=== PATIENT | female | born 1965 | race Caucasian/White ===

== ENCOUNTER 2022-08-26 22:18 | Inpatient (IN) ==
[2022-08-26] MEDS ORDERED: ALBUTEROL 0.083% NEBU SOLN 3 ML VIAL ONE (22:29)
[2022-08-26] MEDS ORDERED: ALBUT/IPRATROP 3MG/0.5MG NEB 3 ML VIAL NEB STA ×2 (22:30→23:26)
[2022-08-26] MEDS ORDERED: dexAMETHasone**PF** 10 MG/ML VIAL IV ONE (22:30)
[2022-08-26] MEDS ORDERED: ALBUT/IPRATROP 3MG/0.5MG NEB 3 ML VIAL ONE (22:31)
[2022-08-26] MEDS ORDERED: DEXAMETHASONE SOD INJ 4 MG/ML VIAL ONE (22:32)
[2022-08-26] MEDS ORDERED: NICOTINE 14 MG/24 HR PATCH TD STA (22:33)
[2022-08-26 23:12] LABS: Basophils # (auto) 0.08 K/uL (0-0.2); Basophils % (auto) 0.8 %; Eosinophils # (auto) 0.22 K/uL (0-0.50); Eosinophils % (auto) 2.2 %; Hemoglobin 14.9 g/dl (12.0-16.0); Immature Granulocytes # (auto) 0.04 K/uL (0.00-0.02); Immature Granulocytes % (auto) 0.4 %; Lymphocytes # (auto) 1.27 K/uL (1.2-3.4); Lymphocytes % (auto) 12.7 %; Mean Corpuscular Hgb Conc 33.9 g/dL (32.0-36.0); Mean Corpuscular Volume 88.5 fL (80.0-100.0); Monocytes # (auto) 0.96 K/uL (0.24-0.82); Monocytes % (auto) 9.6 %; Neutrophils # (auto) 7.46 K/uL (1.4-6.5); Neutrophils % (auto) 74.3 %; Platelet Count 330 K/uL (130-400); RDW Coefficient of Variation 13.2 % (11.5-14.5); RDW Standard Deviation 42.6 fL (36.4-46.3); Red Blood Count 4.97 M/uL (3.93-5.22); White Blood Count 10.03 K/ul (4.8-10.8)
[2022-08-26 23:18] LABS: Albumin Globulin Ratio 1.9 (0.9-2); BUN Creatinine Ratio 8.9 (10-20); Bilirubin,Total 1.2 mg/dl (0.2-1.0); Calcium 10.2 mg/dl (8.5-10.1); Creatinine Clr Calc Pharmacy 101.3 ml/min; Est GFR (African American) 118.3 ml/min; Est GFR (Non-African American) 102.1 ml/min; Globulin 2.6 gm/dl (2.5-4.0); Potassium 3.8 mmol/L (3.5-5.1); Total Protein 7.6 gm/dl (6.0-8.3)
[2022-08-26 23:21] LABS: Troponin I High Sensitivity 4.7 pg/ml (0-14)
[2022-08-26] MEDS ORDERED: SODIUM CHLORIDE 0.9% 1000ML 1,000 ML IV ONE (23:26)
[2022-08-26 23:52] LABS: Influenza A virus by PCR Negative (Neg); Influenza B virus by PCR Negative (Neg); RSV by PCR Negative (Neg); SARS CoV2 RNA(COVID-19) InHosp NEGATIVE (Negative)
[2022-08-27] MEDS ORDERED: OPTIRAY 320 500ml IV ONE (00:52)
[2022-08-27] MEDS ORDERED: ALBUT/IPRATROP 3MG/0.5MG NEB 3 ML VIAL NEB STA (01:03)
[2022-08-27] MEDS ORDERED: DOXYCYCLINE HYCLATE 100 MG in DEXTROSE 5% 100 ML IV STA (01:03)
--- NOTE | 2022-08-27 01:39 | History & Physical Report ---
Date of Service August 27, 2022 Assessment & Plan (1) Dyspnea: Plan: 57 y/o female w/ asthma, allergic rhinitis, atopic dermatitis, and tobacco use disorder who presents w/ dyspnea. - most likely asthma exacerbation vs copd exacerbation (w/o copd diagnosis); has elements of both. - CTA chest w/ peribronchial cuffing. not suggestive of PE. not suggestive of pneumonia - check procal - s/p 10mg IV Decadron. 40mg IV methylpred q8h - Xopenex/Atrovent nebs TID in setting of mild sinus tach - IV doxycycline BID, also would provide atypical coverage - continuous pulse ox. goal O2 90% or above - Mucinex - incentive spirom and flutter valve (2) Asthma with exacerbation: Plan: - hold home regimen; inpatient regimen as per above - outpatient PFTs, to also evaluate for copd (3) Hyponatremia: Plan: - check uosm - presumed hypotonic. euvolemic on exam. primary polydipsia and siadh would be most likely differentials - also considered Legionella infection (4) Tobacco use disorder: Plan: - nicotine patch - will need to diet counselor on tobacco cessation (5) Elevated blood pressure reading: Plan: - asymptomatic and w/o dx of htn. follow Plan FEN/GI: regular diet ppx: Lovenox code: full dispo: med/surg History of Present Illness Chief Complaint: shortness of breath Primary Care Provider: NO PCP 57 y/o female w/ asthma, allergic rhinitis, atopic dermatitis, and tobacco use disorder who presents w/ dyspnea. She follows [facility] allergy clinic w/ Dr. Moser. URI symptoms for a week w/ chest congestion, rhinorrhea nagging nonproductive cough. No fevers. States asthma is generally well controlled. Has had increased use of albuterol in past week. Smokes 1/4 to 1 ppd. Had pfts a few years ago. Denies dx of copd. She states she drinks a decent amount of water, but < 8 glasses per day. PCP was Dr. Brasher who has recently retired. Has had covid vaccines, but not booster. Mild headache. No chest pain or diarrhea. ED course: Duoneb. IV dexamethasone 10mg. NSS 1L. BP max 201/96. 87% on room air. ecg sinus tach 104 w/o ischemic changes. covid/flu/rsv neg. hypona 130. wbc 10.03. Allergies Allergy/AdvReac Type Severity Reaction Status Date / Time animal dander Allergy Unknown asthma Verified 08/27/22 01:24 related symptoms grass pollen-perennial rye, Allergy Unknown asthma Verified 08/27/22 01:24 standar related sx mold Allergy Unknown asthma Verified 08/27/22 01:24 related sx No Known Drug Allergies Allergy Unknown . Verified 08/27/22 03:33 Home Medications Medication Instructions Recorded Confirmed Type albuterol sulfate 90 mcg/actuation 1 inh inhalation QID PRN shortness 07/25/22 08/27/22 Rx aerosol inhaler (ProAir HFA) of breath or wheezing #18 grams fluticasone 100 mcg-salmeterol 50 1 inh inhalation BID 08/27/22 08/27/22 History mcg/dose blistr powdr for inhalation (Advair Diskus) Past Med/Surg History Medical History Asthma PNA (pneumonia) Surgical History History of surgical removal of ganglion cyst Family History Sister Asthma Allergic rhinitis Social History Smoking Status: Current every day smoker Tobacco Type: Cigarettes Hx Alcohol Use: Yes (occasional use) Hx Substance Use: No Preferred Language: Azeri marital status: current occupational status: employed Feels Safe at Home: Yes Review of Systems Review of Systems: All systems reviewed & are unremarkable except as noted in HPI & below Physical Exam Physical Exam: General: Grossly A&O. NAD. Cooperative. Receiving Duoneb breathing treatment at time of exam. HEENT: Atraumatic, normocephalic. EOMI Pulm: Slightly decreased air movement. Bases w/ mild expiratory mid-pitched wheezes vs transmitted upper airway sounds. No accessory muscle use. Cardiac: RRR, -mrg. No LE edema. Abdominal: Nontender, nondistended, soft. Integ: Warm, dry, intact. Msk: Moving all extrem. Results & Data Results & Data ([facility]) Vital Signs (Past 12 Hours) Vital Signs Temp Pulse Pulse Resp BP BP Pulse Ox 08/26/22 23:46 98 H 24 181/101 H 98 08/26/22 23:23 88 L 08/26/22 22:43 97 08/26/22 22:22 36.5 C 112 H 18 201/96 H 87 L O2 Del Method O2 Flow Rate 08/26/22 23:46 Nasal Cannula 3 08/26/22 23:23 Room Air 0 08/26/22 22:43 Nebulizer 08/26/22 22:22 Room Air Diagnostic Findings cxr w/o acute findings per my interpretation statrad. Preliminary Findings Only - See Final Report For Complete Findings CTA chest: Negative for PE. Peribronchial cuffing compatible with nonspecific bronchial inflammation/reactive airways disease. Subtle opacities at the lung bases likely reflect nonspecific atelectasis. No acute airspace disease or effusions noted. Radiologist: Arpit Bolton MD. Phone: [phone] Study ready at 00:50 and initial results transmitted at 00:59. Code Status & VTE Plan Code Status full VTE Prophylaxis Plan VTE Prophylaxis will be ordered: Yes Supervising Physician Co-Signing Physician Notes Attending addendum: I have physically seen this patient, have supervised the medical residents activities, and agree with the H&P unless as otherwise noted. Assessment and Plan: Asthma/COPD with exacerbation- Symptoms are significantly improved after ED treatment Received Decadron 10 mg IV from the ED. Placed on inpatient methylprednisolone 40 mg IV every 8 hours Nebulizers as noted Doxycycline 100 mg IV twice daily Guaifenesin extended release 12 mg p.o. twice daily Nasal cannula oxygen, titrate to keep pulse ox around 92%. Was initially 87% on room air Tobacco use disorder- Continue NicoDerm patch Cessation counseling Remaining orders and notations as noted Resident Activity Tracking Resident Involvement: Resident Care Provided Care Provided: Adult Hospital Medicine (1) Asthma with exacerbation Asthma persistence: persistent Asthma severity: severe Qualified Code(s): J45.51 - Severe persistent asthma with (acute) exacerbation
--- NOTE | 2022-08-27 02:54 | Emergency Department Note ---
History of Present Illness General Chief complaint: Respiratory Problems Stated complaint: TROUBLE BREATHING Time Seen by Provider: 08/26/22 22:26 History of Present Illness This 57-year-old who smokes with asthma presents to the ER complaining of shortness of breath Location: Chest Quality: Hard to breathe Severity: Moderate Duration: Past few days Timing: Started few days ago Context: Patient was concerned and came in Modifying factors: better with rest; worse with activity Patient states last time she felt like this she had double pneumonia. Patient denies chest pain, high fevers, vomiting, diarrhea, leg pain or swelling. She continues to smoke. No known history of COPD. She currently does not have a PCP. Home Medications Medication Instructions Recorded Confirmed Type albuterol sulfate 90 mcg/actuation 1 inh inhalation QID PRN shortness 07/25/22 08/27/22 Rx aerosol inhaler (ProAir HFA) of breath or wheezing #18 grams fluticasone 100 mcg-salmeterol 50 1 inh inhalation BID 08/27/22 08/27/22 History mcg/dose blistr powdr for inhalation (Advair Diskus) Allergies Allergy/AdvReac Type Severity Reaction Status Date / Time animal dander Allergy Unknown asthma Verified 08/27/22 01:24 related symptoms grass pollen-perennial rye, Allergy Unknown asthma Verified 08/27/22 01:24 standar related sx mold Allergy Unknown asthma Verified 08/27/22 01:24 related sx No Known Drug Allergies Allergy Unknown . Verified 08/27/22 03:33 Past Med/Surg History Medical History Asthma PNA (pneumonia) Surgical History History of surgical removal of ganglion cyst Family History Sister Asthma Allergic rhinitis Social History Smoking Status: Current every day smoker Tobacco Type: Cigarettes Cigarettes Per Day: 5-20 per day; Second Hand Exposure: No; Hx Alcohol Use: Yes Alcohol type: beer, wine and hard liquor Hx Substance Use: No Preferred Language: Qatari Communication Ability: Effective Corrections Caseworker Required: No Beliefs That Will Affect Care: None marital status: Single Current Living Situation: Alone current occupational status: employed Feels Safe at Home: Yes Assistive Devices: None Review of Systems A total of 10 systems reviewed and were otherwise negative Physical Exam Vital Signs Vital Signs - 24 hr 08/26/22 22:22 08/26/22 22:43 08/26/22 23:23 Temperature 36.5 C Temperature Source Temporal Artery Scan Pulse Rate 112 H Pulse Rate [Finger] Pulse Rhythm [Finger] Pulse Strength [Finger] Respiratory Rate 18 Respiratory Effort / Characteristics Non-Labored Spontaneous Respiratory Depth Normal Blood Pressure 201/96 H Blood Pressure [Right Arm] Blood Pressure Mean 131 Blood Pressure Mean [Right Arm] Blood Pressure Position Sitting Blood Pressure Position [Right Arm] Pulse Oximetry 87 L 97 88 L Oxygen Delivery Method Room Air Nebulizer Room Air Oxygen Flow Rate 0 Sepsis Recent Fever Within 48 Hours No Sepsis New/Unexplained Change in Mental Status No Sepsis Action Taken by Nursing No Action Required Oxygen Flow Rate - Titration 3 Pulse Oximetry Post Tiitration 93 08/26/22 23:46 08/27/22 02:03 Temperature Temperature Source Pulse Rate Pulse Rate [Finger] 98 H 100 H Pulse Rhythm [Finger] Regular Regular Pulse Strength [Finger] Normal Normal Respiratory Rate 24 22 Respiratory Effort / Characteristics Non-Labored Spontaneous Non-Labored Spontaneous Respiratory Depth Normal Normal Blood Pressure Blood Pressure [Right Arm] 181/101 H 155/113 H Blood Pressure Mean Blood Pressure Mean [Right Arm] 127 127 Blood Pressure Position Blood Pressure Position [Right Arm] Sitting Pulse Oximetry 98 93 Oxygen Delivery Method Nasal Cannula Nasal Cannula Oxygen Flow Rate 3 2 Sepsis Recent Fever Within 48 Hours Sepsis New/Unexplained Change in Mental Status Sepsis Action Taken by Nursing Oxygen Flow Rate - Titration Pulse Oximetry Post Tiitration PHYSICAL EXAM: Vital Signs: Reviewed Nurse's notes. Oxygen saturation was 88% on room air. GENERAL: Pleasant patient with audible wheeze, Alert, oriented and coherent. The patient barely able to speak in complete sentences. NECK: Supple, non-tender. CHEST: Symmetrical expansion. + retractions + accessory muscle use. HEART: Regular rate and normal heart sounds, LUNGS: Breath sounds equal but significantly diminished in intensity on both sides. Bilateral wheezes heard but no rales or pleuritic rub. SKIN: The skin was without rashes, erythema, edema, or bruising. There is no tenting of the skin. Capillary reflex less than 2 seconds. HEAD: Normocephalic atraumatic. EARS: External auditory canals clear, tympanic membranes pearly barrientos without erythema or effusion bilaterally. EYES: Pupils equal round and reactive to light and accommodation. Conjunctivae without injection, sclerae without icterus. Extraocular movements intact. NOSE: Patent, turbinates without inflammation or discharge. No sinus tenderness. MOUTH: Mucous membranes moist. Pharynx without erythema or exudate. Uvula midline. Airway patent. Tongue does not deviate. ABDOMEN: Positive bowel sounds x 4. Normal tympanic percussion. Soft, nontender, without masses or organomegaly. Bains sign negative. No guarding or rebound tenderness. MUSCULOSKELETAL: No muscle atrophy, erythema, or edema noted. NEURO: Patient was alert and oriented to person place and time. Normal sensation to light and sharp touch. No focal neurological deficits. Course Administered Medications Budesonide (Budesonide 0.5 Mg/2 Ml Vial (Pulmicort)) 0.5 mg NEB BIDR RJ Stop: 09/26/22 11:59 Last Admin: 08/27/22 19:21 Dose: 0.5 mg Documented By: Admin: 08/27/22 12:30 Dose: Not Given Documented By: [facility] Enoxaparin Sodium (Enoxaparin Inj 40 Mg/0.4 Ml Syr) 40 mg SQ QAM RJ Stop: 09/26/22 08:59 Last Admin: 08/27/22 09:03 Dose: Not Given Documented By: MINH Formoterol Fumarate (Formoterol 20 Mcg/2 Ml Vial) 20 mcg NEB BIDR RJ Stop: 09/26/22 11:59 Last Admin: 08/27/22 19:21 Dose: 20 mcg Documented By: Admin: 08/27/22 12:37 Dose: 20 mcg Documented By: [facility] Guaifenesin (Guaifenesin 600 Mg Tabcr) 600 mg PO Q12 RJ Stop: 09/26/22 08:59 Last Admin: 08/27/22 22:09 Dose: 600 mg Documented By: Admin: 08/27/22 05:59 Dose: 600 mg Documented By: MIGUEL Doxycycline Hyclate 100 mg/ (Dextrose) 110 mls @ 50 mls/hr IV Q12H RJ Stop: 09/03/22 13:59 Last Infusion: 08/28/22 04:12 Dose: 0 mls/hr Documented By: Admin: 08/28/22 02:00 Dose: 50 mls/hr Documented By: Infusion: 08/27/22 16:00 Dose: 0 mls/hr Documented By: Admin: 08/27/22 13:41 Dose: 50 mls/hr Documented By: MINH Ipratropium [place] (Ipratropium [place] Neb Soln 0.02% 2.5 Ml Vial) 0.5 mg INH TIDR RJ Stop: 09/26/22 06:59 Last Admin: 08/27/22 20:10 Dose: Not Given Documented By: Admin: 08/27/22 12:28 Dose: 0.5 mg Documented By: Admin: 08/27/22 07:00 Dose: 0.5 mg Documented By: ELIZ Levalbuterol HCl (Levalbuterol Hcl 0.63 Mg/3 Ml Neb) 0.63 mg NEB TIDR RJ Stop: 09/26/22 06:59 Last Admin: 08/27/22 20:09 Dose: Not Given Documented By: Admin: 08/27/22 12:28 Dose: 0.63 mg Documented By: Admin: 08/27/22 07:00 Dose: 0.63 mg Documented By: Sherwin Nicotine (Nicotine 14 Mg/24 Hr Patch) 14 mg TD QAM RJ Stop: 09/26/22 08:59 Last Admin: 08/27/22 09:03 Dose: 14 mg Documented By: MINH Discontinued Medications Albuterol (Albuterol 0.083% Nebu Soln 3 Ml Vial) Confirm Administered Dose 2.5 mg .ROUTE .STK-MED ONE Stop: 08/26/22 22:30 Last Admin: 08/26/22 22:44 Dose: 2.5 mg Documented By: JUAN A Albuterol (Albut/Ipratrop 3mg/0.5mg Neb 3 Ml Vial) 3 ml NEB NOW STA; Protocol Stop: 08/26/22 22:31 Last Admin: 08/26/22 22:44 Dose: Not Given Documented By: MES Albuterol (Albut/Ipratrop 3mg/0.5mg Neb 3 Ml Vial) Confirm Administered Dose 3 ml .ROUTE .STK-MED ONE Stop: 08/26/22 22:32 Last Admin: 08/26/22 22:44 Dose: 3 ml Documented By: JUAN A Albuterol (Albut/Ipratrop 3mg/0.5mg Neb 3 Ml Vial) 3 ml NEB NOW STA; Protocol Stop: 08/26/22 23:27 Last Admin: 08/26/22 23:34 Dose: 3 ml Documented By: SOCORRO Albuterol (Albut/Ipratrop 3mg/0.5mg Neb 3 Ml Vial) 3 ml NEB NOW STA; Protocol Stop: 08/27/22 01:04 Last Admin: 08/27/22 01:30 Dose: 3 ml Documented By: SOCORRO Dexamethasone (Dexamethasone Sod Inj 4 Mg/Ml Vial) Confirm Administered Dose 4 mg .ROUTE .STK-MED ONE Stop: 08/26/22 22:33 Last Admin: 08/26/22 22:44 Dose: Not Given Documented By: JUAN A Dexamethasone Sodium Phosphate (DexamethasonePf 10 Mg/Ml Vial) 10 mg IV NOW ONE Stop: 08/26/22 22:31 Last Admin: 08/26/22 22:44 Dose: 10 mg Documented By: JUAN A Sodium Chloride (Nss 1000ml) 1,000 mls @ 999 mls/hr IV .Q1H1M ONE Stop: 08/27/22 00:26 Last Infusion: 08/27/22 00:30 Dose: 0 mls/hr Documented By: Admin: 08/26/22 23:34 Dose: 999 mls/hr Documented By: SOCORRO Doxycycline Hyclate 100 mg/ (Dextrose) 110 mls @ 50 mls/hr IV NOW STA Stop: 08/27/22 03:14 Last Infusion: 08/27/22 03:58 Dose: 0 mls/hr Documented By: Admin: 08/27/22 01:58 Dose: 50 mls/hr Documented By: SOCORRO Ioversol (Optiray 320 500ml) 107 ml IV ONCE ONE Stop: 08/27/22 00:53 Last Admin: 08/27/22 00:52 Dose: 107 ml Documented By: DEMETRICE Miscellaneous (Remove Nicoderm Patch) 1 each N/A DAILY@0859 RJ Stop: 08/27/22 09:00 Last Admin: 08/27/22 09:03 Dose: 1 each Documented By: MINH Nicotine (Nicotine 14 Mg/24 Hr Patch) 14 mg TD NOW STA Stop: 08/26/22 22:34 Last Admin: 08/26/22 22:46 Dose: 14 mg Documented By: JUAN A Medical Decision Making Medical Records Attestation: I reviewed the patient's medical records. Home Medications Current Medication List: was personally reviewed by me Laboratory Data Attestation: I reviewed the patient's lab results. Result diagrams: 08/27/22 06:11 08/27/22 06:11 Lab Results 08/26/22 08/26/22 08/26/22 Range/Units 22:40 22:40 22:40 WBC 10.03 (4.8-10.8) K/ul RBC 4.97 (3.93-5.22) M/uL Hgb 14.9 (12.0-16.0) g/dl Hct 44.0 (34.1-44.9) % MCV 88.5 (80.0-100.0) fL MCH 30.0 (25.0-34.0) pg MCHC 33.9 (32.0-36.0) g/dL RDW Std Deviation 42.6 (36.4-46.3) fL RDW Coeff of Tea 13.2 (11.5-14.5) % Plt Count 330 (130-400) K/uL MPV 10.0 (9.4-12.3) fL Immature Gran % (Auto) 0.4 % Neut % (Auto) 74.3 % Lymph % (Auto) 12.7 % [place] % (Auto) 9.6 % Eos % (Auto) 2.2 % Baso % (Auto) 0.8 % Neut # (Auto) 7.46 H (1.4-6.5) K/uL Lymph # (Auto) 1.27 (1.2-3.4) K/uL [place] # (Auto) 0.96 H (0.24-0.82) K/uL Eos # (Auto) 0.22 (0-0.50) K/uL Baso # (Auto) 0.08 (0-0.2) K/uL Immature Gran # (Auto) 0.04 H (0.00-0.02) K/uL Sodium 130 L (136-145) mmol/L Potassium 3.8 (3.5-5.1) mmol/L Chloride 97 L (98-107) mmol/L Carbon Dioxide 25 (21-32) mmol/L Anion Gap 8 (3-11) BUN 5 L (6-23) mg/dl Creatinine 0.56 L (0.6-1.2) mg/dl Est Cr Clr Drug Dosing 101.3 ml/min Est GFR ( Amer) 118.3 ml/min Est GFR (Non-Af Amer) 102.1 ml/min BUN/Creatinine Ratio 8.9 L (10-20) Glucose 108 H (70-99(Fasting)) mg/dl Calcium 10.2 H (8.5-10.1) mg/dl Total Bilirubin 1.2 H (0.2-1.0) mg/dl AST 22 (13-39) U/L ALT 19 (7-52) U/L Alkaline Phosphatase 61 (34-104) U/L Troponin I High Sens 4.7 (0-14) pg/ml Total Protein 7.6 (6.0-8.3) gm/dl Albumin 5.0 (3.4-5.0) gm/dl Globulin 2.6 (2.5-4.0) gm/dl Albumin/Globulin Ratio 1.9 (0.9-2) SARS-CoV-2 (PCR) NEGATIVE (Negative) Influenza Type A (PCR) Negative (Neg) Influenza Type B (PCR) Negative (Neg) RSV (RT-PCR) Negative (Neg) Imaging Data Attestation: I personally reviewed and interpreted this imaging study as follows: MDM Narrative Prior records/ancillary studies reviewed. Triage Nursing notes reviewed. Additional history obtained from nursing The patient's history was concerning for respiratory difficulties. Differential diagnosis: Etiologies such as infections, reactive airway disease, pneumonia, pneumothorax, COPD, CHF, cardiac ischemia, pulmonary embolism, musculoskeletal, gastrointestinal, as well as others were entertained. Physical examination: As above. ER treatment provided: An order was placed for continuous cardiac monitoring. The monitor shows a rate of 60-1 50 with a sinus rhythm. Nebulizers, steroids, nicotine patch, doxycycline On reassessment the patient felt better. Diagnostic interpretation by me: The electrocardiogram was negative for acute ischemic or pathologic change. Ordered for dyspnea EKG: Normal sinus, normal intervals, no acute ST-T wave changes. Impression sinus tachycardia of 104 interpreted by myself I think arrhythmia is unlikely. EKG shows normal sinus rhythm with no interval abnormalities such as QT prolongation or WPW. There are no findings to suggest Brugada syndrome. Cardiac monitoring in the emergency department reveals no tachycardic or bradycardic dysrhythmia. Hypertrophic cardiomyopathy was considered but there are no clear historical elements pointing toward this. EKG is not suggestive. The QRS voltage is not extremely large and there are no suggestive Q waves. The labs revealed negative troponin, negative COVID Imaging studies: Chest x-ray with no acute consolidation, pneumothorax or free air per my interpretation CTA CHEST: Negative for PE Peribronchial cuffing compatible with nonspecific bronchial inflammation/reactive airways disease Subtle opacities at the lung bases likely reflect nonspecific atelectasis. No acute airspace disease or effusions noted Radiologist: Arpit Bolton MD Consultation: A consultation was placed with the hospitalist. The case was discussed and diagnostics were reviewed. The patient was evaluated in the ER for further treatment. This appears to be consistent with asthma exacerbation who is hypoxic. There probably is a COPD component in this. Patient was hypoxic on room air. She improved with nasal cannula. Medicine was consulted. She will be evaluated for admission. Patient started on doxycycline for possible secondary infection. No PE on imaging. By the evaluation outlined above emergent etiologies such as CHF, cardiac ischemia, pulmonary embolism, pneumothorax, musculoskeletal, serious bacterial infections, as well as others were deemed relatively unlikely. The pt informed about the findings as listed above. All questions were answered and pleased with the treatment. The chart was completed utilizing [employer] Speech voice recognition software. Grammatical errors, random word insertions, pronoun errors, and incomplete sentences are an occassional consequence of this system due to software limitations, ambient noise, and hardware issues. Any formal questions or concerns about the content, text, or information contained within the body of this dictation should be directly addressed to the physician surgical assistant certified for clarification. Impression & Plan Asthma with exacerbation, Hypoxemia Discharge Plan Visit Data Chief Complaint: Respiratory Problems Stated Complaint: TROUBLE BREATHING ED Provider: Aaron Hardin ED Midlevel Provider: Caryl Martinez Discharge Problem: Asthma with exacerbation, Hypoxemia Patient Disposition: Admitted As Inpatient Condition: Fair Discharge Instructions Interventions: ED Discharge Assessment Last Done: 08/27/22 04:27 : Asthma with exacerbation Qualifiers: Asthma severity: severe Asthma persistence: persistent Qualified Code(s): J45.51 - Severe persistent asthma with (acute) exacerbation
--- NOTE | 2022-08-27 04:27 | Billing Data ---
Date of Service August 27, 2022 Coding Level of Care Code 31374 Initial Inpt Care Lvl 2
[2022-08-27] MEDS ORDERED: ONDANSETRON INJ 2 MG/ML 2 ML VIAL IV PRN (04:53)
[2022-08-27] MEDS ORDERED: ACETAMINOPHEN 325 MG TAB PO PRN (04:53)
[2022-08-27] MEDS: guaiFENesin 600 MG TABCR PO SCH ×2 (05:59→22:09)
[2022-08-27] MEDS ORDERED: Flu Vaccine (Fluarix) 0.5mL SYR (Standard Dose) IM ONE (06:15)
[2022-08-27] MEDS ORDERED: Nursing to Pharmacy Communication SCH (06:30)
[2022-08-27 06:32] LABS: Base Excess VBG 0.3 mEq/L; HCO3 VBG 27 mmol/L; Oxygen Saturation VBG < 60.0 %; PCO2 VBG 48 mmHg (38-50); PO2 VBG 28 mmHg; pH VBG 7.35 (7.36-7.41)
[2022-08-27 06:36] LABS: Hematocrit (blood only) 43.6 % (34.1-44.9); Hemoglobin 15.1 g/dl (12.0-16.0); Mean Corpuscular Hemoglobin 30.3 pg (25.0-34.0); Mean Corpuscular Hgb Conc 34.6 g/dL (32.0-36.0); Mean Corpuscular Volume 87.4 fL (80.0-100.0); Mean Platelet Volume 9.5 fL (9.4-12.3); Platelet Count 333 K/uL (130-400); RDW Coefficient of Variation 13.2 % (11.5-14.5); RDW Standard Deviation 42.2 fL (36.4-46.3); Red Blood Count 4.99 M/uL (3.93-5.22); White Blood Count 4.68 K/ul (4.8-10.8)
[2022-08-27] MEDS: LEVALBUTEROL HCL 0.63 MG/3 ML NEB NEB SCH ×3 (07:00→20:09)
[2022-08-27] MEDS ORDERED: XOPENEX/ATROVENT 0.63mg/0.5MG NEB COMBO NEB SCH ×2 (07:00)
[2022-08-27] MEDS: IPRATROPIUM BROMIDE NEB SOLN 0.02% 2.5 ML VIAL INH SCH ×3 (07:00→20:10)
[2022-08-27 07:01] LABS: Albumin Globulin Ratio 1.7 (0.9-2); Albumin Level 4.7 gm/dl (3.4-5.0); BUN Creatinine Ratio 9.6 (10-20); Bilirubin,Total 0.9 mg/dl (0.2-1.0); Est GFR (African American) 121.2 ml/min; Est GFR (Non-African American) 104.6 ml/min; Globulin 2.8 gm/dl (2.5-4.0); Magnesium 2.2 mg/dl (1.7-2.4); Potassium 4.2 mmol/L (3.5-5.1); Total Protein 7.5 gm/dl (6.0-8.3)
[2022-08-27 07:13] LABS: Basophils # (auto) 0.01 K/uL (0-0.2); Basophils % (auto) 0.2 %; Immature Granulocytes # (auto) 0.01 K/uL (0.00-0.02); Immature Granulocytes % (auto) 0.2 %; Lymphocytes # (auto) 0.32 K/uL (1.2-3.4); Lymphocytes % (auto) 6.8 %; Monocytes # (auto) 0.06 K/uL (0.24-0.82); Monocytes % (auto) 1.3 %; Neutrophils # (auto) 4.28 K/uL (1.4-6.5); Neutrophils % (auto) 91.5 %
--- NOTE | 2022-08-27 07:23 | Communication Note ---
Date of Service: August 27, 2022 patient requested flu vaccine. will defer for now in setting of URI vs copd/asthma exac. please administer flu vaccine prior to discharge
--- NOTE | 2022-08-27 08:24 | Electrocardiogram Report ---
Test Reason : Blood Pressure : / mmHG Vent. Rate : 104 BPM Atrial Rate : 104 BPM P-R Int : 158 ms QRS Dur : 080 ms QT Int : 362 ms P-R-T Axes : 078 -14 076 degrees QTc Int : 476 ms Poor data quality, interpretation may be adversely affected Sinus tachycardia Right atrial enlargement Borderline ECG No previous ECGs available Confirmed by Froilan Mendoza ([id number]) on 08/27/2022 8:23:58 AM Referred By: REFERRED SELF Confirmed By:Froilan Mendoza
--- NOTE | 2022-08-27 08:30 | CT Scan Report ---
CHEST CTA for PULMONARY ARTERIES CT DOSE: 271.26 mGy.cm HISTORY: Sutures of breath. Hypoxia. TECHNIQUE: Multiaxial CT images of the chest were performed following the intravenous administration of contrast to evaluate the pulmonary arteries. Maximal intensity projection images were also obtaine d. A dose lowering technique was utilized adhering to the principles of ALARA. COMPARISON STUDY: None. FINDINGS: The visualized liver, spleen, and adrenal glands unremarkable. There is trace perisplenic f luid. There is a small hiatus hernia. Normal esophagus. The thyroid gland enhances normally. No media stinal or hilar lymphadenopathy. No pleural or pericardial effusions. Normal caliber thoracic aorta w ith no evidence for dissection. No filling defects within the pulmonary arteries to suggest a pulmona ry embolus. No acute fractures identified. The central airways are patent. There are few scattered sm all patchy groundglass densities seen within the lungs. There is mild bronchial wall thickening. IMPRESSION: 1. No evidence for pulmonary embolus. 2. Mild bronchial wall thickening with a few scattered patchy groundglass densities seen throughout t he lungs. This favors a mild infectious pneumonitis. 3. Small hiatus hernia. ACT 112: Negative or not required by law. Electronically signed by: Chaim Veronica M.D. 08/27/2022 8:29 AM
[2022-08-27] MEDS: NICOTINE 14 MG/24 HR PATCH TD SCH (09:03)
[2022-08-27] MEDS: ENOXAPARIN INJ 40 MG/0.4 ML SYR SQ SCH (09:03)
--- NOTE | 2022-08-27 09:08 | XRay Report ---
XR chest 1V portable HISTORY: cough COMPARISON: Chest 12/16/2014. FINDINGS: The lungs are clear. Cardiac silhouette is normal in size. No pleural effusions. No pneumot horax. IMPRESSION: No acute process. ACT 112: Negative or not required by law. Electronically signed by: Chaim Veronica M.D. 08/27/2022 9:07 AM
--- NOTE | 2022-08-27 11:59 | History & Physical Bridge Note ---
Date of Service August 27, 2022 History & Physical Bridge Note I have examined the patient, reviewed the History & Physical and in the interval since the performance of the History & Physical I have noted the following changes of clinical significance: Patient seen on daily rounds this morning. Pt hospitalized with dyspnea which is felt to be related to aecopd/asthma. She reports last PFTs done in 2019, does not have an appt with Dr. Moser until Jul 2023. She currently takes Advair and prn Albuterol HFA. 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 Does not normally wear home O2, currently on 2L with a pulse ox of 94%. Does have a dry cough. VSS, afebrile. Examination reveals fair air exchange, no conversational dyspnea, and end expiratory wheezes throughout, no rhonchi or rales. Heart is regular. Legs w/o edema. Belly soft NT ND with normoactive BS. Will add nebulized Budesonide and Formoterol BID. Continue IV solumedrol, mucinex, and scheduled Xopenex/Atrovent. Keep pulse ox 89-92% - can wean O2 with this goal in mind. Pt will need PFTs in about 4-6 weeks. Plan d/w Dr. Arizmendi.
[2022-08-27] MEDS: BUDESONIDE 0.5 MG/2 ML VIAL (PULMICORT) NEB SCH ×2 (12:30→19:21)
[2022-08-27] MEDS: FORMOTEROL 20 MCG/2 ML VIAL NEB SCH ×2 (12:37→19:21)
[2022-08-27] MEDS: DOXYCYCLINE HYCLATE 100 MG in DEXTROSE 5% 100 ML IV SCH (13:41)
[2022-08-28] MEDS: DOXYCYCLINE HYCLATE 100 MG in DEXTROSE 5% 100 ML IV SCH (02:00)
[2022-08-28] MEDS: BUDESONIDE 0.5 MG/2 ML VIAL (PULMICORT) NEB SCH ×2 (07:18→19:10)
[2022-08-28] MEDS: FORMOTEROL 20 MCG/2 ML VIAL NEB SCH ×2 (07:19→19:10)
[2022-08-28] MEDS: IPRATROPIUM BROMIDE NEB SOLN 0.02% 2.5 ML VIAL INH SCH ×3 (07:19→19:12)
[2022-08-28] MEDS: LEVALBUTEROL HCL 0.63 MG/3 ML NEB NEB SCH ×3 (07:19→19:12)
[2022-08-28] MEDS: guaiFENesin 600 MG TABCR PO SCH ×2 (08:39→21:16)
[2022-08-28] MEDS: ENOXAPARIN INJ 40 MG/0.4 ML SYR SQ SCH (08:40)
[2022-08-28] MEDS: NICOTINE 14 MG/24 HR PATCH TD SCH (08:40)
[2022-08-28] MEDS ORDERED: levoFLOXacin 500 MG TAB PO STA (12:01)
--- NOTE | 2022-08-28 12:04 | Discharge Summary ---
Date of Service August 28, 2022 Admission HPI Per Admitting Provider 57 y/o female w/ asthma, allergic rhinitis, atopic dermatitis, and tobacco use disorder who presents w/ dyspnea. She follows [facility] allergy clinic w/ Dr. Moser. URI symptoms for a week w/ chest congestion, rhinorrhea nagging nonproductive cough. No fevers. States asthma is generally well controlled. Has had increased use of albuterol in past week. Smokes 1/4 to 1 ppd. Had pfts a few years ago. Denies dx of copd. She states she drinks a decent amount of water, but < 8 glasses per day. PCP was Dr. Brasher who has recently retired. Has had covid vaccines, but not booster. Mild headache. No chest pain or diarrhea. ED course: Duoneb. IV dexamethasone 10mg. NSS 1L. BP max 201/96. 87% on room air. ecg sinus tach 104 w/o ischemic changes. covid/flu/rsv neg. hypona 130. wbc 10.03. Discharge Data Allergies Allergy/AdvReac Type Severity Reaction Status Date / Time animal dander Allergy Unknown asthma Verified 08/27/22 01:24 related symptoms grass pollen-perennial rye, Allergy Unknown asthma Verified 08/27/22 01:24 standar related sx mold Allergy Unknown asthma Verified 08/27/22 01:24 related sx No Known Drug Allergies Allergy Unknown . Verified 08/27/22 03:33 Consultations 08/27/22 01:03 ED Decision to Admit Stat Ordered Studies 08/26/22 23:28 CT angio chest PE protocol Stat Hospital Course (1) Dyspnea: 57 y/o female w/ asthma, allergic rhinitis, atopic dermatitis, and tobacco use disorder who presents w/ dyspnea. - most likely asthma exacerbation vs copd exacerbation (w/o copd diagnosis); has elements of both. - CTA chest w/ peribronchial cuffing. not suggestive of PE. not suggestive of pneumonia - check procal - s/p 10mg IV Decadron. 40mg IV methylpred q8h - Xopenex/Atrovent nebs TID in setting of mild sinus tach - IV doxycycline BID, also would provide atypical coverage - continuous pulse ox. goal O2 90% or above - Mucinex - incentive spirom and flutter valve (2) Asthma with exacerbation: - hold home regimen; inpatient regimen as per above - outpatient PFTs, to also evaluate for copd (3) Hyponatremia: - check uosm - presumed hypotonic. euvolemic on exam. primary polydipsia and siadh would be most likely differentials - also considered Legionella infection (4) Tobacco use disorder: - nicotine patch - will need to classification counselor on tobacco cessation (5) Elevated blood pressure reading: - asymptomatic and w/o dx of htn. follow Plan FEN/GI: regular diet ppx: Lovenox code: full dispo: med/surg Discharge Plan Discharge Items Patient Disposition: Home - Self-Care Reason For Visit: DYSPNEA Discharge Diagnosis: asthma exacerbation questionable chronic obstructive lung disease Condition on Discharge: Fair Activity: Resume your previous activity Non-emergency contact: Primary Care Provider Call non-emergency contact if: you have any medication questions Follow-up/Referrals: PCPNANCY [Primary Care Provider] - Diet: Regular Addtl Attending Provider Instructions: You were hospitalized due to shortness of breath. Your work up demonstrated some evidence of infection in your lungs and subsequently you were started on antibiotics, breathing treatments, and steroids, as well as oxygen. You have responded well to treatment and have been able to be weaned off of oxygen. Given your tobacco use, I suspect that you may have some underlying chronic obstructive lung disease in addition to your asthma. This cannot be confirmed based on suspicion alone, therefore you will need to have formal pulmonary function testing done to confirm or exclude this diagnosis. In the meantime, I am arranging for you to get a nebulizer to use consistently four times a day over the next 48-72 hours. After that, you can use the treatments every 4 hours as needed for shortness of breath or wheezing. Duoneb treatments have been sent to your pharmacy. You will need to continue the steroid taper as directed. Take with food first thing in the morning. Please also complete the course of antibiotics prescribed. You are being sent home on Levaquin 500mg daily for 7 days total. Your next dose will be due on 08/29/22 in the morning. I would also encourage you to continue taking Mucinex for the next 5-7 days. I would encourage you to remain off work for the rest of this week just to ensure that you are well rested prior to returning. Please follow up with your established family physician within 1 week of discharge from the hospital. If you have any questions/concerns following your discharge, feel free to contact the nonemergen contact number listed on your discharge paperwork. In the event of a medical emergency, call 911. Pending Studies at Discharge: No Stand-Alone Forms: My [facility], Smoking Cessation Medications and DC Order Prescriptions: New ipratropium-albuterol 0.5 mg-3 mg(2.5 mg base)/3 mL solution for nebulization 3 ml inhalation Q4H PRN (Reason: shortness of breath) Qty: 180 0RF Rx Instructions: until breathing returns to target peak flow/parameters prednisone 10 mg tablet 10 mg PO DAILY Qty: 30 0RF Rx Instructions: 4 tabs daily x 3 days, 3 tabs daily x 3 days, 2 tabs daily x 3 days, 1 tab daily x 3 days then stop levofloxacin 500 mg tablet 500 mg PO DAILY Qty: 6 0RF Continued albuterol sulfate [ProAir HFA] 90 mcg/actuation HFA aerosol inhaler 1 inh inhalation QID PRN (Reason: shortness of breath or wheezing) Qty: 18 11RF fluticasone propion-salmeterol [Advair Diskus] 100-50 mcg/dose blister with device 1 inh INHALATION BID Admission Data Admit Date/Time: 08/27/22 02:56 Attending Provider: Rashawn Craft Admit Provider: Jose Rivera Primary Care Provider: PCP,NO Other Providers: Alec Moser ; Cruz Florez Coding Diagnoses Dyspnea R06.00 Asthma with exacerbation J45.51 Asthma persistence: persistent Asthma severity: severe Hyponatremia E87.1 Tobacco use disorder F17.200 Elevated blood pressure reading R03.0
--- NOTE | 2022-08-28 13:47 | Hospitalist Progress Note ---
Date of Service August 28, 2022 Assessment & Plan (1) Pneumonitis: Plan: With associated dyspnea and hypoxia - Likely due to infectious source - Aggressive pulmonary toilette including pulmicort, formoterol, mucolytics, and steroids - Initially ordered Doxycycline, given evidence of infection with underlying tobacco use/asthma and ? copd, change to Levaquin - Does not have a prolonged QTc on EKG - Levaquin 500mg daily x total of 7 days - Supplemental O2 with goal sat 88-92% - Two-step in AM - Will need updated PFTs in 4-6 weeks to exclude or confirm obstructive lung disease pattern (2) Hyponatremia: Plan: - Mild, 133 on 08/27, stable (3) Tobacco use disorder: Plan: - Cessation counseling provided - Nicotine patch ordered (4) Asthma: Plan: - Long standing h/o asthma and allergic rhinitis - Follow up with Dr. Moser as scheduled Plan Plan to maintain hospitalization for another 24 hours as she is still borderline hypoxic with ambulation. Pt would prefer not to have to return home on supplemental O2. Two step in AM. Plan d/w Dr. Craft. Admission and Anticipated Discharge Date Admission Date: August 27, 2022 Subjective Patient seen on daily rounds this morning. She is resting comfortably in bed and offers no new complaints or concerns. Reports breathing is improved. Only gets mildly short of breath with walking distances. RN performed ambulatory pulse ox and she dipped to 87%. She did recover with rest. Review of Systems Review of Systems: All systems reviewed and are unremarkable except as noted in HPI and below. Denies fever, chills, fatigue, headache, nasal congestion, sore throat, chest pain, palpitations, orthopnea, PND, abdominal pain, n/v/d, constipation, dysuria, hematuria, frequency, back pain, joint pain or swelling, easy bruising or bleeding, skin lesions or rashes. Physical Exam Physical Exam: GENERAL: 57 yo Well-developed, well-nourished WF. NAD. LUNGS: No conversational dyspnea. Good air exchange. Late end expiratory wheezes appreciated in all lung brandon. CARDIOVASCULAR: Regular rate and rhythm. ABDOMEN: Soft, non-tender and non-distended. BS normoactive x 4 quad. EXTREMITIES: No edema. Non-tender. Peripheral pulses +2/4. NEUROLOGIC: A&O x3. PSYCHIATRIC: Cooperative. Appropriate mood and affect. SKIN: Warm, dry, intact. Results & Data Results & Data ([facility]) Vital Signs (Past 12 Hours) Vital Signs Temp Pulse Resp Resp Resp Resp BP 08/28/22 13:16 80 16 08/28/22 11:10 22 20 16 08/28/22 09:00 08/28/22 08:27 36.8 C 67 16 138/80 08/28/22 07:21 76 18 08/28/22 04:05 Pulse Ox Pulse Ox Pulse Ox Pulse Ox O2 Del Method 08/28/22 13:16 92 Room Air 08/28/22 11:10 87 L 91 94 Room Air 08/28/22 09:00 Room Air 08/28/22 08:27 94 Room Air 08/28/22 07:21 92 Room Air 08/28/22 04:05 Room Air PG Care Time/CCT Total # of Minutes Spent Total Time Spent with Patient: Total time spent is greater than 50% in coordination of care (as documented) at patient's floor/unit and/or counseling patient: Coding Level of Care Code 65137 Subseq Hosp Care Lvl 2 Diagnoses Pneumonitis J18.9 Hyponatremia E87.1 Tobacco use disorder F17.200 Asthma J45.909
[2022-08-29] MEDS: IPRATROPIUM BROMIDE NEB SOLN 0.02% 2.5 ML VIAL INH SCH ×2 (07:25→12:23)
[2022-08-29] MEDS: BUDESONIDE 0.5 MG/2 ML VIAL (PULMICORT) NEB SCH (07:25)
[2022-08-29] MEDS: LEVALBUTEROL HCL 0.63 MG/3 ML NEB NEB SCH ×2 (07:25→12:23)
[2022-08-29] MEDS: FORMOTEROL 20 MCG/2 ML VIAL NEB SCH (07:25)
[2022-08-29] MEDS: NICOTINE 14 MG/24 HR PATCH TD SCH (08:11)
[2022-08-29] MEDS: ENOXAPARIN INJ 40 MG/0.4 ML SYR SQ SCH (08:13)
[2022-08-29] MEDS: guaiFENesin 600 MG TABCR PO SCH (09:00)
[2022-08-29] MEDS ORDERED: levoFLOXacin 500 MG TAB PO SCH (11:00)
--- NOTE | 2022-08-29 14:52 | Discharge Summary ---
Date of Service August 29, 2022 Admission HPI Per Admitting Provider Chief Complaint: shortness of breath Primary Care Provider: NO PCP 57 y/o female w/ asthma, allergic rhinitis, atopic dermatitis, and tobacco use disorder who presents w/ dyspnea. She follows [facility] allergy clinic w/ Dr. Moser. URI symptoms for a week w/ chest congestion, rhinorrhea nagging nonproductive cough. No fevers. States asthma is generally well controlled. Has had increased use of albuterol in past week. Smokes 1/4 to 1 ppd. Had pfts a few years ago. Denies dx of copd. She states she drinks a decent amount of water, but < 8 glasses per day. PCP was Dr. Brasher who has recently retired. Has had covid va ccines, but not booster. Mild headache. No chest pain or diarrhea. ED course: Duoneb. IV dexamethasone 10mg. NSS 1L. BP max 201/96. 87% on room air. ecg sinus tach 104 w/o ischemic changes. covid/flu/rsv neg. hypona 130. wbc 10.03.Allergies Admission Exam Per Admitting Provider Physical Exam: General: Grossly A&O. NAD. Cooperative. Receiving Duoneb breathing treatment at time of exam. HEENT: Atraumatic, normocephalic. EOMI Pulm: Slightly decreased air movement. Bases w/ mild expiratory mid-pitched wheezes vs transmitted upper airway sounds. No accessory muscle use. Cardiac: RRR, -mrg. No LE edema. Abdominal: Nontender, nondistended, soft. Integ: Warm, dry, intact. Msk: Moving all extrem. Principal Diagnosis Shortness of breath Discharge Exam GENERAL : No acute distress EYES: No icterus, gaze conjugate NOSE: No evidence of epistaxis MOUTH: No lesions or candidiasis NECK: Supple LUNGS: CTA B/L, no wheezes, rales or rhonchi. Good inspirational effort. Breath sounds equal to the bases. HEART: Regular, rate controlled ABDOMEN: Soft, NT, ND, BS Present EXTREMITIES: No LE edema, pedal pulses intact NEURO: A&OX3 Discharge Data Allergies Allergy/AdvReac Type Severity Reaction Status Date / Time animal dander Allergy Unknown asthma Verified 08/27/22 01:24 related symptoms grass pollen-perennial rye, Allergy Unknown asthma Verified 08/27/22 01:24 standar related sx mold Allergy Unknown asthma Verified 08/27/22 01:24 related sx No Known Drug Allergies Allergy Unknown . Verified 08/27/22 03:33 Consultations 08/27/22 01:03 ED Decision to Admit Stat Ordered Studies 08/26/22 23:28 CT angio chest PE protocol Stat CHEST CTA for PULMONARY ARTERIES CT DOSE: 271.26 mGy.cm HISTORY: Sutures of breath. Hypoxia. TECHNIQUE: Multiaxial CT images of the chest were performed following the intravenous administration of contrast to evaluate the pulmonary arteries. Maximal intensity projection images were also obtained. A dose lowering technique was utilized adhering to the principles of ALARA. COMPARISON STUDY: None. FINDINGS: The visualized liver, spleen, and adrenal glands unremarkable. There is trace perisplenic fluid. There is a small hiatus hernia. Normal esophagus. The thyroid gland enhances normally. No mediastinal or hilar lymphadenopathy. No pleural or pericardial effusions. Normal caliber thoracic aorta with no evidence for dissection. No filling defects within the pulmonary arteries to suggest a pulmonary embolus. No acute fractures identified. The central airways are paten t. There are few scattered small patchy groundglass densities seen within the lungs. There is mild bronchial wall thickening. IMPRESSION: 1. No evidence for pulmonary embolus. 2. Mild bronchial wall thickening with a few scattered patchy groundglass densities seen throughout the lungs. This favors a mild infectious pneumonitis. 3. Small hiatus hernia. ACT 112: Negative or not required by law. Electronically signed by: Chaim Veronica M.D. 08/27/2022 8:29 AM Hospital Course (1) Pneumonitis: Patient presented with dyspnea and was found to have pneumonitis on imaging. CT scan was completed and showed no evidence of pulmonary emboli. Patient was given IV antibiotics for total of 7 days and improved significantly. Patient is followed with Dr. Moon and with Dr. Moser for allergy in the past. Most recent pulmonary function testing was performed 03/25/2017 and showed mild obstructive small airway disease with an FEV1 of 87%. FEF 25-75% was 1.97 L which was 70% of predicted. Patient's last visit for allergy was with Dr. Moser 07/25/2022. With associated dyspnea and hypoxia - Likely due to infectious source - Aggressive pulmonary toilette including pulmicort, formoterol, mucolytics, and steroids was effective in improving patient's symptoms. - Initially ordered Doxycycline, given evidence of infection with underlying tobacco use/asthma and ? copd, change to Levaquin - Does not have a prolonged QTc on EKG - Levaquin 500mg daily x total of 7 days - Supplemental O2 with goal sat 88-92% -Patient was personally walked by me for more than 400 feet with no hypoxia on room air. -Suggested the patient discuss obtaing updated PFTs. Patient was advised to follow-up with Dr. Moser as she just saw him last month for his advice. * Most recent pulmonary function tests from 03/25/2017 are are at the end of this note. (2) Hyponatremia: - Mild, 133 on 08/27, stable (3) Tobacco use disorder: - Cessation counseling provided -Prescription for nicotine patch sent to the patient's pharmacy. She states that she is motivated to stop smoking secondary to this event. (4) Asthma: - Long standing h/o asthma and allergic rhinitis - Follow up with Dr. Moser as scheduled Plan Patient discharged without need for supplemental oxygen. She is advised to follow-up with Dr. Moser regarding further pulmonary work-up versus asthmatic work-up and discuss benefit of updated pulmonary function testing. Total Time Total Time Spent Total Time Spent (In Minutes): 45 Discharge Plan Discharge Items Patient Disposition: Home - Self-Care Reason For Visit: DYSPNEA Discharge Diagnosis: asthma exacerbation Mild COPD Condition on Discharge: Fair Activity: Resume your previous activity Lifting: Gradually increase as tolerated Bathing: No limitations Exercise/Sports: Gradually increase as tolerated Driving/Machine Use: No limitations Weightbearing: Full weightbearing Non-emergency contact: Primary Care Provider Call non-emergency contact if: you have any medication questions Follow-up/Referrals: Everette Leija DO [Physician] - 09/14/22 9:45 am PCP,NO [Primary Care Provider] - Diet: Regular Addtl Attending Provider Instructions: You were hospitalized due to shortness of breath. Your work up demonstrated some evidence of inflammation in your lungs and subsequently you were started on antibiotics, breathing treatments, and steroids, as well as oxygen. You have responded well to treatment and have been able to be weaned off of oxy gen. You maintained oxygen saturations greater than 92% with walking. Pulmonary function testing done in the past revealed very mild obstruction. This was done several years ago and you may want to discuss repeating this study with Dr. Moser. A nebulizer was ordered be used when you have wheezes. You may use it up to 4 times a day as needed for shortness of breath or wheezing. Duoneb treatments have been sent to your pharmacy. You have no wheezes so you will not need to continue with steroids on discharge. Please also complete the course of antibiotics prescribed. You are being sent home on Levaquin 500mg daily for 7 days total. Your next dose will be due on 08/30/22 in the morning. I would also encourage you to continue taking Mucinex for the next 5-7 days. I would encourage you to remain off work for the rest of this week just to ensure that you are well rested prior to returning. We would continue to encourage you to stop smoking. A prescription will be sent to your pharmacy for nicotine patches. These should be placed first thing n the morning and removed each evening. On youe examination, it was noticed that you may be developing some oral thrush. This is common with the use of antibiotcs. A prescription will be sent to your pharmacy for Nystatin. You should swish this in your mouth and then swallow it three times daily Please follow through with any appointments with your family physician within 1 week of discharge from the hospital. We are working to help you establish a new primary care provider. If you have any questions/concerns following your discharge, feel free to contact the nonemergency contact number listed on your discharge paperwork. As discussed, you should contact Dr. Moser's office and update them on your hospital admission. In the event of a medical emergency, call 911. Pending Studies at Discharge: No Stand-Alone Forms: My [facility], Smoking Cessation Medications and DC Order Prescriptions: New ipratropium-albuterol 0.5 mg-3 mg(2.5 mg base)/3 mL solution for nebulization 3 ml inhalation Q4H PRN (Reason: shortness of breath) Qty: 180 0RF Rx Instructions: until breathing returns to target peak flow/parameters levofloxacin 500 mg Tablet 500 mg PO DAILY@1100 Qty: 4 0RF nicotine 21-14-7 mg/24 hr patch, TD daily, sequential See Rx Instructions transdermal .COMPLEX Qty: 56 0RF Rx Instructions: apply 1-21 mg NICOTINE PATCH daily for 28 days; follow with 1-14 mg PATCH daily for 14 days, then 1-7mg PATCH daily for 14 days Remove the patch each evening Continued albuterol sulfate [ProAir HFA] 90 mcg/actuation HFA aerosol inhaler 1 inh inhalation QID PRN (Reason: shortness of breath or wheezing) Qty: 18 11RF fluticasone propion-salmeterol [Advair Diskus] 100-50 mcg/dose blister with device 1 inh INHALATION BID Discharge Orders: Discharge Order (Routine); Ordered 08/29/22 Ordered By: Reji Hodge/Other Patient Handouts: Chest and Lung Problems, When You Have Pneumonia, Infec Common Resp Prevention Admission Data Admit Date/Time: 08/27/22 02:56 Attending Provider: Rashawn Craft Admit Provider: Jose Rivera Primary Care Provider: PCP,NO Other Providers: Alec Moser ; Cruz Florez Other Interventions: Discharge Summary Assessment (RN) Last Done: 08/29/22 16:24 Supervising Physician Co-Signing Physician Notes d/w Oumar Sainz PAC. did not see patient on this day, but in d/w Oumar Sainz PAC - signed note so as to allow chart to be appropriately completed for this hospitalization. Coding Level of Care Code D/C DAY MANAGEMENT >30 MINS Diagnoses Pneumonitis J18.9 Hyponatremia E87.1 Tobacco use disorder F17.200 Asthma J45.909 Time Spent (min) 45 Addendum Pulmonary function testing 03/25/2017:
== END 2022-08-29 18:13 | disposition home or self-care (01) | DRG 194 ==
LOC: ED 22:18 → 3N 08-27 02:56 → SUATTDRO 08-27 02:56 → 3N 08-27 04:27

== ENCOUNTER 2023-03-05 18:58 | Inpatient (IN) ==
[2023-03-05] MEDS ORDERED: methylPREDNISolone 125 MG/2 ML VIAL IV STA (19:19)
[2023-03-05] MEDS ORDERED: ALBUT/IPRATROP 3MG/0.5MG NEB 3 ML VIAL NEB ONE (19:19)
--- NOTE | 2023-03-05 20:16 | XRay Report ---
XR chest 1V not portable HISTORY: Chest pain, nonspecific COMPARISON: Chest 08/26/2022. FINDINGS: The lungs are clear. Cardiac silhouette is normal in size. No pleural effusions. No pneumot horax. IMPRESSION: No acute process. ACT 112: Negative or not required by law. Electronically signed by: Chaim Veronica M.D. 03/05/2023 8:14 PM
[2023-03-05 20:40] LABS: Alanine Aminotransferase 18 U/L (7-52); Albumin Globulin Ratio 1.6 (0.9-2); Albumin Level 4.6 gm/dl (3.4-5.0); Alkaline Phosphatase 50 U/L (34-104); Anion Gap 5 (3-11); Bilirubin,Total 1.7 mg/dl (0.2-1.0); Blood Urea Nitrogen 7 mg/dl (6-23); Calcium 9.6 mg/dl (8.6-10.3); Carbon Dioxide 26 mmol/L (21-32); Chloride 104 mmol/L (98-107); Est GFR (African American) 122.8 ml/min; Est GFR (Non-African American) 105.9 ml/min; Globulin 2.8 gm/dl (2.5-4.0); Glucose 125 mg/dl (70-99(Fasting)); Sodium 135 mmol/L (136-145); Total Protein 7.4 gm/dl (6.0-8.3)
[2023-03-05 20:50] LABS: Troponin I High Sensitivity 37.6 pg/ml (0-14)
[2023-03-05 20:54] LABS: Partial Thromboplastin Time 27.3 Seconds (21.0-31.0); Prothrombin Time 10.7 Seconds (9.0-12.0)
[2023-03-05 21:00] LABS: Base Excess VBG 0.8 mEq/L; HCO3 VBG 27 mmol/L; Oxygen Saturation VBG 65.5 %; PCO2 VBG 46 mmHg (38-50); PO2 VBG 37 mmHg; pH VBG 7.37 (7.36-7.41)
[2023-03-05 21:03] LABS: Influenza A virus by PCR Negative (Neg); Influenza B virus by PCR Negative (Neg); RSV by PCR Negative (Neg); SARS CoV2 RNA(COVID-19) Ceph NEGATIVE (Negative)
[2023-03-05 21:20] LABS: Potassium 4.4 mmol/L (3.5-5.1)
[2023-03-05 21:59] LABS: Basophils % (auto) 0.9 %; Eosinophils % (auto) 5.2 %; Hematocrit (blood only) 43.1 % (37.0-47.0); Hemoglobin 14.5 g/dl (12.0-16.0); Immature Granulocytes # (auto) 0.05 K/uL (0.01-0.20); Immature Granulocytes % (auto) 0.4 %; Lymphocytes # (auto) 1.54 K/uL (1.2-3.4); Lymphocytes % (auto) 13.3 %; Mean Corpuscular Hemoglobin 30.5 pg (25.0-34.0); Mean Corpuscular Hgb Conc 33.6 g/dL (32.0-36.0); Mean Corpuscular Volume 90.7 fL (80.0-100.0); Mean Platelet Volume 9.9 fL (9.4-12.4); Monocytes # (auto) 0.79 K/uL (0.11-0.59); Monocytes % (auto) 6.8 %; Neutrophils # (auto) 8.54 K/uL (1.40-6.50); Neutrophils % (auto) 73.4 %; Platelet Count 322 K/uL (130-400); RDW Coefficient of Variation 13.5 % (11.5-14.5); Red Blood Count 4.75 M/uL (4.20-5.40); White Blood Count 11.62 K/ul (4.8-10.8)
--- NOTE | 2023-03-05 22:07 | History & Physical Report ---
Date of Service March 05, 2023 Assessment & Plan (1) COPD with exacerbation: (2) Hypoxia: (3) Allergic rhinitis: (4) Elevated troponin: (5) Hypomagnesemia: Plan COPD exacerbation with hypoxia- Admit to monitored bed From the ED received the following: Methylprednisolone 125 mg IV, 1 hour-long DuoNeb. Continue Breo Ellipta 1 inhalation daily Methylprednisolone 40 mg IV every 8 hours Guaifenesin extended release 12 mg p.o. twice daily Azithromycin 500 mg IV daily Duonebs every 4 hours while awake and every 2 hours when necessary. Nasal cannula oxygen, titrate to keep pulse ox 92-94% Elevated troponin- The patient will be admitted to telemetry for serial cardiac enzymes, serial EKG's, cardiac rhythm monitoring and a 2-D echocardiogram with Dopplers. Troponin 37.6 on admission Likely type II NV/supply demand mismatch History of Present Illness Chief Complaint: The patient reports that she has had some shortness of breath above her baseline over the past 2 weeks, that worsened significantly over the past 24 hours Primary Care Provider: Everette Leija DO The patient is a 57-year-old female with a past medical history including COPD/asthma with exacerbations, pneumonitis, tobacco use disorder, and allergic rhinitis. She presents to the emergency department with symptoms initially began about 2 weeks ago, but worsened significantly over the past 24 hours of shortness of breath, dyspnea on exertion and cough. Allergies Allergy/AdvReac Type Severity Reaction Status Date / Time animal dander Allergy Intermediate asthma Verified 03/05/23 19:39 related symptoms grass pollen-perennial rye, Allergy Intermediate asthma Verified 03/05/23 19:39 standar related sx mold Allergy Intermediate asthma Verified 03/05/23 19:39 related sx Home Medications Medication Instructions Recorded Confirmed Type fluticasone 100 mcg-salmeterol 50 1 inh inhalation BID 08/27/22 03/05/23 History mcg/dose blistr powdr for inhalation (Advair Diskus) acetaminophen 500 mg tablet 1,000 mg PO DIRECTED PRN 03/05/23 03/05/23 History (Tylenol Extra Strength) PAIN/FEVER albuterol sulfate 2.5 mg/3 mL 2.5 mg inhalation .Q4-6H PRN 03/05/23 03/05/23 History (0.083 %) solution for nebulization Shortness Of Breath Or Wheezing albuterol sulfate 90 mcg/actuation 2 inh inhalation Q4H PRN shortness 03/05/23 03/05/23 History aerosol inhaler (ProAir HFA) of breath or wheezing ipratropium 0.5 mg-albuterol 3 mg 3 ml inhalation QID PRN shortness 03/05/23 03/05/23 History (2.5 mg base)/3 mL nebulization of breath soln Past Med/Surg History Medical History (Updated 03/06/23 @ 03:47 by Cruz Florez MD) Asthma Colon cancer screening COPD (chronic obstructive pulmonary disease) Hypoxemia PNA (pneumonia) Surgical History History of surgical removal of ganglion cyst Family History Sister Asthma Allergic rhinitis Social History Smoking Status: Former smoker Tobacco Type: Cigarettes Cigarettes Per Day: 5-20 per day; Second Hand Exposure: No; Do You Dip or Chew Tobacco: No; Hx Alcohol Use: Yes Alcohol type: beer, wine and hard liquor Hx Substance Use: No Preferred Language: Maori Communication Ability: Effective Scale Manager Required: No Beliefs That Will Affect Care: None marital status: / Current Living Situation: Alone current occupational status: employed How many Children do You have: 0 Other Information That Helps Us Care for You: No Feels Safe at Home: Yes Safety Concerns: Feels Safe At This Time Childhood Exposure to Second-Hand Smoke: Yes caffeine: Yes Dental Care, Regularly: Yes Physical Activity Frequency: Daily Seatbelt Use: always Sunscreen Use: Yes Assistive Devices: Glasses Review of Systems Review of Systems: The patient denies chest pain, palpitations, lower extremity swelling, sore throat, fevers, chills, sweats, nausea, vomiting, diarrhea , constipation, abdominal pain, pelvic pain, blood in urine or stool, dysuria, urinary frequency or urgency, lightheadedness, dizziness, headache, memory loss, loss of consciousness, rash, abnormal bruising or bleeding, imbalance, focal or generalized weakness, numbness or tingling in arms or legs, generalized arthralgias or myalgias, back or neck pain, or night sweats. The review of systems is otherwise negative other than for that already noted above, and at least 10 systems have been reviewed. Physical Exam Physical Exam: The patient is awake, alert and oriented 3, well developed and well nourished, normocephalic and atraumatic, lying in bed and in no acute distress. HEENT--PERRL, EOMI, mucous membranes and oropharynx dry. Neck--supple. No JVD. No bruits. Thyroid normal, trachea midline, no adenopathy. Heart--normal S1 and S2. No murmurs, rubs or gallops. Lungs--few coarse breath sounds with wheezes bilaterally, no respiratory distress, no accessory muscle use. Abdomen--normal bowel sounds and soft. Nontender. Nondistended, no hernias or masses, no organomegaly. Extremities--no cyanosis or clubbing. No edema. There are good distal pulses b/l. Dermatologic--normal skin turgor, normal color, no abnormal lymph nodes, no rash. Neurologic--cranial nerves II through XII grossly intact. Rheumatologic--normal range of motion. Psychiatric--normal affect. Results & Data Results & Data Vital Signs (Past 12 Hours) Vital Signs Temp Pulse Resp BP Pulse Ox O2 Del Method O2 Flow Rate 03/05/23 20:05 94 Nasal Cannula 4 03/05/23 20:04 76 94 Nasal Cannula 4 03/05/23 20:00 24 96 Nasal Cannula 3 03/05/23 18:59 36.7 C 110 H 18 204/107 H 87 L Room Air Laboratory Results Laboratory Results WBC 11.62 K/ul (4.8-10.8) H 03/05/23 19:30 RBC 4.75 M/uL (4.20-5.40) 03/05/23 19:30 Hgb 14.5 g/dl (12.0-16.0) 03/05/23 19:30 Hct 43.1 % (37.0-47.0) 03/05/23 19:30 MCV 90.7 fL (80.0-100.0) 03/05/23 19:30 MCH 30.5 pg (25.0-34.0) 03/05/23 19:30 MCHC 33.6 g/dL (32.0-36.0) 03/05/23 19:30 RDW Std Deviation 45.0 fL (36.4-46.3) 03/05/23 19: RDW Coeff of Tea 13.5 % (11.5-14.5) 03/05/23: Plt Count 322 K/uL (130-400) 03/05/23 19: MPV 9.9 fL (9.4-12.4) 03/05/23 19: Immature Gran % (Auto) 0.4 % 03/05/23 19: Neut % (Auto) 73.4 % 03/05/23 19: Lymph % (Auto) 13.3 % 03/05/23 19: [place] % (Auto) 6.8 % 03/05/23: Eos % (Auto) 5.2 % 03/05/23: Baso % (Auto) 0.9 % 03/05/23: Neut # (Auto) 8.54 K/uL (1.40-6.50) H 03/05/23 19: Lymph # (Auto) 1.54 K/uL (1.2-3.4) 03/05/23 19:30 [place] # (Auto) 0.79 K/uL (0.11-0.59) H 03/05/23 19: Eos # (Auto) 0.60 K/uL (0-0.50) H 03/05/23 19:30 Baso # (Auto) 0.10 K/uL (0-0.2) 03/05/23: Immature Gran # (Auto) 0.05 K/uL (0.01-0.20) 03/05/23 19: PT 10.7 Seconds (9.0-12.0) 03/05/23 19: INR 1.0 (0.9-1.1) 03/05/23: APTT 27.3 Seconds (21.0-31.0) 03/05/23: PTT Ratio 1.0 03/05/23 19:30 VBG pH 7.37 (7.36-7.41) 03/05/23 19: VBG pCO2 46 mmHg (38-50) 03/05/23: VBG pO2 37 mmHg 03/05/23 19:30 VBG HCO3 27 mmol/L 03/05/23 19:30 VBG O2 Saturation 65.5 % 03/05/23 19:30 VBG Base Excess 0.8 mEq/L 03/05/23 19:30 Sodium 135 mmol/L (136-145) L 03/05/23 19:30 Potassium 4.4 mmol/L (3.5-5.1) 03/05/23 20:51 Chloride 104 mmol/L (98-107) 03/05/23 19:30 Carbon Dioxide 26 mmol/L (21-32) 03/05/23 19:30 Anion Gap 5 (3-11) 03/05/23 19:30 BUN 7 mg/dl (6-23) 03/05/23 19:30 Creatinine 0.50 mg/dl (0.6-1.2) L 03/05/23 19:30 Est Cr Clr Drug Dosing 109.0 ml/min 03/05/23 19:30 Est GFR ( Amer) 122.8 ml/min 03/05/23 19:30 Est GFR (Non-Af Amer) 105.9 ml/min 03/05/23 19:30 BUN/Creatinine Ratio 14.0 (10-20) 03/05/23 19:30 Glucose 125 mg/dl (70-99(Fasting)) H 03/05/23 19:30 Calcium 9.6 mg/dl (8.6-10.3) 03/05/23 19:30 Total Bilirubin 1.7 mg/dl (0.2-1.0) H 03/05/23 19:30 AST 20 U/L (13-39) 03/05/23 20:51 ALT 18 U/L (7-52) 03/05/23 19:30 Alkaline Phosphatase 50 U/L (34-104) 03/05/23 19:30 Troponin I High Sens 37.6 pg/ml (0-14) H 03/05/23 19:30 Total Protein 7.4 gm/dl (6.0-8.3) 03/05/23 19:30 Albumin 4.6 gm/dl (3.4-5.0) 03/05/23 19:30 Globulin 2.8 gm/dl (2.5-4.0) 03/05/23 19:30 Albumin/Globulin Ratio 1.6 (0.9-2) 03/05/23 19:30 SARS-CoV-2 (PCR) NEGATIVE (Negative) 03/05/23 Unknown Influenza Type A (PCR) Negative (Neg) 03/05/23 Unknown Influenza Type B (PCR) Negative (Neg) 03/05/23 Unknown RSV (RT-PCR) Negative (Neg) 03/05/23 Unknown Impressions Chest X-Ray 03/05/23 19:03 XR chest 1V not portable HISTORY: Chest pain, nonspecific COMPARISON: Chest 08/26/2022. FINDINGS: The lungs are clear. Cardiac silhouette is normal in size. No pleural effusions. No pneumothorax. IMPRESSION: No acute process. ACT 112: Negative or not required by law. Electronically signed by: Chaim Veronica M.D. 03/05/2023 8:14 PM Code Status & VTE Plan Code Status Full code VTE Prophylaxis Plan VTE Prophylaxis will be ordered: Yes PG Care Time/CCT Total # of Minutes Spent Total Time Spent with Patient: Total time spent is greater than 50% in coordination of care (as documented) at patient's floor/unit and/or counseling patient: Coding Level of Care Code 47901 INT INP/OBS CARE 3/75MIN Diagnoses COPD with exacerbation J44.1 Hypoxia R09.02 Allergic rhinitis J30.9 Elevated troponin R77.8 Hypomagnesemia E83.42
[2023-03-05] MEDS ORDERED: NITROGLYCERIN SL 0.4 MG/TAB TAB SL PRN (23:08)
[2023-03-05] MEDS ORDERED: ONDANSETRON INJ 2 MG/ML 2 ML VIAL IV PRN (23:08)
[2023-03-05] MEDS ORDERED: ACETAMINOPHEN 500 MG TAB PO PRN (23:08)
[2023-03-05] MEDS ORDERED: PNEUMOCOCCAL POLYSACCHARIDES 25 MCG/0.5 ML VIAL/SYR IM ONE (23:48)
[2023-03-06] MEDS ORDERED: AZITHROMYCIN 500 MG in DEXTROSE 5% 250 ML IV SCH
--- NOTE | 2023-03-06 00:14 | Emergency Department Note ---
History of Present Illness General Chief Complaint: Shortness of Breath/Dyspnea Stated Complaint: TROUBLE BREATHING,CONGESTION,PNEUMONIA Time Seen by Provider: 03/05/23 19:10 History of Present Illness Provider Complaint: shortness of breath and cough Onset (ago): week(s) (2) Severity: similar to previous episodes Consistency/Duration: + progressively worsening Relieved By: + nothing Exacerbated By: + coughing Known history of: asthma Associated symptoms: + cough, + wheezing, + sputum production and + chest congestion; no chest pain, no orthopnea, no hemoptysis or no syncope Treatment prior to arrival: bronchodilator HPI Narrative: Patient states she recently finished a course of Levaquin and prednisone for pneumonia Related Data Home oxygen amount: none Home Medications Medication Instructions Recorded Confirmed Type fluticasone 100 mcg-salmeterol 50 1 inh inhalation BID 08/27/22 03/05/23 History mcg/dose blistr powdr for inhalation (Advair Diskus) acetaminophen 500 mg tablet 1,000 mg PO DIRECTED PRN 03/05/23 03/05/23 History (Tylenol Extra Strength) PAIN/FEVER albuterol sulfate 2.5 mg/3 mL 2.5 mg inhalation .Q4-6H PRN 03/05/23 03/05/23 History (0.083 %) solution for nebulization Shortness Of Breath Or Wheezing albuterol sulfate 90 mcg/actuation 2 inh inhalation Q4H PRN shortness 03/05/23 03/05/23 History aerosol inhaler (ProAir HFA) of breath or wheezing ipratropium 0.5 mg-albuterol 3 mg 3 ml inhalation QID PRN shortness 03/05/23 03/05/23 History (2.5 mg base)/3 mL nebulization of breath soln Allergies Allergy/AdvReac Type Severity Reaction Status Date / Time animal dander Allergy Intermediate asthma Verified 03/05/23 19:39 related symptoms grass pollen-perennial rye, Allergy Intermediate asthma Verified 03/05/23 19:39 standar related sx mold Allergy Intermediate asthma Verified 03/05/23 19:39 related sx Past Med/Surg History Medical History Asthma Colon cancer screening Hypoxemia PNA (pneumonia) Surgical History History of surgical removal of ganglion cyst Family History Sister Asthma Allergic rhinitis Social History Smoking Status: Former smoker Tobacco Type: Cigarettes Cigarettes Per Day: 5-20 per day; Second Hand Exposure: No; Do You Dip or Chew Tobacco: No; Hx Alcohol Use: Yes Alcohol type: beer, wine and hard liquor Hx Substance Use: No Preferred Language: Kyrgyz Communication Ability: Effective Gasket Notcher Required: No Beliefs That Will Affect Care: None marital status: / Current Living Situation: Alone current occupational status: employed How many Children do You have: 0 Other Information That Helps Us Care for You: No Feels Safe at Home: Yes Safety Concerns: Feels Safe At This Time Childhood Exposure to Second-Hand Smoke: Yes caffeine: Yes Dental Care, Regularly: Yes Physical Activity Frequency: Daily Seatbelt Use: always Sunscreen Use: Yes Assistive Devices: Glasses Physical Exam Vital Signs: Vital Signs - 24 hr 03/05/23 18:59 03/05/23 20:00 03/05/23 20:04 Temperature 36.7 C Temperature Source Temporal Artery Sc an Pulse Rate 110 H 76 Pulse Rhythm Regular Respiratory Rate 18 24 Respiratory Effort / Characteristics Non-Labored Sponta neous Spontaneous Short of Breath Respiratory Depth Normal Blood Pressure 204/107 H Blood Pressure Melony n 139 Blood Pressure Pos ition Sitting Pulse Oximetry 87 L 96 94 Oxygen Delivery Me thod Room Air Nasal Cannula Nasal Cannula Oxygen Flow Rate 3 4 Sepsis Recent Feve r Within 48 Hours No Sepsis New/Unexpla ined Change in Men danielle Status No Sepsis Action Take n by Nursing No Action Required 03/05/23 20:05 Temperature Temperature Source Pulse Rate Pulse Rhythm Respiratory Rate Respiratory Effort / Characteristics Respiratory Depth Blood Pressure Blood Pressure Melony n Blood Pressure Pos ition Pulse Oximetry 94 Oxygen Delivery Me thod Nasal Cannula Oxygen Flow Rate 4 Sepsis Recent Feve r Within 48 Hours Sepsis New/Unexpla ined Change in Men danielle Status Sepsis Action Take n by Nursing Physical Exam: Physical Exam HENT: Exam performed. - Head: Normocephalic and atraumatic. EYES: Conjunctivae and EOM are normal. Right eye exhibits no discharge. Left eye exhibits no discharge. No scleral icterus. NECK: Normal range of motion. Neck supple. No JVD present. CV: Tachycardic rate, regular rhythm, normal heart sounds and intact distal pulses. There is no peripheral edema. Palpable radial pulses bue. PULM/CHEST: Diffuse expiratory wheezes. ABD: The abdomen is soft. There is no tenderness. NEURO: Motor and sensation grossly intact. SKIN: Skin is warm and dry. He is not diaphoretic. PSYCH: normal mood and affect. Behavior is normal. Judgment and thought content normal. Course Course 1909: The patient was evaluated in room C7. A complete history and physical exam was performed Cardiac monitoring: An order was placed for continuous cardiac monitoring. The monitor shows a rate of 100 with sinus rhythm interpreted by me Patient found to be hypoxic on room air supplemental oxygen was applied which improved the patient's oxygen saturation. 2124: Vital signs stable on supplemental oxygen via nasal cannula.Labs are within normal limits with exception of a high-sensitivity troponin of 37.6. Chest x-ray negative. Status post hour-long DuoNeb and Solu-Medrol the patient's wheezing has improved but is still present. [facility]. Balbuena has been notified. Administered Medications Discontinued Medications Albuterol (Albut/Ipratrop 3mg/0.5mg Neb 3 Ml Vial) 12 ml NEB ONE ONE; Protocol Stop: 03/05/23 19:20 Last Admin: 03/05/23 19:59 Dose: 12 ml Documented By: CELIO Methylprednisolone (Methylprednisolone 125 Mg/2 Ml Vial) 125 mg IV NOW STA Stop: 03/05/23 19:20 Last Admin: 03/05/23 19:33 Dose: 125 mg Documented By: ELIEL Medical Decision Making Laboratory Data Attestation: I reviewed the patient's lab results. 03/05/23 19:30 03/05/23 20:51 Lab Results 03/05/23 03/05/23 03/05/23 Range/Units 19:30 19:30 19:30 WBC 11.62 H (4.8-10.8) K/ul RBC 4.75 (4.20-5.40) M/uL Hgb 14.5 (12.0-16.0) g/dl Hct 43.1 (37.0-47.0) % MCV 90.7 (80.0-100.0) fL MCH 30.5 (25.0-34.0) pg MCHC 33.6 (32.0-36.0) g/dL RDW Std Deviation 45.0 (36.4-46.3) fL RDW Coeff of Tea 13.5 (11.5-14.5) % Plt Count 322 (130-400) K/uL MPV 9.9 (9.4-12.4) fL Immature Gran % (Auto) 0.4 % Neut % (Auto) 73.4 % Lymph % (Auto) 13.3 % [place] % (Auto) 6.8 % Eos % (Auto) 5.2 % Baso % (Auto) 0.9 % Neut # (Auto) 8.54 H (1.40-6.50) K/uL Lymph # (Auto) 1.54 (1.2-3.4) K/uL [place] # (Auto) 0.79 H (0.11-0.59) K/uL Eos # (Auto) 0.60 H (0-0.50) K/uL Baso # (Auto) 0.10 (0-0.2) K/uL Immature Gran # (Auto) 0.05 (0.01-0.20) K/uL PT 10.7 (9.0-12.0) Seconds INR 1.0 (0.9-1.1) APTT 27.3 (21.0-31.0) Seconds PTT Ratio 1.0 VBG pH (7.36-7.41) VBG pCO2 (38-50) mmHg VBG pO2 mmHg VBG HCO3 mmol/L VBG O2 Saturation % VBG Base Excess mEq/L Sodium 135 L (136-145) mmol/L Potassium TNP Chloride 104 (98-107) mmol/L Carbon Dioxide 26 (21-32) mmol/L Anion Gap 5 (3-11) BUN 7 (6-23) mg/dl Creatinine 0.50 L (0.6-1.2) mg/dl Est Cr Clr Drug Dosing 109.0 ml/min Est GFR ( Amer) 122.8 ml/min Est GFR (Non-Af Amer) 105.9 ml/min BUN/Creatinine Ratio 14.0 (10-20) Glucose 125 H (70-99(Fasting)) mg/dl Calcium 9.6 (8.6-10.3) mg/dl Total Bilirubin 1.7 H (0.2-1.0) mg/dl AST TNP ALT 18 (7-52) U/L Alkaline Phosphatase 50 (34-104) U/L Troponin I High Sens 37.6 H (0-14) pg/ml Total Protein 7.4 (6.0-8.3) gm/dl Albumin 4.6 (3.4-5.0) gm/dl Globulin 2.8 (2.5-4.0) gm/dl Albumin/Globulin Ratio 1.6 (0.9-2) 03/05/23 03/05/23 Range/Units 19:30 20:51 WBC (4.8-10.8) K/ul RBC (4.20-5.40) M/uL Hgb (12.0-16.0) g/dl Hct (37.0-47.0) % MCV (80.0-100.0) fL MCH (25.0-34.0) pg MCHC (32.0-36.0) g/dL RDW Std Deviation (36.4-46.3) fL RDW Coeff of Tea (11.5-14.5) % Plt Count (130-400) K/uL MPV (9.4-12.4) fL Immature Gran % (Auto) % Neut % (Auto) % Lymph % (Auto) % [place] % (Auto) % Eos % (Auto) % Baso % (Auto) % Neut # (Auto) (1.40-6.50) K/uL Lymph # (Auto) (1.2-3.4) K/uL [place] # (Auto) (0.11-0.59) K/uL Eos # (Auto) (0-0.50) K/uL Baso # (Auto) (0-0.2) K/uL Immature Gran # (Auto) (0.01-0.20) K/uL PT (9.0-12.0) Seconds INR (0.9-1.1) APTT (21.0-31.0) Seconds PTT Ratio VBG pH 7.37 (7.36-7.41) VBG pCO2 46 (38-50) mmHg VBG pO2 37 mmHg VBG HCO3 27 mmol/L VBG O2 Saturation 65.5 % VBG Base Excess 0.8 mEq/L Sodium (136-145) mmol/L Potassium 4.4 Chloride (98-107) mmol/L Carbon Dioxide (21-32) mmol/L Anion Gap (3-11) BUN (6-23) mg/dl Creatinine (0.6-1.2) mg/dl Est Cr Clr Drug Dosing ml/min Est GFR ( Amer) ml/min Est GFR (Non-Af Amer) ml/min BUN/Creatinine Ratio (10-20) Glucose (70-99(Fasting)) mg/dl Calcium (8.6-10.3) mg/dl Total Bilirubin (0.2-1.0) mg/dl AST 20 ALT (7-52) U/L Alkaline Phosphatase (34-104) U/L Troponin I High Sens (0-14) pg/ml Total Protein (6.0-8.3) gm/dl Albumin (3.4-5.0) gm/dl Globulin (2.5-4.0) gm/dl Albumin/Globulin Ratio (0.9-2) Imaging Data Attestation: I personally reviewed and interpreted this imaging study as follows: My Impression: Chest x-ray negative. Airway clear. No pneumothorax. No consolidation. No cardiomegaly or cephalization.. No free air under the diaphragm. No fractures of the skeletal structures. Radiologist's Impression: Chest X-Ray 03/05/23 19:03 XR chest 1V not portable HISTORY: Chest pain, nonspecific COMPARISON: Chest 08/26/2022. FINDINGS: The lungs are clear. Cardiac silhouette is normal in size. No pleural effusions. No pneumothorax. IMPRESSION: No acute process. ACT 112: Negative or not required by law. Electronically signed by: Chaim Veronica M.D. 03/05/2023 8:14 PM ECG Data Attestation: I personally reviewed and interpreted this ECG as follows: Interpretation: Sinus rhythm with a rate of 101. OH 150 QRS [address] elevation or ST depression. MDM Narrative 1910: The patient was evaluated in room C7. A complete history and physical exam was performed Cardiac monitoring: An order was placed for continuous cardiac monitoring. The monitor shows a rate of 100 with sinus rhythm interpreted by me Patient found to be hypoxic on room air supplemental oxygen was applied which improved the patient's oxygen saturation. 2124: Vital signs stable on supplemental oxygen via nasal cannula.Labs are within normal limits with exception of a high-sensitivity troponin of 37.6. Chest x-ray negative. Status post hour-long DuoNeb and Solu-Medrol the patient's wheezing has improved but is still present. [facility] be [facility] Dr. Balbuena has been notified. Impression & Plan Hypoxia, Asthma with status asthmaticus Critical Care Time Critical Care Time: Yes Total Critical Care Time: 59 I have personally spent greater than 59 minutes of critical care time in the direct management of this patient. This includes bedside care, interpretation of diagnostic studies, and testing, discussion with consultants, patient, and family members, and other required patient management activities. This 59 minutes is in excess of all separately billable procedures. Discharge Plan Visit Data Chief Complaint: Shortness of Breath/Dyspnea Stated Complaint: TROUBLE BREATHING,CONGESTION,PNEUMONIA ED Provider: Kumar Heard Discharge Problem: Hypoxia, Asthma with status asthmaticus Patient Disposition: Admitted As Inpatient Discharge Instructions Interventions: ED Discharge Assessment Last Done: 03/05/23 22:46
[2023-03-06 06:39] LABS: Hematocrit (blood only) 40.1 % (37.0-47.0); Hemoglobin 13.7 g/dl (12.0-16.0); Mean Corpuscular Hemoglobin 30.1 pg (25.0-34.0); Mean Corpuscular Hgb Conc 34.2 g/dL (32.0-36.0); Mean Corpuscular Volume 88.1 fL (80.0-100.0); Mean Platelet Volume 9.6 fL (9.4-12.4); Platelet Count 277 K/uL (130-400); RDW Coefficient of Variation 13.2 % (11.5-14.5); RDW Standard Deviation 42.9 fL (36.4-46.3); Red Blood Count 4.55 M/uL (4.20-5.40); White Blood Count 5.13 K/ul (4.8-10.8)
[2023-03-06] MEDS: ALBUT/IPRATROP 3MG/0.5MG NEB 3 ML VIAL NEB SCH ×3 (07:07→15:23)
[2023-03-06 07:13] LABS: Immature Granulocytes # (auto) 0.04 K/uL (0.01-0.20); Immature Granulocytes % (auto) 0.8 %; Lymphocytes # (auto) 0.53 K/uL (1.2-3.4); Lymphocytes % (auto) 10.3 %; Monocytes # (auto) 0.05 K/uL (0.11-0.59); Neutrophils # (auto) 4.51 K/uL (1.40-6.50); Neutrophils % (auto) 87.9 %
--- NOTE | 2023-03-06 08:59 | Discharge Summary ---
Date of Service March 06, 2023 Admission HPI Per Admitting Provider The patient is a 57-year-old female with a past medical history including COPD/asthma with exacerbations, pneumonitis, tobacco use disorder, and allergic rhinitis. She presents to the emergency department with symptoms initially began about 2 weeks ago, but worsened significantly over the past 24 hours of shortness of breath, dyspnea on exertion and cough. Admission Exam Per Admitting Provider The patient is awake, alert and oriented 3, well developed and well nourished, normocephalic and atraumatic, lying in bed and in no acute distress. HEENT--PERRL, EOMI, mucous membranes and oropharynx dry. Neck--supple. No JVD. No bruits. Thyroid normal, trachea midline, no adenopathy. Heart--normal S1 and S2. No murmurs, rubs or gallops. Lungs--few coarse breath sounds with wheezes bilaterally, no respiratory distress, no accessory muscle use. Abdomen--normal bowel sounds and soft. Nontender. Nondistended, no hernias or masses, no organomegaly. Extremities--no cyanosis or clubbing. No edema. There are good distal pulses b/l. Dermatologic--normal skin turgor, normal color, no abnormal lymph nodes, no rash. Neurologic--cranial nerves II through XII grossly intact. Rheumatologic--normal range of motion. Psychiatric--normal affect. Principal Diagnosis Acute respiratory failure Discharge Exam General: well-appearing, no acute distress HEENT: conjunctivae clear without injection, anicteric sclerae, moist mucous membranes, clear oropharynx without exudate or erythema Neck: supple, trachea midline, no thyromegaly, no JVD, no cervical lymphadenopathy CV: RRR, normal S1 and S2, no murmurs Resp: CTAB, no increased work of breathing, no crackles or wheezes Skin: no rashes or lesions, warm and dry Ext: no LE peripheral edema or erythema, capillary refill <2s in all four extremities, 2+ LE peripheral pulses b/l Discharge Data Allergies Allergy/AdvReac Type Severity Reaction Status Date / Time animal dander Allergy Intermediate asthma Verified 03/05/23 19:39 related symptoms grass pollen-perennial rye, Allergy Intermediate asthma Verified 03/05/23 19:39 standar related sx mold Allergy Intermediate asthma Verified 03/05/23 19:39 related sx Consultations 04/25/23 21:21 ED Decision to Admit Stat Hospital Course (1) COPD with exacerbation: Pt admitted with acute hypoxic respiratory failure -CBC, BMP unremarkable. CXR without acute process -Treated with Solumedrol, azithromycin, duonebs, Breo Ellipta, -Was weaned to RA during stay -Discharged with short prednisone taper, azithromycin and instructed to continue duonebs/daily inhalers -Of note, pt states she did have pulmonary function testing done often in the past but could not be located in chart. She also denies ever being formally diagnosed with COPD. Pt did have elevated troponin 39 -> 230 -> 220 -> 120. EKG wnl. Elevated troponin attributed to demand ischemia. TTE result is still pending at time of discharge. (2) Hypoxia: (3) Allergic rhinitis: (4) Elevated troponin: (5) Hypomagnesemia: Total Time Total Time Spent Total Time Spent (In Minutes): <30 Discharge Plan Discharge Items Patient Disposition: Home - Self-Care Reason For Visit: COPD EXACERBATION Discharge Diagnosis: COPD exacerbation Activity: Resume your previous activity Non-emergency contact: Primary Care Provider Call non-emergency contact if: your symptoms worsen Follow-up/Referrals: Everette Leija, [Primary Care Provider] - Diet: Regular Addtl Attending Provider Instructions: You were admitted to the hospital for respiratory failure. You were treated with steroids, nebulizers, oxygen and antibiotics. This may be due to underlying COPD which Dr. Leija will check as outpatient. A discharge summary will be sent to your primary care physician to ensure continuity of care. Please bring this discharge summary with you to your next office appointment so that your provider can review it at that time. Follow-up appointments: - Make a follow-up appointment with your PCP soon. It is very important that you follow up with them shortly after discharge from the hospital - Keep all your follow-up appointments as already scheduled. If you cannot make an appointment, notify your provider. Medications: Your medication list has been reviewed and reconciled upon discharge to ensure accuracy and continuity of care. An updated list of all your medications is included with your hospital discharge paperwork. Please review this list closely, and make note of any changes. -We sent prednisone to the pharmacy. Please take 1.5 tabs today and tomorrow, 1 tab Saturday and Saturday and then 0.5 tab Saturday and Saturday. -We sent azithromycin to the pharmacy. Please take azithromycin 500 mg daily for the next 4 days -Please continue to take your usual daily inhaler -Please continue to take nebulizer treatments every 4 hours and eventually space to every 6 hours as you feel better. Take your medications as instructed; do not skip a dose of your medicines. Make sure all of your doctors know every medicine you are taking (including kipj-oah-ynmezei medicines, vitamins, and supplements). Call your primary care provider before taking any new medicines (including jhyy-bgw-ycxonee medicines, vitamins, and supplements), because some of these may interact with your current medications, or may make your symptoms worse. Tell your primary care provider if you cannot afford your medications. CONTACT YOUR PRIMARY CARE PROVIDER if you experience any of the following: -Difficulty breathing -Wheezing -Coughing -Fatigue - Difficulty following your treatment plan, or difficulty taking medications CALL 911 OR GO TO THE EMERGENCY DEPARTMENT if you experience any of the following: - Sudden, severe abdominal pain or nausea/vomiting - Severe chest pain, or chest pain that radiates (moves) to your jaw or arm - Sudden, severe shortness of breath or difficulty breathing Thank you for allowing us to participate in your care Pending Studies at Discharge: No Stand-Alone Forms: My [facility] Medications and DC Order Prescriptions: New prednisone 20 mg tablet 20 mg PO DAILY Qty: 6 0RF Rx Instructions: Take 1.5 tabs x2 days, 1 tab x2 days, 0.5 tab x2 days azithromycin 500 mg tablet 500 mg PO DAILY Qty: 4 0RF Continued albuterol sulfate 2.5 mg /3 mL (0.083 %) solution for nebulization 2.5 mg inhalation .Q4-6H PRN (Reason: Shortness Of Breath Or Wheezing) albuterol sulfate [ProAir HFA] 90 mcg/actuation HFA aerosol inhaler 2 inh inhalation Q4H PRN (Reason: shortness of breath or wheezing) acetaminophen [Tylenol Extra Strength] 500 mg Tablet 1,000 mg PO DIRECTED PRN (Reason: PAIN/FEVER) fluticasone propion-salmeterol [Advair Diskus] 100-50 mcg/dose blister with device 1 inh INHALATION BID Changed ipratropium-albuterol 0.5 mg-3 mg(2.5 mg base)/3 mL solution for nebulization 3 ml inhalation QID PRN (Reason: shortness of breath) Qty: 90 0RF Rx Instructions: until breathing returns to target peak flow/parameters Discharge Orders: Discharge Order (Routine); Ordered 03/06/23 Ordered By: Sara Grace Admission Data Admit Date/Time: 03/05/23 22:07 Attending Provider: Neftali Peña Admit Provider: Cruz Florez Primary Care Provider: Everette Leija Other Providers: Cruz Florez Other Interventions: Discharge Summary Assessment (RN) Last Done: 03/06/23 16:43 Supervising Physician Co-Signing Physician Notes I personally examined the patient and verified all jimenez points of history and exam, discussed case, and agree with decision making with Dr Grace. Feeling better and would like to go home. Breathing unlabored no accessory muscle use. Notes that she has had PFTs in the pastit sounds like several years ago. Takes inhalers chronically. Echocardiogram reassuring troponins noted CBC BMP noted COPD exacerbationfortunately improved quite quicklysafe/stable for home. Outpatient PCP and pulmonary follow-up Demand ischemiano wall motion abnormalities, really no symptoms other than that could be attributed to the COPD exacerbation. That said, given risks and no prior known history of coronary disease,2 would be reasonable to consider stress testing as an outpatient depending on her clinical progress. Resident Activity Tracking Resident Involvement: Resident Care Provided Care Provided: Adult Hospital Medicine
[2023-03-06] MEDS ORDERED: FLUTICASONE/VILANTEROL 100/25MCG 14 PUFFS/INHALER INH SCH (09:00)
[2023-03-06 09:43] LABS: Albumin Level 4.3 gm/dl (3.4-5.0); Calcium 9.7 mg/dl (8.6-10.3); Creatinine Clr Calc Pharmacy 118.1 ml/min; Est GFR (African American) 124.4 ml/min; Est GFR (Non-African American) 107.4 ml/min; Magnesium 2.3 mg/dl (1.7-2.4); Phosphorus 2.9 mg/dl (2.5-4.9); Potassium 4.3 mmol/L (3.5-5.1)
[2023-03-06] MEDS ORDERED: methylPREDNISolone 40 MG in SYRINGE 0 ML IV SCH (12:00)
--- NOTE | 2023-03-06 16:05 | XCELERA ---
[id number] \\[id number]
--- NOTE | 2023-03-06 16:44 | Electrocardiogram Report ---
Test Reason : Blood Pressure : / mmHG Vent. Rate : 101 BPM Atrial Rate : 101 BPM P-R Int : 150 ms QRS Dur : 074 ms QT Int : 354 ms P-R-T Axes : 076 -17 073 degrees QTc Int : 459 ms Poor data quality, interpretation may be adversely affected Sinus tachycardia Right atrial enlargement Anteroseptal infarct , age undetermined Abnormal ECG When compared with ECG of 26-AUG-2022 22:45, Anteroseptal infarct is now Present Confirmed by Nitish Garza ([id number]) on 03/06/2023 4:44:36 PM Referred By: REFERRED SELF Confirmed By:Nitish Garza
--- NOTE | 2023-03-06 18:43 | Billing Data ---
Date of Service March 06, 2023 Coding Level of Care Code 05916 IN/OBS DISCH 30 MIN/LESS
== END 2023-03-06 17:55 | disposition home or self-care (01) | DRG 190 ==
LOC: ED 18:58 → SUATTDRO 22:07 → 2N 22:07

== ENCOUNTER 2023-08-10 22:34 | Inpatient (IN) ==
[2023-08-10] MEDS ORDERED: ALBUT/IPRATROP 3MG/0.5MG NEB 3 ML VIAL NEB ONE (22:41)
[2023-08-10] MEDS ORDERED: dexAMETHasone**PF** 10 MG/ML VIAL IV ONE (22:41)
[2023-08-10] MEDS ORDERED: SODIUM CHLORIDE 0.9% 1,000 ML IV ONE (22:41)
[2023-08-10] MEDS ORDERED: cefTRIAXone SODIUM 2,000 MG/70 ML BAG IV STA (22:43)
--- NOTE | 2023-08-10 22:57 | Emergency Department Note ---
Impression & Plan Asthma with exacerbation, Respiratory failure, Hypoxia ED Provider Note NAME: CHAYITO HUERTA AGE: 58 SEX: F : 1965 ARRIVES VIA: Walk-In INFORMANT: Patient, ED PROVIDER(S): Nitish Waterman DO CHIEF COMPLAINT: Shortness of breath HPI: The patient is a 58-year-old female who presented to the emergency department for an evaluation of shortness of breath. The patient has a history of asthma. She states that she has been having trouble breathing over the course the last few days. History was very limited secondary to the patient's extremis and severe shortness of breath. She was having significant difficulty breathing. She was having difficulty talking as well. The patient has a history of asthma and COPD. She quit smoking approximately 1 year ago. She states she has no hemoptysis or chest pain. She denies having any fever. She denies having any leg swelling. The patient states her symptoms slowly have been worsening throughout the day. She has been using her outpatient medications with only minimal relief. ROS: See above HPI for pertinent positives & negatives. A total of 10 systems reviewed and were otherwise negative. PAST MEDICAL HISTORY: See Below PAST SURGICAL HISTORY: See Below FAMILY HISTORY: See Below SOCIAL HISTORY: See Below HOME MEDICATIONS: See Below ALLERGIES: See Below VITALS: See Below PHYSICAL EXAMINATION: GENERAL: The patient is awake and alert. The patient appears to be in significant distress. EYES: The conjunctivae are clear. The pupils are round and reactive. EARS, NOSE, MOUTH AND THROAT: The nose is without any evidence of any deformity. NECK: The neck is nontender and supple. RESPIRATORY: Diminished breath sounds are noted throughout. There was expiratory wheezing with pursed lip breathing noted. CARDIOVASCULAR: Tachycardic rate was noted with regular rhythm. There is no definite murmur to my auscultation but heart sounds were distant. GASTROINTESTINAL: The abdomen is soft. Abdomen is nontender. MUSCULOSKELETAL/EXTREMITIES: There is no evidence of gross deformity full range of motion is noted in the hips and shoulders. SKIN: Skin was cool and dry. There is no significant pedal edema. Clubbing was noted. NEUROLOGIC: Patient is awake alert and oriented x3 MEDICAL DECISION MAKING: The patient is a 58-year-old female who presented to the emergency department for an evaluation of difficulty breathing. The patient was found to be an extremis and was taken directly to room B1. At that time she was evaluated initially by myself. She was treated with an hour-long DuoNeb IV steroids IV fluids IV antibiotics and she was placed on BiPAP. She was reevaluated multiple times. On reevaluation her condition was significantly improved. She had repeat blood gases drawn. She was not retaining as much CO2 and her pH was significantly improved. I discussed the patient's condition with the ICU. I also discussed the patient's condition with the on-call [facility] hospitalist. They were agreeable to evaluating the patient in the emergency department for further management and disposition. At the request of the admitting team the patient had a CT angiography ordered to rule out pulmonary embolism. The patient was also treated with Ativan as well as a small dose of morphine to help her tolerate the BiPAP. I did review the patient's previous records including her pulmonary consults. Triage Nursing notes reviewed. Prior medical records reviewed Vital Signs: reviewed and remarkable for tachycardia and hypoxia. Differential diagnosis: Reactive airway disease, pneumonia, pneumothorax, COPD, CHF, infections, cardiac ischemia, pulmonary embolism, musculoskeletal, gastrointestinal, as well as other pathologies. ER treatment provided: See below Diagnostics interpreted by me: ECG: EKG was obtained in the emergency department. My interpretation is sinus tachycardia 115 bpm. There is no ectopy. There is no acute ST segment abnormalities noted. This was compared to a tracing from March 31, 2023. No significant changes were noted. Cardiac Monitoring: An order was placed for continuous cardiac monitoring. The monitor shows a rate of 111 bpm with sinus tachycardia. Laboratory studies: As stated above and show below. Imaging studies: See below. Radiographic imaging was reviewed by myself Consultation(s): I discussed this case with Robert who is covering for the ICU this evening I discussed this case with Dr. Florez ED COURSE: Procedures: none Critical Care: I have personally spent greater than 55 minutes of critical care time in the direct management of this patient. This includes bedside care, interpretation of diagnostic studies, and testing, discussion with consultants, patient, and family members, and other required patient management activities. This 55 minutes is in excess of all separately billable procedures. Past Med/Surg History Medical History Allergic rhinitis due to animal dander Allergic rhinitis due to dust Allergic rhinitis due to other allergen Allergic rhinitis due to pollen Asthma Asthma with status asthmaticus Atopic dermatitis Colon cancer screening COPD (chronic obstructive pulmonary disease) Extrinsic asthma Hypoxemia Murmur PNA (pneumonia) Surgical History History of surgical removal of ganglion cyst Family History Sister Asthma Allergic rhinitis Social History Smoking Status: Unknown if ever smoked Tobacco Type: Cigarettes Cigarettes Per Day: 5-20 per day; Second Hand Exposure: No; Do You Dip or Chew Tobacco: No; Hx Alcohol Use: Yes Alcohol type: beer, wine and hard liquor Hx Substance Use: No Preferred Language: Nicaraguan Communication Ability: Effective Experience Design Director Required: No Beliefs That Will Affect Care: None marital status: / Current Living Situation: Alone current occupational status: employed How many Children do You have: 0 Feels Safe at Home: Yes Childhood Exposure to Second-Hand Smoke: Yes Diet: regular caffeine: Yes Dental Care, Regularly: Yes Physical Activity Frequency: Daily Seatbelt Use: always Sunscreen Use: Yes Assistive Devices: Glasses Allergies Allergies Allergy/AdvReac Type Severity Reaction Status Date / Time animal dander Allergy Intermediate asthma Verified 03/05/23 19:39 related symptoms grass pollen-perennial rye, Allergy Intermediate asthma Verified 03/05/23 19:39 standar related sx mold Allergy Intermediate asthma Verified 03/05/23 19:39 related sx Home Meds Home Medications Medication Instructions Recorded Confirmed acetaminophen 500 mg tablet 1,000 mg PO DIRECTED PRN 03/05/23 03/15/23 (Tylenol Extra Strength) PAIN/FEVER Previous Rx's Medication Instructions Recorded albuterol sulfate 90 mcg/actuation See Rx Instructions .Route 05/20/23 aerosol inhaler .COMPLEX #8.5 ea fluticasone 250 mcg-salmeterol 50 1 inh inhalation BID #1 inhaler 07/17/23 mcg/dose blistr powdr for inhalation (Advair Diskus) ipratropium 0.5 mg-albuterol 3 mg 3 ml inhalation QID PRN shortness 07/17/23 (2.5 mg base)/3 mL nebulization of breath #180 mL soln Results & Data (ED) Vital Signs Vital Signs - 24 hr 08/10/23 22:35 08/10/23 22:43 08/10/23 22:44 Pulse Rate 126 H Pulse Rate [Apical] Respiratory Rate 36 H Respiratory Effort / Characteristics Non-Labored Spontaneous Short of Breath Tripoding Respiratory Depth Normal Respiratory Pattern Regular Blood Pressure [Left Arm] Blood Pressure Mean [Left Arm] Pulse Oximetry 68 L 68 L Oxygen Delivery Method Room Air Room Air Non-rebreather Oxygen Flow Rate Fraction of Inspired Oxygen SaO2/FiO2 Ratio Sepsis Recent Fever Within 48 Hours No Sepsis New/Unexplained Change in Mental Status No Sepsis Action Taken by Nursing Physician Notified Oxygen Flow Rate - Titration 15 Pulse Oximetry Post Tiitration 94 08/10/23 22:45 08/10/23 22:43 08/10/23 22:51 Pulse Rate 116 H Pulse Rate [Apical] 114 H Respiratory Rate 30 H Respiratory Effort / Characteristics Short of Breath Respiratory Depth Respiratory Pattern Blood Pressure [Left Arm] 182/122 H Blood Pressure Mean [Left Arm] 142 Pulse Oximetry 100 100 Oxygen Delivery Method Non-rebreather BiPAP Oxygen Flow Rate 15 Fraction of Inspired Oxygen 40 SaO2/FiO2 Ratio 250 Sepsis Recent Fever Within 48 Hours Sepsis New/Unexplained Change in Mental Status Sepsis Action Taken by Nursing Oxygen Flow Rate - Titration Pulse Oximetry Post Tiitration 08/10/23 23:00 08/10/23 22:58 08/10/23 22:58 Pulse Rate 116 H Pulse Rate [Apical] 118 H 115 H Respiratory Rate 26 H 17 27 H Respiratory Effort / Characteristics Spontaneous Labored Short of Breath Tripoding Spontaneous Labored Short of Breath Tripoding Respiratory Depth Respiratory Pattern Tachypnea Blood Pressure [Left Arm] 173/122 H Blood Pressure Mean [Left Arm] 139 Pulse Oximetry 100 96 96 Oxygen Delivery Method BiPAP BiPAP Oxygen Flow Rate Fraction of Inspired Oxygen 40 40 40 SaO2/FiO2 Ratio 250 Sepsis Recent Fever Within 48 Hours Sepsis New/Unexplained Change in Mental Status Sepsis Action Taken by Nursing Oxygen Flow Rate - Titration Pulse Oximetry Post Tiitration 08/10/23 23:15 08/10/23 23:30 08/10/23 23:45 Pulse Rate Pulse Rate [Apical] 120 H 123 H 117 H Respiratory Rate 26 H 20 22 Respiratory Effort / Characteristics Respiratory Depth Respiratory Pattern Blood Pressure [Left Arm] 189/129 H 154/104 H 101/75 Blood Pressure Mean [Left Arm] 149 120 83 Pulse Oximetry 100 100 100 Oxygen Delivery Method BiPAP BiPAP BiPAP Oxygen Flow Rate Fraction of Inspired Oxygen 40 40 40 SaO2/FiO2 Ratio 250 250 250 Sepsis Recent Fever Within 48 Hours Sepsis New/Unexplained Change in Mental Status Sepsis Action Taken by Nursing Oxygen Flow Rate - Titration Pulse Oximetry Post Tiitration 08/10/23 23:51 08/11/23 00:00 08/11/23 00:15 Pulse Rate Pulse Rate [Apical] 116 H 115 H 111 H Respiratory Rate 18 20 20 Respiratory Effort / Characteristics Respiratory Depth Respiratory Pattern Blood Pressure [Left Arm] 115/74 145/86 H 120/79 Blood Pressure Mean [Left Arm] 87 105 92 Pulse Oximetry 100 100 100 Oxygen Delivery Method BiPAP BiPAP BiPAP Oxygen Flow Rate Fraction of Inspired Oxygen 40 40 40 SaO2/FiO2 Ratio 250 250 250 Sepsis Recent Fever Within 48 Hours Sepsis New/Unexplained Change in Mental Status Sepsis Action Taken by Nursing Oxygen Flow Rate - Titration Pulse Oximetry Post Tiitration Home Medications Current Medication List: was personally reviewed by me Laboratory Data Attestation: I reviewed the patient's lab results. 08/10/23 22:44 08/10/23 22:44 Lab Results 08/10/23 08/10/23 08/10/23 Range/Units 22:44 22:44 22:44 WBC 10.42 (4.8-10.8) K/ul RBC 4.85 (4.20-5.40) M/uL Hgb 14.4 (12.0-16.0) g/dl POC Hgb (12.0-16.0) g/dl Hct 42.0 (37.0-47.0) % POC Hct (37-47) % MCV 86.6 (80.0-100.0) fL MCH 29.7 (25.0-34.0) pg MCHC 34.3 (32.0-36.0) g/dL RDW Std Deviation 39.3 (36.4-46.3) fL RDW Coeff of Tea 12.5 (11.5-14.5) % Plt Count 487 H (130-400) K/uL MPV 9.6 (9.4-12.4) fL Immature Gran % (Auto) 0.5 % Neut % (Auto) 70.5 % Lymph % (Auto) 18.5 % Hernando % (Auto) 7.0 % Eos % (Auto) 2.3 % Baso % (Auto) 1.2 % Neut # (Auto) 7.35 H (1.40-6.50) K/uL Lymph # (Auto) 1.93 (1.20-3.40) K/uL Hernando # (Auto) 0.73 H (0.11-0.59) K/uL Eos # (Auto) 0.24 (0.00-0.50) K/uL Baso # (Auto) 0.12 (0.00-0.20) K/uL Immature Gran # (Auto) 0.05 (0.01-0.20) K/uL PT 11.2 (9.0-12.0) Seconds INR 1.0 (0.9-1.1) APTT 26.2 (21.0-31.0) Seconds PTT Ratio 0.9 POC pH (7.35-7.45) POC pCO2 (35-46) mmHg POC pO2 (80-95) mmHg POC HCO3 (19-24) erma/L POC Base Excess (-9-1.8) erma/L POC ABG O2 Sat (90-95) % VBG pH (7.36-7.41) VBG pCO2 (38-50) mmHg VBG pO2 mmHg VBG HCO3 mmol/L VBG O2 Saturation % VBG Base Excess mEq/L POC Sodium (135-144) mmol/L Sodium 130 L (136-145) mmol/L POC Potassium (3.3-5.0) mmol/L Potassium 3.9 (3.5-5.1) mmol/L POC Chloride (101-112) mmol/L Chloride 96 L (98-107) mmol/L Carbon Dioxide 26 (21-32) mmol/L POC Total CO2 (24-31) mmol/L Anion Gap 8 (3-11) POC Anion Gap (16-25) mmol/L POC BUN (7-18) mg/dl BUN 6 (6-23) mg/dl Creatinine 0.49 L (0.6-1.2) mg/dl POC Creatinine (0.6-1.3) mg/dl Est Cr Clr Drug Dosing 109.9 ml/min Est GFR ( Amer) 122.7 ml/min Est GFR (Non-Af Amer) 105.9 ml/min BUN/Creatinine Ratio 12.2 (10-20) Glucose 207 H (70-99(Fasting)) mg/dl POC Glucose (other) (70-99) mg/dl Lactate (0.4-2.0) mmol/L Calcium 9.6 (8.6-10.3) mg/dl POC Ioniz Calcium Brad (1.12-1.32) mmol/l Magnesium 2.0 (1.7-2.4) mg/dl Total Bilirubin 0.8 (0.2-1.0) mg/dl Direct Bilirubin 0.2 (0-0.2) mg/dl AST 22 (13-39) U/L ALT 19 (7-52) U/L Alkaline Phosphatase 68 (34-104) U/L Troponin I High Sens 5.7 (0-14) pg/ml Total Protein 7.5 (6.0-8.3) gm/dl Albumin 4.8 (3.4-5.0) gm/dl Procalcitonin (0-0.5) ng/ml Adenovirus (PCR) (NotDetected) B. pertussis DNA (PCR) (NotDetected) B.parapertussis DNA PCR (NotDetected) C. pneumoniae DNA (PCR) (NotDetected) Coronavirus OC43 (PCR) (NotDetected) Coronavirus HKU1 (PCR) (NotDetected) Coronavirus 229E (PCR) (NotDetected) SARS-CoV-2 (PCR) (NotDetected) Coronavirus NL63 (PCR) (NotDetected) Human Metapneumovir PCR (NotDetected) Influenza Type A (PCR) (NotDetected) Influenza Type B (PCR) (NotDetected) M. pneumoniae (PCR) (NotDetected) Parainfluenza 1 (PCR) (NotDetected) Parainfluenza 2 (PCR) (NotDetected) Parainfluenza 3 (PCR) (NotDetected) Parainfluenza 4 (PCR) (NotDetected) RSV (PCR) (NotDetected) Entero/Rhino (PCR) (NotDetected) 08/10/23 08/10/23 08/10/23 Range/Units 22:44 22:44 22:44 WBC (4.8-10.8) K/ul RBC (4.20-5.40) M/uL Hgb (12.0-16.0) g/dl POC Hgb (12.0-16.0) g/dl Hct (37.0-47.0) % POC Hct (37-47) % MCV (80.0-100.0) fL MCH (25.0-34.0) pg MCHC (32.0-36.0) g/dL RDW Std Deviation (36.4-46.3) fL RDW Coeff of Tea (11.5-14.5) % Plt Count (130-400) K/uL MPV (9.4-12.4) fL Immature Gran % (Auto) % Neut % (Auto) % Lymph % (Auto) % Hernando % (Auto) % Eos % (Auto) % Baso % (Auto) % Neut # (Auto) (1.40-6.50) K/uL Lymph # (Auto) (1.20-3.40) K/uL Hernando # (Auto) (0.11-0.59) K/uL Eos # (Auto) (0.00-0.50) K/uL Baso # (Auto) (0.00-0.20) K/uL Immature Gran # (Auto) (0.01-0.20) K/uL PT (9.0-12.0) Seconds INR (0.9-1.1) APTT (21.0-31.0) Seconds PTT Ratio POC pH (7.35-7.45) POC pCO2 (35-46) mmHg POC pO2 (80-95) mmHg POC HCO3 (19-24) erma/L POC Base Excess (-9-1.8) erma/L POC ABG O2 Sat (90-95) % VBG pH 7.22 L (7.36-7.41) VBG pCO2 68 H (38-50) mmHg VBG pO2 33 mmHg VBG HCO3 28 mmol/L VBG O2 Saturation < 60.0 % VBG Base Excess -1.5 mEq/L POC Sodium (135-144) mmol/L Sodium (136-145) mmol/L POC Potassium (3.3-5.0) mmol/L Potassium (3.5-5.1) mmol/L POC Chloride (101-112) mmol/L Chloride (98-107) mmol/L Carbon Dioxide (21-32) mmol/L POC Total CO2 (24-31) mmol/L Anion Gap (3-11) POC Anion Gap (16-25) mmol/L POC BUN (7-18) mg/dl BUN (6-23) mg/dl Creatinine (0.6-1.2) mg/dl POC Creatinine (0.6-1.3) mg/dl Est Cr Clr Drug Dosing ml/min Est GFR ( Amer) ml/min Est GFR (Non-Af Amer) ml/min BUN/Creatinine Ratio (10-20) Glucose (70-99(Fasting)) mg/dl POC Glucose (other) (70-99) mg/dl Lactate 1.6 (0.4-2.0) mmol/L Calcium (8.6-10.3) mg/dl POC Ioniz Calcium Brad (1.12-1.32) mmol/l Magnesium (1.7-2.4) mg/dl Total Bilirubin (0.2-1.0) mg/dl Direct Bilirubin (0-0.2) mg/dl AST (13-39) U/L ALT (7-52) U/L Alkaline Phosphatase (34-104) U/L Troponin I High Sens (0-14) pg/ml Total Protein (6.0-8.3) gm/dl Albumin (3.4-5.0) gm/dl Procalcitonin < 0.05 (0-0.5) ng/ml Adenovirus (PCR) (NotDetected) B. pertussis DNA (PCR) (NotDetected) B.parapertussis DNA PCR (NotDetected) C. pneumoniae DNA (PCR) (NotDetected) Coronavirus OC43 (PCR) (NotDetected) Coronavirus HKU1 (PCR) (NotDetected) Coronavirus 229E (PCR) (NotDetected) SARS-CoV-2 (PCR) (NotDetected) Coronavirus NL63 (PCR) (NotDetected) Human Metapneumovir PCR (NotDetected) Influenza Type A (PCR) (NotDetected) Influenza Type B (PCR) (NotDetected) M. pneumoniae (PCR) (NotDetected) Parainfluenza 1 (PCR) (NotDetected) Parainfluenza 2 (PCR) (NotDetected) Parainfluenza 3 (PCR) (NotDetected) Parainfluenza 4 (PCR) (NotDetected) RSV (PCR) (NotDetected) Entero/Rhino (PCR) (NotDetected) 08/10/23 08/10/23 08/10/23 Range/Units 22:52 22:55 23:50 WBC (4.8-10.8) K/ul RBC (4.20-5.40) M/uL Hgb (12.0-16.0) g/dl POC Hgb 15.6 11.2 L (12.0-16.0) g/dl Hct (37.0-47.0) % POC Hct 46 33 L (37-47) % MCV (80.0-100.0) fL MCH (25.0-34.0) pg MCHC (32.0-36.0) g/dL RDW Std Deviation (36.4-46.3) fL RDW Coeff of Tea (11.5-14.5) % Plt Count (130-400) K/uL MPV (9.4-12.4) fL Immature Gran % (Auto) % Neut % (Auto) % Lymph % (Auto) % Hernando % (Auto) % Eos % (Auto) % Baso % (Auto) % Neut # (Auto) (1.40-6.50) K/uL Lymph # (Auto) (1.20-3.40) K/uL Hernando # (Auto) (0.11-0.59) K/uL Eos # (Auto) (0.00-0.50) K/uL Baso # (Auto) (0.00-0.20) K/uL Immature Gran # (Auto) (0.01-0.20) K/uL PT (9.0-12.0) Seconds INR (0.9-1.1) APTT (21.0-31.0) Seconds PTT Ratio POC pH 7.32 L (7.35-7.45) POC pCO2 45 (35-46) mmHg POC pO2 187 H (80-95) mmHg POC HCO3 23 (19-24) erma/L POC Base Excess -3.0 (-9-1.8) erma/L POC ABG O2 Sat 100.0 H (90-95) % VBG pH (7.36-7.41) VBG pCO2 (38-50) mmHg VBG pO2 mmHg VBG HCO3 mmol/L VBG O2 Saturation % VBG Base Excess mEq/L POC Sodium 130 L 130 L (135-144) mmol/L Sodium (136-145) mmol/L POC Potassium 4.0 3.7 (3.3-5.0) mmol/L Potassium (3.5-5.1) mmol/L POC Chloride 95 L (101-112) mmol/L Chloride (98-107) mmol/L Carbon Dioxide (21-32) mmol/L POC Total CO2 27 25 (24-31) mmol/L Anion Gap (3-11) POC Anion Gap 13.0 L (16-25) mmol/L POC BUN 4 L (7-18) mg/dl BUN (6-23) mg/dl Creatinine (0.6-1.2) mg/dl POC Creatinine 0.4 L (0.6-1.3) mg/dl Est Cr Clr Drug Dosing ml/min Est GFR ( Amer) ml/min Est GFR (Non-Af Amer) ml/min BUN/Creatinine Ratio (10-20) Glucose (70-99(Fasting)) mg/dl POC Glucose (other) 196 H (70-99) mg/dl Lactate (0.4-2.0) mmol/L Calcium (8.6-10.3) mg/dl POC Ioniz Calcium Brad 1.24 (1.12-1.32) mmol/l Magnesium (1.7-2.4) mg/dl Total Bilirubin (0.2-1.0) mg/dl Direct Bilirubin (0-0.2) mg/dl AST (13-39) U/L ALT (7-52) U/L Alkaline Phosphatase (34-104) U/L Troponin I High Sens (0-14) pg/ml Total Protein (6.0-8.3) gm/dl Albumin (3.4-5.0) gm/dl Procalcitonin (0-0.5) ng/ml Adenovirus (PCR) Not Detected (NotDetected) B. pertussis DNA (PCR) Not Detected (NotDetected) B.parapertussis DNA PCR Not Detected (NotDetected) C. pneumoniae DNA (PCR) Not Detected (NotDetected) Coronavirus OC43 (PCR) Not Detected (NotDetected) Coronavirus HKU1 (PCR) Not Detected (NotDetected) Coronavirus 229E (PCR) Not Detected (NotDetected) SARS-CoV-2 (PCR) Not Detected (NotDetected) Coronavirus NL63 (PCR) Not Detected (NotDetected) Human Metapneumovir PCR Not Detected (NotDetected) Influenza Type A (PCR) Not Detected (NotDetected) Influenza Type B (PCR) Not Detected (NotDetected) M. pneumoniae (PCR) Not Detected (NotDetected) Parainfluenza 1 (PCR) Not Detected (NotDetected) Parainfluenza 2 (PCR) Not Detected (NotDetected) Parainfluenza 3 (PCR) Not Detected (NotDetected) Parainfluenza 4 (PCR) Not Detected (NotDetected) RSV (PCR) Not Detected (NotDetected) Entero/Rhino (PCR) Not Detected (NotDetected) Administered Medications Magnesium Sulfate/Dextrose (Magnesium Sulfate / D5w) 1 gm in 100 mls @ 100 mls/hr IV Q1H RJ Stop: 08/11/23 02:09 Last Admin: 08/11/23 00:12 Dose: 100 mls/hr Documented By: AN Discontinued Medications Albuterol (Albut/Ipratrop 3mg/0.5mg Neb 3 Ml Vial) 12 ml NEB ONE ONE; Protocol Stop: 08/10/23 22:42 Last Admin: 08/10/23 22:55 Dose: 12 ml Documented By: BWT Dexamethasone Sodium Phosphate (DexamethasonePf 10 Mg/Ml Vial) 10 mg IV NOW ONE Stop: 08/10/23 22:42 Last Admin: 08/10/23 22:46 Dose: 10 mg Documented By: AN Sodium Chloride (Nss) 1,000 mls @ 999 mls/hr IV .Q1H1M ONE Stop: 08/10/23 23:41 Last Infusion: 08/10/23 23:49 Dose: 0 mls/hr Documented By: Admin: 08/10/23 22:47 Dose: 999 mls/hr Documented By: AN Ceftriaxone Sodium (Rocephin) 2,000 mg in 70 mls @ 140 mls/hr IV NOW STA Stop: 08/10/23 23:12 Last Infusion: 08/10/23 23:25 Dose: 0 mls/hr Documented By: Admin: 08/10/23 22:55 Dose: 140 mls/hr Documented By: AN Lorazepam (Lorazepam 2 Mg/1 Ml Vial) 0.5 mg IV NOW STA Stop: 08/10/23 23:15 Last Admin: 08/10/23 23:17 Dose: 0.5 mg Documented By: AN Morphine Sulfate (Morphine Sulfate 4 Mg/Ml 1 Ml Carp\Vial) 4 mg IV NOW STA Stop: 08/10/23 23:30 Last Admin: 08/10/23 23:36 Dose: 4 mg Documented By: AN Ondansetron HCl (Ondansetron Inj 2 Mg/Ml 2 Ml Vial) 4 mg IV NOW STA Stop: 08/10/23 23:30 Last Admin: 08/10/23 23:36 Dose: 4 mg Documented By: AN Imaging Data Attestation: I personally reviewed and interpreted this imaging study as follows: My Impression: 1 view chest x-ray was obtained in the emergency department. My interpretation is hyperinflation, chronic elevation of the left hemidiaphragm, there is no free air or definite infiltrate, loops of bowel are noted over the liver, this was compared to a chest x-ray from March 31, 2023. No definite changes were noted, final report pending. Discharge Plan Visit Data Chief Complaint: Shortness of Breath/Dyspnea Stated Complaint: SOB ED Provider: Nitish Waterman Discharge Problem: Asthma with exacerbation, Respiratory failure, Hypoxia Patient Disposition: Being Evaluated by Hospitalist Forms Stand Alone Forms: My [facility] Prescriptions Prescriptions: No Action albuterol sulfate 90 mcg/actuation HFA aerosol inhaler See Rx Instructions .ROUTE .COMPLEX Qty: 8.5 11RF Dose Instruction: INHALE 1 PUFF BY MOUTH FOUR TIMES DAILY NEEDED FOR SHORTNESS OF BREATH OR WHEEZING Rx Instructions: INHALE 1 PUFF BY MOUTH FOUR TIMES DAILY NEEDED FOR SHORTNESS OF BREATH OR WHEEZING fluticasone propion-salmeterol [Advair Diskus] 250-50 mcg/dose blister with device 1 inh inhalation BID Qty: 1 11RF ipratropium-albuterol 0.5 mg-3 mg(2.5 mg base)/3 mL solution for nebulization 3 ml inhalation QID PRN (Reason: shortness of breath) Qty: 180 11RF Rx Instructions: until breathing returns to target peak flow/parameters acetaminophen [Tylenol Extra Strength] 500 mg Tablet 1,000 mg PO DIRECTED PRN (Reason: PAIN/FEVER) Referrals Referrals: Everette Leija, [Primary Care Provider] -
[2023-08-10 23:01] LABS: Base Excess VBG -1.5 mEq/L; HCO3 VBG 28 mmol/L; Oxygen Saturation VBG < 60.0 %; PCO2 VBG 68 mmHg (38-50); PO2 VBG 33 mmHg; pH VBG 7.22 (7.36-7.41)
[2023-08-10 23:07] LABS: iSTAT Creatinine 0.4 mg/dl (0.6-1.3); iSTAT Hemoglobin 15.6 g/dl (12.0-16.0); iSTAT Ionized Calcium 1.24 mmol/l (1.12-1.32)
[2023-08-10 23:09] LABS: Basophils # (auto) 0.12 K/uL (0.00-0.20); Basophils % (auto) 1.2 %; Eosinophils # (auto) 0.24 K/uL (0.00-0.50); Eosinophils % (auto) 2.3 %; Hemoglobin 14.4 g/dl (12.0-16.0); Immature Granulocytes # (auto) 0.05 K/uL (0.01-0.20); Immature Granulocytes % (auto) 0.5 %; Lymphocytes # (auto) 1.93 K/uL (1.20-3.40); Lymphocytes % (auto) 18.5 %; Mean Corpuscular Hemoglobin 29.7 pg (25.0-34.0); Mean Corpuscular Hgb Conc 34.3 g/dL (32.0-36.0); Mean Corpuscular Volume 86.6 fL (80.0-100.0); Mean Platelet Volume 9.6 fL (9.4-12.4); Monocytes # (auto) 0.73 K/uL (0.11-0.59); Neutrophils # (auto) 7.35 K/uL (1.40-6.50); Neutrophils % (auto) 70.5 %; Platelet Count 487 K/uL (130-400); RDW Coefficient of Variation 12.5 % (11.5-14.5); RDW Standard Deviation 39.3 fL (36.4-46.3); Red Blood Count 4.85 M/uL (4.20-5.40); White Blood Count 10.42 K/ul (4.8-10.8)
[2023-08-10] MEDS ORDERED: LORazepam 2 MG/1 ML VIAL IV STA (23:14)
[2023-08-10 23:26] LABS: Albumin Level 4.8 gm/dl (3.4-5.0); BUN Creatinine Ratio 12.2 (10-20); Bilirubin Direct 0.2 mg/dl (0-0.2); Bilirubin,Total 0.8 mg/dl (0.2-1.0); Calcium 9.6 mg/dl (8.6-10.3); Creatinine Clr Calc Pharmacy 109.9 ml/min; Est GFR (African American) 122.7 ml/min; Est GFR (Non-African American) 105.9 ml/min; Potassium 3.9 mmol/L (3.5-5.1); Total Protein 7.5 gm/dl (6.0-8.3)
[2023-08-10] MEDS ORDERED: ONDANSETRON INJ 2 MG/ML 2 ML VIAL IV STA (23:29)
[2023-08-10] MEDS ORDERED: MoRPHine SULFATE 4 MG/ML 1 ML CARP\\VIAL IV STA (23:29)
[2023-08-10 23:41] LABS: Partial Thromboplastin Ratio 0.9; Partial Thromboplastin Time 26.2 Seconds (21.0-31.0); Prothrombin Time 11.2 Seconds (9.0-12.0)
[2023-08-10 23:42] LABS: Troponin I High Sensitivity 5.7 pg/ml (0-14)
[2023-08-11] LABS: Adenovirus PCR Not Detected (NotDetected); Bordetella parapertussis PCR Not Detected (NotDetected); Bordetella pertussis PCR Not Detected (NotDetected); Chlamydia pneumoniae PCR Not Detected (NotDetected); Coronavirus 229E PCR Not Detected (NotDetected); Coronavirus CoV-2 (COVID19)PCR Not Detected (NotDetected); Coronavirus HKU1 PCR Not Detected (NotDetected); Coronavirus NL63 PCR Not Detected (NotDetected); Coronavirus OC43PCR Not Detected (NotDetected); Human Metapneumovirus PCR Not Detected (NotDetected); Influenza A PCR Not Detected (NotDetected); Influenza B PCR Not Detected (NotDetected); Mycoplasma pneumoniae PCR Not Detected (NotDetected); Parainfluenza Virus 1 PCR Not Detected (NotDetected); Parainfluenza Virus 2 PCR Not Detected (NotDetected); Parainfluenza Virus 3 PCR Not Detected (NotDetected); Parainfluenza Virus 4 PCR Not Detected (NotDetected); Respiratory Syncytial VirusPCR Not Detected (NotDetected); Rhinovirus/Enterovirus PCR Not Detected (NotDetected)
[2023-08-11 00:03] LABS: iSTAT Arterial Blood Gas HCO3 23 meg/L (19-24); iSTAT Arterial Blood Gas pCO2 45 mmHg (35-46); iSTAT Arterial Blood Gas pH 7.32 (7.35-7.45); iSTAT Arterial Blood Gas pO2 187 mmHg (80-95); iSTAT Carbon Dioxide 25 mmol/L (24-31); iSTAT Hematocrit 33 % (37-47); iSTAT Hemoglobin 11.2 g/dl (12.0-16.0); iSTAT Potassium 3.7 mmol/L (3.3-5.0); iSTAT Sodium 130 mmol/L (135-144)
[2023-08-11] MEDS: MAGNESIUM SULFATE / D5W 1 GM/100 ML BAG IV SCH ×2 (00:12→01:07)
[2023-08-11] MEDS ORDERED: OPTIRAY 320 125ml IV ONE (00:40)
--- NOTE | 2023-08-11 01:14 | History & Physical Report ---
Date of Service August 11, 2023 Assessment & Plan (1) Acute respiratory failure with hypoxia and hypercapnia: (2) Asthma with exacerbation: (3) COPD with exacerbation: (4) Lab test negative for COVID-19 virus: (5) Former smoker: (6) Allergic rhinitis: Plan Acute respiratory failure with hypoxia and hypercapnia/COPD and asthma exacerbation- The patient will be admitted to telemetry cardiac rhythm monitoring and close monitoring of respiratory status and oxygenation Continue BiPAP with serial ABGs Received dexamethasone 10 mg IV, DuoNeb, ceftriaxone 2 g IV, morphine sulfate 4 mg IV and lorazepam 0.5 mg IV from the ED Methylprednisolone 40 mg IV every 8 hours Azithromycin 500 mg IV daily Ceftriaxone 1 g IV daily Duonebs every 4 hours while awake and every 2 hours when necessary. Taper BiPAP to nasal cannula oxygen/mask as symptoms improve BioFire test negative Chest x-ray with no acute findings CTA chest negative History of Present Illness Chief Complaint: The patient presents to the emergency department with complaint of a few days of persistent and worsening shortness of breath despite use of her usual treatment regimen Primary Care Provider: Everette Leija DO The patient is a 58-year-old female with a past medical history including COPD, moderate persistent asthma, former smoker, history of COPD exacerbation and allergic rhinitis. She presents to the emergency department with a few days of worsening shortness of breath. She denies any recent travels or sick exposures. In the emergency department she was placed on BiPAP due to acute respiratory failure with acidotic pH, increased CO2 retention, and decreased oxygenation. Allergies Allergy/AdvReac Type Severity Reaction Status Date / Time animal dander Allergy Intermediate asthma Verified 03/05/23 19:39 related symptoms grass pollen-perennial rye, Allergy Intermediate asthma Verified 03/05/23 19:39 standar related sx mold Allergy Intermediate asthma Verified 03/05/23 19:39 related sx Home Medications Medication Instructions Recorded Confirmed Type acetaminophen 500 mg tablet 1,000 mg PO DIRECTED PRN 03/05/23 03/15/23 History (Tylenol Extra Strength) PAIN/FEVER albuterol sulfate 90 mcg/actuation See Rx Instructions .Route 05/20/23 Rx aerosol inhaler .COMPLEX #8.5 ea fluticasone 250 mcg-salmeterol 50 1 inh inhalation BID #1 inhaler 07/17/23 07/17/23 Rx mcg/dose blistr powdr for inhalation (Advair Diskus) ipratropium 0.5 mg-albuterol 3 mg 3 ml inhalation QID PRN shortness 07/17/23 07/17/23 Rx (2.5 mg base)/3 mL nebulization of breath #180 mL soln Past Med/Surg History Medical History Allergic rhinitis due to animal dander Allergic rhinitis due to dust Allergic rhinitis due to other allergen Allergic rhinitis due to pollen Asthma Asthma with status asthmaticus Atopic dermatitis Colon cancer screening COPD (chronic obstructive pulmonary disease) Extrinsic asthma Hypoxemia Murmur PNA (pneumonia) Surgical History History of surgical removal of ganglion cyst Family History Sister Asthma Allergic rhinitis Social History Smoking Status: Unknown if ever smoked Tobacco Type: Cigarettes Cigarettes Per Day: 5-20 per day; Second Hand Exposure: No; Do You Dip or Chew Tobacco: No; Hx Alcohol Use: Yes Alcohol type: beer, wine and hard liquor Hx Substance Use: No Preferred Language: Croatian Communication Ability: Effective 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 Beliefs That Will Affect Care: None marital status: / Current Living Situation: Alone current occupational status: employed How many Children do You have: 0 Feels Safe at Home: Yes Childhood Exposure to Second-Hand Smoke: Yes Diet: regular caffeine: Yes Dental Care, Regularly: Yes Physical Activity Frequency: Daily Seatbelt Use: always Sunscreen Use: Yes Assistive Devices: Glasses Review of Systems Review of Systems: The patient denies chest pain, palpitations, lower extremity swelling, sore throat, fevers, chills, sweats, nausea, vomiting, diarrhea , constipation, abdominal pain, pelvic pain, blood in urine or stool, dysuria, urinary frequency or urgency, lightheadedness, dizziness, headache, memory loss, loss of consciousness, rash, abnormal bruising or bleeding, imbalance, focal or generalized weakness, numbness or tingling in arms or legs, generalized arthralgias or myalgias, back or neck pain, or night sweats. The review of systems is otherwise negative other than for that already noted above, and at least 10 systems have been reviewed. Physical Exam Physical Exam: The patient is awake, alert and oriented 3, well developed and well nourished, normocephalic and atraumatic, improved respiratory distress on BiPAP HEENT--PERRL, EOMI, mucous membranes and oropharynx dry. Neck--supple. No JVD. No bruits. Thyroid normal, trachea midline, no adenopathy. Heart--normal S1 and S2. No murmurs, rubs or gallops. Lungs--diffuse inspiratory and expiratory wheezing bilaterally Abdomen--normal bowel sounds and soft. Nontender. Nondistended, no hernias or masses, no organomegaly. Extremities--no cyanosis or clubbing. No edema. Dermatologic--normal skin turgor, normal color, no abnormal lymph nodes, no rash. Neurologic--cranial nerves II through XII grossly intact. Rheumatologic--normal range of motion. Psychiatric--normal affect. Results & Data Results & Data Vital Signs (Past 12 Hours) Vital Signs Pulse Pulse Resp BP Pulse Ox O2 Del Method O2 Flow Rate 08/11/23 01:00 107 H 20 137/92 98 BiPAP 08/11/23 00:45 115 H 20 154/89 H 100 BiPAP 08/11/23 00:15 111 H 20 120/79 100 BiPAP 08/11/23 00:00 115 H 20 145/86 H 100 BiPAP 08/10/23 23:51 116 H 18 115/74 100 BiPAP 08/10/23 23:45 117 H 22 101/75 100 BiPAP 08/10/23 23:30 123 H 20 154/104 H 100 BiPAP 08/10/23 23:15 120 H 26 H 189/129 H 100 BiPAP 08/10/23 22:58 116 H 27 H 96 08/10/23 22:58 115 H 17 96 BiPAP 08/10/23 23:00 118 H 26 H 173/122 H 100 BiPAP 08/10/23 22:51 100 BiPAP 08/10/23 22:43 116 H 08/10/23 22:45 114 H 30 H 182/122 H 100 Non-rebreather 15 08/10/23 22:44 68 L Room Air, Non-rebreather 08/10/23 22:35 126 H 36 H 68 L Room Air FiO2 08/11/23 01:00 40 08/11/23 00:45 40 08/11/23 00:15 40 08/11/23 00:00 40 08/10/23 23:51 40 08/10/23 23:45 40 08/10/23 23:30 40 08/10/23 23:15 40 08/10/23 22:58 40 08/10/23 22:58 40 08/10/23 23:00 40 08/10/23 22:51 40 08/10/23 22:43 08/10/23 22:45 08/10/23 22:44 08/10/23 22:35 Laboratory Results Laboratory Results WBC 10.42 K/ul (4.8-10.8) 08/10/23 22:44 RBC 4.85 M/uL (4.20-5.40) 08/10/23 22:44 Hgb 14.4 g/dl (12.0-16.0) 08/10/23 22:44 POC Hgb 11.2 g/dl (12.0-16.0) L 08/10/23 23:50 Hct 42.0 % (37.0-47.0) 08/10/23 22:44 POC Hct 33 % (37-47) L 08/10/23 23:50 MCV 86.6 fL (80.0-100.0) 08/10/23 22:44 MCH 29.7 pg (25.0-34.0) 08/10/23 22:44 MCHC 34.3 g/dL (32.0-36.0) 08/10/23 22:44 RDW Std Deviation 39.3 fL (36.4-46.3) 08/10/23 22:44 RDW Coeff of Tea 12.5 % (11.5-14.5) 08/10/23 22:44 Plt Count 487 K/uL (130-400) H 08/10/23 22:44 MPV 9.6 fL (9.4-12.4) 08/10/23 22:44 Immature Gran % (Auto) 0.5 % 08/10/23 22:44 Neut % (Auto) 70.5 % 08/10/23 22:44 Lymph % (Auto) 18.5 % 08/10/23 22:44 Emanuel % (Auto) 7.0 % 08/10/23 22:44 Eos % (Auto) 2.3 % 08/10/23 22:44 Baso % (Auto) 1.2 % 08/10/23 22:44 Neut # (Auto) 7.35 K/uL (1.40-6.50) H 08/10/23 22:44 Lymph # (Auto) 1.93 K/uL (1.20-3.40) 08/10/23 22:44 Emanuel # (Auto) 0.73 K/uL (0.11-0.59) H 08/10/23 22:44 Eos # (Auto) 0.24 K/uL (0.00-0.50) 08/10/23 22:44 Baso # (Auto) 0.12 K/uL (0.00-0.20) 08/10/23 22:44 Immature Gran # (Auto) 0.05 K/uL (0.01-0.20) 08/10/23 22:44 PT 11.2 Seconds (9.0-12.0) 08/10/23 22:44 INR 1.0 (0.9-1.1) 08/10/23 22:44 APTT 26.2 Seconds (21.0-31.0) 08/10/23 22:44 PTT Ratio 0.9 08/10/23 22:44 POC pH 7.32 (7.35-7.45) L 08/10/23 23:50 POC pCO2 45 mmHg (35-46) 08/10/23 23:50 POC pO2 187 mmHg (80-95) H 08/10/23 23:50 POC HCO3 23 erma/L (19-24) 08/10/23 23:50 POC Total CO2 25 mmol/L (24-31) 08/10/23 23:50 POC Base Excess -3.0 erma/L (-9-1.8) 08/10/23 23:50 POC ABG O2 Sat 100.0 % (90-95) H 08/10/23 23:50 VBG pH 7.22 (7.36-7.41) L 08/10/23 22:44 VBG pCO2 68 mmHg (38-50) H 08/10/23 22:44 VBG pO2 33 mmHg 08/10/23 22:44 VBG HCO3 28 mmol/L 08/10/23 22:44 VBG O2 Saturation < 60.0 % 08/10/23 22:44 VBG Base Excess -1.5 mEq/L 08/10/23 22:44 POC Sodium 130 mmol/L (135-144) L 08/10/23 23:50 Sodium 130 mmol/L (136-145) L 08/10/23 22:44 POC Potassium 3.7 mmol/L (3.3-5.0) 08/10/23 23:50 Potassium 3.9 mmol/L (3.5-5.1) 08/10/23 22:44 POC Chloride 95 mmol/L (101-112) L 08/10/23 22:52 Chloride 96 mmol/L (98-107) L 08/10/23 22:44 Carbon Dioxide 26 mmol/L (21-32) 08/10/23 22:44 POC Total CO2 27 mmol/L (24-31) 08/10/23 22:52 Anion Gap 8 (3-11) 08/10/23 22:44 POC Anion Gap 13.0 mmol/L (16-25) L 08/10/23 22:52 POC BUN 4 mg/dl (7-18) L 08/10/23 22:52 BUN 6 mg/dl (6-23) 08/10/23 22:44 Creatinine 0.49 mg/dl (0.6-1.2) L 08/10/23 22:44 POC Creatinine 0.4 mg/dl (0.6-1.3) L 08/10/23 22:52 Est Cr Clr Drug Dosing 109.9 ml/min 08/10/23 22:44 Est GFR ( Amer) 122.7 ml/min 08/10/23 22:44 Est GFR (Non-Af Amer) 105.9 ml/min 08/10/23 22:44 BUN/Creatinine Ratio 12.2 (10-20) 08/10/23 22:44 Glucose 207 mg/dl (70-99(Fasting)) H 08/10/23 22:44 POC Glucose (other) 196 mg/dl (70-99) H 08/10/23 22:52 Lactate 1.6 mmol/L (0.4-2.0) 08/10/23 22:44 Calcium 9.6 mg/dl (8.6-10.3) 08/10/23 22:44 POC Ioniz Calcium Brad 1.24 mmol/l (1.12-1.32) 08/10/23 22:52 Magnesium 2.0 mg/dl (1.7-2.4) 08/10/23 22:44 Total Bilirubin 0.8 mg/dl (0.2-1.0) 08/10/23 22:44 Direct Bilirubin 0.2 mg/dl (0-0.2) 08/10/23 22:44 AST 22 U/L (13-39) 08/10/23 22:44 ALT 19 U/L (7-52) 08/10/23 22:44 Alkaline Phosphatase 68 U/L (34-104) 08/10/23 22:44 Troponin I High Sens 5.7 pg/ml (0-14) 08/10/23 22:44 Total Protein 7.5 gm/dl (6.0-8.3) 08/10/23 22:44 Albumin 4.8 gm/dl (3.4-5.0) 08/10/23 22:44 Procalcitonin < 0.05 ng/ml (0-0.5) 08/10/23 22:44 Adenovirus (PCR) Not Detected (NotDetected) 08/10/23 22:55 B. pertussis DNA (PCR) Not Detected (NotDetected) 08/10/23 22:55 B.parapertussis DNA PCR Not Detected (NotDetected) 08/10/23 22:55 C. pneumoniae DNA (PCR) Not Detected (NotDetected) 08/10/23 22:55 Coronavirus OC43 (PCR) Not Detected (NotDetected) 08/10/23 22:55 Coronavirus HKU1 (PCR) Not Detected (NotDetected) 08/10/23 22:55 Coronavirus 229E (PCR) Not Detected (NotDetected) 08/10/23 22:55 SARS-CoV-2 (PCR) Not Detected (NotDetected) 08/10/23 22:55 Coronavirus NL63 (PCR) Not Detected (NotDetected) 08/10/23 22:55 Human Metapneumovir PCR Not Detected (NotDetected) 08/10/23 22:55 Influenza Type A (PCR) Not Detected (NotDetected) 08/10/23 22:55 Influenza Type B (PCR) Not Detected (NotDetected) 08/10/23 22:55 M. pneumoniae (PCR) Not Detected (NotDetected) 08/10/23 22:55 Parainfluenza 1 (PCR) Not Detected (NotDetected) 08/10/23 22:55 Parainfluenza 2 (PCR) Not Detected (NotDetected) 08/10/23 22:55 Parainfluenza 3 (PCR) Not Detected (NotDetected) 08/10/23 22:55 Parainfluenza 4 (PCR) Not Detected (NotDetected) 08/10/23 22:55 RSV (PCR) Not Detected (NotDetected) 08/10/23 22:55 Entero/Rhino (PCR) Not Detected (NotDetected) 08/10/23 22:55 Code Status & VTE Plan Code Status Full code VTE Prophylaxis Plan VTE Prophylaxis will be ordered: Yes PG Care Time/CCT Total # of Minutes Spent Total Time Spent with Patient: Total time spent is greater than 50% in coordination of care (as documented) at patient's floor/unit and/or counseling patient: Coding Level of Care Code 40577 INT INP/OBS CARE 3/75MIN Diagnoses Acute respiratory failure with hypoxia and hypercapnia J96.01; J96.02 Asthma with exacerbation J45.901 Asthma persistence: unspecified Asthma severity: unspecified severity COPD with exacerbation J44.1 Lab test negative for COVID-19 virus Z20.822 Former smoker Z87.891 Allergic rhinitis J30.9 (2) Asthma with exacerbation Asthma persistence: unspecified Asthma severity: unspecified severity Qualified Code(s): J45.901 - Unspecified asthma with (acute) exacerbation
[2023-08-11 03:19] LABS: Appearance Urine Clear (Clear); Bacteria Urine Automated 1+ (Negative); Bilirubin Urine Negative (Negative); Blood Urine Negative (Negative); Cast Urine Automated 0 /lpf (0-5); Color Urine Yellow; Glucose Urine UA 1+ (Negative); Ketones Urine Negative (Negative); Leukocyte Esterase Urine Negative (Negative); Nitrite Urine Positive (Negative); Protein Urine Negative (Negative); RBC Urine Automated 0-4 /hpf (0-4); Specific Gravity Urine 1.027 (1.000-1.030); Urobilinogen Urine Negative (Negative)
--- NOTE | 2023-08-11 03:20 | CT Scan Report ---
Exam(s): CTA CHEST IV Amt: 118 cc's optiray 320 EXAM: CT Angiography Chest With Intravenous Contrast CLINICAL HISTORY: Reason for exam: PE. TECHNIQUE: Axial computed tomographic angiography images of the chest with intravenous contrast. CTDI is 26.07 mGy and DLP is 809.37 mGy-cm. Automated exposure control was utilized for the study. A dose lowering technique was utilized adhering to the principles of ALARA. MIP reconstructed images were created and reviewed. COMPARISON: 08/27/2022. FINDINGS: Pulmonary arteries: Unremarkable. No pulmonary embolism. Aorta: Mild atherosclerotic disease of aorta with no aneurysm. Lungs: Small groundglass opacities within the bilateral upper lobe suggestive of mild pneumonitis. Remainder of the lung parenchyma is normal. Pleural space: Unremarkable. No significant effusion. No pneumothorax. Heart: Unremarkable. No significant pericardial effusion. No evidence of RV dysfunction. Normal cardiac size with mild coronary artery calcifications. Bones/joints: Multilevel spondylosis of the thoracic spine with no acute fracture or subluxation. Soft tissues: Unremarkable. Lymph nodes: Unremarkable. No enlarged lymph nodes. IMPRESSION: 1. No pulmonary embolus or aortic dissection. 2. Mild upper lobe bilateral pneumonitis. 3. No pleural effusion or pneumothorax. Electronically signed by: Lis Shukla MD 08/11/23 03:19 AM
[2023-08-11] MEDS ORDERED: GLUCOSE 10 TAB/TUBE PO PRN (03:53)
[2023-08-11] MEDS ORDERED: GLUCAGON FOR INJ 1 MG VIAL SQ PRN (03:53)
[2023-08-11] MEDS ORDERED: DEXTROSE 50% 50 ML SYRINGE IV PRN (03:53)
[2023-08-11] MEDS ORDERED: ONDANSETRON INJ 2 MG/ML 2 ML VIAL IV PRN (03:53)
[2023-08-11] MEDS ORDERED: ACETAMINOPHEN 325 MG TAB PO PRN (03:53)
[2023-08-11] MEDS ORDERED: GLUCOSE 40% GEL 15 GM TUBE PO PRN (03:53)
[2023-08-11] MEDS ORDERED: CARBOHYDRATES FOR HYPOGLYCEMIA PO PRN (03:53)
[2023-08-11] MEDS: methylPREDNISolone 40 MG in SYRINGE 0 ML IV SCH ×2 (05:40→13:34)
[2023-08-11] MEDS: NSS + 20MEQ KCL 20 MEQ/1,000 ML BAG IV SCH ×2 (05:41→17:11)
--- NOTE | 2023-08-11 05:55 | Critical Care Consultation ---
Date of Consultation August 11, 2023 Assessment & Plan (1) Acute respiratory failure with hypoxia and hypercapnia: (2) Asthma with exacerbation: (3) COPD (chronic obstructive pulmonary disease): Plan Recommendations as above- Likely asthma exacerbation causing hypercarbic hypoxic respiratory failure from likely previous viral URI. Wean BiPAP as able as she has responded well to current therapy. Continue with nebulizers if going to remain on BiPAP and dyspneic add Pulmicort nebs BID. Continue with IV steroids. Would not add abx therapy at this time as no opacification on imaging as well as she is without leukocytosis, sputum production, and PCT is also negative. Avoid further sedating medications. COVID is negative as well as for viruses that are tested for in respiratory [facility] to include influenza. Critical Care will sign off at this time, if patient status changes or acutely worsens, please let us know and will re-evaluate. CC time 30 minutes Supervising Physician Co-Signing Physician Notes Patient seen and examined. EMR reviewed. Discussed with critical care LUZ. The patient is now off of noninvasive positive pressure ventilation. She feels she is improving significantly. She continues to wheeze. She is not really coughing or bringing up phlegm. Would manage for COPD exacerbation. Continue Solu-Medrol. Will place on Anoro scheduled. Continue DuoNebs as needed. Transition azithromycin to oral. Can discontinue Rocephin. Increase activity as tolerated. Out of bed to chair and ambulatory. Wean oxygen to maintain oxygen saturations at or above 89%. Anticipate the patient should be able to transition to oral medications and potentially discharge within the next 24 to 48 hours. Discussed with patient at bedside. We will continue to follow for pulmonary issues. No critical care issues History of Present Illness Reason for Consultation: hypercarbic respiratory failure Requesting Physician: Tima Waterman MD Attending Physician: Cruz Florez MD History of Present Illness 58 YOF with medical history of: Asthma/COPD overlap, Allergic Rhinitis, previous smoker. Patient arrived to [facility] via personal vehicle with complaint of dyspnea and inability to breath or catch her breath. She reports that felt ill earlier in the week ~ Saturday through Saturday with cough, nasal congestion. She states that her nasal congestion improved with no therapy however she remained with cough. Her cough got worse on Saturday evening and continued to worsen despite her using home IRLANDA and nebulizer. She arrived to the EMD reportedly with significant dyspnea, pale in color and diaphoretic. She had routine labs performed and was placed on BiPAP / at 40% FIo2, received continuous nebulizer as well as had VBG performed, she was also given ativan and morphine for anxiety/dyspnea and tolerance of BiPAP by report. Patient also had a respiratory biofire performed that was negative. Her Labs were without leukocytosis, organ dysfunction, and PCT was negative at <0.05. Her initial spo2 was recorded and reported as 68, which chong to 98-100% following application of BiPAP. I was notified by Dr. Waterman following her nebulizers, steroids, noting improvement in symptoms but remaining with wheezing and dyspnea. ABG was requested as well as magnesium administration. Patient was evaluated in the EMD shortly after receiving call. At that time she was tolerating her BiPAP with adequate VTs and ABG was with excellent response to above therapies with PH increased to 7.32, CO2 decreased from 68 to 42, and Pao2 was 187 on 40%. RR was 18-20. She remained with expiratory wheeze throughout and is talking in full sentences. Case was also discussed with the Admitting Hospitalist Service. CTA of the chest was obtained with no pulmonary embolism, bilateral upper lobe inflammation, no overt opacifications or effusions. Recommendations following evaluation- she is responding appropriately to BiPAP with no current indication for urgent intubation. Continue with IV steroids, continue with nebulizers with IRLANDA and ICS neb with Budesonide. Admitting service felt she could also be managed on PCU and no current need for closer observation or need for airway control. Patient was admitted to PCU. CODE: FULL Allergies Allergy/AdvReac Type Severity Reaction Status Date / Time animal dander Allergy Intermediate asthma Verified 03/05/23 19:39 related symptoms grass pollen-perennial rye, Allergy Intermediate asthma Verified 03/05/23 19:39 standar related sx mold Allergy Intermediate asthma Verified 03/05/23 19:39 related sx Home Medications Medication Instructions Recorded Confirmed Type acetaminophen 500 mg tablet 1,000 mg PO DIRECTED PRN 03/05/23 03/15/23 History (Tylenol Extra Strength) PAIN/FEVER albuterol sulfate 90 mcg/actuation See Rx Instructions .Route 05/20/23 Rx aerosol inhaler .COMPLEX #8.5 ea fluticasone 250 mcg-salmeterol 50 1 inh inhalation BID #1 inhaler 07/17/23 07/17/23 Rx mcg/dose blistr powdr for inhalation (Advair Diskus) ipratropium 0.5 mg-albuterol 3 mg 3 ml inhalation QID PRN shortness 07/17/23 07/17/23 Rx (2.5 mg base)/3 mL nebulization of breath #180 mL soln Patient History Medical History Allergic rhinitis due to animal dander Allergic rhinitis due to dust Allergic rhinitis due to other allergen Allergic rhinitis due to pollen Asthma Asthma with status asthmaticus Atopic dermatitis Colon cancer screening COPD (chronic obstructive pulmonary disease) Extrinsic asthma Hypoxemia Murmur PNA (pneumonia) Surgical History History of surgical removal of ganglion cyst Family History Sister Asthma Allergic rhinitis Social History Smoking Status: Former smoker Tobacco Type: Cigarettes Cigarettes Per Day: 5-20 per day; Second Hand Exposure: No; Do You Dip or Chew Tobacco: No; Hx Alcohol Use: Yes Alcohol type: wine Hx Substance Use: No Preferred Language: Hebrew Communication Ability: Effective Stove Polisher Required: No Beliefs That Will Affect Care: None marital status: / Current Living Situation: Alone current occupational status: employed How many Children do You have: 0 Feels Safe at Home: Yes Childhood Exposure to Second-Hand Smoke: Yes Diet: regular caffeine: Yes Dental Care, Regularly: Yes Physical Activity Frequency: Daily Seatbelt Use: always Sunscreen Use: Yes Assistive Devices: BiPap Review of Systems Review of Systems: REVIEW OF SYSTEMS: Constitutional: No fever, sweats or chills Eyes: No diplopia, no worsening or blurred vision ENT: normal hearing, no trouble swallowing Respiratory: (+) cough, wheezing, sputum, dyspnea at rest or on exertion Cardiovascular: No chest pain, tightness or palpitations Abdomen: No pain, nausea, vomiting, diarrhea or constipation Musculoskeletal: (+) upper back discomfort from coughing, No joint pain, calf pain, swelling Neurologic: No weakness, numbness/tingling, or balance problems Psychiatric: No anxiety or depression Skin: No rash or itch Physical Exam Physical Exam: PHYSICAL EXAM: General: awake, alert, no apparent distress Head: Normocephalic, atraumatic ENT: PERRLA, EOMI, Neuro: AAO x 3, speech clear and appropriate, strength intact bilaterally 5/5, sensation intact and equal all extremities and dermatomes, no pronator drift Chest: equal rise and fall of the chest, no accessory muscle use, expiratory wheeze bilaterally, moving good air throughout, no stridor Cardiac: Regular rate and rhythm, telemetry reviewed- NSR, skin warm dry, cap refill <3 seconds, peripheral pulses +2 no JVD, no murmur, no edema GI: NABS x 4 quadrants, soft, nontender to palpation, no rebound, guarding or tenderness : Spontaneously voiding, no pain, no CVA tenderness, Extremities: Normal inspection, no peripheral edema or erythema, calfs nontender to palpation Psych: Normal mood and affect Skin: no rash or erythema Results & Data Results & Data Vital Signs (Past 12 Hours) Vital Signs Pulse Pulse Resp BP Pulse Ox O2 Del Method O2 Flow Rate 08/11/23 03:55 BiPAP 08/11/23 03:55 116 H 08/11/23 03:53 110 H 20 145/96 H 98 BiPAP 08/11/23 03:35 22 96 08/11/23 03:15 110 H 18 152/102 H 97 BiPAP 08/11/23 02:45 105 H 18 145/88 H 97 BiPAP 08/11/23 02:42 94 H 08/11/23 02:30 92 H 19 102/84 98 BiPAP 08/11/23 02:15 94 H 17 142/93 H 97 BiPAP 08/11/23 02:00 96 H 19 114/77 97 BiPAP 08/11/23 01:45 96 H 19 109/79 97 BiPAP 08/11/23 01:30 98 H 19 108/78 97 BiPAP 08/11/23 01:15 102 H 20 117/84 97 BiPAP 08/11/23 01:00 107 H 20 137/92 98 BiPAP 08/11/23 00:45 115 H 20 154/89 H 100 BiPAP 08/11/23 00:15 111 H 20 120/79 100 BiPAP 08/11/23 00:00 115 H 20 145/86 H 100 BiPAP 08/10/23 23:51 116 H 18 115/74 100 BiPAP 08/10/23 23:45 117 H 22 101/75 100 BiPAP 08/10/23 23:30 123 H 20 154/104 H 100 BiPAP 08/10/23 23:15 120 H 26 H 189/129 H 100 BiPAP 08/10/23 22:58 116 H 27 H 96 08/10/23 22:58 115 H 17 96 BiPAP 08/10/23 23:00 118 H 26 H 173/122 H 100 BiPAP 08/10/23 22:51 100 BiPAP 08/10/23 22:43 116 H 08/10/23 22:45 114 H 30 H 182/122 H 100 Non-rebreather 15 08/10/23 22:44 68 L Room Air, Non-rebreather 08/10/23 22:35 126 H 36 H 68 L Room Air FiO2 08/11/23 03:55 08/11/23 03:55 08/11/23 03:53 40 08/11/23 03:35 40 08/11/23 03:15 40 08/11/23 02:45 40 08/11/23 02:42 08/11/23 02:30 40 08/11/23 02:15 40 08/11/23 02:00 40 08/11/23 01:45 40 08/11/23 01:30 40 08/11/23 01:15 40 08/11/23 01:00 40 08/11/23 00:45 40 08/11/23 00:15 40 08/11/23 00:00 40 08/10/23 23:51 40 08/10/23 23:45 40 08/10/23 23:30 40 08/10/23 23:15 40 08/10/23 22:58 40 08/10/23 22:58 40 08/10/23 23:00 40 08/10/23 22:51 40 08/10/23 22:43 08/10/23 22:45 08/10/23 22:44 08/10/23 22:35 Laboratory Results Abnormal lab results 08/10/23 08/10/23 08/10/23 Range/Units 22:44 22:44 22:44 POC Hgb (12.0-16.0) g/dl POC Hct (37-47) % Plt Count 487 H (130-400) K/uL Neut # (Auto) 7.35 H (1.40-6.50) K/uL Andrew # (Auto) 0.73 H (0.11-0.59) K/uL POC pH (7.35-7.45) POC pO2 (80-95) mmHg POC ABG O2 Sat (90-95) % VBG pH 7.22 L (7.36-7.41) VBG pCO2 68 H (38-50) mmHg POC Sodium (135-144) mmol/L Sodium 130 L (136-145) mmol/L POC Chloride (101-112) mmol/L Chloride 96 L (98-107) mmol/L POC Anion Gap (16-25) mmol/L POC BUN (7-18) mg/dl Creatinine 0.49 L (0.6-1.2) mg/dl POC Creatinine (0.6-1.3) mg/dl Glucose 207 H (70-99(Fasting)) mg/dl POC Glucose (other) (70-99) mg/dl Urine Glucose (UA) (Negative) Urine Nitrite (Negative) U Epithel Cells (Auto) (0-5) /lpf Urine Bacteria (Auto) (Negative) 08/10/23 08/10/23 08/11/23 Range/Units 22:52 23:50 03:05 POC Hgb 11.2 L (12.0-16.0) g/dl POC Hct 33 L (37-47) % Plt Count (130-400) K/uL Neut # (Auto) (1.40-6.50) K/uL Andrew # (Auto) (0.11-0.59) K/uL POC pH 7.32 L (7.35-7.45) POC pO2 187 H (80-95) mmHg POC ABG O2 Sat 100.0 H (90-95) % VBG pH (7.36-7.41) VBG pCO2 (38-50) mmHg POC Sodium 130 L 130 L (135-144) mmol/L Sodium (136-145) mmol/L POC Chloride 95 L (101-112) mmol/L Chloride (98-107) mmol/L POC Anion Gap 13.0 L (16-25) mmol/L POC BUN 4 L (7-18) mg/dl Creatinine (0.6-1.2) mg/dl POC Creatinine 0.4 L (0.6-1.3) mg/dl Glucose (70-99(Fasting)) mg/dl POC Glucose (other) 196 H (70-99) mg/dl Urine Glucose (UA) 1+ H (Negative) Urine Nitrite Positive A (Negative) U Epithel Cells (Auto) 10-20 H (0-5) /lpf Urine Bacteria (Auto) 1+ H (Negative) Diagnostic Findings Chest CTA 08/11/23 00:02 Exam(s): CTA CHEST IV Amt: 118 cc's optiray 320 EXAM: CT Angiography Chest With Intravenous Contrast CLINICAL HISTORY: Reason for exam: PE. TECHNIQUE: Axial computed tomographic angiography images of the chest with intravenous contrast. CTDI is 26.07 mGy and DLP is 809.37 mGy-cm. Automated exposure control was utilized for the study. A dose lowering technique was utilized adhering to the principles of ALARA. MIP reconstructed images were created and reviewed. COMPARISON: 08/27/2022. FINDINGS: Pulmonary arteries: Unremarkable. No pulmonary embolism. Aorta: Mild atherosclerotic disease of aorta with no aneurysm. Lungs: Small groundglass opacities within the bilateral upper lobe suggestive of mild pneumonitis. Remainder of the lung parenchyma is normal. Pleural space: Unremarkable. No significant effusion. No pneumothorax. Heart: Unremarkable. No significant pericardial effusion. No evidence of RV dysfunction. Normal cardiac size with mild coronary artery calcifications. Bones/joints: Multilevel spondylosis of the thoracic spine with no acute fracture or subluxation. Soft tissues: Unremarkable. Lymph nodes: Unremarkable. No enlarged lymph nodes. IMPRESSION: 1. No pulmonary embolus or aortic dissection. 2. Mild upper lobe bilateral pneumonitis. 3. No pleural effusion or pneumothorax. Electronically signed by: Lis Shukla MD 08/11/23 03:19 AM Medications Administered Potassium Chloride/Sodium Chloride (Normal Saline W/20 Meq Kcl) 20 meq in 1,000 mls @ 80 mls/hr IV .[id number] RJ Stop: 09/10/23 03:59 Last Admin: 08/11/23 05:41 Dose: 80 mls/hr Documented By: CLR Methylprednisolone 40 mg/ (Syringe) 0.64 mls @ 1.5 mls/min IV Q8H RJ Stop: 09/10/23 05:59 Last Admin: 08/11/23 05:40 Dose: 1.5 mls/min Documented By: CLR Discontinued Medications Albuterol (Albut/Ipratrop 3mg/0.5mg Neb 3 Ml Vial) 12 ml NEB ONE ONE; Protocol Stop: 08/10/23 22:42 Last Admin: 08/10/23 22:55 Dose: 12 ml Documented By: SHARMILA Dexamethasone Sodium Phosphate (DexamethasonePf 10 Mg/Ml Vial) 10 mg IV NOW ONE Stop: 08/10/23 22:42 Last Admin: 08/10/23 22:46 Dose: 10 mg Documented By: AN Sodium Chloride (Nss) 1,000 mls @ 999 mls/hr IV .Q1H1M ONE Stop: 08/10/23 23:41 Last Infusion: 08/10/23 23:49 Dose: 0 mls/hr Documented By: Admin: 08/10/23 22:47 Dose: 999 mls/hr Documented By: AN Ceftriaxone Sodium (Rocephin) 2,000 mg in 70 mls @ 140 mls/hr IV NOW STA Stop: 08/10/23 23:12 Last Infusion: 08/10/23 23:25 Dose: 0 mls/hr Documented By: Admin: 08/10/23 22:55 Dose: 140 mls/hr Documented By: AN Magnesium Sulfate/Dextrose (Magnesium Sulfate / D5w) 1 gm in 100 mls @ 100 mls/hr IV Q1H RJ Stop: 08/11/23 02:09 Last Infusion: 08/11/23 02:12 Dose: 0 mls/hr Documented By: Admin: 08/11/23 01:07 Dose: 100 mls/hr Documented By: Infusion: 08/11/23 01:07 Dose: 100 mls/hr Documented By: Admin: 08/11/23 00:12 Dose: 100 mls/hr Documented By: AN Ioversol (Optiray 320 125ml) 118 ml IV ONCE ONE Stop: 08/11/23 00:41 Last Admin: 08/11/23 00:40 Dose: 118 ml Documented By: RIO Lorazepam (Lorazepam 2 Mg/1 Ml Vial) 0.5 mg IV NOW STA Stop: 08/10/23 23:15 Last Admin: 08/10/23 23:17 Dose: 0.5 mg Documented By: AN Morphine Sulfate (Morphine Sulfate 4 Mg/Ml 1 Ml Carp\Vial) 4 mg IV NOW STA Stop: 08/10/23 23:30 Last Admin: 08/10/23 23:36 Dose: 4 mg Documented By: AN Ondansetron HCl (Ondansetron Inj 2 Mg/Ml 2 Ml Vial) 4 mg IV NOW STA Stop: 08/10/23 23:30 Last Admin: 08/10/23 23:36 Dose: 4 mg Documented By: AN Coding Level of Care Code 33421 CRITICAL CARE 1ST 30-74M Diagnoses Acute respiratory failure with hypoxia and hypercapnia J96.01; J96.02 Asthma with exacerbation J45.901 Asthma persistence: unspecified Asthma severity: unspecified severity COPD (chronic obstructive pulmonary disease) J44.9 (2) Asthma with exacerbation Asthma persistence: unspecified Asthma severity: unspecified severity Qualified Code(s): J45.901 - Unspecified asthma with (acute) exacerbation
[2023-08-11] MEDS ORDERED: ALBUT/IPRATROP 3MG/0.5MG NEB 3 ML VIAL NEB SCH (07:00)
[2023-08-11 07:39] LABS: Hematocrit (blood only) 37.4 % (37.0-47.0); Mean Corpuscular Hemoglobin 29.7 pg (25.0-34.0); Mean Corpuscular Hgb Conc 34.8 g/dL (32.0-36.0); Mean Corpuscular Volume 85.4 fL (80.0-100.0); Mean Platelet Volume 9.9 fL (9.4-12.4); Platelet Count 375 K/uL (130-400); RDW Coefficient of Variation 12.4 % (11.5-14.5); RDW Standard Deviation 38.6 fL (36.4-46.3); Red Blood Count 4.38 M/uL (4.20-5.40); White Blood Count 6.24 K/ul (4.8-10.8)
--- NOTE | 2023-08-11 07:46 | XRay Report ---
XR chest 1V portable CLINICAL HISTORY: Sepsis. COMPARISON STUDY: Chest CT August 27, 2022. Chest radiograph March 31, 2023. FINDINGS: Lung volumes are normal. Lungs are clear. There is no pneumothorax or pleural effusion. Car diac size is normal. Mediastinal contours are normal. There is no evidence for pulmonary edema. IMPRESSION: No acute cardiopulmonary findings. ACT 112: Negative or not required by law. Electronically signed by: Kapil Coburn M.D. 08/11/2023 7:44 AM
[2023-08-11 07:53] LABS: Albumin Globulin Ratio 1.7 (0.9-2); BUN Creatinine Ratio 13.9 (10-20); Bilirubin,Total 0.4 mg/dl (0.2-1.0); Calcium 8.9 mg/dl (8.6-10.3); Creatinine Clr Calc Pharmacy 149.5 ml/min; Est GFR (African American) 135.8 ml/min; Est GFR (Non-African American) 117.2 ml/min; Globulin 2.4 gm/dl (2.5-4.0); Potassium 4.2 mmol/L (3.5-5.1); Total Protein 6.4 gm/dl (6.0-8.3)
[2023-08-11] MEDS ORDERED: cefTRIAXone SODIUM 1,000 MG in DEXTROSE 5% 50 ML IV SCH (08:00)
[2023-08-11 08:09] LABS: Basophils # (auto) 0.01 K/uL (0.00-0.20); Basophils % (auto) 0.2 %; Immature Granulocytes # (auto) 0.03 K/uL (0.01-0.20); Immature Granulocytes % (auto) 0.5 %; Lymphocytes # (auto) 0.42 K/uL (1.20-3.40); Lymphocytes % (auto) 6.7 %; Monocytes # (auto) 0.08 K/uL (0.11-0.59); Monocytes % (auto) 1.3 %; Neutrophils % (auto) 91.3 %
[2023-08-11] MEDS: INSULIN ASPART PER UNIT CHARGE SC SCH ×4 (08:13→21:21)
[2023-08-11] MEDS ORDERED: ALBUT/IPRATROP 3MG/0.5MG NEB 3 ML VIAL NEB PRN (08:40)
[2023-08-11] MEDS ORDERED: ENOXAPARIN INJ 40 MG/0.4 ML SYR SQ SCH (09:00)
[2023-08-11] MEDS ORDERED: AZITHROMYCIN 500 MG in DEXTROSE 5% 250 ML IV SCH (09:00)
--- NOTE | 2023-08-11 09:41 | Electrocardiogram Report ---
Test Reason : Blood Pressure : / mmHG Vent. Rate : 115 BPM Atrial Rate : 115 BPM P-R Int : 164 ms QRS Dur : 080 ms QT Int : 332 ms P-R-T Axes : 083 -05 074 degrees QTc Int : 459 ms Sinus tachycardia Otherwise normal ECG When compared with ECG of 31-MAR-2023 15:22, No significant change was found Confirmed by Froilan Mendoza ([id number]) on 08/11/2023 9:41:23 AM Referred By: REFERRED SELF Confirmed By:Froilan Mendoza
[2023-08-11] MEDS: UMECLIDINIUM/VILANTEROL 62.5/25MCG 7 PUFFS/INHALER INH SCH (09:46)
[2023-08-11] MEDS: AZITHROMYCIN 250 MG TAB PO SCH (09:46)
[2023-08-11] MEDS ORDERED: POLYETHYLENE (MIRALAX) 17 GM PACK PO PRN (10:40)
[2023-08-11] MEDS ORDERED: LACTATED RINGER'S 1,000 ML IV ONE (19:46)
--- NOTE | 2023-08-11 20:11 | Communication Note ---
Date of Service: August 11, 2023 I was contacted regarding the patient's breathing as she was having increased respiratory distress. This was at approximately 1930 on 08/11. When her re spiratory distress started, she was given a breathing treatment. It seems that they were unable to get BiPAP on her as she was starting to become nauseous and vomiting. She had vomited approximately 100 cc of maroon-colored blood that was clotting in the basin. After she vomited, her breathing improved and she was able to get good oxygen saturation with only 4 LNC. Upon my arrival, patient appears comfortable and is not having shortness of breath. Her blood pressure is being taken and appears to be low in the 70s over 50s which was confirmed with recheck. She is asymptomatic in regards to her blood pressure. She states that she does not feel short of breath currently and she is feeling better. Somewhat nauseous. Denies any chest pain currently. Exam: General: Pleasant female that appears stated age in no current distress. Cardiac: Regular rate and rhythm, no murmurs. Lungs: Diffuse wheezing auscultated bilaterally HEENT: Dry mucous membranes noted A/P: Hematemesis -First episode of vomiting blood, may be due to being on Lovenox for DVT prophylaxis. -Hold morning Lovenox dose, continue SCDs -Started Protonix 40 mg IV twice daily for acid suppression -Hold steroids, NSAIDs -Consult GI, appreciate recommendations -Add H&H and coags now, repeat H&H at midnight -Continue antiemetics as needed -N.p.o. at midnight, continue maintenance IV fluid Hypotension -Blood pressure dropped down into the 70s over 50s, likely a vagal response to vomiting -No history of CHF and appears dry, bolus 1 L of lactated Ringer's -Recheck BP in 30 minutes after bolus completion If patient were to go into respiratory distress again due to vomiting, convert BiPAP or nasal cannula to high flow nasal cannula.
[2023-08-11] MEDS ORDERED: PROCHLORPERAZINE 10 MG in SYRINGE 8 ML IV ONE (21:00)
[2023-08-11] MEDS ORDERED: predniSONE 20 MG TAB PO SCH (21:00)
[2023-08-11] MEDS: PANTOprazole 40 MG in SYRINGE 0 ML IV SCH (21:23)
[2023-08-11 21:51] LABS: Hematocrit (blood only) 27.2 % (37.0-47.0); Hemoglobin 9.1 g/dl (12.0-16.0)
[2023-08-11 22:17] LABS: INR 1.1 (0.9-1.1); Partial Thromboplastin Ratio 0.8; Partial Thromboplastin Time 23.9 Seconds (21.0-31.0); Prothrombin Time 11.8 Seconds (9.0-12.0)
[2023-08-11] MEDS ORDERED: PANTOprazole 40 MG in SYRINGE 0 ML IV ONE (23:00)
[2023-08-11] MEDS ORDERED: SODIUM CHLORIDE 0.9% 250 ML IV PRN (23:14)
[2023-08-12 01:04] LABS: Hemoglobin 7.9 g/dl (12.0-16.0)
[2023-08-12] MEDS ORDERED: SODIUM CHLORIDE 0.9% 250 ML IV PRN (01:11)
[2023-08-12] MEDS ORDERED: STAT IV STA (01:17)
[2023-08-12] MEDS: OCTREOTIDE ACETATE 500 MCG in 0.9 % SODIUM CHLORIDE 100 ML IV SCH ×2 (01:50→11:24)
[2023-08-12] MEDS: INSULIN ASPART PER UNIT CHARGE SC SCH ×3 (07:48→16:51)
[2023-08-12] MEDS: PANTOprazole 40 MG in SYRINGE 0 ML IV SCH ×2 (08:01→20:41)
[2023-08-12] MEDS: UMECLIDINIUM/VILANTEROL 62.5/25MCG 7 PUFFS/INHALER INH SCH (08:01)
[2023-08-12] MEDS ORDERED: LIDOCAINE 2% 2 ML VIAL/AMP(20MG/ML) INFIL ONE (09:02)
[2023-08-12] MEDS ORDERED: PROPOFOL IV EMULSION 10 MG/ML 20 ML VIAL IV ONE (09:02)
[2023-08-12] MEDS ORDERED: ATROPINE SULFATE 0.1 MG/ML 10ML SYR IV PRN (09:24)
[2023-08-12] MEDS ORDERED: ePHEDrine sulfate 50 MG/ML AMP IV PRN (09:24)
--- NOTE | 2023-08-12 09:26 | Anesthesiology Consultation ---
Date of Service August 12, 2023 Assessment & Plan Chart Review Chart Review: Acceptable Risk for Surgery and Patient NOT seen in Pre Admission Testing Consults Requested none ASA ASA4 Proposed Anesthesia Anesthesia Type: MAC Risk / Benefits Reviewed With: PT / POA / Parent / Guardian, Accepts Plan and Informed Consent Obtained History Surgery Operation Date: 08/12/23 16:55 Proposed Procedures p Esophagogastroduodenoscopy Dr. Max - Kyle Max MD Height/Weight Height: 5 ft 5 in Weight: 70.8 kg Allergies Allergy/AdvReac Type Severity Reaction Status Date / Time animal dander Allergy Intermediate asthma Verified 03/05/23 19:39 related symptoms grass pollen-perennial rye, Allergy Intermediate asthma Verified 03/05/23 19:39 standar related sx mold Allergy Intermediate asthma Verified 03/05/23 19:39 related sx Medications Home Medications Medication Instructions Recorded Confirmed Last Taken acetaminophen 500 mg tablet 1,000 mg PO DIRECTED PRN 03/05/23 03/15/23 03/14/23 (Tylenol Extra Strength) PAIN/FEVER albuterol sulfate 90 mcg/actuation See Rx Instructions .Route 05/20/23 Unknown aerosol inhaler .COMPLEX #8.5 ea fluticasone 250 mcg-salmeterol 50 1 inh inhalation BID #1 inhaler 07/17/23 07/17/23 Unknown mcg/dose blistr powdr for inhalation (Advair Diskus) ipratropium 0.5 mg-albuterol 3 mg 3 ml inhalation QID PRN shortness 07/17/23 07/17/23 Unknown (2.5 mg base)/3 mL nebulization of breath #180 mL soln Active Medications Generic Name Dose Route Start Last Admin Trade Name Freq PRN Reason Stop Dose Admin Albuterol 3 ml 08/11/23 08:40 08/11/23 19:25 Albut/Ipratrop 3mg/0.5mg Neb 3 Ml Vial NEB 09/10/23 06:59 3 ml QIDR PRN Administration Wheezing Protocol Azithromycin 250 mg 08/11/23 09:00 08/11/23 09:46 Azithromycin 250 Mg Tab PO 08/18/23 08:59 250 mg QAM RJ Administration Enoxaparin Sodium 40 mg 08/11/23 09:00 08/11/23 09:46 Enoxaparin Inj 40 Mg/0.4 Ml Syr SQ 09/10/23 08:59 Not Given Q24H RJ Potassium Chloride/Sodium Chloride 20 meq in 1,000 mls @ 80 mls/hr 08/11/23 04:00 08/11/23 17:11 Normal Saline W/20 Meq Kcl IV 09/10/23 03:59 80 mls/hr .[id number] RJ Administration Pantoprazole Sodium 40 mg/ 10 mls @ 5 mls/min 08/11/23 21:00 08/12/23 08:01 Syringe IV 09/10/23 20:59 5 mls/min BID RJ Administration Octreotide Acetate 500 mcg/ 100.5 mls @ 10.05 mls/hr 08/12/23 01:30 08/12/23 01:50 Sodium Chloride IV 09/11/23 01:29 50 mcg/hr .Q10H RJ 10.1 mls/hr Administration 50 MCG/HR Insulin Aspart 0 units 08/11/23 07:30 08/12/23 07:48 Insulin Aspart Per Unit Charge SC 09/10/23 07:29 Not Given ACHS RJ Ondansetron HCl 4 mg 08/11/23 03:53 08/11/23 20:14 Ondansetron Inj 2 Mg/Ml 2 Ml Vial IV 09/10/23 03:52 4 mg Q6H PRN Administration Nausea Umeclidinium/Vilanterol 1 puffs 08/11/23 09:00 08/12/23 08:01 Umeclidinium/Vilanterol 62.5/25mcg 7 Puffs/Inhaler INH 09/10/23 08:59 1 puffs DAILY RJ Administration NPO Date Last Intake of Fluids: 08/12/23 Time Last Intake of Fluids: 02:30 Date Last Intake of Solids: 08/11/23 Time Last Intake of Solids: 18:00 Past Medical History Medical History Allergic rhinitis due to animal dander Allergic rhinitis due to dust Allergic rhinitis due to other allergen Allergic rhinitis due to pollen Asthma Asthma with status asthmaticus Atopic dermatitis Colon cancer screening COPD (chronic obstructive pulmonary disease) Extrinsic asthma Hypoxemia Murmur PNA (pneumonia) Exercise / Class Metabolic Activity III < 4 Walking/Shop/Light housework Past Family History Family History Sister Asthma Allergic rhinitis Past Surgical History Surgical History History of surgical removal of ganglion cyst Past Anesthesia History No Hx of Anesthesia Complications and No Family Hx of Anesthesia Complications History of PONV No Hx of PONV and No Hx of Motion Sickness Social History Smoking Status: Former smoker tobacco type: cigarettes Smoking cigarettes per day: 5-20 per day Do You Dip or Chew Tobacco: No Hx Alcohol Use: Yes Alcohol type: wine alcohol intake frequency: a few times a month Hx Substance Use: No substance use type: does not use Physical Exam Vital Signs Last Vital Signs Temp 36.4 C L 08/12/23 07:26 Pulse 83 08/12/23 07:26 Resp 16 08/12/23 09:16 BP 124/78 08/12/23 07:26 Pulse Ox 92 08/12/23 07:26 O2 Del Method Room Air 08/12/23 09:16 O2 Flow Rate 2 08/12/23 07:26 FiO2 40 08/11/23 06:59 Constitutional no acute distress and not obese ENMT Mouth: + dentition abnormality and + poor dentition Thyromental Distance: < 3.5 Finger Breadths Mallampati Class: III Neck normal visual inspection and trachea midline; neck extension not limited Respiratory normal respiratory effort Auscultation: + diminished lung sounds Cardiovascular Rate/Rhythm: regular rate and regular rhythm Heart Sounds: no murmur Vessels: no carotid bruit Musculoskeletal Spine: normal cervical ROM and no pain with cervical ROM Extremities: extremities normal to inspection; full ROM of extremities Neurologic moves all extremities Motor/Sensory: no sensory deficit Psychiatric Orientation: alert and oriented x 3 Testing Laboratory Results PT 11.8 Seconds (9.0-12.0) 08/11/23 21: INR 1.1 (0.9-1.1) 08/11/23 21: APTT 23.9 Seconds (21.0-31.0) 08/11/23 21:22 Urine Color Yellow 08/11/23 03:05 Urine Appearance Clear (Clear) 08/11/23 03:05 Urine pH 6.0 (4.5-7.5) 08/11/23 03:05 Ur Specific [place] 1.027 (1.000-1.030) 08/11/23 03:05 Urine Protein Negative (Negative) 08/11/23 03:05 Urine Glucose (UA) 1+ (Negative) H 08/11/23 03:05 Urine Ketones Negative (Negative) 08/11/23 03:05 Urine Nitrite Positive (Negative) A 08/11/23 03:05 Ur Leukocyte Esterase Negative (Negative) 08/11/23 03:05 Urine WBC (Auto) 1-5 /hpf (0-5) 08/11/23 03:05 Urine RBC (Auto) 0-4 /hpf (0-4) 08/11/23 03:05 U Hyaline Cast (Auto) 0 /lpf (0-5) 08/11/23 03:05 U Epithel Cells (Auto) 10-20 /lpf (0-5) H 08/11/23 03:05 Urine Bacteria (Auto) 1+ (Negative) H 08/11/23 03:05 Blood Type A Positive 08/11/23 21:22 Antibody Screen NEGATIVE 08/11/23 21:22 08/10/23 22:44 Aerobic Blood Culture - Preliminary Blood No growth in Aerobic bottle after 24 hours. Anaerobic Blood Culture - Preliminary No growth in Anaerobic bottle after 24 hours. 08/10/23 22:55 Aerobic Blood Culture - Preliminary Blood No growth in Aerobic bottle after 24 hours. Anaerobic Blood Culture - Preliminary No growth in Anaerobic bottle after 24 hours. 08/12/23 07:14 POC Glucose 131 H Electrocardiogram Date: 08/10/23 Findings: + ST @ (@ 115) Chest X-Ray Date: 08/10/23 Findings: + NAD Echocardiogram Date: 03/06/23 EF: 60% LV Function: normal RWMA: + none Other Findings: + LVH (mild) Valvular Disease: + no significant valvular disease
[2023-08-12 09:28] LABS: Basophils # (auto) 0.01 K/uL (0.00-0.20); Basophils % (auto) 0.1 %; Hematocrit (blood only) 32.8 % (37.0-47.0); Hemoglobin 11.3 g/dl (12.0-16.0); Immature Granulocytes # (auto) 0.05 K/uL (0.01-0.20); Immature Granulocytes % (auto) 0.5 %; Lymphocytes # (auto) 2.44 K/uL (1.20-3.40); Lymphocytes % (auto) 22.4 %; Mean Corpuscular Hemoglobin 29.8 pg (25.0-34.0); Mean Corpuscular Hgb Conc 34.5 g/dL (32.0-36.0); Mean Corpuscular Volume 86.5 fL (80.0-100.0); Mean Platelet Volume 9.9 fL (9.4-12.4); Monocytes # (auto) 0.69 K/uL (0.11-0.59); Monocytes % (auto) 6.3 %; Neutrophils # (auto) 7.68 K/uL (1.40-6.50); Neutrophils % (auto) 70.7 %; Platelet Count 312 K/uL (130-400); RDW Coefficient of Variation 13.4 % (11.5-14.5); RDW Standard Deviation 42.3 fL (36.4-46.3); Red Blood Count 3.79 M/uL (4.20-5.40); White Blood Count 10.87 K/ul (4.8-10.8)
--- NOTE | 2023-08-12 09:37 | Gastrointestinal Consultation ---
Date of Consultation August 12, 2023 Assessment & Plan (1) Hematemesis: Discussed case with Dr. Max who advised on plan. Will plan on EGD to further evaluate episode of hematemesis. discussed this with the patient and she was agreeable. She will be added on for EGD this morning as she has been NPO. - continue protonix 40mg IV bid. - continue to monitor hgb/hct. - will await EGD results. Supervising Physician Co-Signing Physician Notes I saw the patient and agree with the findings as documented by ARCHANA Gordillo History of Present Illness Reason for Consultation: hematemesis Requesting Physician: Martinez Barr DO Attending Physician: Craig Looney MD History of Present Illness Patient is a 58 year old female with a past medical history including COPD, moderate persistent asthma, former smoker, history of COPD exacerbation and allergic rhinitis. She presented to the emergency department on 08/10/23 with a few days of worsening shortness of breath. She is admitted with acute respirat ory failujre and hypoxia/hypercapnia and asthma exacerbation. Last evening she had an episode of vomiting bright red blood. reportedly this was about 100cc. Her Hgb did drop from 13 to 9.1. She had no further emesis per patient, but her hgb today was 7.9. She was ordered two units of blood. she has been on protonix 40mg bid. She does admit to daily regular strength aspirin use. she denies abdominal pain, heartburn. Allergies Allergy/AdvReac Type Severity Reaction Status Date / Time animal dander Allergy Intermediate asthma Verified 03/05/23 19:39 related symptoms grass pollen-perennial rye, Allergy Intermediate asthma Verified 03/05/23 19:39 standar related sx mold Allergy Intermediate asthma Verified 03/05/23 19:39 related sx Home Medications Medication Instructions Recorded Confirmed Type acetaminophen 500 mg tablet 1,000 mg PO DIRECTED PRN 03/05/23 03/15/23 History (Tylenol Extra Strength) PAIN/FEVER albuterol sulfate 90 mcg/actuation See Rx Instructions .Route 05/20/23 Rx aerosol inhaler .COMPLEX #8.5 ea fluticasone 250 mcg-salmeterol 50 1 inh inhalation BID #1 inhaler 07/17/23 07/17/23 Rx mcg/dose blistr powdr for inhalation (Advair Diskus) ipratropium 0.5 mg-albuterol 3 mg 3 ml inhalation QID PRN shortness 07/17/23 07/17/23 Rx (2.5 mg base)/3 mL nebulization of breath #180 mL soln Patient History Medical History Allergic rhinitis due to animal dander Allergic rhinitis due to dust Allergic rhinitis due to other allergen Allergic rhinitis due to pollen Asthma Asthma with status asthmaticus Atopic dermatitis Colon cancer screening COPD (chronic obstructive pulmonary disease) Extrinsic asthma Hypoxemia Murmur PNA (pneumonia) Surgical History History of surgical removal of ganglion cyst Family History Sister Asthma Allergic rhinitis Social History Smoking Status: Former smoker Tobacco Type: Cigarettes Cigarettes Per Day: 5-20 per day; Second Hand Exposure: No; Do You Dip or Chew Tobacco: No; Hx Alcohol Use: Yes Alcohol type: wine Hx Substance Use: No Preferred Language: Mongolian Communication Ability: Effective 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 Beliefs That Will Affect Care: None marital status: / Current Living Situation: Alone current occupational status: employed How many Children do You have: 0 Feels Safe at Home: Yes Childhood Exposure to Second-Hand Smoke: Yes Diet: regular caffeine: Yes Dental Care, Regularly: Yes Physical Activity Frequency: Daily Seatbelt Use: always Sunscreen Use: Yes Assistive Devices: BiPap Review of Systems Review of Systems: All systems reviewed & are unremarkable except as noted in HPI & below Physical Exam Constitutional: WD/WN, vitals as above Respiratory: normal respiratory effort, lungs clear to auscultation Cardiovascular: RRR, no murmur, no edema Gastrointestinal (Abdomen): normal bowel sounds, soft, nontender, no hepatosplenomegaly Skin: no rashes, warm and dry Psychiatric: Orientation: alert and oriented x 3 Affect: euthymic affect Results & Data Vital Signs (Past 12 Hours) Vital Signs Temp Pulse Pulse Resp BP BP Pulse Ox 08/12/23 09:16 16 08/12/23 07:06 08/12/23 07:26 97.5 F L 83 18 124/78 92 08/12/23 07:10 98.2 F 91 H 18 113/65 96 08/12/23 06:10 58 L 19 118/71 95 08/12/23 05:40 98.2 F 92 H 18 126/78 93 08/12/23 05:25 98.1 F 67 17 111/72 95 08/12/23 05:17 95 08/12/23 05:07 98.1 F 91 H 16 113/66 96 08/12/23 05:02 98.1 F 71 18 92 08/12/23 04:45 98.1 F 71 18 108/74 92 08/12/23 04:30 71 19 115/73 95 08/12/23 03:30 98.1 F 82 19 132/77 96 08/12/23 03:00 90 18 112/68 96 08/12/23 02:45 98.2 F 79 18 120/67 97 08/12/23 02:43 97.5 F L 87 18 111/70 94 08/12/23 01:38 80 87/53 L 96 08/12/23 02:27 97.9 F 72 20 90/53 L 98 08/11/23 23:40 98.8 F 77 20 91/57 L 98 08/11/23 23:10 08/11/23 22:41 93/53 L O2 Del Method O2 Flow Rate 08/12/23 09:16 Room Air 08/12/23 07:06 Nasal Cannula 2 08/12/23 07:26 Nasal Cannula 2 08/12/23 07:10 2 08/12/23 06:10 2 08/12/23 05:40 2 08/12/23 05:25 2 08/12/23 05:17 Nasal Cannula 2 08/12/23 05:07 4 08/12/23 05:02 4 08/12/23 04:45 4 08/12/23 04:30 4 08/12/23 03:30 08/12/23 03:00 4 08/12/23 02:45 4 08/12/23 02:43 08/12/23 01:38 Nasal Cannula 4 08/12/23 02:27 08/11/23 23:40 Nasal Cannula 4 08/11/23 23:10 Nasal Cannula 5 08/11/23 22:41 PG Care Time/CCT Total # of Minutes Spent Total Time Spent with Patient: Total time spent is greater than 50% in coordination of care (as documented) at patient's floor/unit and/or counseling patient: Coding Level of Care Code 04273 IN/OBS CONSULT LVL 4,60M Diagnoses Hematemesis K92.0
[2023-08-12 09:38] LABS: Albumin Globulin Ratio 2.1 (0.9-2); Albumin Level 3.3 gm/dl (3.4-5.0); BUN Creatinine Ratio 55.6 (10-20); Bilirubin,Total 0.8 mg/dl (0.2-1.0); Calcium 8.5 mg/dl (8.6-10.3); Creatinine Clr Calc Pharmacy 131.2 ml/min; Est GFR (African American) 126.2 ml/min; Est GFR (Non-African American) 108.9 ml/min; Globulin 1.6 gm/dl (2.5-4.0); Magnesium 2.1 mg/dl (1.7-2.4); Potassium 5.1 mmol/L (3.5-5.1); Total Protein 4.9 gm/dl (6.0-8.3)
[2023-08-12 10:17] LABS: Estimated Average Glucose 126 mg/dl
--- NOTE | 2023-08-12 10:28 | Anesthesiology Progress Note ---
Date of Service August 12, 2023 Anesthesia Post Procedure Vital Signs Vital Signs: Temp Pulse Pulse Pulse Pulse Resp BP 08/12/23 10:25 79 16 08/12/23 10:10 69 16 08/12/23 09:16 16 08/12/23 07:06 08/12/23 07:26 36.4 C L 83 18 08/12/23 07:10 36.8 C 91 H 18 113/65 08/12/23 06:10 58 L 19 118/71 08/12/23 05:40 36.8 C 92 H 18 126/78 08/12/23 05:25 36.7 C 67 17 111/72 08/12/23 05:17 08/12/23 05:07 36.7 C 91 H 16 113/66 08/12/23 05:02 36.7 C 71 18 08/12/23 04:45 36.7 C 71 18 108/74 08/12/23 04:30 71 19 115/73 08/12/23 03:30 36.7 C 82 19 132/77 08/12/23 03:00 90 18 112/68 08/12/23 02:45 36.8 C 79 18 120/67 08/12/23 02:43 36.4 C L 87 18 111/70 08/12/23 01:38 80 08/12/23 02:27 36.6 C 72 20 90/53 L 08/11/23 23:40 37.1 C 77 20 08/11/23 23:10 08/11/23 22:41 08/11/23 21:18 08/11/23 20:00 08/11/23 19:30 132 H 34 H 08/11/23 19:25 107 H 24 08/11/23 16:46 08/11/23 16:36 36.7 C 90 18 08/11/23 15:21 86 08/11/23 11:36 36.7 C 99 H 18 BP Pulse Ox O2 Del Method O2 Flow Rate 08/12/23 10:25 129/75 97 Room Air 08/12/23 10:10 105/71 95 Oxymask 8 08/12/23 09:16 Room Air 08/12/23 07:06 Nasal Cannula 2 08/12/23 07:26 124/78 92 Nasal Cannula 2 08/12/23 07:10 96 2 08/12/23 06:10 95 2 08/12/23 05:40 93 2 08/12/23 05:25 95 2 08/12/23 05:17 95 Nasal Cannula 2 08/12/23 05:07 96 4 08/12/23 05:02 92 4 08/12/23 04:45 92 4 08/12/23 04:30 95 4 08/12/23 03:30 96 08/12/23 03:00 96 4 08/12/23 02:45 97 4 08/12/23 02:43 94 08/12/23 01:38 87/53 L 96 Nasal Cannula 4 08/12/23 02:27 98 08/11/23 23:40 91/57 L 98 Nasal Cannula 4 08/11/23 23:10 Nasal Cannula 5 08/11/23 22:41 93/53 L 08/11/23 21:18 93/57 L 08/11/23 20:00 89/60 L 08/11/23 19:30 72/43 L 92 Nasal Cannula 6 08/11/23 19:25 94 Nasal Cannula 4 08/11/23 16:46 163/91 H 08/11/23 16:36 169/104 H 95 Nasal Cannula 6 08/11/23 15:21 08/11/23 11:36 165/98 H 94 Nasal Cannula 6 Transfer of Care Handoff Completed per policy Notes Mental Status: alert / awake / arousable Patient Amnestic to Procedure: Yes Nausea / Vomiting: adequately controlled Pain: adequately controlled Airway Patency, RR, SpO2: stable & adequate BP & HR: stable & adequate Hydration State: stable & adequate Anesthetic Complications: no major complications apparent
--- NOTE | 2023-08-12 10:41 | GI REPORT ---
Patient Name: Chantell aGrcia Procedure Date: 08/12/2023 9:33 AM Date of : 1965 Admit Type: Inpatient Age: 58 Gender: Female Attending MD: Kyle Max MD, Procedure: Upper GI endoscopy Providers: Kyle Max MD Referring MD: Referred Self Indications: Hematemesis Medicines: Monitored Anesthesia Care Complications: No immediate complications. Estimated blood loss: None. Estimated Blood Loss: Estimated blood loss: none. Procedure: Pre-Anesthesia Assessment: - Prior Anticoagulants: The patient has taken no anticoagulant or antiplatelet agents. - ASA Grade Assessment: IV - A patient with severe systemic disease that is a constant threat to life. After obtaining informed consent, the endoscope was passed under direct vision. Throughout the procedure, the patient's blood pressure, pulse, and oxygen saturations were monitored continuously. The Endoscope was introduced through the mouth, and advanced to the second part of duodenum. The upper GI endoscopy was accomplished without difficulty. The patient tolerated the procedure well. Findings: The examined esophagus was normal. Hematin (altered blood/kjpitf-gummoq-txot material) was found in the stomach along with clots.no definitive ulcer nor acive bleeding noted. Biopsies were taken with a cold forceps for Helicobacter pylori testing. Estimated blood loss: none. The duodenal bulb and second portion of the duodenum were normal other than blood present there.. Impression: - Normal esophagus. - Hematin (altered blood/puoqnw-khfyio-gomy material) in the stomach. Biopsied. - Normal duodenal bulb and second portion of the duodenum. Recommendation: - [facility]. - Advance diet as tolerated today. - Await pathology results. -continue protonix 40 mg BID -d/c octreotide - Repeat upper endoscopy in 2 weeks to reassess. Kyle Max MD 08/12/2023 10:40:49 AM This report has been signed electronically. Note Initiated On: 08/12/2023 9:33 AM Number of Addenda: 0 I attest to the content of the Intraoperative Record and orders documented therein, exceptions below {[id number]}
[2023-08-12] MEDS: AZITHROMYCIN 250 MG TAB PO SCH (11:23)
[2023-08-12] MEDS: NSS + 20MEQ KCL 20 MEQ/1,000 ML BAG IV SCH ×2 (11:23→23:12)
--- NOTE | 2023-08-12 12:05 | Pulmonology Progress Note ---
Date of Service August 12, 2023 Assessment & Plan (1) Acute respiratory failure with hypoxia and hypercapnia: (2) Asthma with exacerbation: Asthma persistence: unspecified Asthma severity: unspecified severity Qualified Code(s): J45.901 - Unspecified asthma with (acute) exacerbation (3) COPD (chronic obstructive pulmonary disease): Plan CTA chest 08/11/2023 personally reviewed: Patchy opacity in bilateral upper lobes as well as right middle lobe No mediastinal lymphadenopathy -- COPD On Advair at home along with ProAir Continue with montelukast on discharge Absolute eosinophil count 270 on 03/31/2023 Respiratory bio fire negative for everything on 08/10/2023 --Acute hypoxic respiratory failure Multifactorial Atypical infection with patchy opacities Back on room air --Ex-smoker Greater than 25-[id number] smoking history Quit September 2022 Encouraged to continue abstinence from smoking Plan: Recommend changing patient's inhaler from Advair to Trelegy or BrezTri on discharge. Complete the course of azithromycin for total of 5 days Avoid prednisone/steroids given the hematemesis. Would recommend to step to check for oxygen prior to discharge PFT as an outpatient Patient follows up with Dr. Moser No further recommendation from pulmonary perspective, will sign off Please call directly with any questions Please note the above document was generated using voice recognition software. It may contain grammatical, syntax or spelling errors.Any formal questions or concerns about the content, text or information contained within the body of this dictation should be directly addressed to the provider for clarification. Admission and Anticipated Discharge Date Admission Date: August 11, 2023 Subjective Patient seen and examined at bedside. No acute distress, no adverse events overnight. Case was discussed with outgoing clarifier operator Patient had EGD done today. She feels much better Denied any headache, no nausea, no vomiting No shortness of breath, no chest pain Was saturating 93% on room air. Review of Systems Review of Systems: All systems reviewed & are unremarkable except as noted in HPI & below Physical Exam Physical Exam: Constitutional: No acute distress HEENT: EOMI, PERRLA Respiratory system: Good air entry bilaterally, no wheeze, no rhonchi, no crackles CVS: S1-S2 positive, no murmurs or gallops Abdomen: Soft, nontender, nondistended, positive bowel sounds x4 Extremities: +2 pulses bilaterally radialis/ dorsalis pedis, no cyanosis, no edema Neuro: Awake alert oriented x3 Psych: Normal mood and affect G/U: No Garcia Skin: no rashes, warm and dry Lymphatic: no cervical or axillary lymphadenopathy Results & Data Results & Data Vital Signs (Past 12 Hours) Vital Signs Temp Pulse Pulse Pulse Resp BP BP 08/12/23 11:01 84 18 149/87 H 08/12/23 10:40 76 16 142/96 H 08/12/23 10:25 79 16 129/75 08/12/23 10:10 69 16 105/71 08/12/23 09:16 16 08/12/23 07:06 08/12/23 07:26 36.4 C L 83 18 124/78 08/12/23 07:10 36.8 C 91 H 18 113/65 08/12/23 06:10 58 L 19 118/71 08/12/23 05:40 36.8 C 92 H 18 126/78 08/12/23 05:25 36.7 C 67 17 111/72 08/12/23 05:17 08/12/23 05:07 36.7 C 91 H 16 113/66 08/12/23 05:02 36.7 C 71 18 08/12/23 04:45 36.7 C 71 18 108/74 08/12/23 04:30 71 19 115/73 08/12/23 03:30 36.7 C 82 19 132/77 08/12/23 03:00 90 18 112/68 08/12/23 02:45 36.8 C 79 18 120/67 08/12/23 02:43 36.4 C L 87 18 111/70 08/12/23 01:38 80 87/53 L 08/12/23 02:27 36.6 C 72 20 90/53 L Pulse Ox O2 Del Method O2 Flow Rate 08/12/23 11:01 89 L Room Air 08/12/23 10:40 95 Room Air 08/12/23 10:25 97 Room Air 08/12/23 10:10 95 Oxymask 8 08/12/23 09:16 Room Air 08/12/23 07:06 Nasal Cannula 2 08/12/23 07:26 92 Nasal Cannula 2 08/12/23 07:10 96 2 08/12/23 06:10 95 2 08/12/23 05:40 93 2 08/12/23 05:25 95 2 08/12/23 05:17 95 Nasal Cannula 2 08/12/23 05:07 96 4 08/12/23 05:02 92 4 08/12/23 04:45 92 4 08/12/23 04:30 95 4 08/12/23 03:30 96 08/12/23 03:00 96 4 08/12/23 02:45 97 4 08/12/23 02:43 94 08/12/23 01:38 96 Nasal Cannula 4 08/12/23 02:27 98 Laboratory Results 08/12/23 09:04 08/12/23 09:04 Diagnostic Findings 08/12/23 09:04 08/12/23 09:04 PG Care Time/CCT Total # of Minutes Spent Total Time Spent with Patient: Total time spent is greater than 50% in coordination of care (as documented) at patient's floor/unit and/or counseling patient: Coding Level of Care Code 15195 SUB INP/OBS CARE 3/50MIN Diagnoses Acute respiratory failure with hypoxia and hypercapnia J96.01; J96.02 Asthma with exacerbation J45.901 Asthma persistence: unspecified Asthma severity: unspecified severity COPD (chronic obstructive pulmonary disease) J44.9
--- NOTE | 2023-08-12 14:04 | Hospitalist Progress Note ---
Date of Service August 12, 2023 Assessment & Plan (1) Acute respiratory failure with hypoxia and hypercapnia: Plan: Secondary to acute asthma exacerbation On Oxygen through nasal canula Wean as tolerated (2) Asthma with exacerbation: Plan: Moderate persistent asthma with acute exacerbation Likely due to a virus Continue albuterol and trelegy Minimal wheeze on exam today Appreciate Pulmonology (3) Acute blood loss anemia: Plan: Likely from GI bleed EGD showed stigmata of bleed (hematin) in the oesophagus Appreciate GI recs Continue Protonix Monitor Hemoglobin (4) COPD (chronic obstructive pulmonary disease): Plan wean as tolerated Hopefully d/c in the next 24-48 hrs Full code DVT scd Admission and Anticipated Discharge Date Admission Date: August 11, 2023 Subjective patient seen and examined, SOB is much improved, just back from EGD Review of Systems Review of Systems: All systems reviewed are negative, apart from the ones contained in the history. Physical Exam Physical Exam: The patient is awake, alert and oriented 3, well developed and well nourished, normocephalic and atraumatic, lying in bed and in no acute distress. HEENT--PERRL, EOMI, mucous membranes and oropharynx mildly dry Neck--supple. No JVD. No bruits. Thyroid normal, trachea midline, no adenopathy. Heart--normal S1 and S2. No murmurs, rubs or gallops. Lungs--minimal wheeze Abdomen--normal bowel sounds and soft. Extremities--no cyanosis or clubbing. No edema. Dermatologic--normal skin turgor, normal color, no abnormal lymph nodes, no rash. Neurologic--cranial nerves II through XII grossly intact. Rheumatologic--normal range of motion. Psychiatric--normal affect. Results & Data Results & Data Vital Signs (Past 12 Hours) Vital Signs Temp Pulse Pulse Pulse Resp BP BP 08/12/23 09:24 66 08/12/23 11:01 84 18 149/87 H 08/12/23 10:40 76 16 142/96 H 08/12/23 10:25 79 16 129/75 08/12/23 10:10 69 16 105/71 08/12/23 09:16 16 08/12/23 07:06 08/12/23 07:26 97.5 F L 83 18 124/78 08/12/23 07:10 98.2 F 91 H 18 113/65 08/12/23 06:10 58 L 19 118/71 08/12/23 05:40 98.2 F 92 H 18 126/78 08/12/23 05:25 98.1 F 67 17 111/72 08/12/23 05:17 08/12/23 05:07 98.1 F 91 H 16 113/66 08/12/23 05:02 98.1 F 71 18 08/12/23 04:45 98.1 F 71 18 108/74 08/12/23 04:30 71 19 115/73 08/12/23 03:30 98.1 F 82 19 132/77 08/12/23 03:00 90 18 112/68 08/12/23 02:45 98.2 F 79 18 120/67 08/12/23 02:43 97.5 F L 87 18 111/70 08/12/23 02:27 97.9 F 72 20 90/53 L Pulse Ox O2 Del Method O2 Flow Rate 08/12/23 09:24 08/12/23 11:01 89 L Room Air 08/12/23 10:40 95 Room Air 08/12/23 10:25 97 Room Air 08/12/23 10:10 95 Oxymask 8 08/12/23 09:16 Room Air 08/12/23 07:06 Nasal Cannula 2 08/12/23 07:26 92 Nasal Cannula 2 08/12/23 07:10 96 2 08/12/23 06:10 95 2 08/12/23 05:40 93 2 08/12/23 05:25 95 2 08/12/23 05:17 95 Nasal Cannula 2 08/12/23 05:07 96 4 08/12/23 05:02 92 4 08/12/23 04:45 92 4 08/12/23 04:30 95 4 08/12/23 03:30 96 08/12/23 03:00 96 4 08/12/23 02:45 97 4 08/12/23 02:43 94 08/12/23 02:27 98 PG Care Time/CCT Total # of Minutes Spent Total Time Spent with Patient: Total time spent is greater than 50% in coordination of care (as documented) at patient's floor/unit and/or counseling patient: Coding Level of Care Code 96777 SUB INP/OBS CARE MIN Diagnoses Acute respiratory failure with hypoxia and hypercapnia J96.01; J96.02 Asthma with exacerbation J45.901 Asthma persistence: unspecified Asthma severity: unspecified severity Acute blood loss anemia D62 COPD (chronic obstructive pulmonary disease) J44.9 Time Spent (min) 35 (2) Asthma with exacerbation Asthma persistence: unspecified Asthma severity: unspecified severity Qualified Code(s): J45.901 - Unspecified asthma with (acute) exacerbation
[2023-08-12] MEDS ORDERED: Nursing to Pharmacy Communication SCH (17:00)
[2023-08-13 06:05] LABS: Basophils # (auto) 0.09 K/uL (0.00-0.20); Basophils % (auto) 1.1 %; Eosinophils # (auto) 0.16 K/uL (0.00-0.50); Eosinophils % (auto) 1.9 %; Hematocrit (blood only) 30.7 % (37.0-47.0); Hemoglobin 10.6 g/dl (12.0-16.0); Immature Granulocytes # (auto) 0.03 K/uL (0.01-0.20); Immature Granulocytes % (auto) 0.4 %; Lymphocytes # (auto) 3.29 K/uL (1.20-3.40); Lymphocytes % (auto) 38.5 %; Mean Corpuscular Hemoglobin 29.9 pg (25.0-34.0); Mean Corpuscular Hgb Conc 34.5 g/dL (32.0-36.0); Mean Corpuscular Volume 86.5 fL (80.0-100.0); Mean Platelet Volume 9.8 fL (9.4-12.4); Monocytes % (auto) 8.2 %; Neutrophils # (auto) 4.27 K/uL (1.40-6.50); Neutrophils % (auto) 49.9 %; Platelet Count 310 K/uL (130-400); RDW Coefficient of Variation 13.2 % (11.5-14.5); RDW Standard Deviation 42.1 fL (36.4-46.3); Red Blood Count 3.55 M/uL (4.20-5.40); White Blood Count 8.54 K/ul (4.8-10.8)
[2023-08-13 06:08] LABS: Albumin Globulin Ratio 1.9 (0.9-2); Albumin Level 3.1 gm/dl (3.4-5.0); BUN Creatinine Ratio 38.8 (10-20); Bilirubin,Total 0.6 mg/dl (0.2-1.0); Calcium 8.2 mg/dl (8.6-10.3); Creatinine Clr Calc Pharmacy 109.9 ml/min; Est GFR (African American) 122.7 ml/min; Est GFR (Non-African American) 105.9 ml/min; Globulin 1.6 gm/dl (2.5-4.0); Potassium 4.5 mmol/L (3.5-5.1); Total Protein 4.7 gm/dl (6.0-8.3)
--- NOTE | 2023-08-13 07:29 | Pulmonology Progress Note ---
Date of Service August 13, 2023 Assessment & Plan (1) Acute respiratory failure with hypoxia and hypercapnia: (2) Asthma with exacerbation: Asthma persistence: unspecified Asthma severity: unspecified severity Qualified Code(s): J45.901 - Unspecified asthma with (acute) exacerbation (3) COPD (chronic obstructive pulmonary disease): Plan CTA chest 08/11/2023 personally reviewed: Patchy opacity in bilateral upper lobes as well as right middle lobe No mediastinal lymphadenopathy -- COPD On Advair at home along with ProAir Continue with montelukast on discharge Absolute eosinophil count 270 on 03/31/2023 Respiratory bio fire negative for everything on 08/10/2023 --Acute hypoxic respiratory failure Multifactorial Atypical infection with patchy opacities Back on room air --Ex-smoker Greater than [id number] smoking history Quit September 2022 Encouraged to continue abstinence from smoking Plan: Recommend changing patient's inhaler from Advair to Trelegy or BrezTri on discharge. Complete the course of azithromycin for total of 5 days Avoid prednisone/steroids given the hematemesis. Add Arnuity to patient's Anoro while in the hospital. Mucinex for chest congestion PFT as an outpatient Patient follows up with Dr. Moser No further recommendation from pulmonary perspective, will sign off Please call directly with any questions Please note the above document was generated using voice recognition software. It may contain grammatical, syntax or spelling errors.Any formal questions or concerns about the content, text or information contained within the body of this dictation should be directly addressed to the provider for clarification. Admission and Anticipated Discharge Date Admission Date: August 11, 2023 Subjective Patient seen and examined at bedside. No acute distress, no adverse events overnight Denies any headache Did not use her CPAP overnight Breathing has improved. Occasional cough with clear phlegm Denied any nausea or vomiting No headache, no blurry vision No hematemesis Does complain of chest congestion and difficulty bringing up the phlegm Review of Systems Review of Systems: All systems reviewed & are unremarkable except as noted in Subjective Physical Exam Physical Exam: Constitutional: No acute distress HEENT: EOMI, PERRLA Respiratory system: Good air entry bilaterally, no rhonchi, no crackles, minimal expiratory wheeze bilaterally CVS: S1-S2 positive, no murmurs or gallops Abdomen: Soft, nontender, nondistended, positive bowel sounds x4 Extremities: +2 pulses bilaterally radialis/ dorsalis pedis, no cyanosis, no edema Neuro: Awake alert oriented x3 Psych: Normal mood and affect G/U: No Garcia Skin: no rashes, warm and dry Lymphatic: no cervical or axillary lymphadenopathy Results & Data Results & Data Vital Signs (Past 12 Hours) Vital Signs Temp Pulse Pulse Resp BP Pulse Ox O2 Del Method 08/13/23 04:05 36.6 C 79 18 147/84 H 92 Room Air 08/12/23 23:37 78 08/12/23 23:13 36.5 C 78 18 157/93 H 94 Room Air Laboratory Results 08/13/23 05:27 08/13/23 05:27 PG Care Time/CCT Total # of Minutes Spent Total Time Spent with Patient: Total time spent is greater than 50% in coordination of care (as documented) at patient's floor/unit and/or counseling patient: Coding Level of Care Code 94156 SUB INP/OBS CARE 2/35MIN Diagnoses Acute respiratory failure with hypoxia and hypercapnia J96.01; J96.02 Asthma with exacerbation J45.901 Asthma persistence: unspecified Asthma severity: unspecified severity COPD (chronic obstructive pulmonary disease) J44.9
[2023-08-13] MEDS: UMECLIDINIUM/VILANTEROL 62.5/25MCG 7 PUFFS/INHALER INH SCH (08:20)
[2023-08-13] MEDS: PANTOprazole 40 MG in SYRINGE 0 ML IV SCH (08:20)
[2023-08-13] MEDS: AZITHROMYCIN 250 MG TAB PO SCH (08:21)
[2023-08-13] MEDS ORDERED: FLUTICASONE FUROATE 200MCG 14 PUFFS/INHALER INH SCH (11:00)
--- NOTE | 2023-08-13 11:16 | Discharge Summary ---
Date of Service August 13, 2023 Admission HPI Per Admitting Provider The patient is a 58-year-old female with a past medical history including COPD, moderate persistent asthma, former smoker, history of COPD exacerbation and allergic rhinitis. She presents to the emergency department with a few days of worsening shortness of breath. She denies any recent travels or sick exposures. In the emergency department she was placed on BiPAP due to acute respiratory failure with acidotic pH, increased CO2 retention, and decreased oxygenation. Principal Diagnosis acute asthma exacerbation, blood loss anemia Discharge Exam The patient is awake, alert and oriented 3, well developed and well nourished, normocephalic and atraumatic, lying in bed and in no acute distress. HEENT--PERRL, EOMI, mucous membranes and oropharynx mildly dry Neck--supple. No JVD. No bruits. Thyroid normal, trachea midline, no adenopathy. Heart--normal S1 and S2. No murmurs, rubs or gallops. Lungs--minimal wheeze Abdomen--normal bowel sounds and soft. Extremities--no cyanosis or clubbing. No edema. Dermatologic--normal skin turgor, normal color, no abnormal lymph nodes, no rash. Neurologic--cranial nerves II through XII grossly intact. Rheumatologic--normal range of motion. Psychiatric--normal affect. Discharge Data Allergies Allergy/AdvReac Type Severity Reaction Status Date / Time animal dander Allergy Intermediate asthma Verified 03/05/23 19:39 related symptoms grass pollen-perennial rye, Allergy Intermediate asthma Verified 03/05/23 19:39 standar related sx mold Allergy Intermediate asthma Verified 03/05/23 19:39 related sx Consultations 08/10/23 23:31 Consult Quantity Surveyor Stat 08/11/23 00:03 ED Decision to Admit Stat 08/11/23 19:55 Consult Gastroenterology Routine Procedures Performed Operation Date: 08/12/23 16:55 Actual Procedures p EGD Biopsy Cytology - Kyle Max MD Ordered Studies 08/11/23 00:02 CT angio chest PE protocol Stat Hospital Course (1) Acute respiratory failure with hypoxia and hypercapnia: Secondary to acute asthma exacerbation On Oxygen through nasal canula Wean as tolerated (2) Asthma with exacerbation: Moderate persistent asthma with acute exacerbation Likely due to a virus Continue albuterol and trelegy Minimal wheeze on exam today Per Pulmonolgy, "Recommend changing patient's inhaler from Advair to Trelegy or BrezTri on discharge. Complete the course of azithromycin for total of 5 days Avoid prednisone/steroids given the hematemesis." Appreciate Pulmonology (3) Acute blood loss anemia: Likely from GI bleed EGD showed stigmata of bleed (hematin) in the oesophagus Appreciate GI recs Continue Protonix Monitor Hemoglobin (4) COPD (chronic obstructive pulmonary disease): Plan wean as tolerated Hopefully d/c in the next 24-48 hrs Full code DVT scd Total Time Total Time Spent Total Time Spent (In Minutes): 35 Discharge Plan Discharge Items Patient Disposition: Home - Self-Care Reason For Visit: ACUTE RESPIRATORY FAILURE WITH HYPOXIA/HYPERCAPNEA Discharge Diagnosis: acute asthma exacerbation Activity: Resume your previous activity Non-emergency contact: Primary Care Provider and Animal Cop Call non-emergency contact if: you have any medication questions and your symptoms worsen Follow-up/Referrals: Everette Leija, [Primary Care Provider] - 08/15/23 2:00 pm (Follow up scheduled on 08/15/23 @ 2pm with Bobbi Patrick) Diet: Regular Addtl Attending Provider Instructions: Please make appointment to follow up with your Animal Cop for lung function test Pending Studies at Discharge: No Stand-Alone Forms: My [facility] [employer], Smoking Cessation Medications and DC Order Prescriptions: New azithromycin 250 mg Tablet 250 mg PO QAM 4 Days Qty: 4 0RF Trelegy Ellipta 200-62.5-25 mcg blister with device 1 inh inhalation DAILY Qty: 28 0RF pantoprazole [Protonix] 40 mg tablet,delayed release (DR/EC) 40 mg PO DAILY Qty: 30 0RF Continued albuterol sulfate 90 mcg/actuation HFA aerosol inhaler See Rx Instructions .ROUTE .COMPLEX Qty: 8.5 11RF Dose Instruction: INHALE 1 PUFF BY MOUTH FOUR TIMES DAILY NEEDED FOR SHORTNESS OF BREATH OR WHEEZING Rx Instructions: INHALE 1 PUFF BY MOUTH FOUR TIMES DAILY NEEDED FOR SHORTNESS OF BREATH OR WHEEZING ipratropium-albuterol 0.5 mg-3 mg(2.5 mg base)/3 mL solution for nebulization 3 ml inhalation QID PRN (Reason: shortness of breath) Qty: 180 11RF Rx Instructions: until breathing returns to target peak flow/parameters acetaminophen [Tylenol Extra Strength] 500 mg Tablet 1,000 mg PO DIRECTED PRN (Reason: PAIN/FEVER) Discontinued fluticasone propion-salmeterol [Advair Diskus] 250-50 mcg/dose blister with device 1 inh inhalation BID Qty: 1 11RF Discharge Orders: Discharge Order (Routine); Ordered 08/13/23 Ordered By: Craig Hodge/Other Patient Handouts: A1C, 5 Steps for Eating Healthier Admission Data Admit Date/Time: 08/11/23 01:13 Attending Provider: Craig Looney Admit Provider: Cruz Florez Primary Care Provider: Everette Leija Other Providers: Sina Smiley ; Cruz Florez ; Carolyn Morocho ; Cristi Palomares ; Kristen Grady ; Kandace Underwood ; Diamond Zhou ; Dionna Kapoor ; Kyle Max ; Benton Psoey ; Yoko Hendrickson ; Emmy Yan ; Etienne Kumar ; Brooke Moreno ; Viky Arceo ; America Ferguson ; Gaby Pearce ; Taylor Ferreira ; Raghav Huang ; Eddie Romo ; Kyleigh Bran ; Torres Sung Jr Other Interventions: Discharge Summary Assessment (RN) Last Done: 08/13/23 10:55 Coding Level of Care Code 24365 INP/OBS DISCH >30 MIN Diagnoses Acute respiratory failure with hypoxia and hypercapnia J96.01; J96.02 Asthma with exacerbation J45.901 Asthma persistence: unspecified Asthma severity: unspecified severity Acute blood loss anemia D62 COPD (chronic obstructive pulmonary disease) J44.9 Time Spent (min) 35
[2023-08-13] MEDS ORDERED: guaiFENesin 600 MG TABCR PO SCH (21:00)
== END 2023-08-13 11:49 | disposition home or self-care (01) | DRG 202 ==
LOC: ED 22:34 → SUATTDRO 08-11 01:13 → 2E 08-11 01:13

== ENCOUNTER 2023-08-18 22:42 | Inpatient (IN) ==
[2023-08-18] MEDS ORDERED: LORazepam 2 MG/1 ML VIAL ONE (23:32)
[2023-08-18] MEDS ORDERED: ONDANSETRON INJ 2 MG/ML 2 ML VIAL ONE (23:35)
[2023-08-18] MEDS ORDERED: SODIUM CHLORIDE 0.9% 2,000 ML IV ONE (23:46)
[2023-08-18] MEDS ORDERED: RAPID SEQUENCE INDUCTION BAG ONE (23:50)
[2023-08-18] MEDS ORDERED: levETIRAcetam 1,000 MG in 0.9 % SODIUM CHLORIDE 100 ML IV STA (23:54)
[2023-08-19 00:11] LABS: Albumin Level 4.3 gm/dl (3.4-5.0); BUN Creatinine Ratio 54.5 (10-20); Bilirubin,Total 0.5 mg/dl (0.2-1.0); Calcium 9.4 mg/dl (8.6-10.3); Creatinine Clr Calc Pharmacy 97.9 ml/min; Est GFR (African American) 118.2 ml/min; Est GFR (Non-African American) 101.9 ml/min; Globulin 2.2 gm/dl (2.5-4.0); Potassium 4.4 mmol/L (3.5-5.1); Total Protein 6.5 gm/dl (6.0-8.3)
[2023-08-19 00:14] LABS: Basophils # (auto) 0.13 K/uL (0.00-0.20); Basophils % (auto) 1.3 %; Eosinophils # (auto) 0.52 K/uL (0.00-0.50); Eosinophils % (auto) 5.1 %; Hematocrit (blood only) 28.1 % (37.0-47.0); Hemoglobin 9.3 g/dl (12.0-16.0); Immature Granulocytes # (auto) 0.16 K/uL (0.01-0.20); Immature Granulocytes % (auto) 1.6 %; Lymphocytes # (auto) 3.17 K/uL (1.20-3.40); Lymphocytes % (auto) 31.1 %; Mean Corpuscular Hemoglobin 29.7 pg (25.0-34.0); Mean Corpuscular Hgb Conc 33.1 g/dL (32.0-36.0); Mean Corpuscular Volume 89.8 fL (80.0-100.0); Mean Platelet Volume 10.3 fL (9.4-12.4); Monocytes # (auto) 0.87 K/uL (0.11-0.59); Monocytes % (auto) 8.5 %; Neutrophils # (auto) 5.34 K/uL (1.40-6.50); Neutrophils % (auto) 52.4 %; Platelet Count 556 K/uL (130-400); RDW Coefficient of Variation 13.8 % (11.5-14.5); RDW Standard Deviation 44.6 fL (36.4-46.3); Red Blood Count 3.13 M/uL (4.20-5.40); White Blood Count 10.19 K/ul (4.8-10.8)
[2023-08-19] MEDS ORDERED: VECURONIUM BROMIDE 10 MG VIAL IV ONE ×3 (00:24→11:23)
[2023-08-19] MEDS ORDERED: ALBUTEROL 0.083% NEBU SOLN 3 ML VIAL ONE (00:26)
[2023-08-19] MEDS ORDERED: PANTOprazole 80 MG in DEXTROSE 5% 100 ML IV ONE ×2 (00:27→03:20)
[2023-08-19] MEDS ORDERED: PANTOPRAZOLE BOLUS/DRIP IV STA ×2 (00:27→03:20)
[2023-08-19] MEDS ORDERED: cefTRIAXone SODIUM 2,000 MG/70 ML BAG IV STA (00:31)
[2023-08-19] MEDS ORDERED: TRANEXAMIC ACID / 0.7% NACL 1,000 MG/100 ML BAG IV STA (00:32)
[2023-08-19] MEDS ORDERED: DEXAMETHASONE SOD INJ 4 MG/ML VIAL IV STA (00:39)
--- NOTE | 2023-08-19 00:39 | Emergency Department Note ---
ED Visit Note Assisted Dr. Pierce with his complex critically ill patient here in the emergency department this evening. Difficult airway with upper GI bleed. Attempted intubation and completed as below eventually utilizing bougie. Reviewed chart and postintubation x-rays ordered as well as orders for initial GI bleed medications including Protonix bolus and drip, TXA ordred given the significant bleeding, and ceftriaxone given the upper GI bleed findings. Discussed with blood bank and 2 additional uncrossed units will be sent. Type and screen pending completion for type-specific. Repeat H/H lactat ordered. ICU team at bedside and rapid infuser being setup. O2 slowly increasing after intubation to low 90's. ED Intubation Indication GI bleed, seizure The patient was on 100% oxygen via BVM prior to the procedure Difficulty with planning good pulse ox waveform. Intubation attempted by Dr. Pierce attempted unsuccessful. Suctioning blood out of the airway. BVM as able. 7 no tube initially attempted with glide scope with difficult visualization of the airway due to blood in the pharynx. Attempt to advance the ET tube via stylette through the vocal cords but meeting resistance and quickly to flex in the esophagus. Given this and prior fails, proceeded with using bougie introducer to advanced through the vocal cords into the trachea. After this a 7 oh tube was advanced over the bougie into the airway and secured. Airway sounds present and adjusted for bilateral airway sounds and no gastric sounds at 25 cm at the lip. Was a faint end-tidal change. Capnography initiated. Difficulty with oxygenation post attempts with flow increase initially into the 50s and 70s. Patient did not arrest during the attempt but was bradycardic into the 40s for period. Received 5 mg of IV Versed for sedation. Postintubation x-ray reviewed without pneumothorax or significant pulmonary parenchymal consolidation .
[2023-08-19] MEDS ORDERED: SODIUM CHLORIDE 0.9% 250 ML IV PRN ×4 (00:47→02:03)
[2023-08-19] MEDS ORDERED: METOCLOPRAMIDE HCL INJ 5 MG/ML 2 ML VIAL IV STA ×2 (01:01→04:34)
--- NOTE | 2023-08-19 01:06 | Emergency Department Note ---
ED Visit Note Femoral Central Venous Catheter Indication: Hypotension, GI bleed, blood transfusion Catheter Type: 7 Slovenian triple-lumen Location: Right femoral vein Consent was emergent as patient was critical, intubated and unresponsive. A time out was taken and the correct patient and site identified. The patient was placed in the supine position and the skin was prepped in the standard fashion with chlorhexidine and full sterile drapes applied. The proper landmarks were identified with ultrasound, anesthetized with 1% lidocaine without epinephrine, and the needle was inserted through the skin in the standard fashion. The needle was carefully advanced into blood vessel lumen with ultrasound guidance. The guidewire was placed uneventfully. The vessel is dilated and the catheter was placed. It was sutured into position. There was good blood return from all ports. The patient tolerated the procedure well and there were no complications.
[2023-08-19 01:15] LABS: Hematocrit (blood only) 18.1 % (37.0-47.0); Hemoglobin 5.6 g/dl (12.0-16.0)
[2023-08-19] MEDS: PANTOprazole 40 MG in DEXTROSE 5% MINI-B 100 ML IV SCH ×6 (01:20→22:51)
[2023-08-19] MEDS ORDERED: MULTI-VITAMIN INFUSION 10 ML, THIAMINE HCL 100 MG, FOLIC ACID 1 MG in SODIUM CHLORIDE 0... IV ONE (01:21)
[2023-08-19] MEDS ORDERED: STAT IV/IM STA ×2 (01:21→04:16)
[2023-08-19] MEDS ORDERED: OCTREOTIDE BOLUS FROM BAG IV ONE (01:21)
[2023-08-19 01:31] LABS: Prothrombin Time 11.2 Seconds (9.0-12.0)
--- NOTE | 2023-08-19 01:50 | History & Physical Report ---
Date of Service August 19, 2023 Assessment & Plan (1) Hematemesis: Plan: Patient with massive hematemesis, hemorrhagic shock with hypotension requiring transfusion of PRBCs x 6 units thus far, FFP, Platelets. Briefly on Levophed - now off with MAPs maintained >65 CT of the chest comments on hyperdense material in the stomach which favors large amount of clot as well as distal gastric wall thickening. Patient with right femoral TLC and two large bore PIVs in place She had an episode of hematemesis during her last hospital admission. She had an EGD performed on 08/12/23 which revealed blood in the stomach, no obvious source of bleeding. Biopsy performed which was found to be normal. GI performed a bedside EGD which revealed a large amount of clot in the stomach. No active bleeding identified. Large amount of adherent clot appreciated. Clip x 3 placed with hemostatic spray. Please see Dr. Pearce's note for further detail. -Admit to MICU -Continue Protonix gtt -Continue Octreotide -Hgb now stable - 9.3 --> 5.6 --> 9.8 following transfusion of 6u PRBCs. Continue to trend CBC q 4 hours. Transfuse for active bleeding, symptomatic anemia or Hgb <7 -Patient may need additional FFP and platelets as well as cryoprecipitate to balance clotting factors if more PRBCs required. May need additional calcium as well. -Reglan 10mg IV ordered -Consider repeat EGD after patient has been on Octreotide and Protonix to further evaluate for source of bleeding. -Sedation with Versed and Fentanyl - goal RAAS 0 - -1 (2) Acute blood loss anemia: Plan: As above, with rapid transfusion 4u PRBCs, Platelets and FFP x 2. -Monitor CBC q 4 hours -Transfusion as needed for ongoing bleed, symptomatic anemia or Hgb < 7 -Monitor for circulatory overload, coagulopathy and electrolyte derangements given aggressive resuscitation (3) COPD (chronic obstructive pulmonary disease): Plan: Patient with diffuse wheezing. Was recently admitted with exacerbation of asthma from 08/11/23 - 08/13/23 -Trelegy or formulary equivalent -DuoNeb q4 hours -Albuterol q 2 hours PRN (4) Daily consumption of alcohol: Plan: Family reports that patient consumes EtOH daily - at least 6 beers per day. No reported history of withdrawal symptoms or seizure. Patient with witnessed seizure this evening - ?due to EtoH withdrawal. She was given 1gm of Keppra as well as a banana bag in the ER -Versed gtt during intubation -Thiamine and Folic Acid daily (5) Seizure: Plan: No history of prior. Possibly secondary to EtOH withdrawal. Patient has been given Keppra 1gm IV -Continue seizure precautions History of Present Illness Chief Complaint: hematemesis Primary Care Provider: Everette Leija, DO Patient intubated and sedated at the time of my encounter. Pre-hospital history obtained through chart review, discussion with ER staff and discussion with family. Patient is a 58yo female presenting from home after a syncopal event. She woke up on the floor, does not recall events. She had some dizziness in the ER and felt generally unwell. Patient was recently admitted to [facility] with acute hypoxic/hypercarbic respiratory failure. She was treated for an asthma exacerbation. She developed an episode of hematemesis during that hospital stay. She had an EGD with biopsy performed on 08/12/23 which revealed blood in the stomach but no clear source. She was ultimately discharged home on Protonix 40mg po daily. Upon arrival to the ER today patient afebrile, tachycardic at 105 bpm, blood pressure stable. She had a witnessed seizure then developed massive hematemesis. She became hypoxic requiring bag/mask ventilation. ABG obtained at that time 6.938/82/64. She was intubated for airway protection and acute hypoxic respiratory failure. NGT was placed to suction with brisk return of bright red blood. Patient quickly filled a canister full of bright red blood through the NGT. Patient was transfused given 4u PRBCs, 1u FFP through the Bradford infuser, and given 1gm of TXA. Protonix bolus and drip initiated. GI was contacted by the ER attending - recommended to check INR and administer Reglan to assist with gastric motility. Patient continued to bleed. Additional PRBCs administered. Patient admitted to MICU. GI contacted and is to perform EGD in the MICU Medications/transfusions thus far: Keppra 1000mg NSS x 2L Protonix bolus and drip TXA x 1gm Dexamethasone 10mg IV Ceftriaxone 2gm Reglan 10mg IV ALbuterol neb Octreotide bolus and gtt Banana bag Levophed drip Transfusion 6u PRBCs, FFP x 2, Platelets x 1, Calcium gluconate x 1gm Allergies Allergy/AdvReac Type Severity Reaction Status Date / Time animal dander Allergy Intermediate asthma Verified 08/18/23 23:59 related symptoms grass pollen-perennial rye, Allergy Intermediate asthma Verified 08/18/23 23:59 standar related sx mold Allergy Intermediate asthma Verified 08/18/23 23:59 related sx Home Medications Medication Instructions Recorded Confirmed Type acetaminophen 500 mg tablet 1,000 mg PO DIRECTED PRN 03/05/23 08/18/23 History (Tylenol Extra Strength) PAIN/FEVER ipratropium 0.5 mg-albuterol 3 mg 3 ml inhalation QID PRN shortness 07/17/23 08/19/23 Rx (2.5 mg base)/3 mL nebulization of breath #180 mL soln fluticasone fur. 200 mcg-umeclid 1 inh inhalation DAILY #28 ea 08/13/23 08/19/23 Rx 62.5 mcg-vilant 25 mcg inhalat.powder (Trelegy Ellipta) pantoprazole 40 mg tablet,delayed 40 mg PO DAILY #30 tabs 08/13/23 08/19/23 Rx release (Protonix) albuterol sulfate 90 mcg/actuation 1 puff inhalation QID PRN 08/19/23 08/19/23 History aerosol inhaler Shortness Of Breath Or Wheezing Past Med/Surg History Medical History Acute respiratory failure with hypoxia and hypercapnia Allergic rhinitis due to animal dander Allergic rhinitis due to dust Allergic rhinitis due to other allergen Allergic rhinitis due to pollen Asthma Asthma with status asthmaticus Atopic dermatitis Colon cancer screening COPD (chronic obstructive pulmonary disease) COPD with exacerbation Extrinsic asthma Hypoxemia Murmur PNA (pneumonia) Respiratory failure Surgical History History of surgical removal of ganglion cyst Family History Sister Asthma Allergic rhinitis Social History Smoking Status: Former smoker Tobacco Type: Cigarettes Cigarettes Per Day: 5-20 per day; Second Hand Exposure: No; Do You Dip or Chew Tobacco: No; Hx Alcohol Use: Yes Alcohol type: wine Hx Substance Use: No Preferred Language: [place] Leonean Communication Ability: Effective Credit Balance Specialist Required: No Beliefs That Will Affect Care: None marital status: / Current Living Situation: Alone current occupational status: employed How many Children do You have: 0 Feels Safe at Home: Yes Childhood Exposure to Second-Hand Smoke: Yes Diet: regular caffeine: Yes Dental Care, Regularly: Yes Physical Activity Frequency: Daily Seatbelt Use: always Sunscreen Use: Yes Assistive Devices: None Review of Systems Review of Systems: Unobtainable due to endotracheal tube Physical Exam Physical Exam: General: patient intubated and sedated Skin: warm, dry, some mottling noted on bilateral feet HEENT: Pupils small, equal, round and reactive, anicteric sclera, conjunctiva without injection, external ear normal to inspection and nontender, nares patent, moist mucus membranes, dentition intact, ETT in place, neck supple, trachea midline, no LAD, no thyromegaly, no JVD Heart: +S1/S2, regular, tachycardic, no m/r/g Lungs: equal air entry bilaterally, diffuse end-expiratory wheezing Abd: +BS, non-distended, no bruising, Garcia catheter in place Ext: cool, 2+ pulses Neuro: intubated, sedated Results & Data Results & Data Vital Signs (Past 12 Hours) Vital Signs Temp Pulse Pulse Resp BP BP Pulse Ox 08/19/23 01:30 108 H 24 148/89 H 95 08/19/23 01:15 107 H 24 154/92 H 99 08/19/23 01:00 106 H 18 161/87 H 90 08/19/23 00:59 108 H 13 151/86 H 90 08/19/23 00:45 112 H 24 122/74 80 L 08/19/23 00:31 119 H 25 H 85/56 L 69 L 08/19/23 00:15 102 H 0 L 172/99 H 58 L 08/19/23 00:09 108 H 34 H 104/70 99 08/19/23 00:00 103 H 34 H 103/68 08/18/23 23:58 105 H 38 H 95/61 L 100 08/18/23 23:57 106 H 21 91/62 L 92 08/18/23 23:55 110 H 34 H 94/61 L 93 08/18/23 23:54 111 H 43 H 82/59 L 92 08/18/23 23:45 126 H 33 H 100 08/18/23 23:30 156 H 22 100 08/18/23 23:15 93 H 21 71 L 08/19/23 00:07 24 08/18/23 23:11 96 H 08/18/23 23:05 92 H 20 136/76 95 08/18/23 22:46 36.7 C 105 H 18 113/72 95 O2 Del Method O2 Flow Rate FiO2 08/19/23 01:30 Mechanical Vent 08/19/23 01:15 Mechanical Vent 08/19/23 01:00 Mechanical Vent 08/19/23 00:59 Mechanical Vent 08/19/23 00:45 Mechanical Vent 08/19/23 00:31 Mechanical Vent 08/19/23 00:15 08/19/23 00:09 08/19/23 00:00 08/18/23 23:58 08/18/23 23:57 08/18/23 23:55 Non-rebreather 08/18/23 23:54 Non-rebreather 15 08/18/23 23:45 08/18/23 23:30 08/18/23 23:15 08/19/23 00:07 100 08/18/23 23:11 08/18/23 23:05 Room Air 08/18/23 22:46 Room Air Laboratory Results Laboratory Results WBC 10.19 K/ul (4.8-10.8) 08/18/23 23:10 RBC 3.13 M/uL (4.20-5.40) L 08/18/23 23:10 Hgb 5.6 g/dl (12.0-16.0) L* D 08/19/23 00:53 Hct 18.1 % (37.0-47.0) L* 08/19/23 00:53 MCV 89.8 fL (80.0-100.0) 08/18/23 23:10 MCH 29.7 pg (25.0-34.0) 08/18/23 23:10 MCHC 33.1 g/dL (32.0-36.0) 08/18/23 23:10 RDW Std Deviation 44.6 fL (36.4-46.3) 08/18/23 23:10 RDW Coeff of Tea 13.8 % (11.5-14.5) 08/18/23 23:10 Plt Count 556 K/uL (130-400) H 08/18/23 23:10 MPV 10.3 fL (9.4-12.4) 08/18/23 23:10 Immature Gran % (Auto) 1.6 % 08/18/23 23:10 Neut % (Auto) 52.4 % 08/18/23 23:10 Lymph % (Auto) 31.1 % 08/18/23 23:10 [place] % (Auto) 8.5 % 08/18/23 23:10 Eos % (Auto) 5.1 % 08/18/23 23:10 Baso % (Auto) 1.3 % 08/18/23 23:10 Neut # (Auto) 5.34 K/uL (1.40-6.50) 08/18/23 23:10 Lymph # (Auto) 3.17 K/uL (1.20-3.40) 08/18/23 23:10 [place] # (Auto) 0.87 K/uL (0.11-0.59) H 08/18/23 23:10 Eos # (Auto) 0.52 K/uL (0.00-0.50) H 08/18/23 23:10 Baso # (Auto) 0.13 K/uL (0.00-0.20) 08/18/23 23:10 Immature Gran # (Auto) 0.16 K/uL (0.01-0.20) 08/18/23 23:10 PT 11.2 Seconds (9.0-12.0) 08/18/23 23:10 INR 1.0 (0.9-1.1) 08/18/23 23:10 ABG pH Cancelled 08/19/23 02:05 ABG pCO2 Cancelled 08/19/23 02:05 ABG pO2 Cancelled 08/19/23 02:05 ABG HCO3 Cancelled 08/19/23 02:05 ABG O2 Saturation Cancelled 08/19/23 02:05 ABG Base Excess Cancelled 08/19/23 02:05 Moshe Test Cancelled 08/19/23 02:05 Barometric Pressure Cancelled 08/19/23 02:05 Oxygen Given Cancelled 08/19/23 02:05 Sodium 133 mmol/L (136-145) L 08/18/23 23:10 Potassium 4.4 mmol/L (3.5-5.1) 08/18/23 23:10 Chloride 103 mmol/L (98-107) 08/18/23 23:10 Carbon Dioxide 23 mmol/L (21-32) 08/18/23 23:10 Anion Gap 7 (3-11) 08/18/23 23:10 BUN 30 mg/dl (6-23) H 08/18/23 23:10 Creatinine 0.55 mg/dl (0.6-1.2) L 08/18/23 23:10 Est Cr Clr Drug Dosing 97.9 ml/min 08/18/23 23:10 Est GFR ( Amer) 118.2 ml/min 08/18/23 23:10 Est GFR (Non-Af Amer) 101.9 ml/min 08/18/23 23:10 BUN/Creatinine Ratio 54.5 (10-20) H 08/18/23 23:10 Glucose 107 mg/dl (70-99(Fasting)) H 08/18/23 23:10 Lactate 4.4 mmol/L (0.4-2.0) H* 08/19/23 00:53 Calcium 9.4 mg/dl (8.6-10.3) 08/18/23 23:10 Total Bilirubin 0.5 mg/dl (0.2-1.0) 08/18/23 23:10 AST 15 U/L (13-39) 08/18/23 23:10 ALT 14 U/L (7-52) 08/18/23 23:10 Alkaline Phosphatase 50 U/L (34-104) 08/18/23 23:10 Total Protein 6.5 gm/dl (6.0-8.3) 08/18/23 23:10 Albumin 4.3 gm/dl (3.4-5.0) 08/18/23 23:10 Globulin 2.2 gm/dl (2.5-4.0) L 08/18/23 23:10 Albumin/Globulin Ratio 2.0 (0.9-2) 08/18/23 23:10 Blood Type A Positive 08/19/23 00:57 Antibody Screen NEGATIVE 08/19/23 00:57 Crossmatch See Detail 08/19/23 00:[address] 08/19/23 02:10 CT OF THE HEAD WITHOUT CONTRAST CLINICAL HISTORY: new onset seizure COMPARISON STUDY: No previous studies for comparison. CT DOSE: 3029.04 mGy.cm TECHNIQUE: Helical axial images of the head were obtained without IV contrast. Automated exposure control was utilized for the study. A dose lowering technique was utilized adhering to the principles of ALARA. FINDINGS: No acute intracranial hemorrhage, midline shift or mass effect is present. The ventricular system is unremarkable. The basal cisterns are patent. No extra-axial collections are present. There are no findings to suggest acute dural sinus thrombosis or acute territorial infarct. Subtle white matter hypodensities favor small vessel disease. There are no calvarial fractures. Secretions within the nasopharynx and nasal cavity are likely related to intubation. Air-fluid levels within the maxillary sinuses and ethmoid sinus mucosal thickening is also likely related to intubation. Mastoid air cells are clear. IMPRESSION: 1. No acute intracranial findings. 2. Secretions within the sinuses and nasopharynx, likely related to intubation. ACT 112: Negative or not required by law. Electronically signed by: Kapil Coburn M.D. 08/19/2023 3:[address] OF THE CHEST WITH IV CONTRAST CLINICAL HISTORY: GI bleed COMPARISON STUDY: Chest CT August 11, 2023. Chest radiograph August 19, 2023. TECHNIQUE: Following IV administration of 91 mL of Optiray, helical axial images of the chest were obtained. Sagittal and coronal reconstructions were viewed as well as maximal intensity projections on an independent 3-D workstation. Automated exposure control was utilized for the study. A dose lowering technique was utilized adhering to the principles of ALARA. FINDINGS: The endotracheal tube is well-positioned. There is no thoracic aortic dissection. Central pulmonary arteries are mildly dilated. Size of the heart is normal. There is no pericardial effusion. There is no pneumothorax or pleural effusion. Extensive bilateral lower lobe airspace opacities have developed since prior CT August 11, 2023 with volume loss. There are additional scattered airspace opacities within the lungs. No central obstructing mass is noted. The abdomen and pelvis CT will be reported separately. There is hyperdense material within the stomach. Tip of nasogastric tube is within the body of the stomach. Wall thickening the distal stomach is noted there is a 1.8 cm well demarcated hypoenhancing focus within the upper aspect of the spleen. There is also a small hypoenhancing focus within the upper pole of the right kidney. There is periportal edema. Gallbladder wall thickening is noted. There is moderate peripancreatic fluid. The adrenal glands are hyperenhancing. IMPRESSION: 1. Appropriately positioned endotracheal tube. 2. Extensive bilateral lower lobe airspace opacities with volume loss, new since CT August 11, 2023. The findings may reflect aspiration pneumonitis or atelectasis. Additional scattered airspace opacities within the lungs are likely infectious or related to aspiration. No central obstructing mass. 3. 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 4. Hyperdense material within the stomach which favors a large amount of clot. Distal gastric wall thickening which may reflect gastritis. 5. Moderate peripancreatic fluid. This favors acute pancreatitis. However, given multiple additional findings, including hyperenhancement of the adrenal glands and small bowel wall thickening, better depicted on the CT of the abdomen and pelvis, the findings raise the possibility of hypoperfusion complex in the setting of hypotension/shock and could reflect shock pancreas. Findings discussed with Dr. Pearce at time of dictation. ACT 112: Negative or not required by law. Electronically signed by: Kapil Coburn M.D. 08/19/2023 3:39 AM Dictated:08/19/23315 Transcribed: 08/19/23315 ===== CT OF THE ABDOMEN AND PELVIS WITH CONTRAST CLINICAL HISTORY: GI bleed COMPARISON STUDY: Abdominal series December 16, 2014. TECHNIQUE: Following IV administration of 91 mL of Optiray, axial images of the abdomen and pelvis were obtained from the lung bases to the proximal femurs. Images were reviewed in the axial, sagittal, and coronal planes. IV contrast was administered without complication. Automated exposure control was utilized for the study. A dose lowering technique was utilized adhering to the principles of ALARA. FINDINGS: Extensive bilateral lower lobe airspace opacity with volume loss are present. Tip of nasogastric tube is within the distal body of the stomach. There is no pneumatosis, free air or portal venous gas. There is periportal edema. Gallbladder wall thickening is noted. Hyperdense material within the stomach is noted. Cortical thickening distal stomach and proximal duodenum is noted. In addition, there is wall thickening with prominent mucosal enhancement throughout the jejunum. There is no evidence for a bowel obstruction. Moderate peripancreatic fluid extending into the mesentery is present. No peripancreatic fluid collection is present. There is no evidence for pancreatic necrosis. There is a small hypodense focus consistent with infarct within the upper portion of the spleen. A subtle small infarct within the upper pole of the right kidney is present. Hypoenhancement the adrenal glands is better depicted on chest CT given phase of enhancement. There is sigmoid diverticulosis without evidence for acute diverticulitis. A Garcia balloon within the bladder is noted. A right femoral central venous catheter is in place. IMPRESSION: 1. Hyperdense material within the stomach suggestive of a large amount of clot. Tip of nasogastric tube within the body of the stomach. Distal stomach and proximal duodenal wall thickening with mucosal hyperenhancement which may reflect gastritis/duodenitis. 2. Moderate peripancreatic fluid extending into the pancreas. This suggests acute pancreatitis. However, given numerous additional findings, including jejunal wall thickening/mucosal hyperenhancement, prominent bilateral adrenal gland enhancement shown on the chest CT and small splenic and right renal infarcts, the findings raise the possibility of hypoperfusion complex in the setting of hypotension with shock pancreas. Findings discussed with Dr. Pearce at time of dictation. 3. Jejunal wall thickening and mucosal hyperenhancement, as described above. Small amount of associated ascites. No pneumatosis, free air or portal venous gas. This may be related to hypoperfusion, as described above. However, this f inding is nonspecific and additional differential considerations including ischemia are within the differential. 4. Nonspecific gallbladder wall thickening. 5. No bowel obstruction. Sigmoid diverticulosis. No evidence for acute diverticulitis. 6. Extensive bilateral lower lobe airspace opacities with volume loss within the lower lobes. This could reflect aspiration pneumonitis, atelectasis or p neumonia. ACT 112: Negative or not required by law. Electronically signed by: Kapil Coburn M.D. 08/19/2023 3:53 AM Dictated:08/19/23338 Transcribed: 08/19/23338 PG Care Time/CCT Total # of Minutes Spent Total Time Spent with Patient: Total time spent is greater than 50% in coordination of care (as documented) at patient's floor/unit and/or counseling patient: Coding Level of Care Code 28892 INT INP/OBS CARE 3/75MIN Diagnoses Hematemesis K92.0 Acute blood loss anemia D62 COPD (chronic obstructive pulmonary disease) J44.9 Daily consumption of alcohol Z78.9 Seizure R56.9
[2023-08-19] MEDS: OCTREOTIDE ACETATE 500 MCG in 0.9 % SODIUM CHLORIDE 100 ML IV SCH ×3 (02:00→21:06)
[2023-08-19] MEDS ORDERED: STAT IV Infusion **Titration per Protocol STA ×3 (02:04→03:35)
[2023-08-19] MEDS ORDERED: SODIUM CHLORIDE 0.9% 1,000 ML IV ONE (02:05)
[2023-08-19] MEDS: NOREPINEPHRINE/D5W 4 MG/250 ML PLCT IV SCH ×4 (02:13→15:12)
[2023-08-19] MEDS ORDERED: CALCIUM CHLORIDE 10% 1,000 MG in DEXTROSE 5% 50 ML IV ONE (02:15)
[2023-08-19] MEDS ORDERED: OPTIRAY 320 100ml IV ONE (02:43)
--- NOTE | 2023-08-19 02:57 | Gastrointestinal Consultation ---
Date of Consultation August 19, 2023 Supervising Physician Co-Signing Physician Notes EGD for evaluation of hematemesis in the icu. History of Present Illness Reason for Consultation: Hematemesis Requesting Physician: Dr. Pierce Attending Physician: Chantell Payton DO History of Present Illness 58 yo fm with copd, reported ethanol use, being admitted for hematemesis. The ed contacted me early this morning stating the patient had arrived as a loc, then had a seizure, then vomited up blood, 3 gram drop in hgb, minimal bun rise. Started on protonix drip, given reglan. Then contacted by the icu stating the patient blood around the og tube. On review of the chart, she was admitted a week ago for sob. An EGD was done for hematemesis - findings of blood in the stomach, no varices noted, no active gi bleeding source found. She is currently intubated. Her sister Marina is in the waiting room - further history was obtained from her. Her sister states she works at [employer]. She is a drinker- a year ago. No recent sick contacts. Does not know after disharge a week ago if she was drinking. No other history really that she though was relevant. Allergies Allergy/AdvReac Type Severity Reaction Status Date / Time animal dander Allergy Intermediate asthma Verified 08/18/23 23:59 related symptoms grass pollen-perennial rye, Allergy Intermediate asthma Verified 08/18/23 23:59 standar related sx mold Allergy Intermediate asthma Verified 08/18/23 23:59 related sx Home Medications Medication Instructions Recorded Confirmed Type acetaminophen 500 mg tablet 1,000 mg PO DIRECTED PRN 03/05/23 08/18/23 History (Tylenol Extra Strength) PAIN/FEVER ipratropium 0.5 mg-albuterol 3 mg 3 ml inhalation QID PRN shortness 07/17/23 08/19/23 Rx (2.5 mg base)/3 mL nebulization of breath #180 mL soln fluticasone fur. 200 mcg-umeclid 1 inh inhalation DAILY #28 ea 08/13/23 08/19/23 Rx 62.5 mcg-vilant 25 mcg inhalat.powder (Trelegy Ellipta) pantoprazole 40 mg tablet,delayed 40 mg PO DAILY #30 tabs 08/13/23 08/19/23 Rx release (Protonix) albuterol sulfate 90 mcg/actuation 1 puff inhalation QID PRN 08/19/23 08/19/23 History aerosol inhaler Shortness Of Breath Or Wheezing Patient History Medical History Allergic rhinitis due to animal dander Allergic rhinitis due to dust Allergic rhinitis due to other allergen Allergic rhinitis due to pollen Asthma Asthma with status asthmaticus Atopic dermatitis Colon cancer screening COPD (chronic obstructive pulmonary disease) Extrinsic asthma Hypoxemia Murmur PNA (pneumonia) Surgical History History of surgical removal of ganglion cyst Family History Sister Asthma Allergic rhinitis Social History Smoking Status: Former smoker Tobacco Type: Cigarettes Cigarettes Per Day: 5-20 per day; Second Hand Exposure: No; Do You Dip or Chew Tobacco: No; Hx Alcohol Use: Yes Alcohol type: wine Hx Substance Use: No Preferred Language: Khmer Communication Ability: Effective Telecom Network Manager Required: No Beliefs That Will Affect Care: None marital status: / Current Living Situation: Alone current occupational status: employed How many Children do You have: 0 Feels Safe at Home: Yes Childhood Exposure to Second-Hand Smoke: Yes Diet: regular caffeine: Yes Dental Care, Regularly: Yes Physical Activity Frequency: Daily Seatbelt Use: always Sunscreen Use: Yes Assistive Devices: None Review of Systems Review of Systems: Unobtainable due to endotracheal tube Physical Exam Physical Exam: Intubated Respiratory: Intubated Cardiovascular: Slightly tachycardic Gastrointestinal (Abdomen): Obese Results & Data Vital Signs (Past 12 Hours) Vital Signs Temp Pulse Pulse Resp BP BP Pulse Ox 08/19/23 01:30 108 H 24 148/89 H 95 08/19/23 01:15 107 H 24 154/92 H 99 08/19/23 01:00 106 H 18 161/87 H 90 08/19/23 00:59 108 H 13 151/86 H 90 08/19/23 00:45 112 H 24 122/74 80 L 08/19/23 00:31 119 H 25 H 85/56 L 69 L 08/19/23 00:15 102 H 0 L 172/99 H 58 L 08/19/23 00:09 108 H 34 H 104/70 99 08/19/23 00:00 103 H 34 H 103/68 08/18/23 23:58 105 H 38 H 95/61 L 100 08/18/23 23:57 106 H 21 91/62 L 92 08/18/23 23:55 110 H 34 H 94/61 L 93 08/18/23 23:54 111 H 43 H 82/59 L 92 08/18/23 23:45 126 H 33 H 100 08/18/23 23:30 156 H 22 100 08/18/23 23:15 93 H 21 71 L 08/19/23 00:07 24 08/18/23 23:11 96 H 08/18/23 23:05 92 H 20 136/76 95 08/18/23 22:46 36.7 C 105 H 18 113/72 95 O2 Del Method O2 Flow Rate FiO2 08/19/23 01:30 Mechanical Vent 08/19/23 01:15 Mechanical Vent 08/19/23 01:00 Mechanical Vent 08/19/23 00:59 Mechanical Vent 08/19/23 00:45 Mechanical Vent 08/19/23 00:31 Mechanical Vent 08/19/23 00:15 08/19/23 00:09 08/19/23 00:00 08/18/23 23:58 08/18/23 23:57 08/18/23 23:55 Non-rebreather 08/18/23 23:54 Non-rebreather 15 08/18/23 23:45 08/18/23 23:30 08/18/23 23:15 08/19/23 00:07 100 08/18/23 23:11 08/18/23 23:05 Room Air 08/18/23 22:46 Room Air Laboratory Results Hgb 9 to 6 Bun 30 Lactate 4.4 prior to scope Diagnostic Findings Last egd reviewed CT ap pending Medications Administered Octreotide Lizix Jhonatan
--- NOTE | 2023-08-19 03:08 | Emergency Department Note ---
Impression & Plan Acute upper gastrointestinal bleeding, Seizure Admit to critical care medicine for emergent endoscopy to localize source of bleeding ED Provider Note NAME: CHANTELL HUERTA AGE: 58 SEX: F ARRIVES VIA: Walk-In INFORMANT: Patient and her sister ED PROVIDER(S): Radha Pierce DO CHIEF COMPLAINT: Syncope PLAN: Disposition: Admit to the ICU Condition: Critical MEDICAL DECISION MAKING: This is a 58-year-old female patient who initially presented to the emergency department after having a syncopal episode around noon today but believes she laid unresponsive in her kitchen for unknown period of time to, she then went to her bed and slept for the majority of the day until around 9 PM this evening when she alerted her family who recommended she come to the emergency department. Upon my initial evaluation of the patient, during my history taking, the patient had a tonic-clonic seizure. We had administered IV Ativan and the seizure had stopped. The patient appeared to become more responsive and then had a significant episode of hematemesis. There was a large quantity of coffee-ground emesis. At that point, became pale, diaphoretic, hypotensive and tachycardic. The hematemesis persisted. Triage Nursing notes reviewed and agree with them. Additional history obtained from the patient's sister and her who are at the bedside external medical records were reviewed including her most recent admission to the hospital for severe exacerbation of asthma Vital Signs: reviewed and remarkable for hypotension and tachycardia Differential diagnosis: Syncope, seizure disorder, alcohol withdrawal seizure upper GI bleeding, gastric ulcer, duodenal ulcer, esophageal varices, ER treatment provided: Cardiac monitoring Twelve-lead EKG IV normal saline bolus-2 L Packed red blood cells-4 units Loading dose of IV Keppra-1 g RSI-IV succinylcholine and IV etomidate IV Decadron IV TXA IV Rocephin IV Versed x2 IV vecuronium x2 IV octreotide bolus IV octreotide drip IV Pepcid IV Reglan IV banana bag IV Rocephin Central line placement-see Dr. Chirinos's procedure note OG tube Garcia catheter Diagnostics interpreted by me: ECG: Normal sinus rhythm at a rate of [address] segment elevation or signs of ischemia. There is no ectopy. Cardiac Monitoring: Normal sinus rhythm at 84 Laboratory studies: See below Imaging studies: As per my independent interpretation Portable chest x-ray: Endotracheal tube initially was noted to be 4 cm above the ashley and was advanced 2 cm. OG tube was noted to be in the stomach. Consultation(s): Dr. Hardin -assistance with airway management Dr. Chirinos-assistance with line placement there is Dr. Pearce -gastroenterology Critical care medicine [facility] Hospitalist HPI: 58/F arrives for evaluation of syncope. Patient states that she has been feeling okay since discharge from the hospital. Breathing has been normal. She woke up this morning feeling just fine and had her morning coffee. She was trying to decide what to have for breakfast when she had a syncopal event around 11 AM in her kitchen. She woke up on the kitchen floor sometime later. She has no history of syncope. She felt very fatigued and tired and went to bed. She states that she slept there all day until 9 PM this evening. Upon awakening, altagracia jethro contacted her sister telling her of what happened throughout the day and they brought her to the emergency department for evaluation. PAST MEDICAL HISTORY:See Below PAST SURGICAL HISTORY:See Below FAMILY HISTORY:See Below SOCIAL HISTORY: Patient lives alone. Her sister does state that she drinks beer daily. HOME MEDICATIONS:See list ALLERGIES:See list VITALS:See Below PHYSICAL EXAMINATION: HEENT: Head - normocephalic and atraumatic. Pupils are equal, round, and reactive to light. Extraocular eye muscles are intact, and sclera are anicteric. Nose - moist nasal mucosa without discharge. Mouth - moist buccal mucosa. Oropharynx is nonerythematous and there is no tonsillar exudate or edema noted. Neck: Supple; no JVD or cervical lymphadenopathy Heart: Tachycardic rate and rhythm. There is a normal S1 and S2 with no murmurs, clicks, or gallops appreciated. Lungs: Diffuse wheezes with occasional rhonchi both bases Abdomen: Soft, nondistended, with good bowel sounds. There are no palpable pulsatile masses or hepatosplenomegaly. There is no guarding, rigidity, or rebound noted. Extremities: No evidence of cyanosis, clubbing, or edema. There are easily palp able peripheral pulses. Skin: Pale, warm and diaphoretic with good turgor and no rashes. ED COURSE: Times/Reassessments: 2325: Nursing staff placed an IV lock and obtain laboratory studies. Patient was originally evaluated in room C6. A complete history was being obtained when the patient suffered a seizure. She was tachycardic at the time. She was given 1 mg of IV Ativan. The seizure did stop. On physical exam she became very pale and significantly diaphoretic. Patient seemed to become somewhat more alert and set up and had a significant episode of hematemesis. This was mostly coffee-ground emesis. Nursing staff established a second large-bore IV. The patient continued to have episodes of hematemesis and was noted to be profoundly hypotensive now and tachycardic. She was bolused with 2 L of normal saline solution. Blood bank was called for 2 units of uncrossed matched blood. I discussed the case with the patient's family and the patient with regards to her wishes for resuscitation. She wanted everything to be done. She was moved to room A 1 for resuscitation. Keppra loading dose was ordered. Endotracheal Intubation Indication: Airway protection given she was having such profound hematemesis.. The patient was on 100% oxygen via NRB prior to the procedure. Suction, airway equipment, RSI drugs, respiratory equipment, and appropriate personnel were prepared prior to the initiation of the procedure. We were having difficulty obtaining a pulse ox on the patient, initially because of equipment failure but then we had operational equipment but had difficulty obtaining a pulse ox because of the patient's decreased circulatory status. Finally, we had a good waveform with an O2 saturation of 100%. End-tidal CO2 was 20. A time out was taken. Induction was performed with etomidate and succinylcholine. After observing the clinical benefit of the medications, the airway was easily visualized utilizing a glide scope. A 7.5 size ETT tube could not be placed successfully as the airway continued to be obscured by blood coming from the esophagus. Despite repeated episodes of suctioning, I could not easily v isualize the cords. O2 saturation had dropped to 87%. Worthington scope was removed and the patient was ventilated with a bag valve mask again. O2 saturations elevated again to 89%. I attempted again to pass the 7.5 tube. I could visualize the cords but again there was such significant blood accumulation in the airway, I was unsuccessful. Patient's O2 saturation had dropped even lower into the 70s. Worthington scope was removed again and [id number] ventilations were performed. I requested Dr. Hardin to assist me with the patient's airway. Please see his dictation for additional details. The airway was secured with a 7.0 endotracheal tube. Patient was given 5 mg of IV Versed and 5 mg of IV vecuronium for postintubation sedation and paralysis. Breath sounds were equal bilaterally. However, the patient had significant inspiratory and expiratory wheezing. She was given for albuterol nebulizer treatments through the circulatory system of the vent. She was given 10 mg of IV Decadron. The patient remained hypoxic with O2 saturations in the mid 60s. Postintubation chest x-ray showed the tube required some advancement. This was corrected and the O2 saturations slowly elevated th rough the 70s and 80s. An ABG was obtained and revealed a pH of 6.9. An OG tube was quickly placed and began to produce significant amounts of blood. The packed red blood cells that the patient was receiving was placed on the rapid infuser and she was ordered to have 2 additional units of uncrossed matched blood and typed and crossed for additional blood. Patient was given a dose of IV TXA, IV Rocephin, and IV Pepcid. I had a discussion with the patient's sister to bring her up-to-date card. I also questioned whether or not the patient drinks alcohol and she informed me that the patient does drink beer daily but may not have been drinking as much beer as of lately because she did not feel well. I considered that this could be an alcohol withdrawal seizure. For that reason the patient was ordered to have an IV banana bag. I emergently reached out to Dr. Pearce from gastroenterology requesting that she evaluate the patient for massive hematemesis. She recommended the patient go to the ICU and she would consider evaluating the patient there. She suggested the patient received IV Reglan in addition to the treatments we had already been giving. This was ordered. I discussed the case with the nurse practitioner from the ICU along with Dr. Payton from the [facility] team. Patient's blood pressure had normalized somewhat. Heart rate had come down. She was becoming more responsive and fighting against the tube. The patient was given an additional dose of IV Versed and IV vecuronium. Critical care medicine requested the patient receive IV octreotide bolus and drip. This was ordered. Patient became hypotensive again with blood pressure of 76/30. I recontacted Dr. Pearce from gastroenterology making her aware of the patient's continued decline. I have personally spent greater than 125minutes of critical care time in the direct management of this patient. This includes bedside care, interpretation of diagnostic studies, and testing, discussion with consultants, patient, and family members, and other required patient management activities. This 125 minutes is in excess of all separately billable procedures. Radha Pierce DO Past Med/Surg History Medical History (Updated 08/19/23 @ 18:01 by Radha Pierce DO) Acute respiratory failure with hypoxia and hypercapnia Allergic rhinitis due to animal dander Allergic rhinitis due to dust Allergic rhinitis due to other allergen Allergic rhinitis due to pollen Asthma Asthma with status asthmaticus Atopic dermatitis Colon cancer screening COPD (chronic obstructive pulmonary disease) COPD with exacerbation Extrinsic asthma Hypoxemia Murmur PNA (pneumonia) Respiratory failure Surgical History History of surgical removal of ganglion cyst Family History Sister Asthma Allergic rhinitis Social History Smoking Status: Former smoker Tobacco Type: Cigarettes Cigarettes Per Day: 5-20 per day; Second Hand Exposure: No; Do You Dip or Chew Tobacco: No; Hx Alcohol Use: Yes Alcohol type: wine Hx Substance Use: No Preferred Language: Nepali Communication Ability: Effective Double Needle Stitcher Required: No Beliefs That Will Affect Care: None marital status: / Current Living Situation: Alone current occupational status: employed How many Children do You have: 0 Feels Safe at Home: Yes Childhood Exposure to Second-Hand Smoke: Yes Diet: regular caffeine: Yes Dental Care, Regularly: Yes Physical Activity Frequency: Daily Seatbelt Use: always Sunscreen Use: Yes Assistive Devices: None Allergies Allergies Allergy/AdvReac Type Severity Reaction Status Date / Time animal dander Allergy Intermediate asthma Verified 08/18/23 23:59 related symptoms grass pollen-perennial rye, Allergy Intermediate asthma Verified 08/18/23 23:59 standar related sx mold Allergy Intermediate asthma Verified 08/18/23 23:59 related sx Home Meds Home Medications Medication Instructions Recorded Confirmed acetaminophen 500 mg tablet 1,000 mg PO DIRECTED PRN 03/05/23 08/18/23 (Tylenol Extra Strength) PAIN/FEVER albuterol sulfate 90 mcg/actuation 1 puff inhalation QID PRN 08/19/23 08/19/23 aerosol inhaler Shortness Of Breath Or Wheezing Previous Rx's Medication Instructions Recorded ipratropium 0.5 mg-albuterol 3 mg 3 ml inhalation QID PRN shortness 07/17/23 (2.5 mg base)/3 mL nebulization of breath #180 mL soln fluticasone fur. 200 mcg-umeclid 1 inh inhalation DAILY #28 ea 08/13/23 62.5 mcg-vilant 25 mcg inhalat.powder (Trelegy Ellipta) pantoprazole 40 mg tablet,delayed 40 mg PO DAILY #30 tabs 08/13/23 release (Protonix) Results & Data (ED) Vital Signs Vital Signs - 24 hr 08/18/23 22:46 08/18/23 23:05 08/18/23 23:11 Temperature 36.7 C Temperature Source Temporal Artery Scan Pulse Rate 105 H 96 H Pulse Rate [Apical] 92 H Pulse Rate from SpO2 Sensor Pulse Rhythm [Apical] Regular Respiratory Rate 18 20 Respiratory Effort / Characteristics Non-Labored Respiratory Depth Normal Normal Blood Pressure 113/72 Blood Pressure [Left Arm] 136/76 Blood Pressure Mean 85 Blood Pressure Mean [Left Arm] 96 Pulse Oximetry 95 95 Oxygen Delivery Method Room Air Room Air Oxygen Flow Rate Fraction of Inspired Oxygen Sepsis Recent Fever Within 48 Hours No Sepsis New/Unexplained Change in Mental Status N/A Sepsis Action Taken by Nursing No Action Required End-Tidal CO2 08/19/23 00:07 08/18/23 23:15 08/18/23 23:30 Temperature Temperature Source Pulse Rate 93 H 156 H Pulse Rate [Apical] Pulse Rate from SpO2 Sensor 103 H 126 H Pulse Rhythm [Apical] Respiratory Rate 24 21 22 Respiratory Effort / Characteristics Respiratory Depth Blood Pressure Blood Pressure [Left Arm] Blood Pressure Mean Blood Pressure Mean [Left Arm] Pulse Oximetry 71 L 100 Oxygen Delivery Method Oxygen Flow Rate Fraction of Inspired Oxygen 100 Sepsis Recent Fever Within 48 Hours Sepsis New/Unexplained Change in Mental Status Sepsis Action Taken by Nursing End-Tidal CO2 36 08/18/23 23:45 08/18/23 23:54 10/08/23 23:55 Temperature Temperature Source Pulse Rate 126 H 111 H 110 H Pulse Rate [Apical] Pulse Rate from SpO2 Sensor 128 H 112 H 112 H Pulse Rhythm [Apical] Respiratory Rate 33 H 43 H 34 H Respiratory Effort / Characteristics Respiratory Depth Blood Pressure 82/59 L 94/61 L Blood Pressure [Left Arm] Blood Pressure Mean 66 72 Blood Pressure Mean [Left Arm] Pulse Oximetry 100 92 93 Oxygen Delivery Method Non-rebreather Non-rebreather Oxygen Flow Rate 15 Fraction of Inspired Oxygen Sepsis Recent Fever Within 48 Hours Sepsis New/Unexplained Change in Mental Status Sepsis Action Taken by Nursing End-Tidal CO2 13 17 08/18/23 23:57 08/18/23 23:58 08/19/23 00:00 Temperature Temperature Source Pulse Rate 106 H 105 H 103 H Pulse Rate [Apical] Pulse Rate from SpO2 Sensor 105 H 106 H Pulse Rhythm [Apical] Respiratory Rate 21 38 H 34 H Respiratory Effort / Characteristics Respiratory Depth Blood Pressure 91/62 L 95/61 L 103/68 Blood Pressure [Left Arm] Blood Pressure Mean 71 72 79 Blood Pressure Mean [Left Arm] Pulse Oximetry 92 100 Oxygen Delivery Method Oxygen Flow Rate Fraction of Inspired Oxygen Sepsis Recent Fever Within 48 Hours Sepsis New/Unexplained Change in Mental Status Sepsis Action Taken by Nursing End-Tidal CO2 22 19 18 08/19/23 00:09 08/19/23 00:15 08/19/23 00:31 Temperature Temperature Source Pulse Rate 108 H 102 H 119 H Pulse Rate [Apical] Pulse Rate from SpO2 Sensor 108 H 108 H 119 H Pulse Rhythm [Apical] Respiratory Rate 34 H 0 L 25 H Respiratory Effort / Characteristics Respiratory Depth Blood Pressure 104/70 172/99 H 85/56 L Blood Pressure [Left Arm] Blood Pressure Mean 81 123 65 Blood Pressure Mean [Left Arm] Pulse Oximetry 99 58 L 69 L Oxygen Delivery Method Mechanical Vent Oxygen Flow Rate Fraction of Inspired Oxygen Sepsis Recent Fever Within 48 Hours Sepsis New/Unexplained Change in Mental Status Sepsis Action Taken by Nursing End-Tidal CO2 18 25 08/19/23 00:45 08/19/23 00:59 08/19/23 01:00 Temperature Temperature Source Pulse Rate 112 H 108 H 106 H Pulse Rate [Apical] Pulse Rate from SpO2 Sensor 112 H 108 H 106 H Pulse Rhythm [Apical] Respiratory Rate 24 13 18 Respiratory Effort / Characteristics Respiratory Depth Blood Pressure 122/74 151/86 H 161/87 H Blood Pressure [Left Arm] Blood Pressure Mean 90 107 111 Blood Pressure Mean [Left Arm] Pulse Oximetry 80 L 90 90 Oxygen Delivery Method Mechanical Vent Mechanical Vent Mechanical Vent Oxygen Flow Rate Fraction of Inspired Oxygen Sepsis Recent Fever Within 48 Hours Sepsis New/Unexplained Change in Mental Status Sepsis Action Taken by Nursing End-Tidal CO2 11 29 46 08/19/23 01:15 08/19/23 01:30 08/19/23 01:45 Temperature Temperature Source Pulse Rate 107 H 108 H 118 H Pulse Rate [Apical] Pulse Rate from SpO2 Sensor 107 H 108 H 118 H Pulse Rhythm [Apical] Respiratory Rate 24 24 24 Respiratory Effort / Characteristics Respiratory Depth Blood Pressure 154/92 H 148/89 H 130/88 Blood Pressure [Left Arm] Blood Pressure Mean 112 108 102 Blood Pressure Mean [Left Arm] Pulse Oximetry 99 95 89 L Oxygen Delivery Method Mechanical Vent Mechanical Vent Mechanical Vent Oxygen Flow Rate Fraction of Inspired Oxygen Sepsis Recent Fever Within 48 Hours Sepsis New/Unexplained Change in Mental Status Sepsis Action Taken by Nursing End-Tidal CO2 36 34 28 08/19/23 01:05 08/19/23 01:11 Temperature 35.3 C L 35.6 C L Temperature Source Garcia Cath ( Temp Sensing) Garcia Cath ( Temp Sensing) Pulse Rate 105 H 115 H Pulse Rate [Apical] Pulse Rate from SpO2 Sensor Pulse Rhythm [Apical] Respiratory Rate 20 30 H Respiratory Effort / Characteristics Respiratory Depth Blood Pressure 94/61 L 113/73 Blood Pressure [Left Arm] Blood Pressure Mean 72 86 Blood Pressure Mean [Left Arm] Pulse Oximetry 98 100 Oxygen Delivery Method Oxygen Flow Rate Fraction of Inspired Oxygen Sepsis Recent Fever Within 48 Hours Sepsis New/Unexplained Change in Mental Status Sepsis Action Taken by Nursing End-Tidal CO2 Laboratory Data 08/19/23 00:53 08/18/23 23:10 Lab Results 08/18/23 08/18/23 08/18/23 Range/Units 23:10 23:10 23:10 WBC 10.19 (4.8-10.8) K/ul RBC 3.13 L (4.20-5.40) M/uL Hgb 9.3 L (12.0-16.0) g/dl POC Hgb (12.0-16.0) g/dl Hct 28.1 L (37.0-47.0) % POC Hct (37-47) % MCV 89.8 (80.0-100.0) fL MCH 29.7 (25.0-34.0) pg MCHC 33.1 (32.0-36.0) g/dL RDW Std Deviation 44.6 (36.4-46.3) fL RDW Coeff of Tea 13.8 (11.5-14.5) % Plt Count 556 H (130-400) K/uL MPV 10.3 (9.4-12.4) fL Immature Gran % (Auto) 1.6 % Neut % (Auto) 52.4 % Lymph % (Auto) 31.1 % Irion % (Auto) 8.5 % Eos % (Auto) 5.1 % Baso % (Auto) 1.3 % Neut # (Auto) 5.34 (1.40-6.50) K/uL Lymph # (Auto) 3.17 (1.20-3.40) K/uL Irion # (Auto) 0.87 H (0.11-0.59) K/uL Eos # (Auto) 0.52 H (0.00-0.50) K/uL Baso # (Auto) 0.13 (0.00-0.20) K/uL Immature Gran # (Auto) 0.16 (0.01-0.20) K/uL PT 11.2 (9.0-12.0) Seconds INR 1.0 (0.9-1.1) POC pH (7.35-7.45) POC pCO2 (35-46) mmHg POC pO2 (80-95) mmHg POC HCO3 (19-24) erma/L POC Total CO2 (24-31) mmol/L POC Base Excess (-9-1.8) erma/L POC ABG O2 Sat (90-95) % POC Sodium (135-144) mmol/L Sodium 133 L (136-145) mmol/L POC Potassium (3.3-5.0) mmol/L Potassium 4.4 (3.5-5.1) mmol/L Chloride 103 (98-107) mmol/L Carbon Dioxide 23 (21-32) mmol/L Anion Gap 7 (3-11) BUN 30 H (6-23) mg/dl Creatinine 0.55 L (0.6-1.2) mg/dl Est Cr Clr Drug Dosing 97.9 ml/min Est GFR ( Amer) 118.2 ml/min Est GFR (Non-Af Amer) 101.9 ml/min BUN/Creatinine Ratio 54.5 H (10-20) Glucose 107 H (70-99(Fasting)) mg/dl Lactate (0.4-2.0) mmol/L Calcium 9.4 (8.6-10.3) mg/dl Total Bilirubin 0.5 (0.2-1.0) mg/dl AST 15 (13-39) U/L ALT 14 (7-52) U/L Alkaline Phosphatase 50 (34-104) U/L Total Protein 6.5 (6.0-8.3) gm/dl Albumin 4.3 (3.4-5.0) gm/dl Globulin 2.2 L (2.5-4.0) gm/dl Albumin/Globulin Ratio 2.0 (0.9-2) Urine Color Urine Appearance (Clear) Urine pH (4.5-7.5) Ur Specific [place] (1.000-1.030) Urine Protein (Negative) Urine Glucose (UA) (Negative) Urine Ketones (Negative) Urine Blood (Negative) Urine Nitrite (Negative) Urine Bilirubin (Negative) Urine Urobilinogen (Negative) Ur Leukocyte Esterase (Negative) Urine WBC (Auto) (0-5) /hpf Urine RBC (Auto) (0-4) /hpf U Hyaline Cast (Auto) (0-5) /lpf U Epithel Cells (Auto) (0-5) /lpf Urine Bacteria (Auto) (Negative) Ur Renal Epithelial Cell Blood Type Antibody Screen Crossmatch 08/19/23 08/19/23 08/19/23 Range/Units 00:37 00:53 00:53 WBC (4.8-10.8) K/ul RBC (4.20-5.40) M/uL Hgb 5.6 L* D (12.0-16.0) g/dl POC Hgb 5.1 L* (12.0-16.0) g/dl Hct 18.1 L* (37.0-47.0) % POC Hct 15 L* (37-47) % MCV (80.0-100.0) fL MCH (25.0-34.0) pg MCHC (32.0-36.0) g/dL RDW Std Deviation (36.4-46.3) fL RDW Coeff of Tea (11.5-14.5) % Plt Count (130-400) K/uL MPV (9.4-12.4) fL Immature Gran % (Auto) % Neut % (Auto) % Lymph % (Auto) % Irion % (Auto) % Eos % (Auto) % Baso % (Auto) % Neut # (Auto) (1.40-6.50) K/uL Lymph # (Auto) (1.20-3.40) K/uL Irion # (Auto) (0.11-0.59) K/uL Eos # (Auto) (0.00-0.50) K/uL Baso # (Auto) (0.00-0.20) K/uL Immature Gran # (Auto) (0.01-0.20) K/uL PT (9.0-12.0) Seconds INR (0.9-1.1) POC pH 6.94 L* (7.35-7.45) POC pCO2 82 H (35-46) mmHg POC pO2 64 L (80-95) mmHg POC HCO3 18 L (19-24) erma/L POC Total CO2 20 L (24-31) mmol/L POC Base Excess -15.0 L (-9-1.8) erma/L POC ABG O2 Sat 74.0 L (90-95) % POC Sodium 133 L (135-144) mmol/L Sodium (136-145) mmol/L POC Potassium 6.0 H (3.3-5.0) mmol/L Potassium (3.5-5.1) mmol/L Chloride (98-107) mmol/L Carbon Dioxide (21-32) mmol/L Anion Gap (3-11) BUN (6-23) mg/dl Creatinine (0.6-1.2) mg/dl Est Cr Clr Drug Dosing ml/min Est GFR ( Amer) ml/min Est GFR (Non-Af Amer) ml/min BUN/Creatinine Ratio (10-20) Glucose (70-99(Fasting)) mg/dl Lactate 4.4 H* (0.4-2.0) mmol/L Calcium (8.6-10.3) mg/dl Total Bilirubin (0.2-1.0) mg/dl AST (13-39) U/L ALT (7-52) U/L Alkaline Phosphatase (34-104) U/L Total Protein (6.0-8.3) gm/dl Albumin (3.4-5.0) gm/dl Globulin (2.5-4.0) gm/dl Albumin/Globulin Ratio (0.9-2) Urine Color Urine Appearance (Clear) Urine pH (4.5-7.5) Ur Specific [place] (1.000-1.030) Urine Protein (Negative) Urine Glucose (UA) (Negative) Urine Ketones (Negative) Urine Blood (Negative) Urine Nitrite (Negative) Urine Bilirubin (Negative) Urine Urobilinogen (Negative) Ur Leukocyte Esterase (Negative) Urine WBC (Auto) (0-5) /hpf Urine RBC (Auto) (0-4) /hpf U Hyaline Cast (Auto) (0-5) /lpf U Epithel Cells (Auto) (0-5) /lpf Urine Bacteria (Auto) (Negative) Ur Renal Epithelial Cell Blood Type Antibody Screen Crossmatch 08/19/23 08/19/23 Range/Units 00:57 01:15 WBC (4.8-10.8) K/ul RBC (4.20-5.40) M/uL Hgb (12.0-16.0) g/dl POC Hgb (12.0-16.0) g/dl Hct (37.0-47.0) % POC Hct (37-47) % MCV (80.0-100.0) fL MCH (25.0-34.0) pg MCHC (32.0-36.0) g/dL RDW Std Deviation (36.4-46.3) fL RDW Coeff of Tea (11.5-14.5) % Plt Count (130-400) K/uL MPV (9.4-12.4) fL Immature Gran % (Auto) % Neut % (Auto) % Lymph % (Auto) % Irion % (Auto) % Eos % (Auto) % Baso % (Auto) % Neut # (Auto) (1.40-6.50) K/uL Lymph # (Auto) (1.20-3.40) K/uL Irion # (Auto) (0.11-0.59) K/uL Eos # (Auto) (0.00-0.50) K/uL Baso # (Auto) (0.00-0.20) K/uL Immature Gran # (Auto) (0.01-0.20) K/uL PT (9.0-12.0) Seconds INR (0.9-1.1) POC pH (7.35-7.45) POC pCO2 (35-46) mmHg POC pO2 (80-95) mmHg POC HCO3 (19-24) erma/L POC Total CO2 (24-31) mmol/L POC Base Excess (-9-1.8) erma/L POC ABG O2 Sat (90-95) % POC Sodium (135-144) mmol/L Sodium (136-145) mmol/L POC Potassium (3.3-5.0) mmol/L Potassium (3.5-5.1) mmol/L Chloride (98-107) mmol/L Carbon Dioxide (21-32) mmol/L Anion Gap (3-11) BUN (6-23) mg/dl Creatinine (0.6-1.2) mg/dl Est Cr Clr Drug Dosing ml/min Est GFR ( Amer) ml/min Est GFR (Non-Af Amer) ml/min BUN/Creatinine Ratio (10-20) Glucose (70-99(Fasting)) mg/dl Lactate (0.4-2.0) mmol/L Calcium (8.6-10.3) mg/dl Total Bilirubin (0.2-1.0) mg/dl AST (13-39) U/L ALT (7-52) U/L Alkaline Phosphatase (34-104) U/L Total Protein (6.0-8.3) gm/dl Albumin (3.4-5.0) gm/dl Globulin (2.5-4.0) gm/dl Albumin/Globulin Ratio (0.9-2) Urine Color Yellow Urine Appearance Cloudy A (Clear) Urine pH 5.5 (4.5-7.5) Ur Specific [place] 1.017 (1.000-1.030) Urine Protein 2+ H (Negative) Urine Glucose (UA) 3+ H (Negative) Urine Ketones Negative (Negative) Urine Blood 2+ H (Negative) Urine Nitrite Negative (Negative) Urine Bilirubin Negative (Negative) Urine Urobilinogen Negative (Negative) Ur Leukocyte Esterase Negative (Negative) Urine WBC (Auto) 10-30 H (0-5) /hpf Urine RBC (Auto) 0-4 (0-4) /hpf U Hyaline Cast (Auto) 10-30 H (0-5) /lpf U Epithel Cells (Auto) >30 H (0-5) /lpf Urine Bacteria (Auto) 1+ H (Negative) Ur Renal Epithelial Cell Not Reportable Blood Type A Positive Antibody Screen NEGATIVE Crossmatch See Detail Administered Medications Albuterol (Albut/Ipratrop 3mg/0.5mg Neb 3 Ml Vial) 3 ml NEB Q4R RJ; Protocol Stop: 09/18/23 06:59 Last Admin: 08/19/23 15:38 Dose: 3 ml Documented By: Admin: 08/19/23 10:40 Dose: 3 ml Documented By: Admin: 08/19/23 07:51 Dose: 3 ml Documented By: PIERCE Fluticasone Furoate (Fluticasone Furoate 200mcg 14 Puffs/Inhaler) 1 puffs INH DAILY RJ Stop: 09/18/23 08:59 Last Admin: 08/19/23 08:14 Dose: Not Given Documented By: THANG Pantoprazole Sodium 40 mg/ (Dextrose) 100 mls @ 20 mls/hr IV Q5H RJ Stop: 09/18/23 00:44 Last Admin: 08/19/23 17:13 Dose: 8 mg/hr, 20 mls/hr Documented By: Infusion: 08/19/23 16:37 Dose: 8 mg/hr, 20 mls/hr Documented By: Admin: 08/19/23 11:37 Dose: 8 mg/hr, 20 mls/hr Documented By: Infusion: 08/19/23 11:35 Dose: 8 mg/hr, 20 mls/hr Documented By: Admin: 08/19/23 06:35 Dose: 8 mg/hr, 20 mls/hr Documented By: Infusion: 08/19/23 06:35 Dose: 8 mg/hr, 20 mls/hr Documented By: Admin: 08/19/23 05:41 Dose: 8 mg/hr, 20 mls/hr Documented By: Infusion: 08/19/23 05:41 Dose: 8 mg/hr, 20 mls/hr Documented By: Admin: 08/19/23 01:20 Dose: 8 mg/hr, 20 mls/hr Documented By: ANGEL Octreotide Acetate 500 mcg/ (Sodium Chloride) 100.5 mls @ 10.05 mls/hr IV .Q10H COUNTS INCLUDE 234 BEDS AT THE [facility] Stop: 09/18/23 01:29 Last Admin: 08/19/23 10:41 Dose: 50 mcg/hr, 10.1 mls/hr Documented By: Infusion: 08/19/23 10:41 Dose: 50 mcg/hr, 10.1 mls/hr Documented By: Admin: 08/19/23 02:00 Dose: 50 mcg/hr, 10.1 mls/hr Documented By: ANGEL Norepinephrine Bitartrate (Levophed/D5w) 4 mg in 250 mls @ 0 mls/hr IV .Q0M COUNTS INCLUDE 234 BEDS AT THE [facility]; Protocol Stop: 09/18/23 02:14 Last Admin: 08/19/23 15:12 Dose: Not Given Documented By: Admin: 08/19/23 15:12 Dose: Not Given Documented By: Titration: 08/19/23 13:15 Dose: 0 mcg/kg/min, 0 mls/hr Documented By: Titration: 08/19/23 12:49 Dose: 0.03 mcg/kg/min, 7.3 mls/hr Documented By: Titration: 08/19/23 12:30 Dose: 0.07 mcg/kg/min, 17.1 mls/hr Documented By: Admin: 08/19/23 11:16 Dose: 0.15 mcg/kg/min, 36.7 mls/hr Documented By: THANG Co-signed By: LANDY Titration: 08/19/23 11:16 Dose: 0.2 mcg/kg/min, 48.9 mls/hr Documented By: THANG Co-signed By: LANDY Titration: 08/19/23 07:19 Dose: 0.2 mcg/kg/min, 48.9 mls/hr Documented By: THANG Co-signed By: EDDIE Admin: 08/19/23 05:49 Dose: 0.1 mcg/kg/min, 24.5 mls/hr Documented By: EDDIE Co-signed By: AMW Titration: 08/19/23 05:49 Dose: 0.1 mcg/kg/min, 24.5 mls/hr Documented By: EDDIE Co-signed By: AHSAN Admin: 08/19/23 02:13 Dose: 0.1 mcg/kg/min, 24.5 mls/hr Documented By: ANGEL Co-signed By: AYESHA Fentanyl Citrate (Fentanyl Citrate) 2,500 mcg in 250 mls @ 10 mls/hr IV .Q25H COUNTS INCLUDE 234 BEDS AT THE [facility]; Protocol Stop: 09/02/23 03:19 Last Titration: 08/19/23 11:16 Dose: 0 mcg/hr, 0 mls/hr Documented By: THANG Co-signed By: DU Titration: 08/19/23 09:54 Dose: 100 mcg/hr, 10 mls/hr Documented By: THANG Co-signed By: NMS Titration: 08/19/23 08:30 Dose: 75 mcg/hr, 7.5 mls/hr Documented By: THANG Co-signed By: NMS Titration: 08/19/23 07:19 Dose: 50 mcg/hr, 5 mls/hr Documented By: THANG Co-signed By: EDDIE Titration: 08/19/23 05:50 Dose: 50 mcg/hr, 5 mls/hr Documented By: EDDIE Co-signed By: AHSAN Admin: 08/19/23 03:35 Dose: 25 mcg/hr, 2.5 mls/hr Documented By: AHSAN Co-signed By: SARABJIT Midazolam HCl (Versed) 125 mg in 250 mls @ 0 mls/hr IV .Q0M COUNTS INCLUDE 234 BEDS AT THE [facility]; Protocol Stop: 09/18/23 03:44 Last Titration: 08/19/23 11:16 Dose: 0 mg/hr, 0 mls/hr Documented By: THANG Co-signed By: NMS Titration: 08/19/23 07:19 Dose: 0 mg/hr, 0 mls/hr Documented By: THANG Co-signed By: EDDIE Titration: 08/19/23 05:52 Dose: 0 mg/hr, 0 mls/hr Documented By: EDDIE Co-signed By: AHSAN Admin: 08/19/23 05:51 Dose: 1 mg/hr, 2 mls/hr Documented By: EDDIE Co-signed By: AHSAN Thiamine HCl 100 mg/ Syringe 10 mls @ 2 mls/min IV QAM COUNTS INCLUDE 234 BEDS AT THE [facility] Stop: 09/18/23 08:59 Last Admin: 08/19/23 08:52 Dose: 2 mls/min Documented By: THANG Folic Acid 1 mg/ Syringe 10 mls @ 5 mls/min IV QAM COUNTS INCLUDE 234 BEDS AT THE [facility] Stop: 09/18/23 08:59 Last Admin: 08/19/23 08:52 Dose: 5 mls/min Documented By: THANG Insulin Aspart (Insulin Aspart Per Unit Charge) 0 units SC Q6 RJ Stop: 09/18/23 11:59 Last Admin: 08/19/23 17:11 Dose: Not Given Documented By: Admin: 08/19/23 12:29 Dose: 3 units Documented By: THANG Co-signed By: LANDY Umeclidinium/Vilanterol (Umeclidinium/Vilanterol 62.5/25mcg 7 Puffs/Inhaler) 1 puffs INH DAILY COUNTS INCLUDE 234 BEDS AT THE [facility] Stop: 09/18/23 08:59 Last Admin: 08/19/23 08:51 Dose: Not Given Documented By: THANG Discontinued Medications Albuterol (Albuterol 0.083% Nebu Soln 3 Ml Vial) Confirm Administered Dose 10 mg .ROUTE .STK-MED ONE Stop: 08/19/23 00:27 Last Admin: 08/19/23 01:56 Dose: 10 mg Documented By: MICHELLE Dexamethasone (Dexamethasone Sod Inj 4 Mg/Ml Vial) 10 mg IV NOW STA Stop: 08/19/23 00:40 Last Admin: 08/19/23 01:20 Dose: 10 mg Documented By: ANGEL Fentanyl Citrate (Fentanyl Citrate Pf 100 Mcg/2 Ml Vial) 100 mcg IV NOW STA Stop: 08/19/23 03:25 Last Admin: 08/19/23 03:35 Dose: 100 mcg Documented By: AHSAN Fentanyl Citrate (Fentanyl Citrate 2,500 Mcg/250 Ml Bag) Confirm Administered Dose 2,500 mcg IV .STK-MED ONE Stop: 08/19/23 03:25 Last Admin: 08/19/23 05:54 Dose: Not Given Documented By: EDDIE Fentanyl Citrate (Fentanyl Citrate Pf 100 Mcg/2 Ml Vial) Confirm Administered Dose 100 mcg .ROUTE .STK-MED ONE Stop: 08/19/23 03:27 Last Admin: 08/19/23 05:48 Dose: Not Given Documented By: EDDIE Sodium Chloride (Nss) 2,000 mls @ 999 mls/hr IV .Q2H1M ONE Stop: 08/19/23 01:46 Last Infusion: 08/19/23 02:11 Dose: 0 mls/hr Documented By: Admin: 08/19/23 00:10 Dose: 999 mls/hr Documented By: ANGEL Levetiracetam 1,000 mg/ Sodium (Chloride) 110 mls @ 440 mls/hr IV NOW STA Stop: 08/19/23 00:08 Last Infusion: 08/19/23 00:19 Dose: 0 mls/hr Documented By: Admin: 08/19/23 00:04 Dose: 440 mls/hr Documented By: ANGEL Pantoprazole Sodium 80 mg/ (Dextrose) 120 mls @ 400 mls/hr IV NOW ONE Stop: 08/19/23 00:44 Last Infusion: 08/19/23 01:20 Dose: 0 mls/hr Documented By: Admin: 08/19/23 01:02 Dose: 400 mls/hr Documented By: ANGEL Ceftriaxone Sodium (Rocephin) 2,000 mg in 70 mls @ 140 mls/hr IV NOW STA Stop: 08/19/23 01:00 Last Infusion: 08/19/23 01:54 Dose: 0 mls/hr Documented By: Admin: 08/19/23 01:24 Dose: 140 mls/hr Documented By: ANGEL Tranexamic Acid (Tranexamic Acid / 0.7% Nacl) 1,000 mg in 100 mls @ 600 mls/hr IV NOW STA Stop: 08/19/23 00:41 Last Infusion: 08/19/23 01:14 Dose: 0 mls/hr Documented By: Admin: 08/19/23 01:03 Dose: 600 mls/hr Documented By: ANGEL Multivitamins 10 ml/ Thiamine HCl 100 mg/ Folic Acid 1 mg/Sodium Chloride 1,011.2 mls @ 500 mls/hr IV .Q2H2M ONE Stop: 08/19/23 03:22 Last Infusion: 08/19/23 05:38 Dose: 0 mls/hr Documented By: Admin: 08/19/23 02:03 Dose: 500 mls/hr Documented By: ANGEL Calcium Chloride 1,000 mg/ (Dextrose) 60 mls @ 240 mls/hr IV NOW ONE Stop: 08/19/23 02:29 Last Infusion: 08/19/23 05:37 Dose: 0 mls/hr Documented By: Admin: 08/19/23 05:37 Dose: 240 mls/hr Documented By: EDDIE Sodium Chloride (Nss) 1,000 mls @ 999 mls/hr IV .Q1H1M ONE Stop: 08/19/23 03:05 Last Admin: 08/19/23 05:47 Dose: Not Given Documented By: EDDIE Pantoprazole Sodium 40 mg/ (Dextrose) 100 mls @ 20 mls/hr IV Q5H RJ Stop: 09/18/23 03:19 Last Admin: 08/19/23 05:40 Dose: 8 mg/hr, 20 mls/hr Documented By: EDDIE Calcium Gluconate 1,000 mg/ (Sodium Chloride) 60 mls @ 240 mls/hr IV NOW ONE Stop: 08/19/23 04:59 Last Infusion: 08/19/23 11:35 Dose: 0 mls/hr Documented By: Admin: 08/19/23 05:46 Dose: 240 mls/hr Documented By: EDDIE Calcium Gluconate 1,000 mg/ (Sodium Chloride) 60 mls @ 240 mls/hr IV NOW ONE Stop: 08/19/23 10:59 Last Admin: 08/19/23 11:16 Dose: 240 mls/hr Documented By: THANG Ioversol (Optiray 320 100ml) 100 ml IV ONCE ONE Stop: 08/19/23 02:44 Last Admin: 08/19/23 02:43 Dose: 91 ml Documented By: REMY Lorazepam (Lorazepam 2 Mg/1 Ml Vial) Confirm Administered Dose 2 mg .ROUTE .STK- MED ONE Stop: 08/18/23 23:33 Last Admin: 08/19/23 05:46 Dose: Not Given Documented By: EDDIE Metoclopramide HCl (Metoclopramide Hcl Inj 5 Mg/Ml 2 Ml Vial) 10 mg IV NOW STA Stop: 08/19/23 01:02 Last Admin: 08/19/23 01:55 Dose: 10 mg Documented By: ANGEL Metoclopramide HCl (Metoclopramide Hcl Inj 5 Mg/Ml 2 Ml Vial) 10 mg IV NOW STA Stop: 08/19/23 04:35 Last Admin: 08/19/23 05:57 Dose: Not Given Documented By: EDDIE Midazolam HCl (Midazolam Hcl 125mg/250ml D5w) Confirm Administered Dose 125 mg IV .STK-MED ONE Stop: 08/19/23 03:26 Last Admin: 08/19/23 05:55 Dose: Not Given Documented By: EDDIE Miscellaneous (Rapid Sequence Induction Bag) Confirm Administered Dose 1 each N /A .STK-MED ONE Stop: 08/18/23 23:51 Last Admin: 08/19/23 05:47 Dose: Not Given Documented By: EDDIE Coyle (Icu Protocol For Hyperglycemia) 1 each N/A ACHS RJ Stop: 08/21/23 07:29 Last Admin: 08/19/23 15:13 Dose: Not Given Documented By: Admin: 08/19/23 12:24 Dose: 1 each Documented By: Admin: 08/19/23 08:14 Dose: Not Given Documented By: THANG Octreotide Acetate (Octreotide Bolus From Bag) 50 mcg IV ONE ONE Stop: 08/19/23 01:22 Last Admin: 08/19/23 02:02 Dose: 50 mcg Documented By: ANGEL Ondansetron HCl (Ondansetron Inj 2 Mg/Ml 2 Ml Vial) Confirm Administered Dose 4 mg .ROUTE .STK-MED ONE Stop: 08/18/23 23:36 Last Admin: 08/19/23 05:47 Dose: Not Given Documented By: EDDIE Sodium Bicarbonate (Sodium Bicarb 8.4% Inj 50 Meq/50 Ml Syr) 50 meq IV NOW STA Stop: 08/19/23 03:45 Last Admin: 08/19/23 05:40 Dose: 50 meq Documented By: EDDIE Sodium Bicarbonate (Sodium Bicarb 8.4% Inj 50 Meq/50 Ml Syr) 50 meq IV NOW STA Stop: 08/19/23 03:45 Last Admin: 08/19/23 05:44 Dose: 50 meq Documented By: EDDIE Sodium Bicarbonate (Sodium Bicarb 8.4% Inj 50 Meq/50 Ml Syr) 50 meq IV NOW STA Stop: 08/19/23 05:06 Last Admin: 08/19/23 05:42 Dose: 50 meq Documented By: EDDIE Vecuronium Seffner (Vecuronium Seffner 10 Mg Vial) Confirm Administered Dose 10 mg IV .STK-MED ONE Stop: 08/19/23 00:25 Last Admin: 08/19/23 05:47 Dose: Not Given Documented By: EDDIE Vecuronium Seffner (Vecuronium Seffner 10 Mg Vial) 10 mg IV NOW STA Stop: 08/19/23 04:05 Last Admin: 08/19/23 05:44 Dose: 10 mg Documented By: EDDIE Co-signed By: AHSAN Vecuronium Seffner (Vecuronium Seffner 10 Mg Vial) Confirm Administered Dose 10 mg IV .STK-MED ONE Stop: 08/19/23 04:05 Last Admin: 08/19/23 05:53 Dose: 10 mg Documented By: EDDIE Co-signed By: AHSAN Imaging Data Radiologist's Impression: Chest X-Ray 08/19/23 00:27 XR chest 1V portable CLINICAL HISTORY: intubation COMPARISON STUDY: Chest radiograph August 10, 2023. Chest CT August 11, 2023. FINDINGS: Tip of endotracheal tube is 3.9 cm above the ashley. Tip of nasogastric tube is within the body of the stomach. There are are mild bibasilar opacities. No evidence for pulmonary edema. Cardiomediastinal silhouette is stable. IMPRESSION: 1. Satisfactory positioning of the endotracheal and nasogastric tubes. 2. Mild bibasilar opacities which could reflect pneumonia, aspiration or atelectasis. ACT 112: Negative or not required by law. Electronically signed by: Kapil Coburn M.D. 08/19/2023 7:18 AM Discharge Plan Visit Data Chief Complaint: Syncope Stated Complaint: DIZZY, SYNCOPE ED Provider: Radha Pierce Discharge Problem: Acute upper gastrointestinal bleeding, Seizure Patient Disposition: Admitted As Inpatient Discharge Instructions Interventions: ED Discharge Assessment Last Done: 08/19/23 02:57
--- NOTE | 2023-08-19 03:18 | CT Scan Report ---
CT OF THE HEAD WITHOUT CONTRAST CLINICAL HISTORY: new onset seizure COMPARISON STUDY: No previous studies for comparison. CT DOSE: 3029.04 mGy.cm TECHNIQUE: Helical axial images of the head were obtained without IV contrast. Automated exposure con trol was utilized for the study. A dose lowering technique was utilized adhering to the principles o f ALARA. FINDINGS: No acute intracranial hemorrhage, midline shift or mass effect is present. The ventricular system is unremarkable. The basal cisterns are patent. No extra-axial collections are present. There are no findings to suggest acute dural sinus thrombosis or acute territorial infarct. Subtle white ma tter hypodensities favor small vessel disease. There are no calvarial fractures. Secretions within th e nasopharynx and nasal cavity are likely related to intubation. Air-fluid levels within the maxillar y sinuses and ethmoid sinus mucosal thickening is also likely related to intubation. Mastoid air cell s are clear. IMPRESSION: 1. No acute intracranial findings. 2. Secretions within the sinuses and nasopharynx, likely related to intubation. ACT 112: Negative or not required by law. Electronically signed by: Kapil Coburn M.D. 08/19/2023 3:16 AM
[2023-08-19] MEDS ORDERED: fentaNYL BOLUS from BAG IV PRN (03:20)
[2023-08-19] MEDS ORDERED: propofoL 1,000 MG/100 ML VIAL IV SCH (03:20)
[2023-08-19] MEDS ORDERED: PANTOprazole 40 MG in DEXTROSE 5% MINI-B 100 ML IV SCH (03:20)
[2023-08-19] MEDS ORDERED: PROPOFOL BOLUS FROM BAG IV PRN (03:20)
[2023-08-19] MEDS ORDERED: fentaNYL citrate 2,500 MCG/250 ML BAG IV ONE (03:24)
[2023-08-19] MEDS ORDERED: fentaNYL citrate PF 100 MCG/2 ML VIAL IV STA (03:24)
[2023-08-19] MEDS ORDERED: MIDAZOLAM HCL 125MG/250ML D5W IV ONE (03:25)
[2023-08-19] MEDS ORDERED: fentaNYL citrate PF 100 MCG/2 ML VIAL ONE (03:26)
[2023-08-19] MEDS ORDERED: ALBUTEROL 0.083% NEBU SOLN 3 ML VIAL NEB PRN (03:33)
--- NOTE | 2023-08-19 03:34 | Critical Care Consultation ---
Date of Consultation August 19, 2023 Assessment & Plan (1) Hemorrhagic shock: Reason Critically Ill: 58-year-old female presents to the ICU with gross hematemesis requiring intubation and massive transfusion. Now s/p emergent EGD where she received clipping and hemostatic spray. Neuro - Seizuresno prior history but patient was reported to have witnessed seizure in the emergency department and possibly another at home. Patient reportedly drinks alcohol daily and cannot rule out alcohol withdrawal seizure. CT head negative for acute intracranial findings. Patient is currently intubated and sedated with fentanyl and Versed drips. We will continue with thiamine and folic acid. She did receive loading dose of Keppra in the ED. Will likely need neurology consult once stable. Cardiac - Hemorrhagic shockpatient with shock requiring massive transfusion due to upper GI bleed. See treatment of GI bleed below -Central line and A-line inserted. -Levophed drip to maintain MAP greater than 65 -Continuous hemodynamic and telemetry monitoring Respiratory - Acute hypoxic and hypercapnic respiratory failurepatient with history of COPD and recent admission for COPD exacerbation, now hypoxic and hypercapnic. -ABG with mixed respiratory and metabolic acidosis. Currently mechanically ventilated -CT chest with consolidations in the bilateral bases of the lungs consistent with aspiration pneumonitis. Likely following hemodialysis and patient was noted to be difficult intubation -Started on empiric Rocephin -Continue with scheduled DuoNeb -Continue with rollator support and wean as tolerated -Continuous pulse ox and end-tidal CO2 monitoring GI - Acute upper GI bleedstatus post emergent EGD where she was found to have adherent clot in the gastric fundus with underlying pulsation and received 3 clips with hemostatic spray and no observed bleeding at the end of procedure. -GI recommendations to continue PPI and to create tight drips. Transfuse as needed -May need additional EGD or IR for embolization if bleeding continues RENAL/LYTES - Metabolic acidosis in the setting of acute GI bleed. Lactate has improved. Hyperchloremia likely playing a role following multiple bolus. Has received total of 3 A bicarb. Improving. - Repeat ABG pending Monitor routine BMPs and replete electrolytes as indicated. Patient is hypocalcemic following blood transfusion received 1 unit calcium chloride and 1 unit calcium gluconate. Monitor - Foleystrict I's and O's ENDO - No history of diabetes or thyroid disease. ICU hyperglycemic protocol HEME - Acute blood loss anemiainitial hemoglobin 9.6 dropped to 5.3. -Has thus far received 7 units RBCs, 2 units FFP, 2 units cryo, 1 unit platelets. -We will continue to trend CBCs and transfuse as indicated ID - Continue with empiric Rocephin. Follow-up blood cultures LINES/IV ACCESS - Right femoral CVL, left radial A-line. ET tube. OG tube DVT PROPHYLAXIS - SCDs, hold anticoagulation in the setting of GI bleed CODE STATUS: Full code I have personally spent 115 minutes of critical care time in the direct management of this patient. This is a life/limb threatening event. This includes time spent evaluating patient, direct bedside care, chart review, placing orders, interpretation of diagnostic studies, discussion with consultants, patient, and family members, as well as other required patient management activities. This time is exclusive of all separately billable procedures, and teaching time and separate from and in addition to any other critical care service time. Thank you for allowing us to participate in the care of this patient. Please refer to my attending physician's documentation for any further recommendations. (2) Hematemesis: (3) Acute blood loss anemia: (4) Seizure: (5) COPD (chronic obstructive pulmonary disease): (6) Acute respiratory failure with hypoxia and hypercapnia: History of Present Illness Attending Physician: Chantell Payton DO History of Present Illness Patient is a 58-year-old female with past medical history of COPD, with recent admission for COPD exacerbation, and reported hematemesis with negative EGD on last admission. Patient presented to the emergency department following seizure-like activity. While in the emergency department she developed gross hematemesis requiring intubation and massive transfusion. GI was contacted and recommended checking INR, administering Reglan for gastric motility and starting on PPI drip along with obtaining CT imaging. Patient continued to have large amounts of rachel blood produced through the OG tube which was to low wall suction. In total she received 7 units RBCs 2 units FFP, 1 unit platelets, and 2 units of cryo. She underwent CT head following seizure activity which was negative for acute intracranial findings. CT chest revealed extensive bilateral lower lobe airspace opacities consistent with aspiration and CT abdomen and pelvis showed hyperdense material within the stomach consistent with large amount of clot and duodenal wall thickening consistent with gastritis/duodenitis along with peripancreatic fluid extending into the pancreas. Patient was then transferred to the ICU where she went emergent EGD at the bedside with Dr. Pearce, which she was found to have normal esophagus with clotted blood in the gastric fundus and received multiple clips and hemostatic spray. GI recommendations to continue with PPI and octreotide drips and transfuse as needed. If persistent bleeding to persist would possibly need additional EGD or IR. Patient's sister and [id number] did present to the hospital and were made aware of patient's condition and plan of care. She remains critically ill and further management in ICU for now. Allergies Allergy/AdvReac Type Severity Reaction Status Date / Time animal dander Allergy Intermediate asthma Verified 08/18/23 23:59 related symptoms grass pollen-perennial rye, Allergy Intermediate asthma Verified 08/18/23 23:59 standar related sx mold Allergy Intermediate asthma Verified 08/18/23 23:59 related sx Home Medications Medication Instructions Recorded Confirmed Type acetaminophen 500 mg tablet 1,000 mg PO DIRECTED PRN 03/05/23 08/18/23 H istory (Tylenol Extra Strength) PAIN/FEVER ipratropium 0.5 mg-albuterol 3 mg 3 ml inhalation QID PRN shortness 07/17/23 08/19/23 Rx (2.5 mg base)/3 mL nebulization of breath #180 mL soln fluticasone fur. 200 mcg-umeclid 1 inh inhalation DAILY #28 ea 08/13/23 08/19/23 Rx 62.5 mcg-vilant 25 mcg inhalat.powder (Trelegy Ellipta) pantoprazole 40 mg tablet,delayed 40 mg PO DAILY #30 tabs 08/13/23 08/19/23 Rx release (Protonix) albuterol sulfate 90 mcg/actuation 1 puff inhalation QID PRN 08/19/23 08/19/23 History aerosol inhaler Shortness Of Breath Or Wheezing Patient History Medical History (Updated 08/19/23 @ 05:51 by KENISHA Joshua) Acute respiratory failure with hypoxia and hypercapnia Allergic rhinitis due to animal dander Allergic rhinitis due to dust Allergic rhinitis due to other allergen Allergic rhinitis due to pollen Asthma Asthma with status asthmaticus Atopic dermatitis Colon cancer screening COPD (chronic obstructive pulmonary disease) COPD with exacerbation Extrinsic asthma Hypoxemia Murmur PNA (pneumonia) Respiratory failure Surgical History History of surgical removal of ganglion cyst Family History Sister Asthma Allergic rhinitis Social History Smoking Status: Former smoker Tobacco Type: Cigarettes Cigarettes Per Day: 5-20 per day; Second Hand Exposure: No; Do You Dip or Chew Tobacco: No; Hx Alcohol Use: Yes Alcohol type: wine Hx Substance Use: No Preferred Language: Venezuelan Communication Ability: Effective Access Service Representative Required: No Beliefs That Will Affect Care: None marital status: / Current Living Situation: Alone current occupational status: employed How many Children do You have: 0 Feels Safe at Home: Yes Childhood Exposure to Second-Hand Smoke: Yes Diet: regular caffeine: Yes Dental Care, Regularly: Yes Physical Activity Frequency: Daily Seatbelt Use: always Sunscreen Use: Yes Assistive Devices: None Review of Systems Review of Systems: Unobtainable due to endotracheal tube Physical Exam Constitutional: + thin and + mechanically ventilated Eyes: PERRL, conjunctivae normal, anicteric sclerae ENMT: external ear and nose normal, oropharynx normal Neck: trachea midline, no thyromegaly Respiratory: Wheezing auscultated bilaterally, symmetrical chest wall movement, mechanically ventilated. Cardiovascular: Rate/Rhythm: regular rate Heart Sounds: normal S1 and normal S2; no murmur Vessels: no JVD Extremities: no edema Gastrointestinal (Abdomen): Large amounts of rachel red blood observed in OG tube. Abdomen is soft and flat. Bowel sounds auscultated in all 4 quadrants. Rectal exam negative for melena Musculoskeletal: Head/Neck/Chest: normocephalic Extremities: extremities normal to inspection Skin: no rashes, warm and dry Neurologic: Unable to assess due to sedation Psychiatric: Unable to assess due to sedation Genitourinary: Indwelling Garcia catheter present, urine light yellow without sediment or hematuria Results & Data Results & Data Vital Signs (Past 12 Hours) Vital Signs Temp Pulse Pulse Resp BP BP Pulse Ox 08/19/23 03:26 109 H 30 H 204/110 H 100 08/19/23 02:45 101 H 24 99 08/19/23 02:47 102 H 24 134/77 100 08/19/23 02:14 102 H 24 93 08/19/23 02:10 103 H 24 90/58 L 84 L 08/19/23 02:05 112 H 24 78/55 L 88 L 08/19/23 02:00 112 H 24 74/59 L 90 08/19/23 01:55 112 H 24 76/51 L 89 L 08/19/23 01:45 118 H 24 130/88 89 L 08/19/23 01:30 108 H 24 148/89 H 95 08/19/23 01:15 107 H 24 154/92 H 99 08/19/23 01:00 106 H 18 161/87 H 90 08/19/23 00:59 108 H 13 151/86 H 90 08/19/23 00:45 112 H 24 122/74 80 L 08/19/23 00:31 119 H 25 H 85/56 L 69 L 08/19/23 00:15 102 H 0 L 172/99 H 58 L 08/19/23 00:09 108 H 34 H 104/70 99 08/19/23 00:00 103 H 34 H 103/68 08/18/23 23:58 105 H 38 H 95/61 L 100 08/18/23 23:57 106 H 21 91/62 L 92 08/18/23 23:55 110 H 34 H 94/61 L 93 08/18/23 23:54 111 H 43 H 82/59 L 92 08/18/23 23:45 126 H 33 H 100 08/18/23 23:30 156 H 22 100 08/18/23 23:15 93 H 21 71 L 08/19/23 00:07 24 08/18/23 23:11 96 H 08/18/23 23:05 92 H 20 136/76 95 08/18/23 22:46 36.7 C 105 H 18 113/72 95 O2 Del Method O2 Flow Rate FiO2 08/19/23 03:26 Mechanical Vent 08/19/23 02:45 100 08/19/23 02:47 Mechanical Vent 08/19/23 02:14 Mechanical Vent 08/19/23 02:10 Mechanical Vent 08/19/23 02:05 Mechanical Vent 08/19/23 02:00 Mechanical Vent 08/19/23 01:55 Mechanical Vent 08/19/23 01:45 Mechanical Vent 08/19/23 01:30 Mechanical Vent 08/19/23 01:15 Mechanical Vent 08/19/23 01:00 Mechanical Vent 08/19/23 00:59 Mechanical Vent 08/19/23 00:45 Mechanical Vent 08/19/23 00:31 Mechanical Vent 08/19/23 00:15 08/19/23 00:09 08/19/23 00:00 08/18/23 23:58 08/18/23 23:57 08/18/23 23:55 Non-rebreather 08/18/23 23:54 Non-rebreather 15 08/18/23 23:45 08/18/23 23:30 08/18/23 23:15 08/19/23 00:07 100 08/18/23 23:11 08/18/23 23:05 Room Air 08/18/23 22:46 Room Air Coding Level of Care Code 62683 CRITICAL CARE EA ADD 30M Diagnoses Hemorrhagic shock R57.8 Hematemesis K92.0 Acute blood loss anemia D62 Seizure R56.9 COPD (chronic obstructive pulmonary disease) J44.9 Acute respiratory failure with hypoxia and hypercapnia J96.01; J96.02
[2023-08-19] MEDS ORDERED: MIDAZOLAM BOLUS FROM BAG IV PRN (03:35)
[2023-08-19] MEDS: fentaNYL citrate 2,500 MCG/250 ML BAG IV SCH (03:35)
--- NOTE | 2023-08-19 03:37 | Anesthesia Procedure Note ---
Anesthesia Procedure Note Arterial Line Note Date of procedure: 08/19/23 Consent: Risk / Benefits Reviewed With: Emergency Monitors attached: Blood Pressure Oxygen delivery method: ETT Time out completed: Yes Premedication: None Laterality: Left Location: Radial Hand hygeine: Soap and water Equipment/Supplies: Cap, Mask, Sterile gloves, Sterile drapes and Sterile procedures used Skin prep: Chloraprep Ultrasound used: Yes US equipment and supplies: Sterile Gel and Sterile Probe Cover Attempts: 1 Post-Procedure: Pt hemodynamically stable, Pt tolerates well and No complication
--- NOTE | 2023-08-19 03:42 | CT Scan Report ---
CT OF THE CHEST WITH IV CONTRAST CLINICAL HISTORY: GI bleed COMPARISON STUDY: Chest CT August 11, 2023. Chest radiograph August 19, 2023. TECHNIQUE: Following IV administration of 91 mL of Optiray, helical axial images of the chest were o btained. Sagittal and coronal reconstructions were viewed as well as maximal intensity projections o n an independent 3-D workstation. Automated exposure control was utilized for the study. A dose low ering technique was utilized adhering to the principles of ALARA. FINDINGS: The endotracheal tube is well-positioned. There is no thoracic aortic dissection. Central pulmonary arteries are mildly dilated. Size of the heart is normal. There is no pericardial effusion. There is no pneumothorax or pleural effusion. Extensive bilateral lower lobe airspace opacities have developed since prior CT August 11, 2023 with volume loss. There are additional scattered airspace o pacities within the lungs. No central obstructing mass is noted. The abdomen and pelvis CT will be re ported separately. There is hyperdense material within the stomach. Tip of nasogastric tube is within the body of the stomach. Wall thickening the distal stomach is noted there is a 1.8 cm well demarcat ed hypoenhancing focus within the upper aspect of the spleen. There is also a small hypoenhancing foc us within the upper pole of the right kidney. There is periportal edema. Gallbladder wall thickening is noted. There is moderate peripancreatic fluid. The adrenal glands are hyperenhancing. IMPRESSION: 1. Appropriately positioned endotracheal tube. 2. Extensive bilateral lower lobe airspace opacities with volume loss, new since CT August 11, 2023. The findings may reflect aspiration pneumonitis or atelectasis. Additional scattered airspace opaciti es within the lungs are likely infectious or related to aspiration. No central obstructing mass. 3. 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 4. Hyperdense material within the stomach which favors a large amount of clot. Distal gastric wall th ickening which may reflect gastritis. 5. Moderate peripancreatic fluid. This favors acute pancreatitis. However, given multiple additional findings, including hyperenhancement of the adrenal glands and small bowel wall thickening, better de picted on the CT of the abdomen and pelvis, the findings raise the possibility of hypoperfusion compl ex in the setting of hypotension/shock and could reflect shock pancreas. Findings discussed with Dr. Pearce at time of dictation. ACT 112: Negative or not required by law. Electronically signed by: Kapil Coburn M.D. 08/19/2023 3:39 AM
[2023-08-19] MEDS ORDERED: SODIUM BICARB 8.4% INJ 50 MEQ/50 ML SYR IV STA ×3 (03:44→05:05)
[2023-08-19] MEDS ORDERED: MIDAZOLAM HCL 125 MG/250 ML BAG IV SCH (03:45)
--- NOTE | 2023-08-19 03:53 | CT Scan Report ---
CT OF THE ABDOMEN AND PELVIS WITH CONTRAST CLINICAL HISTORY: GI bleed COMPARISON STUDY: Abdominal series December 16, 2014. TECHNIQUE: Following IV administration of 91 mL of Optiray, axial images of the abdomen and pelvis we re obtained from the lung bases to the proximal femurs. Images were reviewed in the axial, sagittal, and coronal planes. IV contrast was administered without complication. Automated exposure control wa s utilized for the study. A dose lowering technique was utilized adhering to the principles of ALARA . FINDINGS: Extensive bilateral lower lobe airspace opacity with volume loss are present. Tip of nasoga stric tube is within the distal body of the stomach. There is no pneumatosis, free air or portal veno us gas. There is periportal edema. Gallbladder wall thickening is noted. Hyperdense material within t he stomach is noted. Cortical thickening distal stomach and proximal duodenum is noted. In addition, there is wall thickening with prominent mucosal enhancement throughout the jejunum. There is no evide nce for a bowel obstruction. Moderate peripancreatic fluid extending into the mesentery is present. N o peripancreatic fluid collection is present. There is no evidence for pancreatic necrosis. There is a small hypodense focus consistent with infarct within the upper portion of the spleen. A subtle smal l infarct within the upper pole of the right kidney is present. Hypoenhancement the adrenal glands is better depicted on chest CT given phase of enhancement. There is sigmoid diverticulosis without evid ence for acute diverticulitis. A Garcia balloon within the bladder is noted. A right femoral central v enous catheter is in place. IMPRESSION: 1. Hyperdense material within the stomach suggestive of a large amount of clot. Tip of nasogastric tu be within the body of the stomach. Distal stomach and proximal duodenal wall thickening with mucosal hyperenhancement which may reflect gastritis/duodenitis. 2. Moderate peripancreatic fluid extending into the pancreas. This suggests acute pancreatitis. Howev er, given numerous additional findings, including jejunal wall thickening/mucosal hyperenhancement, p rominent bilateral adrenal gland enhancement shown on the chest CT and small splenic and right renal infarcts, the findings raise the possibility of hypoperfusion complex in the setting of hypotension w ith shock pancreas. Findings discussed with Dr. Pearce at time of dictation. 3. Jejunal wall thickening and mucosal hyperenhancement, as described above. Small amount of associat ed ascites. No pneumatosis, free air or portal venous gas. This may be related to hypoperfusion, as d escribed above. However, this finding is nonspecific and additional differential considerations inclu ding ischemia are within the differential. 4. Nonspecific gallbladder wall thickening. 5. No bowel obstruction. Sigmoid diverticulosis. No evidence for acute diverticulitis. 6. Extensive bilateral lower lobe airspace opacities with volume loss within the lower lobes. This co uld reflect aspiration pneumonitis, atelectasis or pneumonia. ACT 112: Negative or not required by law. Electronically signed by: Kapil Coburn M.D. 08/19/2023 3:53 AM
[2023-08-19] MEDS ORDERED: VECURONIUM BROMIDE 10 MG VIAL IV STA (04:04)
[2023-08-19 04:10] LABS: Basophils # (auto) 0.12 K/uL (0.00-0.20); Basophils % (auto) 0.4 %; Eosinophils # (auto) 0.23 K/uL (0.00-0.50); Eosinophils % (auto) 0.8 %; Hematocrit (blood only) 30.2 % (37.0-47.0); Hemoglobin 9.8 g/dl (12.0-16.0); Immature Granulocytes # (auto) 1.38 K/uL (0.01-0.20); Lymphocytes # (auto) 1.28 K/uL (1.20-3.40); Lymphocytes % (auto) 4.6 %; Mean Corpuscular Hemoglobin 30.7 pg (25.0-34.0); Mean Corpuscular Hgb Conc 32.5 g/dL (32.0-36.0); Mean Corpuscular Volume 94.7 fL (80.0-100.0); Mean Platelet Volume 9.5 fL (9.4-12.4); Monocytes # (auto) 1.46 K/uL (0.11-0.59); Monocytes % (auto) 5.3 %; Neutrophils % (auto) 83.9 %; Nucleated RBC # (auto) 0.06 K/uL (0.00-0.12); Nucleated RBC % (auto) 0.2 %; Platelet Count 192 K/uL (130-400); RDW Coefficient of Variation 15.5 % (11.5-14.5); RDW Standard Deviation 52.9 fL (36.4-46.3); Red Blood Count 3.19 M/uL (4.20-5.40); White Blood Count 27.67 K/ul (4.8-10.8)
[2023-08-19 04:15] LABS: Salicylate < 3.0 mg/dl (3.0-30)
[2023-08-19 04:20] LABS: Albumin Globulin Ratio 1.8 (0.9-2); BUN Creatinine Ratio 65.7 (10-20); Bilirubin,Total 0.3 mg/dl (0.2-1.0); Calcium 5.7 mg/dl (8.6-10.3); Est GFR (African American) 137.1 ml/min; Est GFR (Non-African American) 118.3 ml/min; Globulin 1.1 gm/dl (2.5-4.0); Potassium 4.1 mmol/L (3.5-5.1); Total Protein 3.1 gm/dl (6.0-8.3)
[2023-08-19 04:28] LABS: Creatine Kinase 89 U/L (26-192); Lipase 16 U/L (11-82)
[2023-08-19 04:30] LABS: Acetaminophen < 3 ug/ml (10-30)
[2023-08-19 04:37] LABS: Fibrinogen 137 mg/dl (184-400); INR 1.4 (0.9-1.1); Prothrombin Time 14.7 Seconds (9.0-12.0)
[2023-08-19] MEDS ORDERED: CALCIUM GLUCONATE 10% 1,000 MG in SODIUM CHLOR 0.9% MINI-B 50 ML IV ONE (04:45)
--- NOTE | 2023-08-19 04:54 | GI REPORT ---
Patient Name: Chantell Garcia Procedure Date: 08/19/2023 3:59 AM Date of : 1965 Admit Type: Inpatient Age: 58 Gender: Female Attending MD: Gaby Pearce M.d., Procedure: Upper GI endoscopy Providers: Gaby Pearce M.d. Referring MD: Radha Pierce Indications: Hematemesis Medicines: See ICU documentation, ED documentation Complications: No immediate complications. Estimated Blood Loss: Estimated blood loss: 50 mL requiring treatment with placement of hemostatic clip(s). Procedure: Pre-Anesthesia Assessment: - Patient identification and proposed procedure were verified prior to the procedure by the physician, the nurse and the anesthesiologist. The procedure was verified in the pre-procedure area. - Prior to the procedure, a History and Physical was performed, and patient medications, allergies and sensitivities were reviewed. The patient's tolerance of previous anesthesia was reviewed. - The risks and benefits of the procedure and the sedation options and risks were discussed with the patient. All questions were answered and informed consent was obtained. - ASA Grade Assessment: IV - A patient with severe systemic disease that is a constant threat to life. After obtaining informed consent, the endoscope was passed under direct vision. Throughout the procedure, the patient's blood pressure, pulse, and oxygen saturations were monitored continuously. The Endoscope was introduced through the mouth, and advanced to the second part of duodenum. The upper GI endoscopy was somewhat difficult due to poor endoscopic visualization. Successful completion of the procedure was aided by lavage. The patient tolerated the procedure well. Findings: The examined esophagus appeared normal - no evidence of esophageal varices were noted. Clotted blood was found in the gastric fundus - with lavage and suction a portion of the clot was removed, but a portion of the clot remained adherent and would not suction or lavage off despite attempts. On further visualization of the clot, beneath the clot a pulsation was noted in this area but no gastric varix was noted on retroflexed view of the fundus of the stomach. Given the pulsation, for empiric hemostasis, three hemostatic clips were successfully placed (MR conditional). 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 In addition, to stop active bleeding, the hemostatic spray was deployed. A single spray was applied. There was no bleeding at the end of the procedure Hematin (altered blood/majgjh-irhurj-parg material) was found in the remainder of the stomach in addition to slightly redder blood tinged findings but no active bleeding was noted . Hematin (altered blood/bxdsxt-pstwig-khpc material) and slightly reddder blood tinged findings were found in the duodenal bulb and second portion of the duodenum but no active bleeding was noted. Impression: - Normal esophagus. - Clotted blood in the gastric fundus. Clips (MR conditional) were placed. 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 - Hematin (altered blood/iwelbn-bxshne-zlva material) in the stomach. Hemostatic spray applied. - Blood in the duodenal bulb and in the second portion of the duodenum. - No specimens collected. Recommendation: - Continue IV PPI. - Continue IV Octreotide. - Transfuse as needed. - If persistent bleeding, consider repeat endoscopy and or IR input (possible embolization). - Given the history of alcohol use but non cirrhotic, she may have had a severe MW tear with involvement of a vessel. Gaby Pearce M.D. Gaby Pearce M.d. 08/19/2023 4:53:46 AM This report has been signed electronically. Note Initiated On: 08/19/2023 3:59 AM Number of Addenda: 0 I attest to the content of the Intraoperative Record and orders documented therein, exceptions below {[id number]}
--- NOTE | 2023-08-19 04:57 | Operative Report ---
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 No active bleeding noted at the end of the procedure. Specimens None Description of Procedure EGD in ICU with hemostasis I attest to the content of the Intraoperative Record and any orders documented therein. Any exceptions are noted below.
--- NOTE | 2023-08-19 05:04 | Communication Note ---
Date of Service: August 19, 2023 Lactate had normalized prior to the egd. EGD completed with findings of a large clot in the fundus of her stomach- partially removed with lavage and suction. Part of the clot remained after lavage and suction and remained adherent and was not easily removed. No evidence of ev or gastric varix was noted on retroflexion. There was no active spurting noted in the esophagus, stomach, or duodenum. On further examination of the clot, an underlying pulsation was noted Underneath the clot with the pulsation- at times bright red blood would be noted in small increments. 3 clips were placed that achieved some hemostasis. Further examination after clip placement showed minimally active bleeding. For additional hemostasis - hemospray was deployed over the clip and clot area. No active bleeding was noted at the end of clipping/spraying. Given the location and her not being cirrhotic with normal platelets and normal spleen size and no visualized gastric varix on retroflexed view this was not thought to be a gastric variceal bleed. However, the pulsation and the fundal location with adherent clot could still suggest an atypical type of varix or given her alcohol history and presumed wrethcing - a mw tear that may have involved a vessel or an atypical dieulafoy given she had a recent presentation a week ago as well for hematemesis with an unidentified location for her gi bleed at that time. Continue IV PPI, octreotide for now, empiric abx if indicated. Urine tox. Work-up for rhadbo. If persistent drop in hgb and or hemodynamic instability, consider relook egd with hopes that the clot may have moved forward and better visualization may be identified or IR input for possible embolization.
--- NOTE | 2023-08-19 05:06 | Communication Note ---
Date of Service: August 19, 2023 Results of egd were discussed with her sister lucy and her in the waiting room post procedure.
[2023-08-19 05:07] LABS: iSTAT Art Bld Gas pCO2 Correct 50 mmHg (35-46); iSTAT Art Bld Gas pH Corrected 7.247 (7.35-7.45); iSTAT Arterial Blood Gas HCO3 22 meg/L (19-24); iSTAT Arterial Blood Gas pCO2 55 mmHg (35-46); iSTAT Arterial Blood Gas pH 7.21 (7.35-7.45); iSTAT Arterial Blood Gas pO2 63 mmHg (80-95); iSTAT Arterial Blood Gas pO2 C 53; iSTAT Carbon Dioxide 24 mmol/L (24-31); iSTAT FiO2 60 %; iSTAT Hematocrit 29 % (37-47); iSTAT Hemoglobin 9.9 g/dl (12.0-16.0); iSTAT Potassium 3.9 mmol/L (3.3-5.0); iSTAT Site Art Line; iSTAT Sodium 142 mmol/L (135-144)
[2023-08-19 05:07] LABS: iSTAT Art Bld Gas pCO2 Correct 62 mmHg (35-46); iSTAT Art Bld Gas pH Corrected 7.086 (7.35-7.45); iSTAT Arterial Blood Gas HCO3 19 meg/L (19-24); iSTAT Arterial Blood Gas pCO2 70 mmHg (35-46); iSTAT Arterial Blood Gas pH 7.05 (7.35-7.45); iSTAT Arterial Blood Gas pO2 258 mmHg (80-95); iSTAT Arterial Blood Gas pO2 C 245; iSTAT Carbon Dioxide 21 mmol/L (24-31); iSTAT FiO2 100 %; iSTAT Hematocrit 26 % (37-47); iSTAT Hemoglobin 8.8 g/dl (12.0-16.0); iSTAT Potassium 4.2 mmol/L (3.3-5.0); iSTAT Site Art Line; iSTAT Sodium 140 mmol/L (135-144)
[2023-08-19 05:44] LABS: Amphetamines+Metham, Urine Neg (Neg); Barbiturates, Urine Neg (Neg); Benzodiazepine, Urine Pos (Neg); Cocaine, Urine Neg (Neg); MDMA (Ecstacy), Urine Neg (Neg); Methadone, Urine Neg (Neg); Opiate, Urine Neg (Neg); Phencyclidine, Urine Neg (Neg)
[2023-08-19 06:28] LABS: Appearance Urine Cloudy (Clear); Bacteria Urine Automated 1+ (Negative); Bilirubin Urine Negative (Negative); Blood Urine 2+ (Negative); Color Urine Yellow; Epithelial Cell Urine Auto >30 /lpf (0-5); Glucose Urine UA 3+ (Negative); Ketones Urine Negative (Negative); Leukocyte Esterase Urine Negative (Negative); Nitrite Urine Negative (Negative); Protein Urine 2+ (Negative); RBC Urine Automated 0-4 /hpf (0-4); Specific Gravity Urine 1.017 (1.000-1.030); Urobilinogen Urine Negative (Negative); pH Urine 5.5 (4.5-7.5)
--- NOTE | 2023-08-19 07:19 | XRay Report ---
XR chest 1V portable CLINICAL HISTORY: intubation COMPARISON STUDY: Chest radiograph August 10, 2023. Chest CT August 11, 2023. FINDINGS: Tip of endotracheal tube is 3.9 cm above the ashley. Tip of nasogastric tube is within the body of the stomach. There are are mild bibasilar opacities. No evidence for pulmonary edema. Cardiom ediastinal silhouette is stable. IMPRESSION: 1. Satisfactory positioning of the endotracheal and nasogastric tubes. 2. Mild bibasilar opacities which could reflect pneumonia, aspiration or atelectasis. ACT 112: Negative or not required by law. Electronically signed by: Kapil Coburn M.D. 08/19/2023 7:18 AM
[2023-08-19 07:31] LABS: Hematocrit (blood only) 35.8 % (37.0-47.0); Hemoglobin 12.2 g/dl (12.0-16.0); Mean Corpuscular Hemoglobin 30.9 pg (25.0-34.0); Mean Corpuscular Hgb Conc 34.1 g/dL (32.0-36.0); Mean Corpuscular Volume 90.6 fL (80.0-100.0); Mean Platelet Volume 10.1 fL (9.4-12.4); Nucleated RBC # (auto) 0.04 K/uL (0.00-0.12); Nucleated RBC % (auto) 0.1 %; Platelet Count 173 K/uL (130-400); RDW Coefficient of Variation 15.5 % (11.5-14.5); RDW Standard Deviation 49.9 fL (36.4-46.3); Red Blood Count 3.95 M/uL (4.20-5.40); White Blood Count 27.22 K/ul (4.8-10.8)
[2023-08-19] MEDS: ALBUT/IPRATROP 3MG/0.5MG NEB 3 ML VIAL NEB SCH ×5 (07:51→22:49)
[2023-08-19 07:58] LABS: Basophils # (auto) 0.07 K/uL (0.00-0.20); Basophils % (auto) 0.3 %; Echinocytes 1+; Eosinophils # (auto) 0.06 K/uL (0.00-0.50); Eosinophils % (auto) 0.2 %; Immature Granulocytes % (auto) 2.6 %; Lymphocytes # (auto) 1.32 K/uL (1.20-3.40); Lymphocytes % (auto) 4.8 %; Monocytes % (auto) 4.4 %; Neutrophils # (auto) 23.87 K/uL (1.40-6.50); Neutrophils % (auto) 87.7 %; Polychromasia 1+
[2023-08-19] MEDS: ICU Protocol for HYPERglycemia SCH ×3 (08:14→15:13)
[2023-08-19] MEDS: FLUTICASONE FUROATE 200MCG 14 PUFFS/INHALER INH SCH (08:14)
[2023-08-19] MEDS: UMECLIDINIUM/VILANTEROL 62.5/25MCG 7 PUFFS/INHALER INH SCH (08:51)
[2023-08-19] MEDS: THIAMINE HCL 100 MG in SYRINGE 9 ML IV SCH (08:52)
[2023-08-19] MEDS: FOLIC ACID 1 MG in SYRINGE 9.8 ML IV SCH (08:52)
[2023-08-19 08:57] LABS: iSTAT Art Bld Gas pCO2 Correct 45 mmHg (35-46); iSTAT Art Bld Gas pH Corrected 7.278 (7.35-7.45); iSTAT Arterial Blood Gas HCO3 21 meg/L (19-24); iSTAT Arterial Blood Gas pCO2 45 mmHg (35-46); iSTAT Arterial Blood Gas pH 7.28 (7.35-7.45); iSTAT Arterial Blood Gas pO2 68 mmHg (80-95); iSTAT Arterial Blood Gas pO2 C 68; iSTAT Carbon Dioxide 22 mmol/L (24-31); iSTAT FiO2 65 %; iSTAT Hematocrit 36 % (37-47); iSTAT Hemoglobin 12.2 g/dl (12.0-16.0); iSTAT Potassium 3.7 mmol/L (3.3-5.0); iSTAT Site Art Line; iSTAT Sodium 140 mmol/L (135-144)
[2023-08-19] MEDS ORDERED: NON-FORMULARY MEDICATION (Fluticasone-Umeclidin-Vilanter [Trelegy Ellipta] 200-62.5-25 mcg INH SCH (09:00)
--- NOTE | 2023-08-19 09:49 | Communication Note ---
Date of Service: August 19, 2023 f/u from early AM admission per H&P and ICU, GI animal nutrition consultant input greatly appreciated
[2023-08-19 10:09] LABS: iSTAT Arterial Blood Gas HCO3 18 meg/L (19-24); iSTAT Arterial Blood Gas pCO2 82 mmHg (35-46); iSTAT Arterial Blood Gas pH 6.94 (7.35-7.45); iSTAT Arterial Blood Gas pO2 64 mmHg (80-95); iSTAT Carbon Dioxide 20 mmol/L (24-31); iSTAT Hematocrit 15 % (37-47); iSTAT Hemoglobin 5.1 g/dl (12.0-16.0); iSTAT Sodium 133 mmol/L (135-144)
--- NOTE | 2023-08-19 10:30 | Communication Note ---
Date of Service: August 19, 2023 Reviewed GI notes. No additional blood products to be transfused, trend H&H. Proceed with weaning sedation towards extubation. Patient was intubated for airway protection given hematemesis and procedure. Given that we are continuing octreotide with this atypical bleeding location and possibility that could represent a variceal bleed we will continue Rocephin at this time. Wean pressors as able. 1 g calcium gluconate now follow-up ionized calcium and new Clinical update 1700. Patient has been extubated and wean off vasopressors. Feeling improved. Continued close observation, ionized calcium improving no additional calcium supplementation presently trending H&H. Updated family and patient of findings and treatment plan. I have personally spent 45 minutes of critical care time in the direct management of this patient. This is a life/limb threatening event. This includes time spent evaluating patient, direct bedside care, chart review, placing orders, interpretation of diagnostic studies, discussion with consultants, patient, and/or family members regarding treatment decisions, as well as other required patient management activities. This time is exclusive of all separately billable procedures, and teaching time and separate from and in addition to any other critical care service time. Coding Level of Care Code 31183 CRITICAL CARE EA ADD 30M
[2023-08-19] MEDS ORDERED: CALCIUM GLUCONATE 10% 1,000 MG in NS X1 BAG IV ONE (10:45)
--- NOTE | 2023-08-19 10:47 | Gastroenterology Progress Note ---
Date of Service August 19, 2023 Assessment & Plan (1) Acute blood loss anemia: (2) Hematemesis: Plan 1. NPO. 2. Continue PPI and Octreotide gtts. 3. Monitor for drop in H&H/overt GIB. 4. Plan for repeat EGD during this admission. Timing TBD. 5. Rest per primary team. Admission and Anticipated Discharge Date Admission Date: August 19, 2023 Supervising Physician Co-Signing Physician Notes Agree with KENISHA Palma as above Patient extubated and has not had any overt GI bleeding since 1:30 AM Abd: Soft, NT, ND, +BS Continue current therapy and supportive care H/H stable post transfusion Will give ice chips now and advance to clears as tolerated Subjective Patient is status post EGD by Dr. Pearce with findings of gastric fundic adherent clot and hematin s/p Endoclip placement for hemostasis. 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 Remains on Octreotide and PPI ggts. Currently intubated. Per nursing, no overt GIB. VSS. H&H is stable at present. Review of Systems Review of Systems: Unobtainable due to endotracheal tube Physical Exam Constitutional: no acute distress Respiratory: Auscultation: lungs clear to auscultation bilaterally Cardiovascular: Rate/Rhythm: regular rate and regular rhythm Gastrointestinal (Abdomen): Inspection/Auscultation: normal bowel sounds; abdomen not distended Percussion/Palpation: abdomen soft Results & Data Results & Data Vital Signs (Past 12 Hours) Vital Signs Temp Pulse Pulse Resp BP BP Pulse Ox 08/19/23 10:00 37.6 C H 105 H 31 H 97 08/19/23 10:00 107/75 08/19/23 09:45 37.6 C H 106 H 30 H 97 08/19/23 09:36 37.3 C 112 H 30 H 128/71 96 08/19/23 07:40 36.2 C L 127 H 30 H 87/64 L 96 08/19/23 08:00 08/19/23 08:00 08/19/23 08:00 36.7 C 119 H 30 H 95 08/19/23 08:00 104/70 08/19/23 07:45 36.4 C L 121 H 31 H 08/19/23 07:30 36.1 C L 109 H 30 H 96 08/19/23 07:15 35.9 C L 112 H 30 H 96 08/19/23 07:14 35.9 C L 111 H 30 H 97 08/19/23 07:14 69/50 L 08/19/23 07:00 35.7 C L 115 H 30 H 96 08/19/23 07:00 112/88 08/19/23 06:45 35.5 C L 106 H 30 H 99 08/19/23 09:10 37.3 C 112 H 30 H 128/71 96 08/19/23 08:40 37.2 C 117 H 30 H 117/66 96 08/19/23 08:10 36.8 C 120 H 30 H 105/61 95 08/19/23 07:55 36.8 C 120 H 30 H 105/62 95 08/19/23 07:40 36.2 C L 127 H 87/64 L 96 08/19/23 01:11 35.6 C L 115 H 30 H 113/73 100 08/19/23 06:39 35.4 C L 105 H 20 88/54 L 98 08/19/23 01:05 35.3 C L 105 H 20 94/61 L 98 08/19/23 06:22 35.2 C L 106 H 20 85/56 L 98 08/19/23 05:45 34.9 C L 101 H 30 H 97 08/19/23 05:53 34.9 C L 101 H 30 H 96/58 L 97 08/19/23 04:00 34.3 C L 101 H 28 H 119/59 L 97 08/19/23 05:44 34.8 C L 100 H 30 H 92/53 L 91 08/19/23 05:39 34.8 C L 99 H 30 H 92/53 L 91 08/19/23 05:30 34.8 C L 99 H 30 H 91 08/19/23 05:15 34.7 C L 100 H 30 H 96 08/19/23 05:00 34.6 C L 30 H 08/19/23 05:00 85/58 L 08/19/23 04:45 34.5 C L 101 H 28 H 93 08/19/23 04:30 34.4 C L 100 H 28 H 95 08/19/23 04:30 103/69 08/19/23 05:34 34.8 C L 99 H 30 H 92/53 L 91 08/19/23 02:50 34.4 C L 101 H 24 134/77 100 08/19/23 02:50 101 H 24 134/77 99 08/19/23 04:45 30 H 08/19/23 03:40 28 H 08/19/23 04:15 34.4 C L 101 H 28 H 98 08/19/23 04:00 34.3 C L 101 H 28 H 97 08/19/23 04:00 102/72 08/19/23 03:50 34.3 C L 101 H 28 H 100 08/19/23 03:50 130/94 08/19/23 03:45 34.3 C L 98 H 28 H 100 08/19/23 03:45 126/82 08/19/23 03:40 34.3 C L 97 H 24 08/19/23 03:40 126/77 08/19/23 03:35 116/70 08/19/23 03:35 34.3 C L 90 24 100 08/19/23 03:31 34.3 C L 98 H 24 100 08/19/23 03:31 116/61 08/19/23 03:30 34.3 C L 99 H 24 08/19/23 03:25 34.2 C L 108 H 24 100 08/19/23 03:25 204/110 H 08/19/23 03:20 34.2 C L 106 H 24 100 08/19/23 03:20 190/114 H 08/19/23 03:15 34.2 C L 102 H 24 100 08/19/23 03:15 177/104 H 08/19/23 03:10 34.2 C L 96 H 24 100 08/19/23 03:10 147/105 H 08/19/23 03:05 34.2 C L 94 H 24 100 08/19/23 03:05 158/101 H 08/19/23 03:00 34.3 C L 95 H 24 100 08/19/23 03:00 167/108 H 08/19/23 04:23 102 H 08/19/23 03:26 109 H 30 H 204/110 H 100 08/19/23 02:45 101 H 24 99 08/19/23 02:47 102 H 24 134/77 100 08/19/23 02:14 102 H 24 93 08/19/23 02:10 103 H 24 90/58 L 84 L 08/19/23 02:05 112 H 24 78/55 L 88 L 08/19/23 02:00 112 H 24 74/59 L 90 08/19/23 01:55 112 H 24 76/51 L 89 L 08/19/23 01:45 118 H 24 130/88 89 L 08/19/23 01:30 108 H 24 148/89 H 95 08/19/23 01:15 107 H 24 154/92 H 99 08/19/23 01:00 106 H 18 161/87 H 90 08/19/23 00:59 108 H 13 151/86 H 90 08/19/23 00:45 112 H 24 122/74 80 L 08/19/23 00:31 119 H 25 H 85/56 L 69 L 08/19/23 00:15 102 H 0 L 172/99 H 58 L 08/19/23 00:09 108 H 34 H 104/70 99 08/19/23 00:00 103 H 34 H 103/68 08/18/23 23:58 105 H 38 H 95/61 L 100 08/18/23 23:57 106 H 21 91/62 L 92 08/18/23 23:55 110 H 34 H 94/61 L 93 08/18/23 23:54 111 H 43 H 82/59 L 92 08/18/23 23:45 126 H 33 H 100 08/18/23 23:30 156 H 22 100 08/18/23 23:15 93 H 21 71 L 08/19/23 00:07 24 08/18/23 23:11 96 H 08/18/23 23:05 92 H 20 136/76 95 08/18/23 22:46 36.7 C 105 H 18 113/72 95 O2 Del Method O2 Flow Rate FiO2 08/19/23 10:00 08/19/23 10:00 08/19/23 09:45 08/19/23 09:36 15 08/19/23 07:40 08/19/23 08:00 Mechanical Vent 0.65 08/19/23 08:00 65 08/19/23 08:00 08/19/23 08:00 08/19/23 07:45 08/19/23 07:30 08/19/23 07:15 08/19/23 07:14 08/19/23 07:14 08/19/23 07:00 08/19/23 07:00 08/19/23 06:45 08/19/23 09:10 08/19/23 08:40 08/19/23 08:10 08/19/23 07:55 08/19/23 07:40 08/19/23 01:11 08/19/23 06:39 08/19/23 01:05 08/19/23 06:22 08/19/23 05:45 08/19/23 05:53 08/19/23 04:00 08/19/23 05:44 08/19/23 05:39 08/19/23 05:30 08/19/23 05:15 08/19/23 05:00 08/19/23 05:00 08/19/23 04:45 08/19/23 04:30 08/19/23 04:30 08/19/23 05:34 08/19/23 02:50 08/19/23 02:50 08/19/23 04:45 65 08/19/23 03:40 60 08/19/23 04:15 08/19/23 04:00 08/19/23 04:00 08/19/23 03:50 08/19/23 03:50 08/19/23 03:45 08/19/23 03:45 08/19/23 03:40 08/19/23 03:40 08/19/23 03:35 08/19/23 03:35 08/19/23 03:31 08/19/23 03:31 08/19/23 03:30 08/19/23 03:25 08/19/23 03:25 08/19/23 03:20 08/19/23 03:20 08/19/23 03:15 08/19/23 03:15 08/19/23 03:10 08/19/23 03:10 08/19/23 03:05 08/19/23 03:05 08/19/23 03:00 08/19/23 03:00 08/19/23 04:23 08/19/23 03:26 Mechanical Vent 08/19/23 02:45 100 08/19/23 02:47 Mechanical Vent 08/19/23 02:14 Mechanical Vent 08/19/23 02:10 Mechanical Vent 08/19/23 02:05 Mechanical Vent 08/19/23 02:00 Mechanical Vent 08/19/23 01:55 Mechanical Vent 08/19/23 01:45 Mechanical Vent 08/19/23 01:30 Mechanical Vent 08/19/23 01:15 Mechanical Vent 08/19/23 01:00 Mechanical Vent 08/19/23 00:59 Mechanical Vent 08/19/23 00:45 Mechanical Vent 08/19/23 00:31 Mechanical Vent 08/19/23 00:15 08/19/23 00:09 08/19/23 00:00 08/18/23 23:58 08/18/23 23:57 08/18/23 23:55 Non-rebreather 08/18/23 23:54 Non-rebreather 08/18/23 23:45 08/18/23 23:30 08/18/23 23:15 08/19/23 00:07 100 08/18/23 23:11 08/18/23 23:05 Room Air 08/18/23 22:46 Room Air Diagnostic Findings Laboratory Results WBC 27.22 K/ul (4.8-10.8) H 08/19/23 07: RBC 3.95 M/uL (4.20-5.40) L 08/19/23 07:23 Hgb 12.2 g/dl (12.0-16.0) 08/19/23 07:23 POC Hgb 12.2 g/dl (12.0-16.0) 08/19/23 08:31 Hct 35.8 % (37.0-47.0) L 08/19/23 07: POC Hct 36 % (37-47) L 08/19/23 08:31 MCV 90.6 fL (80.0-100.0) 08/19/23 07: MCH 30.9 pg (25.0-34.0) 08/19/23 07: MCHC 34.1 g/dL (32.0-36.0) 08/19/23 07: RDW Std Deviation 49.9 fL (36.4-46.3) H 08/19/23 07: RDW Coeff of Tea 15.5 % (11.5-14.5) H 08/19/23 07:23 Plt Count 173 K/uL (130-400) 08/19/23 07: MPV 10.1 fL (9.4-12.4) 08/19/23 07: Immature Gran % (Auto) 2.6 % 08/19/23 07: Neut % (Auto) 87.7 % 08/19/23 07: Lymph % (Auto) 4.8 % 08/19/23 07: [place] % (Auto) 4.4 % 08/19/23 07: Eos % (Auto) 0.2 % 08/19/23 07: Baso % (Auto) 0.3 % 08/19/23 07: Neut # (Auto) 23.87 K/uL (1.40-6.50) H 08/19/23 07: Lymph # (Auto) 1.32 K/uL (1.20-3.40) 08/19/23 07:23 [place] # (Auto) 1.20 K/uL (0.11-0.59) H 08/19/23 07:23 Eos # (Auto) 0.06 K/uL (0.00-0.50) 08/19/23 07: Baso # (Auto) 0.07 K/uL (0.00-0.20) 08/19/23 07: Immature Gran # (Auto) 0.70 K/uL (0.01-0.20) H 08/19/23 07: Absolute Nucleated RBC 0.04 K/uL (0.00-0.12) 08/19/23 07: Nucleated RBC % (auto) 0.1 % 08/19/23 07:23 Polychromasia 1+ 08/19/23 07: Echinocytes 1+ 08/19/23 07: PT 14.7 Seconds (9.0-12.0) H 08/19/23 03:35 INR 1.4 (0.9-1.1) H 08/19/23 03:35 Fibrinogen 137 mg/dl (184-400) L 08/19/23 03:35 Sample Site Art Line 08/19/23 08:31 POC pH 7.28 (7.35-7.45) L 08/19/23 08:31 POC pCO2 45 mmHg (35-46) 08/19/23 08:31 POC pO2 68 mmHg (80-95) L 08/19/23 08:31 POC HCO3 21 erma/L (19-24) 08/19/23 08:31 POC Total CO2 22 mmol/L (24-31) L 08/19/23 08:31 POC Base Excess -6.0 erma/L (-9-1.8) 08/19/23 08:31 ABG pH Cancelled 08/19/23 02:05 ABG pH (Temp Correct) 7.278 (7.35-7.45) L 08/19/23 08:31 ABG pCO2 Cancelled 08/19/23 02:05 ABG pCO2 (Temp Corrct 45 mmHg (35-46) 08/19/23 08:31 ABG pO2 Cancelled 08/19/23 02:05 POC ABG pO2 at Pt Temp 68 08/19/23 08:31 ABG HCO3 Cancelled 08/19/23 02:05 POC ABG O2 Sat 91.0 % (90-95) 08/19/23 08:31 ABG O2 Saturation Cancelled 08/19/23 02:05 ABG Base Excess Cancelled 08/19/23 02:05 Moshe Test NA 08/19/23 08:31 Barometric Pressure Cancelled 08/19/23 02:05 Oxygen Given Cancelled 08/19/23 02:05 O2 Delivery Device Ventilator 08/19/23 08:31 POC O2 Rate 30 08/19/23 08:31 Minute Ventilation 11.5 08/19/23 08:31 POC FiO2 65 % 08/19/23 08:31 Tidal Volume 380 08/19/23 08:31 PEEP 8 08/19/23 08:31 POC Sodium 140 mmol/L (135-144) 08/19/23 08:31 Sodium 138 mmol/L (136-145) 08/19/23 03:35 POC Potassium 3.7 mmol/L (3.3-5.0) 08/19/23 08:31 Potassium 4.1 mmol/L (3.5-5.1) 08/19/23 03:35 Chloride 118 mmol/L (98-107) H 08/19/23 03:35 Carbon Dioxide 19 mmol/L (21-32) L 08/19/23 03:35 Anion Gap 1 (3-11) L 08/19/23 03:35 BUN 23 mg/dl (6-23) 08/19/23 03:35 Creatinine 0.35 mg/dl (0.6-1.2) L 08/19/23 03:35 Est Cr Clr Drug Dosing 160.0 ml/min 08/19/23 03:35 Est GFR ( Amer) 137.1 ml/min 08/19/23 03:35 Est GFR (Non-Af Amer) 118.3 ml/min 08/19/23 03:35 BUN/Creatinine Ratio 65.7 (10-20) H 08/19/23 03:35 Glucose 210 mg/dl (70-99(Fasting)) H 08/19/23 03:35 Lactate 0.8 mmol/L (0.4-2.0) 08/19/23 03:35 Calcium 5.7 mg/dl (8.6-10.3) L* D 08/19/23 03:35 Ionized Calcium 1.02 mmol/L (1.12-1.32) L 08/19/23 03:57 Total Bilirubin 0.3 mg/dl (0.2-1.0) 08/19/23 03:35 AST 28 U/L (13-39) 08/19/23 03:35 ALT 16 U/L (7-52) 08/19/23 03:35 Alkaline Phosphatase 26 U/L (34-104) L 08/19/23 03:35 Total Creatine Kinase 89 U/L (26-192) 08/19/23 03:57 Total Protein 3.1 gm/dl (6.0-8.3) L D 08/19/23 03:35 Albumin 2.0 gm/dl (3.4-5.0) L 08/19/23 03:35 Globulin 1.1 gm/dl (2.5-4.0) L 08/19/23 03:35 Albumin/Globulin Ratio 1.8 (0.9-2) 08/19/23 03:35 Lipase 16 U/L (11-82) 08/19/23 03:57 Urine Color Yellow 08/19/23 01:15 Urine Appearance Cloudy (Clear) A 08/19/23 01:15 Urine pH 5.5 (4.5-7.5) 08/19/23 01:15 Ur Specific [place] 1.017 (1.000-1.030) 08/19/23 01:15 Urine Protein 2+ (Negative) H 08/19/23 01:15 Urine Glucose (UA) 3+ (Negative) H 08/19/23 01:15 Urine Ketones Negative (Negative) 08/19/23 01:15 Urine Blood 2+ (Negative) H 08/19/23 01:15 Urine Nitrite Negative (Negative) 08/19/23 01:15 Urine Bilirubin Negative (Negative) 08/19/23 01:15 Urine Urobilinogen Negative (Negative) 08/19/23 01:15 Ur Leukocyte Esterase Negative (Negative) 08/19/23 01:15 Urine WBC (Auto) 10-30 /hpf (0-5) H 08/19/23 01:15 Urine RBC (Auto) 0-4 /hpf (0-4) 08/19/23 01:15 U Hyaline Cast (Auto) 10-30 /lpf (0-5) H 08/19/23 01:15 U Epithel Cells (Auto) >30 /lpf (0-5) H 08/19/23 01:15 Urine Bacteria (Auto) 1+ (Negative) H 08/19/23 01:15 Ur Renal Epithelial Cell Not Reportable 08/19/23 01:15 Nasal Screen MRSA (PCR) Negative (Negative) 08/19/23 04:40 Salicylates < 3.0 mg/dl (3.0-30) L 08/19/23 03:57 Urine Opiates Screen Neg (Neg) 08/19/23 04:40 Ur Methadone, Qual Neg (Neg) 08/19/23 04:40 Acetaminophen < 3 ug/ml (10-30) L 08/19/23 03:57 Urine Barbiturates Neg (Neg) 08/19/23 04:40 Ur Phencyclidine (PCP) Neg (Neg) 08/19/23 04:40 U Amphetamin/Meth Scrn Neg (Neg) 08/19/23 04:40 MDMA (Ecstasy) Screen Neg (Neg) 08/19/23 04:40 U Benzodiazepines Scrn Pos (Neg) H 08/19/23 04:40 Ur Cocaine Metabolite Neg (Neg) 08/19/23 04:40 U Marijuana (THC) Screen Neg (Neg) 08/19/23 04:40 SARS-CoV-2 (PCR) NEGATIVE (Negative) 08/19/23 04:40 Blood Type A Positive 08/19/23 00:57 Antibody Screen NEGATIVE 08/19/23 00:57 Crossmatch See Detail 08/19/23 00:57 Impressions Chest X-Ray 08/19/23 00:27 XR chest 1V portable CLINICAL HISTORY: intubation COMPARISON STUDY: Chest radiograph August 10, 2023. Chest CT August 11, 2023. FINDINGS: Tip of endotracheal tube is 3.9 cm above the ashley. Tip of nasogastric tube is within the body of the stomach. There are are mild bibasilar opacities. No evidence for pulmonary edema. Cardiomediastinal silhouette is stable. IMPRESSION: 1. Satisfactory positioning of the endotracheal and nasogastric tubes. 2. Mild bibasilar opacities which could reflect pneumonia, aspiration or atelectasis. ACT 112: Negative or not required by law. Electronically signed by: Kapil Coburn M.D. 08/19/2023 7:18 AM Abdomen/Pelvis CT 08/19/23 01:43 CT OF THE ABDOMEN AND PELVIS WITH CONTRAST CLINICAL HISTORY: GI bleed COMPARISON STUDY: Abdominal series December 16, 2014. TECHNIQUE: Following IV administration of 91 mL of Optiray, axial images of the abdomen and pelvis were obtained from the lung bases to the proximal femurs. Images were reviewed in the axial, sagittal, and coronal planes. IV contrast was administered without complication. Automated exposure control was utilized for the study. A dose lowering technique was utilized adhering to the principles of ALARA. FINDINGS: Extensive bilateral lower lobe airspace opacity with volume loss are present. Tip of nasogastric tube is within the distal body of the stomach. There is no pneumatosis, free air or portal venous gas. There is periportal edema. Gallbladder wall thickening is noted. Hyperdense material within the stomach is noted. Cortical thickening distal stomach and proximal duodenum is noted. In addition, there is wall thickening with prominent mucosal enhancement throughout the jejunum. There is no evidence for a bowel obstruction. Moderate peripancreatic fluid extending into the mesentery is present. No peripancreatic fluid collection is present. There is no evidence for pancreatic necrosis. There is a small hypodense focus consistent with infarct within the upper portion of the spleen. A subtle small infarct within the upper pole of the right kidney is present. Hypoenhancement the adrenal glands is better depicted on chest CT given phase of enhancement. There is sigmoid diverticulosis without evidence for acute diverticulitis. A Garcia balloon within the bladder is noted. A right femoral central venous catheter is in place. IMPRESSION: 1. Hyperdense material within the stomach suggestive of a large amount of clot. Tip of nasogastric tube within the body of the stomach. Distal stomach and proximal duodenal wall thickening with mucosal hyperenhancement which may reflect gastritis/duodenitis. 2. Moderate peripancreatic fluid extending into the pancreas. This suggests acute pancreatitis. However, given numerous additional findings, including jejunal wall thickening/mucosal hyperenhancement, prominent bilateral adrenal gland enhancement shown on the chest CT and small splenic and right renal infarcts, the findings raise the possibility of hypoperfusion complex in the setting of hypotension with shock pancreas. Findings discussed with Dr. Pearce at time of dictation. 3. Jejunal wall thickening and mucosal hyperenhancement, as described above. Small amount of associated ascites. No pneumatosis, free air or portal venous ga s. This may be related to hypoperfusion, as described above. However, this finding is nonspecific and additional differential considerations including ischemia are within the differential. 4. Nonspecific gallbladder wall thickening. 5. No bowel obstruction. Sigmoid diverticulosis. No evidence for acute diverticulitis. 6. Extensive bilateral lower lobe airspace opacities with volume loss within the lower lobes. This could reflect aspiration pneumonitis, atelectasis or pneumonia. ACT 112: Negative or not required by law. Electronically signed by: Kapil Coburn M.D. 08/19/2023 3:[address] 08/19/23 01:43 CT OF THE CHEST WITH IV CONTRAST CLINICAL HISTORY: GI bleed COMPARISON STUDY: Chest CT August 11, 2023. Chest radiograph August 19, 2023. TECHNIQUE: Following IV administration of 91 mL of Optiray, helical axial images of the chest were obtained. Sagittal and coronal reconstructions were viewed as well as maximal intensity projections on an independent 3-D workstation. Automated exposure control was utilized for the study. A dose lowering technique was utilized adhering to the principles of ALARA. FINDINGS: The endotracheal tube is well-positioned. There is no thoracic aortic dissection. Central pulmonary arteries are mildly dilated. Size of the heart is normal. There is no pericardial effusion. There is no pneumothorax or pleural effusion. Extensive bilateral lower lobe airspace opacities have developed since prior CT August 11, 2023 with volume loss. There are additional scattered airspace opacities within the lungs. No central obstructing mass is noted. The abdomen and pelvis CT will be reported separately. There is hyperdense material within the stomach. Tip of nasogastric tube is within the body of the stomach. Wall thickening the distal stomach is noted there is a 1.8 cm well demarcated hypoenhancing focus within the upper aspect of the spleen. There is also a small hypoenhancing focus within the upper pole of the right kidney. There is periportal edema. Gallbladder wall thickening is noted. There is moderate peripancreatic fluid. The adrenal glands are hyperenhancing. IMPRESSION: 1. Appropriately positioned endotracheal tube. 2. Extensive bilateral lower lobe airspace opacities with volume loss, new since CT August 11, 2023. The findings may reflect aspiration pneumonitis or atel ectasis. Additional scattered airspace opacities within the lungs are likely infectious or related to aspiration. No central obstructing mass. 3. 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 4. Hyperdense material within the stomach which favors a large amount of clot. Distal gastric wall thickening which may reflect gastritis. 5. Moderate peripancreatic fluid. This favors acute pancreatitis. However, given multiple additional findings, including hyperenhancement of the adrenal glands and small bowel wall thickening, better depicted on the CT of the abdomen and pe lvis, the findings raise the possibility of hypoperfusion complex in the setting of hypotension/shock and could reflect shock pancreas. Findings discussed with Dr. Pearce at time of dictation. ACT 112: Negative or not required by law. Electronically signed by: Kapil Coburn M.D. 08/19/2023 3:[address] 08/19/23 02:10 CT OF THE HEAD WITHOUT CONTRAST CLINICAL HISTORY: new onset seizure COMPARISON STUDY: No previous studies for comparison. CT DOSE: 3029.04 mGy.cm TECHNIQUE: Helical axial images of the head were obtained without IV contrast. Automated exposure control was utilized for the study. A dose lowering technique was utilized adhering to the principles of ALARA. FINDINGS: No acute intracranial hemorrhage, midline shift or mass effect is present. The ventricular system is unremarkable. The basal cisterns are patent. No extra-axial collections are present. There are no findings to suggest acute dural sinus thrombosis or acute territorial infarct. Subtle white matter hypodensities favor small vessel disease. There are no calvarial fractures. Secretions within the nasopharynx and nasal cavity are likely related to intuba tion. Air-fluid levels within the maxillary sinuses and ethmoid sinus mucosal thickening is also likely related to intubation. Mastoid air cells are clear. IMPRESSION: 1. No acute intracranial findings. 2. Secretions within the sinuses and nasopharynx, likely related to intubation. ACT 112: Negative or not required by law. Electronically signed by: Kapil Coburn M.D. 08/19/2023 3:16 AM PG Care Time/CCT Total # of Minutes Spent Total Time Spent with Patient: Total time spent is greater than 50% in coordination of care (as documented) at patient's floor/unit and/or counseling patient: Coding Level of Care Code 69142 SUB INP/OBS CARE 3/50MIN Diagnoses Acute blood loss anemia D62 Hematemesis K92.0
[2023-08-19 11:15] LABS: Hematocrit (blood only) 39.8 % (37.0-47.0); Mean Corpuscular Hemoglobin 30.8 pg (25.0-34.0); Mean Corpuscular Hgb Conc 35.2 g/dL (32.0-36.0); Mean Corpuscular Volume 87.5 fL (80.0-100.0); Mean Platelet Volume 10.3 fL (9.4-12.4); Nucleated RBC # (auto) 0.04 K/uL (0.00-0.12); Nucleated RBC % (auto) 0.1 %; Platelet Count 168 K/uL (130-400); RDW Coefficient of Variation 15.6 % (11.5-14.5); RDW Standard Deviation 49.1 fL (36.4-46.3); Red Blood Count 4.55 M/uL (4.20-5.40); White Blood Count 27.26 K/ul (4.8-10.8)
[2023-08-19] MEDS ORDERED: SUCCINYLCHOLINE CHLORIDE 20 MG/ML 10 ML VIAL IV ONE (11:23)
[2023-08-19] MEDS ORDERED: MIDAZOLAM HCL 5 MG/ML 2ML VIAL IV ONE (11:23)
[2023-08-19] MEDS ORDERED: ETOMIDATE 2 MG/ML 20 ML VIAL IV ONE (11:23)
[2023-08-19 11:42] LABS: Basophils # (auto) 0.05 K/uL (0.00-0.20); Basophils % (auto) 0.2 %; Echinocytes 2+; Eosinophils # (auto) 0.01 K/uL (0.00-0.50); Immature Granulocytes % (auto) 1.8 %; Lymphocytes % (auto) 2.9 %; Monocytes # (auto) 0.75 K/uL (0.11-0.59); Monocytes % (auto) 2.8 %; Neutrophils # (auto) 25.15 K/uL (1.40-6.50); Neutrophils % (auto) 92.3 %; Polychromasia 1+
[2023-08-19] MEDS: INSULIN ASPART PER UNIT CHARGE SC SCH ×2 (12:29→17:11)
--- NOTE | 2023-08-19 12:32 | Electrocardiogram Report ---
Test Reason : Blood Pressure : / mmHG Vent. Rate : 096 BPM Atrial Rate : 096 BPM P-R Int : 128 ms QRS Dur : 070 ms QT Int : 352 ms P-R-T Axes : 040 -09 060 degrees QTc Int : 444 ms Normal sinus rhythm Possible Inferior infarct , age undetermined Poor R wave progression, consider anterior [place] vs. lead placement vs. LVH Abnormal ECG When compared with ECG of 10-AUG-2023 22:44, No significant change was found Confirmed by Nitish Garza ([id number]) on 08/19/2023 12:31:59 PM Referred By: REFERRED SELF Confirmed By:Nitish Garza
[2023-08-19] MEDS ORDERED: GLUCAGON FOR INJ 1 MG VIAL IM PRN (15:30)
[2023-08-19] MEDS ORDERED: DEXTROSE 50% 50 ML SYRINGE IV PRN (15:30)
[2023-08-19] MEDS ORDERED: CARBOHYDRATES FOR HYPOGLYCEMIA PO PRN (15:30)
[2023-08-19] MEDS ORDERED: GLUCOSE 40% GEL 15 GM TUBE PO PRN (15:30)
[2023-08-19] MEDS ORDERED: GLUCOSE 10 TAB/TUBE PO PRN (15:30)
[2023-08-19 17:43] LABS: Hematocrit (blood only) 33.5 % (37.0-47.0); Mean Corpuscular Hemoglobin 30.9 pg (25.0-34.0); Mean Corpuscular Hgb Conc 35.8 g/dL (32.0-36.0); Mean Corpuscular Volume 86.3 fL (80.0-100.0); Mean Platelet Volume 10.8 fL (9.4-12.4); Platelet Count 158 K/uL (130-400); RDW Coefficient of Variation 15.7 % (11.5-14.5); RDW Standard Deviation 48.1 fL (36.4-46.3); Red Blood Count 3.88 M/uL (4.20-5.40); White Blood Count 18.16 K/ul (4.8-10.8)
[2023-08-19 17:58] LABS: Basophils # (auto) 0.02 K/uL (0.00-0.20); Basophils % (auto) 0.1 %; Echinocytes 1+; Immature Granulocytes # (auto) 0.15 K/uL (0.01-0.20); Immature Granulocytes % (auto) 0.8 %; Lymphocytes % (auto) 4.4 %; Monocytes # (auto) 0.78 K/uL (0.11-0.59); Monocytes % (auto) 4.3 %; Neutrophils # (auto) 16.41 K/uL (1.40-6.50); Neutrophils % (auto) 90.4 %; Polychromasia 1+
[2023-08-19 21:27] LABS: Basophils # (auto) 0.03 K/uL (0.00-0.20); Basophils % (auto) 0.2 %; Hematocrit (blood only) 31.2 % (37.0-47.0); Hemoglobin 10.9 g/dl (12.0-16.0); Immature Granulocytes % (auto) 0.7 %; Lymphocytes # (auto) 1.11 K/uL (1.20-3.40); Lymphocytes % (auto) 7.3 %; Mean Corpuscular Hemoglobin 30.7 pg (25.0-34.0); Mean Corpuscular Hgb Conc 34.9 g/dL (32.0-36.0); Mean Corpuscular Volume 87.9 fL (80.0-100.0); Mean Platelet Volume 10.8 fL (9.4-12.4); Monocytes # (auto) 0.87 K/uL (0.11-0.59); Monocytes % (auto) 5.7 %; Neutrophils # (auto) 13.04 K/uL (1.40-6.50); Neutrophils % (auto) 86.1 %; Platelet Count 143 K/uL (130-400); RDW Coefficient of Variation 15.5 % (11.5-14.5); Red Blood Count 3.55 M/uL (4.20-5.40); White Blood Count 15.15 K/ul (4.8-10.8)
[2023-08-20] MEDS: INSULIN ASPART PER UNIT CHARGE SC SCH ×5 (00:37→23:07)
[2023-08-20] MEDS ORDERED: cefTRIAXone SODIUM 2,000 MG in DEXTROSE 5% 50 ML IV SCH (01:00)
[2023-08-20] MEDS: ALBUT/IPRATROP 3MG/0.5MG NEB 3 ML VIAL NEB SCH ×3 (02:50→11:48)
[2023-08-20] MEDS: PANTOprazole 40 MG in DEXTROSE 5% MINI-B 100 ML IV SCH ×4 (04:12→20:31)
[2023-08-20 04:24] LABS: Basophils # (auto) 0.05 K/uL (0.00-0.20); Basophils % (auto) 0.4 %; Eosinophils # (auto) 0.11 K/uL (0.00-0.50); Eosinophils % (auto) 0.9 %; Hematocrit (blood only) 29.5 % (37.0-47.0); Immature Granulocytes # (auto) 0.08 K/uL (0.01-0.20); Immature Granulocytes % (auto) 0.7 %; Lymphocytes # (auto) 1.65 K/uL (1.20-3.40); Lymphocytes % (auto) 13.6 %; Mean Corpuscular Hgb Conc 33.9 g/dL (32.0-36.0); Mean Corpuscular Volume 88.6 fL (80.0-100.0); Mean Platelet Volume 10.7 fL (9.4-12.4); Monocytes # (auto) 0.83 K/uL (0.11-0.59); Monocytes % (auto) 6.9 %; Neutrophils # (auto) 9.37 K/uL (1.40-6.50); Neutrophils % (auto) 77.5 %; Platelet Count 144 K/uL (130-400); RDW Coefficient of Variation 15.8 % (11.5-14.5); RDW Standard Deviation 49.4 fL (36.4-46.3); Red Blood Count 3.33 M/uL (4.20-5.40); White Blood Count 12.09 K/ul (4.8-10.8)
[2023-08-20 05:00] LABS: Albumin Level 2.7 gm/dl (3.4-5.0); Bilirubin Direct 0.2 mg/dl (0-0.2); Bilirubin,Total 0.7 mg/dl (0.2-1.0); Calcium 8.3 mg/dl (8.6-10.3); Creatinine Clr Calc Pharmacy 142.7 ml/min; Est GFR (African American) 127.2 ml/min; Est GFR (Non-African American) 109.7 ml/min; Magnesium 1.7 mg/dl (1.7-2.4); Phosphorus 2.3 mg/dl (2.5-4.9); Potassium 3.9 mmol/L (3.5-5.1); Total Protein 4.3 gm/dl (6.0-8.3)
[2023-08-20 05:07] LABS: INR 1.1 (0.9-1.1); Prothrombin Time 11.6 Seconds (9.0-12.0)
[2023-08-20 07:24] LABS: Toxic Vacuolation 1+
[2023-08-20] MEDS: OCTREOTIDE ACETATE 500 MCG in 0.9 % SODIUM CHLORIDE 100 ML IV SCH ×2 (08:17→18:33)
[2023-08-20] MEDS: FLUTICASONE FUROATE 200MCG 14 PUFFS/INHALER INH SCH (08:18)
[2023-08-20] MEDS: FOLIC ACID 1 MG in SYRINGE 9.8 ML IV SCH (08:19)
[2023-08-20] MEDS: THIAMINE HCL 100 MG in SYRINGE 9 ML IV SCH (08:19)
[2023-08-20] MEDS: UMECLIDINIUM/VILANTEROL 62.5/25MCG 7 PUFFS/INHALER INH SCH (08:20)
--- NOTE | 2023-08-20 10:32 | Critical Care Progress Note ---
Date of Service August 20, 2023 Assessment & Plan (1) Hemorrhagic shock: Plan: Reason Critically Ill: 58-year-old female presents to the ICU with gross hematemesis requiring intubation and massive transfusion. Now s/p emergent EGD where she received clipping and hemostatic spray. Neuro - Seizuresno prior history but patient was reported to have witnessed seizure in the emergency department and possibly another at home. Patient reportedly drinks alcohol daily and cannot rule out alcohol withdrawal seizure. CT head negative for acute intracranial findings. Patient is currently intubated and sedated with fentanyl and Versed drips. We will continue with thiamine and folic acid. She did receive loading dose of Keppra in the ED. Will likely need neurology consult once stable. Cardiac - Hemorrhagic shock: Resolved -Central line discontinued yesterday - A-line discontinued today Respiratory - Acute hypoxic and hypercapnic respiratory failurepatient with history of COPD and recent admission for COPD exacerbation: Near baseline GI - Acute upper GI bleedstatus post emergent EGD where she was found to have adherent clot in the gastric fundus with underlying pulsation and received 3 clips with hemostatic spray and no observed bleeding at the end of procedure. -GI recommendations to continue PPI, continue octreotide per GI recommendations -Plan for possible additional scope tomorrow per GI -Diet advanced by GI RENAL/LYTES - Metabolic acidosis in the setting of acute GI bleed. Resolved Relative low magnesium Hypophosphatemia -9 mmol K-Phos Relative low calcium - Foleystrict I's and O's ENDO - No history of diabetes or thyroid disease. ICU hyperglycemic protocol HEME - Acute blood loss anemiainitial hemoglobin 9.6 dropped to 5.3. -Has thus far received 7 units RBCs, 2 units FFP, 2 units cryo, 1 unit platelets. -Trend H&H Q8 today ID - Continue with empiric Rocephin. Follow-up blood cultures LINES/IV ACCESS - Peripheral IV DVT PROPHYLAXIS - SCDs, hold anticoagulation in the setting of GI bleed CODE STATUS: Full code Stable for downgrade out of ICU (2) Hematemesis: (3) Acute blood loss anemia: (4) Seizure: (5) COPD (chronic obstructive pulmonary disease): (6) Acute respiratory failure with hypoxia and hypercapnia: Admission and Anticipated Discharge Date Admission Date: August 19, 2023 Subjective no overnight events Physical Exam Physical Exam: General: Alert. nontoxic. Skin: Warm, dry, Head: Atraumatic Ears, nose, mouth and throat: airway patent Cardiovascular: Normal peripheral perfusion Respiratory: no respiratory distress Gastrointestinal: Non distended Musculoskeletal: No deformity Results & Data Results & Data Vital Signs (Past 12 Hours) Vital Signs Temp Pulse Pulse Resp BP Pulse Ox O2 Del Method 08/20/23 10:15 96 H 17 93 08/20/23 10:00 102 H 18 93 08/20/23 10:00 141/77 H 08/20/23 09:45 98 H 15 94 08/20/23 09:30 90 21 95 08/20/23 09:15 95 H 20 92 08/20/23 09:00 92 H 26 H 92 08/20/23 08:45 98 H 21 91 08/20/23 08:30 99 H 26 H 91 08/20/23 08:15 95 H 19 93 08/20/23 08:00 96 H 20 91 08/20/23 08:00 140/71 08/20/23 07:45 95 H 19 91 08/20/23 07:30 100 H 23 91 08/20/23 07:15 101 H 13 98 08/20/23 07:00 90 20 97 08/20/23 06:45 87 19 98 08/20/23 06:30 88 20 96 08/20/23 06:15 91 H 13 96 08/20/23 06:00 100 H 19 95 08/20/23 06:00 133/81 08/20/23 05:45 91 H 19 96 08/20/23 05:30 90 18 97 08/20/23 05:15 93 H 19 98 08/20/23 05:00 89 17 99 08/20/23 04:45 88 18 99 08/20/23 04:30 86 19 98 08/20/23 04:15 97 H 21 97 08/20/23 04:00 91 H 18 97 08/20/23 04:00 137/75 08/20/23 03:45 92 H 22 97 08/20/23 03:30 94 H 13 98 08/20/23 03:15 94 H 22 96 08/20/23 03:12 159/92 H 08/20/23 03:12 98 H 23 95 08/20/23 03:00 97 H 18 99 08/20/23 02:45 83 18 99 08/20/23 02:30 91 H 18 98 08/20/23 02:15 82 19 98 08/20/23 02:00 90 21 98 08/20/23 02:00 135/77 08/20/23 01:45 91 H 20 99 08/20/23 01:30 86 18 98 08/20/23 01:15 91 H 17 97 08/20/23 07:10 100 H 16 97 Nasal Cannula 08/20/23 02:50 103 H 18 98 Nasal Cannula 08/20/23 01:00 96 H 18 97 08/20/23 00:00 101 H 19 97 08/20/23 00:00 133/74 08/19/23 23:00 98 H 23 99 08/20/23 00:00 37 C 08/20/23 00:00 91 H 08/19/23 22:50 92 H 18 97 Nasal Cannula O2 Flow Rate 08/20/23 10:15 08/20/23 10:00 08/20/23 10:00 08/20/23 09:45 08/20/23 09:30 08/20/23 09:15 08/20/23 09:00 08/20/23 08:45 08/20/23 08:30 08/20/23 08:15 08/20/23 08:00 08/20/23 08:00 08/20/23 07:45 08/20/23 07:30 08/20/23 07:15 08/20/23 07:00 08/20/23 06:45 08/20/23 06:30 08/20/23 06:15 08/20/23 06:00 08/20/23 06:00 08/20/23 05:45 08/20/23 05:30 08/20/23 05:15 08/20/23 05:00 08/20/23 04:45 08/20/23 04:30 08/20/23 04:15 08/20/23 04:00 08/20/23 04:00 08/20/23 03:45 08/20/23 03:30 08/20/23 03:15 08/20/23 03:12 08/20/23 03:12 08/20/23 03:00 08/20/23 02:45 08/20/23 02:30 08/20/23 02:15 08/20/23 02:00 08/20/23 02:00 08/20/23 01:45 08/20/23 01:30 08/20/23 01:15 08/20/23 07:10 4 08/20/23 02:50 2 08/20/23 01:00 08/20/23 00:00 08/20/23 00:00 08/19/23 23:00 08/20/23 00:00 08/20/23 00:00 08/19/23 22:50 4 Critical Care Results & Data Vital Signs (Past 12 Hours) Vital Signs Temp Pulse Pulse Resp BP Pulse Ox O2 Del Method 08/20/23 10:15 96 H 17 93 08/20/23 10:00 102 H 18 93 08/20/23 10:00 141/77 H 08/20/23 09:45 98 H 15 94 08/20/23 09:30 90 21 95 08/20/23 09:15 95 H 20 92 08/20/23 09:00 92 H 26 H 92 08/20/23 08:45 98 H 21 91 08/20/23 08:30 99 H 26 H 91 08/20/23 08:15 95 H 19 93 08/20/23 08:00 96 H 20 91 08/20/23 08:00 140/71 08/20/23 07:45 95 H 19 91 08/20/23 07:30 100 H 23 91 08/20/23 07:15 101 H 13 98 08/20/23 07:00 90 20 97 08/20/23 06:45 87 19 98 08/20/23 06:30 88 20 96 08/20/23 06:15 91 H 13 96 08/20/23 06:00 100 H 19 95 08/20/23 06:00 133/81 08/20/23 05:45 91 H 19 96 08/20/23 05:30 90 18 97 08/20/23 05:15 93 H 19 98 08/20/23 05:00 89 17 99 08/20/23 04:45 88 18 99 08/20/23 04:30 86 19 98 08/20/23 04:15 97 H 21 97 08/20/23 04:00 91 H 18 97 08/20/23 04:00 137/75 08/20/23 03:45 92 H 22 97 10/10/23 03:30 94 H 13 98 08/20/23 03:15 94 H 22 96 08/20/23 03:12 159/92 H 08/20/23 03:12 98 H 23 95 08/20/23 03:00 97 H 18 99 08/20/23 02:45 83 18 99 08/20/23 02:30 91 H 18 98 08/20/23 02:15 82 19 98 08/20/23 02:00 90 21 98 08/20/23 02:00 135/77 08/20/23 01:45 91 H 20 99 08/20/23 01:30 86 18 98 08/20/23 01:15 91 H 17 97 08/20/23 07:10 100 H 16 97 Nasal Cannula 08/20/23 02:50 103 H 18 98 Nasal Cannula 08/20/23 01:00 96 H 18 97 08/20/23 00:00 101 H 19 97 08/20/23 00:00 133/74 08/19/23 23:00 98 H 23 99 08/20/23 00:00 37 C 08/20/23 00:00 91 H 08/19/23 22:50 92 H 18 97 Nasal Cannula O2 Flow Rate 08/20/23 10:15 08/20/23 10:00 08/20/23 10:00 08/20/23 09:45 08/20/23 09:30 08/20/23 09:15 08/20/23 09:00 08/20/23 08:45 08/20/23 08:30 08/20/23 08:15 08/20/23 08:00 08/20/23 08:00 08/20/23 07:45 08/20/23 07:30 08/20/23 07:15 08/20/23 07:00 08/20/23 06:45 08/20/23 06:30 08/20/23 06:15 08/20/23 06:00 08/20/23 06:00 08/20/23 05:45 08/20/23 05:30 08/20/23 05:15 08/20/23 05:00 08/20/23 04:45 08/20/23 04:30 08/20/23 04:15 08/20/23 04:00 08/20/23 04:00 08/20/23 03:45 08/20/23 03:30 08/20/23 03:15 08/20/23 03:12 08/20/23 03:12 08/20/23 03:00 08/20/23 02:45 08/20/23 02:30 08/20/23 02:15 08/20/23 02:00 08/20/23 02:00 08/20/23 01:45 08/20/23 01:30 08/20/23 01:15 08/20/23 07:10 4 08/20/23 02:50 2 08/20/23 01:00 08/20/23 00:00 08/20/23 00:00 08/19/23 23:00 08/20/23 00:00 08/20/23 00:00 08/19/23 22:50 4 Lab & Micro Results (Past 24 Hours) RBC 3.33 M/uL (4.20-5.40) L 08/20/23 WBC 12.09 K/ul (4.8-10.8) H 08/20/23 Hgb 10.0 g/dl (12.0-16.0) L 08/20/23 Hct 29.5 % (37.0-47.0) L 08/20/23 MCV 88.6 fL (80.0-100.0) 08/20/23 MCH 30.0 pg (25.0-34.0) 08/20/23 MCHC 33.9 g/dL (32.0-36.0) 08/20/23 RDW Standard Deviation 49.4 fL (36.4-46.3) H 08/20/23 RDW Coefficient of Variation 15.8 % (11.5-14.5) H 08/20/23 Plt Count 144 K/uL (130-400) 08/20/23 MPV 10.7 fL (9.4-12.4) 08/20/23 Nucleated Red Blood Cells % (auto) 0.1 % 08/19 Nucleated RBC Absolute Count (auto) 0.04 K/uL (0.00-0.12) 1 Neutrophils (%) (Auto) 77.5 % 08/20/23 Lymphocytes (%) (Auto) 13.6 % 08/20/23 Monocytes # (Auto) 0.83 K/uL (0.11-0.59) H 08/20/23 Eosinophils # (Auto) 0.11 K/uL (0.00-0.50) 08/20/23 Immature Granulocyte % (Auto) 0.7 % 08/20/23 Neutrophils # (Auto) 9.37 K/uL (1.40-6.50) H 08/20/23 Lymphocytes # (Auto) 1.65 K/uL (1.20-3.40) 08/20/23 Monocytes # (Auto) 0.83 K/uL (0.11-0.59) H 08/20/23 Eosinophils # (Auto) 0.11 K/uL (0.00-0.50) 08/20/23 Basophils # (Auto) 0.05 K/uL (0.00-0.20) 08/20/23 Immature Granulocyte # (Auto) 0.08 K/uL (0.01-0.20) 3 Polychromasia 1+ 08/19/23 Echinocytes 1+ 08/19/23 Na 139 mmol/L (136-145) 08/20/23 K 3.9 mmol/L (3.5-5.1) 08/20/23 Cl 113 mmol/L (98-107) H 08/20/23 CO2 24 mmol/L (21-32) 08/20/23 Anion Gap 2 (3-11) L 08/20/23 BUN 22 mg/dl (6-23) 08/20/23 Creatinine 0.44 mg/dl (0.6-1.2) L 08/20/23 Estimated GFR ( Amer) 127.2 ml/min 08/20/23 Estimated GFR (Non-Af Amer) 109.7 ml/min 08/20/23 BUN/Creatinine Ratio 50.0 (10-20) H 08/20/23 Glu 115 mg/dl (70-99(Fasting)) H 08/20/23 Ca 8.3 mg/dl (8.6-10.3) L 08/20/23 Phosphorus Level 2.3 mg/dl (2.5-4.9) L 08/20/23 Total Bilirubin 0.7 mg/dl (0.2-1.0) 08/20/23 Direct Bilirubin 0.2 mg/dl (0-0.2) 08/20/23 AST 18 U/L (13-39) 08/20/23 ALT 15 U/L (7-52) 08/20/23 Alkaline Phosphatase 35 U/L (34-104) 08/20/23 TP 4.3 gm/dl (6.0-8.3) L 08/20/23 Albumin 2.7 gm/dl (3.4-5.0) L 08/20/23 Mg 1.7 mg/dl (1.7-2.4) 08/20/23 03:38 Calcium Level 8.3 mg/dl (8.6-10.3) L 08/20/23 03:38 Ionized Calcium 1.10 mmol/L (1.12-1.32) L 08/19/23 12:05 Prothromb Time International Ratio 1.1 (0.9-1.1) 08/20/23 03:3 8 I & O Totals 24 Hours 08/19/23 08/20/23 08/21/23 06:59 06:59 06:59 Intake Total 6167.058 / 6167.058 1614.449 / 1614.449 200.5 / 200.5 Output Total 2701 / 2701 1552 / 1552 Balance 3466.058 / 3466.058 62.449 / 62.449 200.5 / 200.5 Cumulative 08/18/23 22:42 thru 08/20/23 08:50 Intake Total 7982.007 Output Total 4253 Balance 3729.007 RT Ventilator Mngmt (Last Documented) Ventilator Ordered Settings Ventilator Support Mode CPAP 08/19/23 10:45 Respiratory Rate 17 08/20/23 10:15 Ventilator Tidal Volume 380 08/19/23 08:00 Setting Minute Ventilation 8.4 08/19/23 10:45 Ventilator Positive Pressure 5 08/19/23 10:45 Support Setting Positive End Expiratory 5 08/19/23 10:45 Pressure Fraction of Inspired Oxygen 60 08/19/23 10:45 Machine Comment Vent setting changes per C. 08/19/23 04:45 [place], [employer] post-ABG. Ventilator - PT Measurements Respiratory Rate 17 Exhaled Tidal Volume 416 Minute Ventilation 8.4 Peak Inspiratory Airway 11 Pressure Plateau Pressure 27.5 Respiratory Cycle Inspiratory: 1:2.3 Expiratory Ratio Inspiratory Phase Time 0.60 End-Tidal CO2 24 Static Lung Compliance 19.59 Dynamic Lung Compliance 69.33 Normal Static Lung Compliance 49.00 Patient Measurements Comment RT recieved intubated patient in ICU at this time. Vent settings carried over from ED. Patient arrived with ETT size 7.0 placed 26cm@ lip. B/S auscultated equal bilaterally. Coding Level of Care Code 88295 SUB INP/OBS CARE 3/50MIN Diagnoses Hemorrhagic shock R57.8 Hematemesis K92.0 Acute blood loss anemia D62 Seizure R56.9 COPD (chronic obstructive pulmonary disease) J44.9 Acute respiratory failure with hypoxia and hypercapnia J96.01; J96.02
[2023-08-20] MEDS ORDERED: POTASSIUM PHOSPHATE 9 MMOL in SODIUM CHLORIDE 0.9% 250 ML IV ONE (10:45)
--- NOTE | 2023-08-20 10:50 | Gastroenterology Progress Note ---
Date of Service August 20, 2023 Assessment & Plan (1) Acute blood loss anemia: (2) Hematemesis: Plan 1. Continue clear liquid diet. NPO post midnight. 2. Continue PPI and Octreotide gtts. 3. EGD with Dr. Palomares tomorrow for further evaluation. 5. Continue supportive care. Admission and Anticipated Discharge Date Admission Date: August 19, 2023 Supervising Physician Co-Signing Physician Notes Agree with KENISHA Palma as above Abd: Soft, NT, ND, +BS Continue current therapy and supportive care Proceed with EGD tomorrow Subjective Patient has been extubated and is saturating well on 2 liters nasal cannula with plan to wean further. She is reporting no symptoms of abdominal pain or nausea. Per nursing, she did have a small amount of melena overnight but her H&H is stable. Tolerating clear liquid diet. Continues PPI and Octreotide ggts. Review of Systems Constitutional: no problem reported Gastrointestinal: as per Subjective / HPI Physical Exam Constitutional: WD/WN, vitals as above Respiratory: normal respiratory effort, lungs clear to auscultation Cardiovascular: Rate/Rhythm: regular rhythm and + tachycardic Gastrointestinal (Abdomen): normal bowel sounds, soft, nontender, no hepatosplenomegaly Psychiatric: A+Ox3, euthymic affect Results & Data Results & Data Vital Signs (Past 12 Hours) Vital Signs Temp Pulse Pulse Resp BP Pulse Ox O2 Del Method 08/20/23 10:15 96 H 17 93 08/20/23 10:00 102 H 18 93 08/20/23 10:00 141/77 H 08/20/23 09:45 98 H 15 94 08/20/23 09:30 90 21 95 08/20/23 09:15 95 H 20 92 08/20/23 09:00 92 H 26 H 92 08/20/23 08:45 98 H 21 91 08/20/23 08:30 99 H 26 H 91 08/20/23 08:15 95 H 19 93 08/20/23 08:00 96 H 20 91 08/20/23 08:00 140/71 08/20/23 07:45 95 H 19 91 08/20/23 07:30 100 H 23 91 08/20/23 07:15 101 H 13 98 08/20/23 07:00 90 20 97 08/20/23 06:45 87 19 98 10/10/23 06:30 88 20 96 08/20/23 06:15 91 H 13 96 08/20/23 06:00 100 H 19 95 08/20/23 06:00 133/81 08/20/23 05:45 91 H 19 96 08/20/23 05:30 90 18 97 08/20/23 05:15 93 H 19 98 08/20/23 05:00 89 17 99 08/20/23 04:45 88 18 99 08/20/23 04:30 86 19 98 08/20/23 04:15 97 H 21 97 08/20/23 04:00 91 H 18 97 08/20/23 04:00 137/75 08/20/23 03:45 92 H 22 97 08/20/23 03:30 94 H 13 98 08/20/23 03:15 94 H 22 96 08/20/23 03:12 159/92 H 08/20/23 03:12 98 H 23 95 08/20/23 03:00 97 H 18 99 08/20/23 02:45 83 18 99 08/20/23 02:30 91 H 18 98 08/20/23 02:15 82 19 98 08/20/23 02:00 90 21 98 08/20/23 02:00 135/77 08/20/23 01:45 91 H 20 99 08/20/23 01:30 86 18 98 08/20/23 01:15 91 H 17 97 08/20/23 07:10 100 H 16 97 Nasal Cannula 08/20/23 02:50 103 H 18 98 Nasal Cannula 08/20/23 01:00 96 H 18 97 08/20/23 00:00 101 H 19 97 08/20/23 00:00 133/74 08/19/23 23:00 98 H 23 99 08/20/23 00:00 37 C 08/20/23 00:00 91 H 08/19/23 22:50 92 H 18 97 Nasal Cannula O2 Flow Rate 08/20/23 10:15 08/20/23 10:00 08/20/23 10:00 08/20/23 09:45 08/20/23 09:30 08/20/23 09:15 08/20/23 09:00 08/20/23 08:45 08/20/23 08:30 08/20/23 08:15 08/20/23 08:00 08/20/23 08:00 08/20/23 07:45 08/20/23 07:30 08/20/23 07:15 08/20/23 07:00 08/20/23 06:45 08/20/23 06:30 08/20/23 06:15 08/20/23 06:00 08/20/23 06:00 08/20/23 05:45 08/20/23 05:30 08/20/23 05:15 08/20/23 05:00 08/20/23 04:45 08/20/23 04:30 08/20/23 04:15 08/20/23 04:00 08/20/23 04:00 08/20/23 03:45 08/20/23 03:30 08/20/23 03:15 08/20/23 03:12 08/20/23 03:12 08/20/23 03:00 08/20/23 02:45 08/20/23 02:30 08/20/23 02:15 08/20/23 02:00 08/20/23 02:00 08/20/23 01:45 08/20/23 01:30 08/20/23 01:15 08/20/23 07:10 4 08/20/23 02:50 2 08/20/23 01:00 08/20/23 00:00 08/20/23 00:00 08/19/23 23:00 08/20/23 00:00 08/20/23 00:00 08/19/23 22:50 4 PG Care Time/CCT Total # of Minutes Spent Total Time Spent with Patient: Total time spent is greater than 50% in coordination of care (as documented) at patient's floor/unit and/or counseling patient: Coding Level of Care Code 48884 SUB INP/OBS CARE 3/50MIN Diagnoses Acute blood loss anemia D62 Hematemesis K92.0
[2023-08-20] MEDS: fentaNYL citrate 2,500 MCG/250 ML BAG IV SCH (11:48)
[2023-08-20 13:00] LABS: Hematocrit (blood only) 30.8 % (37.0-47.0); Hemoglobin 10.7 g/dl (12.0-16.0)
--- NOTE | 2023-08-20 18:05 | Hospitalist Progress Note ---
Date of Service August 20, 2023 Assessment & Plan (1) Hematemesis: Plan: Upper GI bleedcontinue octreotide and Protonix, continue ceftriaxone for now. For repeat EGD tomorrow. Fortunately bleeding clinically appears to have stopped (2) Acute blood loss anemia: Plan: Now stable, but status post massive transfusion of 8 units packed red cells (as well as FFP and platelets as well as cryoprecipitate due to the massive transfusion)continue to follow clinically, more stable now. (3) COPD (chronic obstructive pulmonary disease): Plan: Breathing appears to be improving. Down to 4 L at the time I see her, 2 L at the time of this note (4) Daily consumption of alcohol: Plan: I would do wonder if alcohol abuse is part of the cause for her peptic ulcer disease and GI bleedingwill await follow-up EGD, hopefully little bit to have better visualization, but definitely will need to discuss with patient. Continue thiamine and folate. No significant signs of withdrawal at this time (5) Seizure: Plan: No history of prior. Possibly secondary to EtOH withdrawal. Patient has been given Keppra 1gm IV -Continue seizure precautions no follow-up seizures noted (6) DVT prophylaxis: Plan: Pharmacologic prophylaxis contraindicated due to upper GI bleeding; mechanical prophylaxis of dubious benefit and possible harm (Thal/skin breakdown)encourage ambulation as best as possible. (7) Discharge planning issues: Plan: Stable for transfer to PCU, ultimate disposition after hospitalization will depend much more on her ability to ambulate and take care of herself once she is past the acute phase of all of this. Admission and Anticipated Discharge Date Admission Date: August 19, 2023 Subjective Patient seen right after eating clear liquids for lunch. Everything went down well no pain or nausea, she just did not particularly like the food. No new complaints. No overt ongoing bleeding. ICU and GI input greatly appreciated. Updated patient and family to the best my ability. Review of Systems Review of Systems: All systems reviewed & are unremarkable except as noted in HPI & below Physical Exam Physical Exam: In general she is awake and alert pleasant no distress. HEENT normocephalic atraumatic mucous membranes moist. Breathing unlabored no accessory muscle use good effort. Skin shows no rashes no pallor or icterus. Neuro without focal d eficits. Results & Data Results & Data Vital Signs (Past 12 Hours) Vital Signs Pulse Pulse Resp BP Pulse Ox O2 Del Method O2 Flow Rate 08/20/23 14:59 Nasal Cannula 2 08/20/23 10:15 96 H 17 93 08/20/23 10:00 102 H 18 93 08/20/23 10:00 141/77 H 08/20/23 09:45 98 H 15 94 08/20/23 09:30 90 21 95 08/20/23 09:15 95 H 20 92 08/20/23 09:00 92 H 26 H 92 08/20/23 08:45 98 H 21 91 08/20/23 08:30 99 H 26 H 91 08/20/23 08:15 95 H 19 93 08/20/23 08:00 96 H 20 91 08/20/23 08:00 140/71 08/20/23 07:45 95 H 19 91 08/20/23 07:30 100 H 23 91 08/20/23 07:15 101 H 13 98 08/20/23 07:00 90 20 97 08/20/23 06:45 87 19 98 08/20/23 06:30 88 20 96 08/20/23 06:15 91 H 13 96 08/20/23 07:10 100 H 16 97 Nasal Cannula 4 PG Care Time/CCT Total # of Minutes Spent Total Time Spent with Patient: Total time spent is greater than 50% in coordination of care (as documented) at patient's floor/unit and/or counseling patient: Coding Level of Care Code 67598 SUB INP/OBS CARE 2/35MIN Diagnoses Hematemesis K92.0 Acute blood loss anemia D62 COPD (chronic obstructive pulmonary disease) J44.9 Daily consumption of alcohol Z78.9 Seizure R56.9 DVT prophylaxis Z29.9 Discharge planning issues Z02.9
[2023-08-20 21:18] LABS: Hematocrit (blood only) 31.4 % (37.0-47.0); Hemoglobin 10.8 g/dl (12.0-16.0)
[2023-08-21] MEDS: cefTRIAXone SODIUM 2,000 MG in DEXTROSE 5 % MINI-B 50 ML IV SCH (00:37)
[2023-08-21] MEDS: OCTREOTIDE ACETATE 500 MCG in 0.9 % SODIUM CHLORIDE 100 ML IV SCH ×2 (00:38→12:34)
[2023-08-21] MEDS: PANTOprazole 40 MG in DEXTROSE 5% MINI-B 100 ML IV SCH ×5 (00:38→23:34)
[2023-08-21] MEDS: ALBUTEROL HFA 8 GM INHALER INH PRN (01:07)
[2023-08-21] MEDS: INSULIN ASPART PER UNIT CHARGE SC SCH ×5 (05:46→20:58)
[2023-08-21 06:49] LABS: Basophils % (auto) 0.8 %; Eosinophils # (auto) 1.02 K/uL (0.00-0.50); Eosinophils % (auto) 8.2 %; Hematocrit (blood only) 27.3 % (37.0-47.0); Hemoglobin 9.8 g/dl (12.0-16.0); Immature Granulocytes # (auto) 0.07 K/uL (0.01-0.20); Immature Granulocytes % (auto) 0.6 %; Lymphocytes # (auto) 1.19 K/uL (1.20-3.40); Lymphocytes % (auto) 9.6 %; Mean Corpuscular Hemoglobin 31.7 pg (25.0-34.0); Mean Corpuscular Hgb Conc 35.9 g/dL (32.0-36.0); Mean Corpuscular Volume 88.3 fL (80.0-100.0); Mean Platelet Volume 10.6 fL (9.4-12.4); Monocytes # (auto) 0.76 K/uL (0.11-0.59); Monocytes % (auto) 6.1 %; Neutrophils # (auto) 9.28 K/uL (1.40-6.50); Neutrophils % (auto) 74.7 %; Platelet Count 145 K/uL (130-400); RDW Coefficient of Variation 15.7 % (11.5-14.5); RDW Standard Deviation 50.4 fL (36.4-46.3); Red Blood Count 3.09 M/uL (4.20-5.40); White Blood Count 12.42 K/ul (4.8-10.8)
[2023-08-21] MEDS: UMECLIDINIUM/VILANTEROL 62.5/25MCG 7 PUFFS/INHALER INH SCH (08:30)
[2023-08-21] MEDS: FLUTICASONE FUROATE 200MCG 14 PUFFS/INHALER INH SCH (08:30)
--- NOTE | 2023-08-21 08:47 | Anesthesiology Consultation ---
Date of Service August 21, 2023 Assessment & Plan (1) Encounter for pre-operative examination: Chart Review Chart Review: Acceptable Risk for Surgery, Patient NOT seen in Pre Admission Testing and panel cutter initiated Consults Requested none Proposed Anesthesia Anesthesia Type: MAC History Surgery Operation Date: 08/19/23 03:15 Proposed Procedures p Esophagogastroduodenoscopy - Gaby Pearce MD Operation Date: 08/21/23 17:15 Proposed Procedures p Esophagogastroduodenoscopy Dr Palomares - Cristi Palomares, Height/Weight Height: 5 ft 6 in Weight: 71.8 kg Allergies Allergy/AdvReac Type Severity Reaction Status Date / Time animal dander Allergy Intermediate asthma Verified 08/18/23 23:59 related symptoms grass pollen-perennial rye, Allergy Intermediate asthma Verified 08/18/23 23:59 standar related sx mold Allergy Intermediate asthma Verified 08/18/23 23:59 related sx Medications Home Medications Medication Instructions Recorded Confirmed Last Taken acetaminophen 500 mg tablet 1,000 mg PO DIRECTED PRN 03/05/23 08/18/23 03/14/23 (Tylenol Extra Strength) PAIN/FEVER ipratropium 0.5 mg-albuterol 3 mg 3 ml inhalation QID PRN shortness 07/17/23 08/19/23 Unknown (2.5 mg base)/3 mL nebulization of breath #180 mL soln fluticasone fur. 200 mcg-umeclid 1 inh inhalation DAILY #28 ea 08/13/23 08/19/23 Unknown 62.5 mcg-vilant 25 mcg inhalat.powder (Trelegy Ellipta) pantoprazole 40 mg tablet,delayed 40 mg PO DAILY #30 tabs 08/13/23 08/19/23 Unknown release (Protonix) albuterol sulfate 90 mcg/actuation 1 puff inhalation QID PRN 08/19/23 08/19/23 Unknown aerosol inhaler Shortness Of Breath Or Wheezing Active Medications Generic Name Dose Route Start Last Admin Trade Name Freq PRN Reason Stop Dose Admin Albuterol 1 puffs 08/20/23 19:43 08/21/23 01:07 Albuterol Hfa 8 Gm Inhaler INH 09/19/23 19:42 1 puffs QID PRN Administration Shortness Of Breath Or Wheezing Fluticasone Furoate 1 puffs 08/19/23 09:00 08/21/23 08:30 Fluticasone Furoate 200mcg 14 Puffs/Inhaler INH 09/18/23 08:59 1 puffs DAILY RJ Administration Pantoprazole Sodium 40 mg/ 100 mls @ 20 mls/hr 08/19/23 00:45 08/21/23 05:41 Dextrose IV 09/18/23 00:44 8 mg/hr Q5H RJ 20 mls/hr Administration 8 MG/HR Octreotide Acetate 500 mcg/ 100.5 mls @ 10.05 mls/hr 08/19/23 01:30 08/21/23 00:38 Sodium Chloride IV 09/18/23 01:29 50.25 mcg/hr .Q10H RJ 10.1 mls/hr Administration 50 MCG/HR Ceftriaxone Sodium 2,000 mg/ 50 mls @ 100 mls/hr 08/21/23 00:00 08/21/23 01:08 Dextrose IV 08/28/23 00:29 Infused Q24H RJ Infusion Protocol Insulin Aspart 0 units 08/19/23 12:00 08/21/23 05:46 Insulin Aspart Per Unit Charge SC 09/18/23 11:59 Not Given Q6 RJ Umeclidinium/Vilanterol 1 puffs 08/19/23 09:00 08/21/23 08:30 Umeclidinium/Vilanterol 62.5/25mcg 7 Puffs/Inhaler INH 09/18/23 08:59 1 puffs DAILY RJ Administration Past Medical History Medical History (Updated 08/21/23 @ 08:52 by Minesh Han MD) Acute respiratory failure with hypoxia and hypercapnia Allergic rhinitis due to animal dander Allergic rhinitis due to dust Allergic rhinitis due to other allergen Allergic rhinitis due to pollen Asthma Asthma with status asthmaticus Atopic dermatitis Colon cancer screening COPD (chronic obstructive pulmonary disease) COPD with exacerbation Encounter for pre-operative examination Extrinsic asthma Hypoxemia Murmur PNA (pneumonia) Respiratory failure Past Family History Family History Sister Asthma Allergic rhinitis Past Surgical History Surgical History History of surgical removal of ganglion cyst Social History Smoking Status: Former smoker tobacco type: cigarettes Smoking cigarettes per day: 5-20 per day Do You Dip or Chew Tobacco: No Hx Alcohol Use: Yes Alcohol type: wine alcohol intake frequency: a few times a month Hx Substance Use: No substance use type: does not use Physical Exam Vital Signs Last Vital Signs Temp 37.0 C 08/21/23 08:14 Pulse 84 08/21/23 08:14 Resp 19 08/21/23 08:14 BP 130/75 08/21/23 08:14 Pulse Ox 90 08/21/23 08:14 O2 Del Method Nasal Cannula 08/21/23 08:14 O2 Flow Rate 4 08/21/23 08:14 FiO2 60 08/19/23 10:45 Testing Laboratory Results 08/21/23 06:01 08/20/23 03:38 PT 11.6 Seconds (9.0-12.0) 08/20/23 03:38 INR 1.1 (0.9-1.1) 08/20/23 03:38 Urine Color Yellow 08/19/23 01:15 Urine Appearance Cloudy (Clear) A 08/19/23 01:15 Urine pH 5.5 (4.5-7.5) 08/19/23 01:15 Ur Specific [place] 1.017 (1.000-1.030) 08/19/23 01:15 Urine Protein 2+ (Negative) H 08/19/23 01:15 Urine Glucose (UA) 3+ (Negative) H 08/19/23 01:15 Urine Ketones Negative (Negative) 08/19/23 01:15 Urine Nitrite Negative (Negative) 08/19/23 01:15 Ur Leukocyte Esterase Negative (Negative) 08/19/23 01:15 Urine WBC (Auto) 10-30 /hpf (0-5) H 08/19/23 01:15 Urine RBC (Auto) 0-4 /hpf (0-4) 08/19/23 01:15 U Hyaline Cast (Auto) 10-30 /lpf (0-5) H 08/19/23 01:15 U Epithel Cells (Auto) >30 /lpf (0-5) H 08/19/23 01:15 Urine Bacteria (Auto) 1+ (Negative) H 08/19/23 01:15 Blood Type A Positive 08/19/23 00:57 Antibody Screen NEGATIVE 08/19/23 00:57 08/21/23 08/20/23 05:45 23:05 POC Glucose 135 H 139 H Electrocardiogram Date: 08/18/23 Test Reason : Blood Pressure : / mmHG Vent. Rate : 096 BPM Atrial Rate : 096 BPM P-R Int : 128 ms QRS Dur : 070 ms QT Int : 352 ms P-R-T Axes : 040 -09 060 degrees QTc Int : 444 ms Normal sinus rhythm Possible Inferior infarct , age undetermined Poor R wave progression, consider anterior GA vs. lead placement vs. LVH Abnormal ECG When compared with ECG of 10-AUG-2023 22:44, No significant change was found Confirmed by Nitish Garza ([id number]) on 08/19/2023 12:31:59 PM Chest X-Ray XR chest 1V portable CLINICAL HISTORY: intubation COMPARISON STUDY: Chest radiograph August 10, 2023. Chest CT August 11, 2023. FINDINGS: Tip of endotracheal tube is 3.9 cm above the ashley. Tip of nasogastric tube is within the body of the stomach. There are are mild bibasilar opacities. No evidence for pulmonary edema. Cardiomediastinal silhouette is stable. IMPRESSION: 1. Satisfactory positioning of the endotracheal and nasogastric tubes. 2. Mild bibasilar opacities which could reflect pneumonia, aspiration or atelectasis. Echocardiogram Date: 03/06/23 EF: 60-65 LV Function: normal RWMA: + none Other Findings: + LVH (mild)
--- NOTE | 2023-08-21 09:05 | History & Physical Bridge Note ---
Date of Service August 21, 2023 History & Physical Bridge Note I have examined the patient, reviewed the History & Physical and in the interval since the performance of the History & Physical I have noted the following changes of clinical significance: Hemoglobin did drop from 10.8 to 9.8 overnight but patient denies any melanotic stools. No abdominal pain, n/v, or other GI complaints. NPO at present. PE: A&Ox3. Lungs CTA bilaterally. RRR. Abdomen soft, nontender. Normal bowel sounds. A/P: Acute blood loss anemia with UGIB associated adherent clot. -NPO. -Proceed with repeat EGD by Dr. Palomares today. -Continue PPI ggt. -Further recommendations pending results of testing. Supervising Physician Co-Signing Physician Notes Agree with KENISHA Palma as above Abd: Soft, NT, ND, +BS Continue current therapy and supportive care Proceed with EGD now
[2023-08-21] MEDS ORDERED: LIDOCAINE 2% 2 ML VIAL/AMP(20MG/ML) INFIL ONE (09:28)
[2023-08-21] MEDS ORDERED: ALBUT/IPRATROP 3MG/0.5MG NEB 3 ML VIAL INH STA (09:28)
[2023-08-21] MEDS ORDERED: PROPOFOL IV EMULSION 10 MG/ML 20 ML VIAL IV ONE ×2 (09:28→10:35)
--- NOTE | 2023-08-21 10:51 | Communication Note ---
Date of Service: August 21, 2023 Patient is status post EGD by Dr. Palmoares today with findings of duodenal ulcer with visible vessel s/p endoscopic hemostasis. Recommend continuing Protonix and Octreotide ggts for 72 hours. Okay for clear liquid diet today, slow advancement as tolerated.
--- NOTE | 2023-08-21 10:54 | GI REPORT ---
Patient Name: Chantell Garcia Procedure Date: 08/21/2023 9:29 AM Date of : 1965 Admit Type: Inpatient Age: 58 Gender: Female Attending MD: Cristi Palomares DO, Procedure: Upper GI endoscopy Providers: Cristi Palomares DO Referring MD: Neftali Peña Indications: Acute post hemorrhagic anemia, Melena Medicines: Monitored Anesthesia Care Complications: No immediate complications. Estimated Blood Loss: Estimated blood loss: none. Procedure: Pre-Anesthesia Assessment: - Prior to the procedure, a History and Physical was performed, and patient medications and allergies were reviewed. The patient's tolerance of previous anesthesia was also reviewed. The risks and benefits of the procedure and the sedation options and risks were discussed with the patient. All questions were answered, and informed consent was obtained. Prior Anticoagulants: The patient has taken no anticoagulant or antiplatelet agents. ASA Grade Assessment: III - A patient with severe systemic disease. After reviewing the risks and benefits, the patient was deemed in satisfactory condition to undergo the procedure. After obtaining informed consent, the endoscope was passed under direct vision. Throughout the procedure, the patient's blood pressure, pulse, and oxygen saturations were monitored continuously. The Endoscope was introduced through the mouth, and advanced to the second part of duodenum. The upper GI endoscopy was accomplished without difficulty. The patient tolerated the procedure well. Findings: The esophagus was normal. A small hiatal hernia was present. Localized mild inflammation characterized by erythema was found in the gastric antrum. Biopsies were taken with a cold forceps for histology. One oozing cratered duodenal ulcer with a visible vessel was found in the duodenal bulb. The lesion was 30 mm in largest dimension. Area was successfully injected with 5 mL of a 0.4 mg/mL solution of epinephrine for hemostasis. Fulguration to ablate the lesion by heater probe was successful. Impression: - Normal esophagus. - Small hiatal hernia. - Gastritis. Biopsied. - Oozing duodenal ulcer with a visible vessel. Injected. Treated with a heater probe. Recommendation: - Return patient to ICU for ongoing care. - Clear liquid diet. - Continue present medications. - Await pathology results. Cristi Palomares DO 08/21/2023 10:54:01 AM This report has been signed electronically. Note Initiated On: 08/21/2023 9:29 AM Number of Addenda: 0 I attest to the content of the Intraoperative Record and orders documented therein, exceptions below {[id number]}
--- NOTE | 2023-08-21 12:36 | Anesthesiology Progress Note ---
Date of Service August 21, 2023 Anesthesia Post Procedure Vital Signs Vital Signs: Temp Pulse Pulse Pulse Resp BP BP 08/21/23 12:34 36.4 C L 76 19 148/76 H 08/21/23 12:10 08/21/23 07:08 74 08/21/23 11:23 78 130/70 08/21/23 11:03 75 16 159/84 H 08/21/23 10:48 74 16 151/85 H 08/21/23 10:33 85 16 125/77 08/21/23 09:38 76 16 08/21/23 09:09 37.2 C 87 18 142/74 H 08/21/23 08:14 37.0 C 84 19 130/75 08/21/23 03:57 37.0 C 88 20 123/72 08/21/23 01:09 88 18 08/20/23 23:11 82 08/20/23 23:03 37.0 C 87 20 146/75 H 08/20/23 22:53 08/20/23 21:18 08/20/23 21:00 96 H 21 08/20/23 20:35 89 25 H 08/20/23 20:35 37.0 C 153/78 H 08/20/23 16:03 87 08/20/23 16:15 36.5 C 08/20/23 18:30 83 29 H 08/20/23 18:15 84 29 H 08/20/23 18:00 83 27 H 08/20/23 17:45 86 27 H 08/20/23 17:30 90 29 H 08/20/23 17:21 92 H 31 H 08/20/23 16:30 93 H 16 08/20/23 16:15 78 23 08/20/23 16:00 83 23 08/20/23 16:00 138/86 08/20/23 15:45 77 23 08/20/23 15:30 81 25 H 08/20/23 15:15 89 22 08/20/23 15:00 88 17 08/20/23 14:45 85 26 H 08/20/23 14:30 86 24 08/20/23 14:20 139/74 08/20/23 14:20 84 25 H 08/20/23 14:15 90 22 08/20/23 14:00 82 22 08/20/23 13:45 85 25 H 08/20/23 13:30 90 30 H 08/20/23 13:15 86 27 H 08/20/23 13:00 90 17 08/20/23 12:45 91 H 24 08/20/23 14:59 Pulse Ox O2 Del Method O2 Flow Rate 08/21/23 12:34 93 Room Air 08/21/23 12:10 Nasal Cannula 2 08/21/23 07:08 08/21/23 11:23 08/21/23 11:03 92 Nasal Cannula 08/21/23 10:48 94 Nasal Cannula 4 08/21/23 10:33 92 Nasal Cannula 4 08/21/23 09:38 94 Nasal Cannula 4 08/21/23 09:09 92 Nasal Cannula 4 08/21/23 08:14 90 Nasal Cannula 4 08/21/23 03:57 90 Nasal Cannula 4.0 08/21/23 01:09 89 L 2 08/20/23 23:11 08/20/23 23:03 93 Nasal Cannula 2.0 08/20/23 22:53 Nasal Cannula 2 08/20/23 21:18 Nasal Cannula 2 08/20/23 21:00 08/20/23 20:35 92 Nasal Cannula 2 08/20/23 20:35 08/20/23 16:03 08/20/23 16:15 08/20/23 18:30 08/20/23 18:15 08/20/23 18:00 08/20/23 17:45 08/20/23 17:30 08/20/23 17:21 08/20/23 16:30 91 08/20/23 16:15 92 08/20/23 16:00 93 08/20/23 16:00 08/20/23 15:45 92 08/20/23 15:30 93 08/20/23 15:15 92 08/20/23 15:00 92 08/20/23 14:45 93 08/20/23 14:30 92 08/20/23 14:20 08/20/23 14:20 91 08/20/23 14:15 91 08/20/23 14:00 94 08/20/23 13:45 93 08/20/23 13:30 93 08/20/23 13:15 92 08/20/23 13:00 93 08/20/23 12:45 93 08/20/23 14:59 Nasal Cannula 2 Transfer of Care Handoff Completed per policy Notes Mental Status: alert / awake / arousable and participated in evaluation Patient Amnestic to Procedure: Yes Nausea / Vomiting: adequately controlled Pain: adequately controlled Airway Patency, RR, SpO2: stable & adequate BP & HR: stable & adequate Hydration State: stable & adequate Anesthetic Complications: no major complications apparent
[2023-08-21 16:12] LABS: 7-Aminoclonaz, Confirm NEGATIVE ng/mL (<25); Hydro-Alp Ur, GC/MS NEGATIVE ng/mL (<25); Hydroxyethylflurazepam, Conf NEGATIVE ng/mL (<50); Hydroxymidazolam Ur, GC/MS >2000 ng/mL (<50); Hydroxytriazolam NEGATIVE ng/mL (<50); Lorazepam, Ur GC/MS 107 ng/mL (<50); Nordiazepam, Confirm NEGATIVE ng/mL (<50); Oxazepam Ur, GC/MS NEGATIVE ng/mL (<50); Temazepam, Confirm NEGATIVE ng/mL (<50)
[2023-08-21] MEDS ORDERED: Nursing to Pharmacy Communication SCH (19:00)
--- NOTE | 2023-08-21 19:10 | Hospitalist Progress Note ---
Date of Service August 21, 2023 Assessment & Plan (1) Hematemesis: Plan: Upper GI bleedcontinue octreotide and Protonix, continue ceftriaxone for now. duodenal ulcerrepeat scope and cautery. Appears to be stable (2) Acute blood loss anemia: Plan: Now stable, but status post massive transfusion of 8 units packed red cells (as well as FFP and platelets as well as cryoprecipitate due to the massive transfusion)continue to follow clinically, appears to be stable (3) COPD (chronic obstructive pulmonary disease): Plan: Breathing appears to be improving. down to 2L (4) Daily consumption of alcohol: Plan: I would do wonder if alcohol abuse is part of the cause for her peptic ulcer disease and GI bleedingdenies much EtOH of significance now and is willing to abstain. no nsaids. discussed stress management. (5) Seizure: Plan: No history of prior. ?secondary to EtOH withdrawal. Patient has been given Keppra 1gm IV -Continue seizure precautions no follow-up seizures noted (6) DVT prophylaxis: Plan: Pharmacologic prophylaxis contraindicated due to upper GI bleeding; mechanical prophylaxis of dubious benefit and possible harm (Thal/skin breakdown)encourage ambulation as best as possible. (7) Discharge planning issues: Plan: Stable on PCU, ultimate disposition after hospitalization will depend much more on her ability to ambulate and take care of herself once she is past the acute phase of all of this. Admission and Anticipated Discharge Date Admission Date: August 19, 2023 Subjective feeling Okay. No pain. Discussed EGD. She notes that she only drinks maybe a few beers at the most a few days a week. No NSAIDs. Relates high stress. Review of Systems Review of Systems: All systems reviewed & are unremarkable except as noted in HPI & below Physical Exam Physical Exam: In general she is awake and alert pleasant no distress. HEENT normocephalic atraumatic mucous membranes moist. Breathing unlabored no accessory muscle use good effort. Skin shows no rashes no pallor or icterus. Neuro without focal deficits Results & Data Results & Data Vital Signs (Past 12 Hours) Vital Signs Temp Pulse Pulse Pulse Resp BP Pulse Ox 08/21/23 15:14 74 08/21/23 15:20 97.9 F 79 16 151/80 H 93 08/21/23 12:34 97.5 F L 76 19 148/76 H 93 08/21/23 12:10 08/21/23 07:08 74 08/21/23 11:23 78 130/70 08/21/23 11:03 75 16 159/84 H 92 08/21/23 10:48 74 16 151/85 H 94 08/21/23 10:33 85 16 125/77 92 08/21/23 09:38 76 16 94 08/21/23 09:09 99.0 F 87 18 142/74 H 92 08/21/23 08:14 98.6 F 84 19 130/75 90 O2 Del Method O2 Flow Rate 08/21/23 15:14 08/21/23 15:20 Nasal Cannula 2 08/21/23 12:34 Room Air 08/21/23 12:10 Nasal Cannula 2 08/21/23 07:08 08/21/23 11:23 08/21/23 11:03 Nasal Cannula 08/21/23 10:48 Nasal Cannula 4 08/21/23 10:33 Nasal Cannula 4 08/21/23 09:38 Nasal Cannula 4 08/21/23 09:09 Nasal Cannula 4 08/21/23 08:14 Nasal Cannula 4 PG Care Time/CCT Total # of Minutes Spent Total Time Spent with Patient: Total time spent is greater than 50% in coordination of care (as documented) at patient's floor/unit and/or counseling patient: Coding Level of Care Code 22984 SUB INP/OBS CARE 3/50MIN Diagnoses Hematemesis K92.0 Acute blood loss anemia D62 COPD (chronic obstructive pulmonary disease) J44.9 Daily consumption of alcohol Z78.9 Seizure R56.9 DVT prophylaxis Z29.9 Discharge planning issues Z02.9
[2023-08-22] MEDS ORDERED: Nursing to Pharmacy Communication SCH (00:45)
[2023-08-22] MEDS: cefTRIAXone SODIUM 2,000 MG in DEXTROSE 5 % MINI-B 50 ML IV SCH (01:05)
[2023-08-22] MEDS: OCTREOTIDE ACETATE 500 MCG in 0.9 % SODIUM CHLORIDE 100 ML IV SCH ×3 (01:13→21:15)
[2023-08-22] MEDS: PANTOprazole 40 MG in DEXTROSE 5% MINI-B 100 ML IV SCH ×5 (04:25→19:46)
[2023-08-22 07:10] LABS: Basophils # (auto) 0.04 K/uL (0.00-0.20); Basophils % (auto) 0.5 %; Eosinophils # (auto) 0.97 K/uL (0.00-0.50); Eosinophils % (auto) 11.3 %; Hematocrit (blood only) 26.7 % (37.0-47.0); Hemoglobin 9.4 g/dl (12.0-16.0); Immature Granulocytes # (auto) 0.04 K/uL (0.01-0.20); Immature Granulocytes % (auto) 0.5 %; Lymphocytes # (auto) 1.25 K/uL (1.20-3.40); Lymphocytes % (auto) 14.5 %; Mean Corpuscular Hemoglobin 30.8 pg (25.0-34.0); Mean Corpuscular Hgb Conc 35.2 g/dL (32.0-36.0); Mean Corpuscular Volume 87.5 fL (80.0-100.0); Mean Platelet Volume 10.4 fL (9.4-12.4); Monocytes # (auto) 0.64 K/uL (0.11-0.59); Monocytes % (auto) 7.4 %; Neutrophils # (auto) 5.67 K/uL (1.40-6.50); Neutrophils % (auto) 65.8 %; Platelet Count 156 K/uL (130-400); RDW Coefficient of Variation 14.7 % (11.5-14.5); RDW Standard Deviation 46.6 fL (36.4-46.3); Red Blood Count 3.05 M/uL (4.20-5.40); White Blood Count 8.61 K/ul (4.8-10.8)
[2023-08-22] MEDS: INSULIN ASPART PER UNIT CHARGE SC SCH ×4 (08:32→21:15)
[2023-08-22] MEDS: UMECLIDINIUM/VILANTEROL 62.5/25MCG 7 PUFFS/INHALER INH SCH (08:32)
[2023-08-22] MEDS: FLUTICASONE FUROATE 200MCG 14 PUFFS/INHALER INH SCH (08:33)
--- NOTE | 2023-08-22 09:52 | Hospitalist Progress Note ---
Date of Service August 22, 2023 Assessment & Plan (1) Hematemesis: Plan: Upper GI bleedcontinue octreotide and Protonix, continue ceftriaxone for now. duodenal ulcerrepeat scope and cautery done 08/21. overall stable/improving - ok for med/surg. encouraged her to increase activity (2) Acute blood loss anemia: Plan: Now stable, but status post massive transfusion of 8 units packed red cells (as well as FFP and platelets as well as cryoprecipitate due to the massive transfusion)continue to follow clinically, appears to be stable, follow clinically follow Hgb (3) COPD (chronic obstructive pulmonary disease): Plan: Breathing appears to be improving. down to 2L, encourage activity (4) Daily consumption of alcohol: Plan: I would do wonder if alcohol abuse is part of the cause for her peptic ulcer disease and GI bleedingdenies much EtOH of significance now and is willing to abstain. no nsaids. discussed stress management. no s/s withdrawal (5) Seizure: Plan: No history of prior. ?secondary to EtOH withdrawal. Patient has been given Keppra 1gm IV -Continue seizure precautions no follow-up seizures noted (6) DVT prophylaxis: Plan: Pharmacologic prophylaxis contraindicated due to upper GI bleeding; mechanical prophylaxis of dubious benefit and possible harm (Thal/skin breakdown)encourage ambulation as best as possible. (7) Discharge planning issues: Plan: transfer to med/surg; ultimate disposition after hospitalization will depend much more on her ability to ambulate and take care of herself once she is past the acute phase of all of this. Admission and Anticipated Discharge Date Admission Date: August 19, 2023 Subjective feeling ok tolerating clears no pain no nausea hasn't been up much Review of Systems Review of Systems: All systems reviewed & are unremarkable except as noted in HPI & below Physical Exam Physical Exam: gen aao pleasant nad heent nc at mmm breathing unlabored no accessory muscles good effort skin no rashes no pallor or icterus neuro no focal deficits Results & Data Results & Data Vital Signs (Past 12 Hours) Vital Signs Temp Pulse Pulse Resp BP Pulse Ox O2 Del Method 08/22/23 09:05 98.4 F 72 18 119/68 91 Room Air 08/22/23 08:16 71 08/22/23 03:18 98.1 F 75 18 151/82 H 91 Nasal Cannula 08/22/23 00:14 73 08/21/23 23:32 99.1 F 74 18 148/73 H 92 Nasal Cannula O2 Flow Rate 08/22/23 09:05 08/22/23 08:16 08/22/23 03:18 2 08/22/23 00:14 08/21/23 23:32 2 PG Care Time/CCT Total # of Minutes Spent Total Time Spent with Patient: Total time spent is greater than 50% in coordination of care (as documented) at patient's floor/unit and/or counseling patient: Coding Level of Care Code 06121 SUB INP/OBS CARE 3/50MIN Diagnoses Hematemesis K92.0 Acute blood loss anemia D62 COPD (chronic obstructive pulmonary disease) J44.9 Daily consumption of alcohol Z78.9 Seizure R56.9 DVT prophylaxis Z29.9 Discharge planning issues Z02.9
--- NOTE | 2023-08-22 11:41 | Gastroenterology Progress Note ---
Date of Service August 22, 2023 Assessment & Plan (1) Acute blood loss anemia: (2) Hematemesis: (3) Duodenal bulb ulcer: Plan 1. Advance to soft diet today. 2. Continue PPI and Octreotide gtts for a total of 72 hours, then start Pantoprazole 40 mg BID. 3. Alcohol and NSAID strict avoidance. 5. Continue supportive care. Admission and Anticipated Discharge Date Admission Date: August 19, 2023 Supervising Physician Co-Signing Physician Notes Agree with KENISHA Palma as above Abd: Soft, NT, ND, +BS No overt GI bleeding Continue Pantoprazole/Octreotide gtts for 72 hours total Pantoprazole 40 mg BID thereafter Subjective Patient reports feeling well this morning. Denies any abdominal pain, nausea or vomiting or any further melena. Remains on a PPI/Octreotide ggt. Requests diet advancement. Review of Systems Constitutional: no problem reported Gastrointestinal: as per Subjective / HPI Physical Exam Constitutional: WD/WN, vitals as above no acute distress Respiratory: normal respiratory effort, lungs clear to auscultation Auscult ation: lungs clear to auscultation bilaterally Cardiovascular: Rate/Rhythm: regular rate and regular rhythm Gastrointestinal (Abdomen): normal bowel sounds, soft, nontender, no hepatosplenomegaly Inspection/Auscultation: normal bowel sounds; abdomen not distended Percussion/Palpation: abdomen soft Psychiatric: A+Ox3, euthymic affect Results & Data Results & Data Vital Signs (Past 12 Hours) Vital Signs Temp Pulse Pulse Resp BP Pulse Ox O2 Del Method 08/22/23 09:05 36.9 C 72 18 119/68 91 Room Air 08/22/23 08:16 71 08/22/23 03:18 36.7 C 75 18 151/82 H 91 Nasal Cannula 08/22/23 00:14 73 O2 Flow Rate 08/22/23 09:05 08/22/23 08:16 08/22/23 03:18 2 08/22/23 00:14 PG Care Time/CCT Total # of Minutes Spent Total Time Spent with Patient: Total time spent is greater than 50% in coordination of care (as documented) at patient's floor/unit and/or counseling patient: Coding Level of Care Code 85545 SUB INP/OBS CARE 3/50MIN Diagnoses Acute blood loss anemia D62 Hematemesis K92.0 Duodenal bulb ulcer K26.9
[2023-08-23] MEDS: cefTRIAXone SODIUM 2,000 MG in DEXTROSE 5 % MINI-B 50 ML IV SCH ×2 (00:24→23:59)
[2023-08-23] MEDS: PANTOprazole 40 MG in DEXTROSE 5% MINI-B 100 ML IV SCH ×6 (02:06→21:44)
[2023-08-23] MEDS: OCTREOTIDE ACETATE 500 MCG in 0.9 % SODIUM CHLORIDE 100 ML IV SCH ×2 (06:45→16:50)
[2023-08-23 06:54] LABS: Basophils # (auto) 0.04 K/uL (0.00-0.20); Basophils % (auto) 0.5 %; Eosinophils % (auto) 15.6 %; Hematocrit (blood only) 28.1 % (37.0-47.0); Hemoglobin 9.8 g/dl (12.0-16.0); Immature Granulocytes # (auto) 0.05 K/uL (0.01-0.20); Immature Granulocytes % (auto) 0.7 %; Lymphocytes # (auto) 1.64 K/uL (1.20-3.40); Lymphocytes % (auto) 21.4 %; Mean Corpuscular Hemoglobin 30.9 pg (25.0-34.0); Mean Corpuscular Hgb Conc 34.9 g/dL (32.0-36.0); Mean Corpuscular Volume 88.6 fL (80.0-100.0); Mean Platelet Volume 10.3 fL (9.4-12.4); Monocytes # (auto) 0.72 K/uL (0.11-0.59); Monocytes % (auto) 9.4 %; Neutrophils # (auto) 4.02 K/uL (1.40-6.50); Neutrophils % (auto) 52.4 %; Platelet Count 211 K/uL (130-400); RDW Coefficient of Variation 14.4 % (11.5-14.5); RDW Standard Deviation 46.3 fL (36.4-46.3); Red Blood Count 3.17 M/uL (4.20-5.40); White Blood Count 7.67 K/ul (4.8-10.8)
[2023-08-23 07:25] LABS: BUN Creatinine Ratio 12.2 (10-20); Calcium 8.4 mg/dl (8.6-10.3); Creatinine Clr Calc Pharmacy 148.8 ml/min; Est GFR (African American) 130.1 ml/min; Est GFR (Non-African American) 112.3 ml/min; Potassium 3.2 mmol/L (3.5-5.1)
[2023-08-23] MEDS: INSULIN ASPART PER UNIT CHARGE SC SCH ×4 (09:20→21:07)
--- NOTE | 2023-08-23 09:31 | Gastroenterology Progress Note ---
Date of Service August 23, 2023 Assessment & Plan (1) Acute blood loss anemia: (2) Hematemesis: (3) Duodenal bulb ulcer: Plan 1. Diet as tolerated. 2. Complete PPI and Octreotide gtts (total of 72 hours), then start Pantoprazole 40 mg BID. 3. Alcohol and NSAID strict avoidance. 4. Rest per primary team. 5. Stable for discharge from GI standpoint upon completion of ggts with close outpatient follow up in our office. Admission and Anticipated Discharge Date Admission Date: August 19, 2023 Supervising Physician Co-Signing Physician Notes Agree with KENISHA Palma as above Abd: Soft, NT, ND, +BS Continue current therapy and supportive care Will need Protonix 40 mg BID on discharge Repeat EGD in 6 weeks to ensure ulcer healing. Subjective Patient reports feeling very well this morning. She is tolerating her diet. No abdominal pain, n/v, or overt GIB. Her hemoglobin was 9.8 this morning up from 9.4 yesterday. Continues PPI/Octreotide ggts. Review of Systems Constitutional: no problem reported Gastrointestinal: as per Subjective / HPI Physical Exam Constitutional: WD/WN, vitals as above no acute distress Respiratory: normal respiratory effort, lungs clear to auscultation Auscultation: lungs clear to auscultation bilaterally Cardiovascular: Rate/Rhythm: regular rate, regular rhythm and + tachycardic Gastrointestinal (Abdomen): normal bowel sounds, soft, nontender, no hepatosplenomegaly Inspection/Auscultation: normal bowel sounds; abdomen not distended Percussion/Palpation: abdomen soft Psychiatric: A+Ox3, euthymic affect Results & Data Results & Data Vital Signs (Past 12 Hours) Vital Signs Temp Pulse Resp BP Pulse Ox O2 Del Method O2 Flow Rate 08/23/23 08:01 36.9 C 63 16 154/89 H 96 Nasal Cannula 2 PG Care Time/CCT Total # of Minutes Spent Total Time Spent with Patient: Total time spent is greater than 50% in coordination of care (as documented) at patient's floor/unit and/or counseling patient: Coding Level of Care Code 48612 SUB INP/OBS CARE 3/50MIN Diagnoses Acute blood loss anemia D62 Hematemesis K92.0 Duodenal bulb ulcer K26.9
[2023-08-23] MEDS: UMECLIDINIUM/VILANTEROL 62.5/25MCG 7 PUFFS/INHALER INH SCH (09:54)
[2023-08-23] MEDS: FLUTICASONE FUROATE 200MCG 14 PUFFS/INHALER INH SCH (09:55)
--- NOTE | 2023-08-23 16:01 | Hospitalist Progress Note ---
Date of Service August 23, 2023 Assessment & Plan (1) Hematemesis: Plan: Upper GI bleedcontinue octreotide and Protonix Drips into tomorrowthen can DC octreotide and start twice daily p.o. Protonix, continue ceftriaxone for now. duodenal ulcerrepeat scope and cautery done 08/21. overall stable/improving probably transition to p.o. meds tomorrow, given the severity of her bleed and the recurrent upper GI bleedingwe will want to watch another day or so on p.o., anticipate hopefully home by Saturday (2) Acute blood loss anemia: Plan: Now stable, but status post massive transfusion of 8 units packed red cells (as well as FFP and platelets as well as cryoprecipitate due to the massive transfusion)continue to follow clinically, Thal hemoglobinhas been stable (3) COPD (chronic obstructive pulmonary disease): Plan: Breathing appears to be improving. now on room air (4) Daily consumption of alcohol: Plan: I would do wonder if alcohol abuse is part of the cause for her peptic ulcer disease and GI bleedingdenies much EtOH of significance now and is willing to abstain. no nsaids. discussed stress management. no s/s withdrawal (5) Seizure: Plan: No history of prior. ?secondary to EtOH withdrawal versus hypoperfusion given the severity of her hemorrhage when she first arrived. Patient has been given Keppra 1gm IV -Continue seizure precautions no follow-up seizures noted (6) DVT prophylaxis: Plan: Pharmacologic prophylaxis contraindicated due to upper GI bleeding; mechanical prophylaxis of dubious benefit and possible harm (Thal/skin breakdown)encourage ambulation as best as possible. (7) Discharge planning issues: Plan: stable on med/surg; starting to look like hopefully home by Saturday Admission and Anticipated Discharge Date Admission Date: August 19, 2023 Subjective Feeling good. Showed going down okay. No abdominal pain or nausea. No evidence of further GI bleeding. Walking to and from the bathroom well. Feels like she can do more. Review of Systems Review of Systems: All systems reviewed & are unremarkable except as noted in HPI & below Physical Exam Physical Exam: In general she is awake and alert pleasant no distress. HEENT normocephalic atraumatic mucous membranes moist. Breathing unlabored no accessory muscle use good effort. Skin shows no rashes no pallor or icterus. Neuro without focal d eficits. Results & Data Results & Data Vital Signs (Past 12 Hours) Vital Signs Temp Pulse Resp BP BP Pulse Ox O2 Del Method 08/23/23 15:49 98.8 F 65 16 150/84 H 92 Room Air 08/23/23 07:40 Nasal Cannula 08/23/23 08:01 98.4 F 63 16 154/89 H 96 Nasal Cannula O2 Flow Rate 08/23/23 15:49 08/23/23 07:40 2 08/23/23 08:01 2 PG Care Time/CCT Total # of Minutes Spent Total Time Spent with Patient: Total time spent is greater than 50% in coordination of care (as documented) at patient's floor/unit and/or counseling patient: Coding Level of Care Code 96859 SUB INP/OBS CARE 3/50MIN Diagnoses Hematemesis K92.0 Acute blood loss anemia D62 COPD (chronic obstructive pulmonary disease) J44.9 Daily consumption of alcohol Z78.9 Seizure R56.9 DVT prophylaxis Z29.9 Discharge planning issues Z02.9
[2023-08-24] MEDS: PANTOprazole 40 MG in DEXTROSE 5% MINI-B 100 ML IV SCH ×2 (02:40→07:23)
[2023-08-24] MEDS: OCTREOTIDE ACETATE 500 MCG in 0.9 % SODIUM CHLORIDE 100 ML IV SCH (02:40)
[2023-08-24] MEDS: ALBUTEROL HFA 8 GM INHALER INH PRN (03:25)
[2023-08-24] MEDS: FLUTICASONE FUROATE 200MCG 14 PUFFS/INHALER INH SCH (07:23)
[2023-08-24] MEDS: UMECLIDINIUM/VILANTEROL 62.5/25MCG 7 PUFFS/INHALER INH SCH (07:24)
[2023-08-24] MEDS: INSULIN ASPART PER UNIT CHARGE SC SCH ×4 (07:55→20:06)
[2023-08-24 08:05] LABS: Basophils # (auto) 0.08 K/uL (0.00-0.20); Eosinophils # (auto) 1.25 K/uL (0.00-0.50); Eosinophils % (auto) 15.6 %; Hematocrit (blood only) 26.9 % (37.0-47.0); Hemoglobin 9.5 g/dl (12.0-16.0); Immature Granulocytes # (auto) 0.08 K/uL (0.01-0.20); Lymphocytes # (auto) 1.73 K/uL (1.20-3.40); Lymphocytes % (auto) 21.7 %; Mean Corpuscular Hemoglobin 30.6 pg (25.0-34.0); Mean Corpuscular Hgb Conc 35.3 g/dL (32.0-36.0); Mean Corpuscular Volume 86.8 fL (80.0-100.0); Mean Platelet Volume 10.1 fL (9.4-12.4); Monocytes # (auto) 0.72 K/uL (0.11-0.59); Neutrophils # (auto) 4.13 K/uL (1.40-6.50); Neutrophils % (auto) 51.7 %; Platelet Count 269 K/uL (130-400); RDW Coefficient of Variation 14.3 % (11.5-14.5); RDW Standard Deviation 44.4 fL (36.4-46.3); White Blood Count 7.99 K/ul (4.8-10.8)
[2023-08-24 08:23] LABS: BUN Creatinine Ratio 9.8 (10-20); Calcium 8.2 mg/dl (8.6-10.3); Creatinine Clr Calc Pharmacy 136.6 ml/min; Est GFR (African American) 130.1 ml/min; Est GFR (Non-African American) 112.3 ml/min; Potassium 3.3 mmol/L (3.5-5.1)
[2023-08-24] MEDS: PANTOprazole 40 MG TAB PO SCH ×2 (09:59→20:05)
[2023-08-24] MEDS ORDERED: FUROSEMIDE 40 MG/4 ML VIAL IV ONE (16:06)
--- NOTE | 2023-08-24 19:35 | Hospitalist Progress Note ---
Date of Service August 24, 2023 Assessment & Plan (1) Hematemesis: Plan: Upper GI bleed now stable. Discussed NSAID avoidance, alcohol avoidance, stress management. Stop octreotide. Transition Protonix from drip to p.o. twice daily (2) Acute blood loss anemia: Plan: Now stable, but status post massive transfusion of 8 units packed red cells (as well as FFP and platelets as well as cryoprecipitate due to the massive transfusion)continue to follow clinically, Thal hemoglobinhas been stable (3) COPD (chronic obstructive pulmonary disease): Plan: Breathing appears to be improving. she is asymptomatic. At the same time we have not been able to wean her off of oxygen. Chest x-ray interpreted by me shows what appears to be a degree of atelectasis as well as bibasilar effusionscertainly with her massive transfusion I wonder if there is in a degree of pulmonary edema that I cannot really seeobviously awaiting formal read by radiology, but give Lasix, encourage incentive spirometry, try to wean oxygen. (4) Daily consumption of alcohol: Plan: I would do wonder if alcohol abuse is part of the cause for her peptic ulcer disease and GI bleedingdenies much EtOH of significance now and is willing to abstain. no nsaids. discussed stress management. no s/s withdrawal (5) Seizure: Plan: No history of prior. ?secondary to EtOH withdrawal versus hypoperfusion given t he severity of her hemorrhage when she first arrived. Patient has been given Keppra 1gm IV -Continue seizure precautions no follow-up seizures noted (6) DVT prophylaxis: Plan: Pharmacologic prophylaxis contraindicated due to upper GI bleeding; mechanical prophylaxis of dubious benefit and possible harm (Thal/skin breakdown)encourage ambulation as best as possible. (7) Discharge planning issues: Plan: stable on med/surg; Home once were able to get her off oxygen Admission and Anticipated Discharge Date Admission Date: August 19, 2023 Subjective we would just 1 to make sure that she is able to get off of oxygen, and have close outpatient follow-up. Unfortunately as the day progressed weaning her off of oxygen was not quite achieved. Review of Systems Review of Systems: All systems reviewed & are unremarkable except as noted in HPI & below Physical Exam Physical Exam: In general she is awake and alert pleasant no distress. HEENT normocephalic atraumatic mucous membranes moist. Breathing unlabored no accessory muscle use good effort. Skin shows no rashes no pallor or icterus. Neuro without focal deficits. Chest x-rayformal read pending, but I suspect there is some atelectasis as well as bibasilar effusions Results & Data Results & Data Vital Signs (Past 12 Hours) Vital Signs Temp Pulse Resp BP Pulse Ox O2 Del Method O2 Flow Rate 08/24/23 18:33 92 Nasal Cannula 1 08/24/23 18:30 88 L Room Air 08/24/23 18:24 91 Room Air 08/24/23 18:18 93 Nasal Cannula 2 08/24/23 15:27 98.6 F 60 18 155/84 H 98 Nasal Cannula 3 08/24/23 11:24 98.2 F 66 18 144/77 H 91 Nasal Cannula 2 08/24/23 08:50 93 Nasal Cannula 2 08/24/23 08:50 86 L Room Air 08/24/23 07:58 Room Air 08/24/23 07:51 98.6 F 63 18 148/76 H 90 Room Air PG Care Time/CCT Total # of Minutes Spent Total Time Spent with Patient: Total time spent is greater than 50% in coordination of care (as documented) at patient's floor/unit and/or counseling patient: Coding Level of Care Code 59384 SUB INP/OBS CARE 3/50MIN Diagnoses Hematemesis K92.0 Acute blood loss anemia D62 COPD (chronic obstructive pulmonary disease) J44.9 Daily consumption of alcohol Z78.9 Seizure R56.9 DVT prophylaxis Z29.9 Discharge planning issues Z02.9
--- NOTE | 2023-08-24 20:39 | XRay Report ---
XR chest 2V PA/lateral CLINICAL HISTORY: hypoxia TECHNIQUE: 2 views of the chest were obtained. Comparison: Comparison is made to chest radiograph 08/19/2023 FINDINGS: No lines and tubes are seen. The cardiomediastinal silhouette is normal. The lungs are clear. Small b ilateral pleural effusions are seen with underlying atelectasis. IMPRESSION: Small bilateral pleural effusions are seen with underlying atelectasis. ACT 112: Negative or not required by law. Electronically signed by: Arpit Hull M.D. 08/24/2023 8:38 PM
[2023-08-24] MEDS: cefTRIAXone SODIUM 2,000 MG in DEXTROSE 5 % MINI-B 50 ML IV SCH (23:21)
[2023-08-25] MEDS: UMECLIDINIUM/VILANTEROL 62.5/25MCG 7 PUFFS/INHALER INH SCH (08:23)
[2023-08-25] MEDS: PANTOprazole 40 MG TAB PO SCH (08:23)
[2023-08-25] MEDS: FLUTICASONE FUROATE 200MCG 14 PUFFS/INHALER INH SCH (08:24)
[2023-08-25] MEDS: INSULIN ASPART PER UNIT CHARGE SC SCH ×2 (08:49→12:30)
--- NOTE | 2023-08-25 19:13 | Discharge Summary ---
Date of Service August 25, 2023 Admission HPI Per Admitting Provider Patient intubated and sedated at the time of my encounter. Pre-hospital history obtained through chart review, discussion with ER staff and discussion with family. Patient is a 58yo female presenting from home after a syncopal event. She woke up on the floor, does not recall events. She had some dizziness in the ER and felt generally unwell. Patient was recently admitted to [facility] with acute hypoxic/hypercarbic respiratory failure. She was treated for an asthma exacerbation. She developed an episode of hematemesis during that hospital stay. She had an EGD with biopsy performed on 08/12/23 which revealed blood in the stomach but no clear source. She was ultimately discharged home on Protonix 40mg po daily. Upon arrival to the ER today patient afebrile, tachycardic at 105 bpm, blood pressure stable. She had a witnessed seizure then developed massive hematemesis. She became hypoxic requiring bag/mask ventilation. ABG obtained at that time 6.938/82/64. She was intubated for airway protection and acute hypoxic respiratory failure. NGT was placed to suction with brisk return of bright red blood. Patient quickly filled a canister full of bright red blood through the NGT. Patient was transfused given 4u PRBCs, 1u FFP through the Anyi infuser, and given 1gm of TXA. Protonix bolus and drip initiated. GI was contacted by the ER attending - recommended to check INR and administer Reglan to assist with gastric motility. Patient continued to bleed. Additional PRBCs administered. Patient admitted to MICU. GI contacted and is to perform EGD in the MICU Medications/transfusions thus far: Keppra 1000mg NSS x 2L Protonix bolus and drip TXA x 1gm Dexamethasone 10mg IV Ceftriaxone 2gm Reglan 10mg IV ALbuterol neb Octreotide bolus and gtt Banana bag Levophed drip Transfusion 6u PRBCs, FFP x 2, Platelets x 1, Calcium gluconate x 1gm Principal Diagnosis PUD, massive UGI bleed (resolved) Discharge Exam gen aaox3 pleasant nad heent nc at mmm lungs cta but diminished bibasilar no r/r/w good effort skin no rashes no pallor or icterus neuro no focal deficits Discharge Data Allergies Allergy/AdvReac Type Severity Reaction Status Date / Time animal dander Allergy Intermediate asthma Verified 08/21/23 09:08 related symptoms grass pollen-perennial rye, Allergy Intermediate asthma Verified 08/21/23 09:08 standar related sx mold Allergy Intermediate asthma Verified 08/21/23 09:08 related sx Consultations 08/19/23 03:20 Consult Archivist [employer] History Routine 08/19/23 10:16 Consult Gastroenterology Routine Procedures Performed Operation Date: 08/21/23 17:15 Actual Procedures s EGD Biopsy Cytology - Cristi Richardson. Case, DO p EGD Hemostasis - Cristi Richardson. Case, DO Ordered Studies 08/19/23 01:43 CT Abd and Pelvis [CT abd pelvis IV con only] Stat CT chest diagnostic w con Stat 08/19/23 02:10 CT head/brain wo con Stat Hospital Course (1) Hematemesis: Upper GI bleed now stable. Discussed NSAID avoidance, alcohol avoidance, stress management. protonix 40mg bid for foreseeable future (2) Acute blood loss anemia: Now stable, but status post massive transfusion of 8 units packed red cells (as well as FFP and platelets as well as cryoprecipitate due to the massive transfusion)stable for home (3) COPD (chronic obstructive pulmonary disease): Breathing appears to be improving. she is asymptomatic. At the same time we have not been able to wean her off of oxygen. Chest x-ray interpreted shows atelectasis as well as bibasilar effusionsprobably baseline of COPD plus effusions plus aspiration of blood (was on rocephin although no true pneumonia appears to have developed - no need for ongoing abx after discharge) plus atelectasis -> O2 for now for home, outpt f/u. (discussed effusions could potentially be tapped but (a) reasonably good chance they'll self resolve/avoid procedure (she agrees) and (b) right now might not be quite big enough to tap anyway) (4) Daily consumption of alcohol: I would do wonder if alcohol abuse is part of the cause for her peptic ulcer disease and GI bleedingdenies much EtOH of significance now and is willing to abstain. no nsaids. discussed stress management. no s/s withdrawal (5) Seizure: No history of prior. ?secondary to EtOH withdrawal versus hypoperfusion given the severity of her hemorrhage when she first arrived. had keppra x1 on arrival but none since -Continue seizure precautions no follow-up seizures noted (6) DVT prophylaxis: Pharmacologic prophylaxis contraindicated due to upper GI bleeding; mechanical prophylaxis of dubious benefit and possible harm (fall/skin breakdown)encouraged ambulation as best as possible. (7) Discharge planning issues: home on O2, close PCP f/u, GI f/u Total Time Total Time Spent Total Time Spent (In Minutes): <30 Discharge Plan Discharge Items Patient Disposition: Home - Self-Care Reason For Visit: UGIB Discharge Diagnosis: bleeding duodenal ulcer Activity: Resume your previous activity Non-emergency contact: Primary Care Provider and Marine Mechanic Call non-emergency contact if: you have any medication questions and your symptoms worsen Follow-up/Referrals: Everette Leija, [Primary Care Provider] - Diet: Low Sodium (2gm) Addtl Attending Provider Instructions: Duodenal ulcer with bleeding -You ended up admitted due to an extremely serious bleed from a duodenal ulcer. In the end he required 8 units of blood transfusion, but fortunately have done extremely well since. -We will treat with Protonix 40 mg twice a day for the foreseeable futureas you are improving, gastroenterology and your family doc will be able to guide you on when we might be able to drop it from twice a day to once a day, and when we will be able to think about stopping it altogetherbut for the short but foreseeable future remember to take the Protonix (pantoprazole) twice a day, every day. -As we discussed, the main reasons people forearm ulcers like this are anti- inflammatories (so strictly avoid things like aspirin, ibuprofen, Aleve, etc.), alcohol (so do not drink any alcohol at all), and stress (remember everything we talked about in building a more comprehensive plan for stress management Need for oxygen -Initially you were on the ventilator largely because of the overall collapse from the massive bleeding, but since we got you off of the ventilator it has been hard to get rid of needing oxygen entirely. You are not needing much"room air" has about 21% oxygen, and you have only really been requiring about 24%but at the same time, every time we take the oxygen off your numbers are dropping -This is probably several things playing off of each other at once: You have a little bit of fluid around your lungs putting pressure on from the outsidethis often falls out out circulation when there is massive fluid shifting like what was necessary when you were bleeding but being transfused. This should slowly self absorb over time, a pulmonary doctor or surgeon can drain itbut given that it is likely to improve on its own, it is often safer to just support your body with extra oxygen and give it time. Dr. Leija will follow up with you on this, and if there is any difficulty in getting you off of the oxygen over the coming weeks, he will repeat chest x-rays or CTs to see the status of the fluid -Additionally, there was evidence of a bit of a pneumonia at the base of your lungsthis really probably was not a pneumonia as much as it was inhaled blood from the ulcerbut it creates an appearance very similar to pneumoniawhich can take some time to improve. You have been on antibiotics the whole time you are here, and given that you are not having fevers or elevated white blood cells, etc.there is nothing to suggest that we would help you more by continuing the antibiotics after discharge; but rather just that it will take time for this to heal -Lastly, when people are weak and on the ventilator, often some of our lungs just "get lazy" a process called atelectasisas you are moving more and breathing more deeply, anticipate your lungs to open up more and this portion of why you are needing the oxygen should go away too -All 3 of these things (the fluid, the inhaled blood, and the atelectasis) superimposed on your baseline of COPD is probably why its been difficult to get rid of the oxygen. Over the coming weeks, as you are following up with Dr. Leija, he will be able to see how you are doing, see how you look off of the oxygen, and hopefully guide you to weaning it. Pending Studies at Discharge: No Stand-Alone Forms: My [facility] [employer], Smoking Cessation Medications and DC Order Prescriptions: Continued ipratropium-albuterol 0.5 mg-3 mg(2.5 mg base)/3 mL solution for nebulization 3 ml inhalation QID PRN (Reason: shortness of breath) Qty: 180 11RF Rx Instructions: until breathing returns to target peak flow/parameters acetaminophen [Tylenol Extra Strength] 500 mg Tablet 1,000 mg PO DIRECTED PRN (Reason: PAIN/FEVER) albuterol sulfate 90 mcg/actuation HFA aerosol inhaler 1 puff inhalation QID PRN (Reason: Shortness Of Breath Or Wheezing) pantoprazole [Protonix] 40 mg tablet,delayed release (DR/EC) 40 mg PO DAILY Qty: 60 0RF Trelegy Ellipta 200-62.5-25 mcg blister with device 1 inh inhalation DAILY Qty: 28 0RF Discharge Orders: Discharge Order (Routine); Ordered 08/25/23 Ordered By: Neftali Hodge/Other Patient Handouts: Using Oxygen Safely, Soft [place] Diet Dc Admission Data Admit Date/Time: 08/19/23 01:49 Attending Provider: Neftali Peña Admit Provider: Chantell Payton Primary Care Provider: Everette Leija Other Providers: Young Bourgeois ; Cristi Palomares Other Interventions: Discharge Summary Assessment (RN) Last Done: 08/25/23 15:04 Coding Level of Care Code 68775 IN/OBS DISCH 30 MIN/LESS Diagnoses Hematemesis K92.0 Acute blood loss anemia D62 COPD (chronic obstructive pulmonary disease) J44.9 Daily consumption of alcohol Z78.9 Seizure R56.9 DVT prophylaxis Z29.9 Discharge planning issues Z02.9
== END 2023-08-25 16:45 | disposition home or self-care (01) | DRG 377 ==
LOC: ED 22:42 → SUATTDRO 08-19 01:49 → 1E 08-19 01:49 → 2S 08-20 21:40 → 3N 08-22 19:09

== ENCOUNTER 2024-03-01 11:16 | Inpatient (IN) ==
[2024-03-01] MEDS: ALBUT/IPRATROP 3MG/0.5MG NEB 3 ML VIAL INH STA (11:46)
[2024-03-01] MEDS: methylPREDNISolone 125 MG/2 ML VIAL IV STA (11:46)
[2024-03-01 11:53] LABS: Basophils # (auto) 0.06 K/uL (0.00-0.20); Basophils % (auto) 0.5 %; Eosinophils # (auto) 0.09 K/uL (0.00-0.50); Eosinophils % (auto) 0.8 %; Hematocrit (blood only) 43.2 % (37.0-47.0); Immature Granulocytes # (auto) 0.05 K/uL (0.01-0.20); Immature Granulocytes % (auto) 0.4 %; Lymphocytes # (auto) 0.99 K/uL (1.20-3.40); Lymphocytes % (auto) 8.5 %; Mean Corpuscular Hemoglobin 28.4 pg (25.0-34.0); Mean Corpuscular Hgb Conc 32.4 g/dL (32.0-36.0); Mean Corpuscular Volume 87.6 fL (80.0-100.0); Mean Platelet Volume 9.1 fL (9.4-12.4); Monocytes % (auto) 3.4 %; Neutrophils # (auto) 10.04 K/uL (1.40-6.50); Neutrophils % (auto) 86.4 %; Platelet Count 410 K/uL (130-400); RDW Coefficient of Variation 13.3 % (11.5-14.5); Red Blood Count 4.93 M/uL (4.20-5.40); White Blood Count 11.63 K/ul (4.8-10.8)
[2024-03-01 12:04] LABS: Albumin Level 5.3 gm/dl (3.4-5.0); BUN Creatinine Ratio 20.5 (10-20); Bilirubin,Total 1.4 mg/dl (0.2-1.0); Calcium 9.9 mg/dl (8.6-10.3); Creatinine Clr Calc Pharmacy 152.1 ml/min; Est GFR (African American) 127.2 ml/min; Est GFR (Non-African American) 109.7 ml/min; Globulin 2.7 gm/dl (2.5-4.0); Magnesium 2.2 mg/dl (1.7-2.4); Potassium 4.2 mmol/L (3.5-5.1)
[2024-03-01 12:10] LABS: Troponin I High Sensitivity 5.9 pg/ml (0-14)
--- NOTE | 2024-03-01 12:10 | Emergency Department Note ---
Impression & Plan Acute dyspnea, COPD exacerbation ED Provider Note NAME: CHAYITO HUERTA AGE: 58 SEX: Female INFORMANT: Patient ED PROVIDER(S): Alec Knight MD CHIEF COMPLAINT: Difficulty breathing PLAN: Disposition: Admitted Outpatient prescription management: none Referral: None MEDICAL DECISION MAKING: Patient presented with acute dyspnea. She was requiring significantly more oxygen than baseline for maintaining O2 saturations. She was hypertensive. Patient was started on an hour-long nebulizer treatment. The patient was also given Solu-Medrol. She had a mild leukocytosis on CBC. Chemistry panel was unremarkable except for mild hyperglycemia. Patient had a sinus tachycardia on ECG without acute ischemia. Patient was also given a dose of IV magnesium due to the significant wheezing. Patient was reassessed frequently. Patient's ABG did reveal a mildly low O2 level for her oxygen administration and she did have a pCO2 of 60. She had some mild acidosis noted as well. The patient was reassessed after the first hour-long treatment and stated she did feel about "27% better ". She was moving air better but was still very wheezy. A second hour-long treatment was ordered. Repeat ABG was ordered as well. Patient will need further management in the hospital. [facility] Case was discussed with Dr. Arizmendi in detail. Patient was evaluated in the ER and admitted for further management. On her repeat blood gas it did show that her pH was slightly worse and her CO2 had climbed from 60-63. Her O2 was holding about stable. Patient was adamant that she did not want to have BiPAP and wanted to have maximal medical therapy first. This was discussed with Dr. Arizmendi. He did consult with pulmonary. Patient will be admitted to the ICU. Their plan is to attempt Precedex and BiPAP in the ICU. I refer you to the EMR for further details. 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 Vital Signs: reviewed and remarkable for hypertension and tachypnea Additional History obtained from: none Chronic Medical/Social Conditions affecting care: Reactive airway disease Prior/ Outside/ External records reviewed: none Differential Diagnosis: Reactive airway disease, pneumonia, pneumothorax, COPD, CHF, infections, cardiac ischemia, pulmonary embolism, musculoskeletal, gastrointestinal, as well as other pathologies. Diagnostics, independently interpreted by me: ECG: Twelve-lead ECG was sinus tachycardia 107 bpm. Biatrial lodgment. Left anterior fascicular block. Anterior Q waves. No ST elevation Cardiac Monitoring: Cardiac monitoring ordered by me: The patient was placed on continuous cardiac monitoring and observed. It revealed sinus tachycardia rhythm at 105 beats per minute without ectopy or evidence of dysrhythmia. Medical decision rules: none Imaging studies: Chest x-ray. Findings: A chest x-ray was performed and revealed no pneumothorax, effusion, infiltrate, pulmonary edema, free air under the diaphragm, or wide mediastinum. Impression: No acute disease. HPI: 58 year old Female arrives for evaluation of shortness of breath. This started about 2 weeks ago with mild breathing issues but worsened significantly around 4 AM and is progressively worsening throughout the day. The patient also notes the following associated symptoms, mild cough and wheezing. The patient has used her nebulizer for relieving factors. Current pain is rated as 0/10. Patient has a history of reactive airway disease. She also has a history of hypercarbic type toxic respiratory failure. Denies any recent sick contacts pt denies LOC, headache, fevers, chills, diaphoresis, visual changes, neck pain, chest pain, leg swelling, nausea, vomiting, abdominal pain, back pain, melena, hematochezia, urinary symptoms, numbness, weakness, lymphadenopathy, rash, or other complaints. PAST MEDICAL HISTORY: See Below, COPD PAST SURGICAL HISTORY: See Below, SOCIAL HISTORY: See Below, former HOME MEDICATIONS: See Below ALLERGIES: See Below VITALS: See Below PHYSICAL EXAMINATION: GENERAL: Awake, alert, extremely dyspneic moderate-appearing, in no distress HENT: Normocephalic, atraumatic. Oropharynx unremarkable. EYES: Normal conjunctiva. Sclera non-icteric. NECK: Inspection normal. Non-tender. Supple. No nuchal rigidity. FROM. No masses. RESPIRATORY: Decreased air movement bilaterally with significant inspiratory expiratory wheezes. Very increased respiratory effort. CARDIAC: Tachycardic rate. Normal rhythm. No murmurs. No rubs. Extremities warm and well perfused. Pulses equal. No JVD. GI: Soft, non-distended. No tenderness to palpation. No rebound or guarding. No masses. RECTAL: Deferred. MUSCULOSKELETAL: Atraumatic. Chest examination reveals no tenderness. The back is symmetrical on inspection without obvious abnormality. There is no CVA tenderness to palpation. No joint edema. LOWER EXTREMITIES: Calves are equal size bilaterally and non-tender. No edema. No discoloration. NEURO: Normal sensorium. No sensory or motor deficits noted. SKIN: No rash or jaundice noted. PROCEDURES: none CRITICAL CARE: I have personally spent greater than 80 minutes of critical care time in the direct management of this patient. This includes bedside care, interpretation of diagnostic studies, and testing, discussion with consultants, patient, and family members, and other required patient management activities. These minutes are in excess of all separately billable procedures. OBSERVATION NOTE: none Past Med/Surg History Medical History (Updated 03/01/24 @ 19:00 by Nicolás Morrison MD) Severe anxiety Unresponsive Discharge planning issues History of GI bleed 08/2023, [facility], received 8 units of blood History of blood transfusion 08/2023, received 8 units due to GI bleed Seizure beginning of 08/2023 while in the ER, attributed it to blood loss>no further events On home oxygen therapy 2L continuous Encounter for pre-operative examination Acute respiratory failure with hypoxia and hypercapnia during recent hospitalization 08/2023 GI bleed, "she developed hypoxic/hypercarbic respiratory failure and had to undergo intubation" following discharge she was readmitted/reintubated 1 day later for repsiratory failure after unsuccessful adjustments to her daily inhaler, per PCP note; f/u dr. gonzáles Respiratory failure 08/2023, hospitalized for about 1 month Allergic rhinitis due to other allergen Allergic rhinitis due to dust Murmur Extrinsic asthma Atopic dermatitis "comes and goes" Allergic rhinitis due to pollen Allergic rhinitis due to animal dander COPD (chronic obstructive pulmonary disease) COPD with exacerbation most recent 08/2023, hospitalized for most of 08/2023 Colon cancer screening Hypoxemia Asthma PNA (pneumonia) hx 02/2023 Surgical History History of esophagogastroduodenoscopy (EGD) History of surgical removal of ganglion cyst Family History Sister Asthma Allergic rhinitis Social History (Updated 11/26/23 @ 15:40 by Yissel Martinez LPN) Smoking Status: Former smoker Tobacco Type: Cigarettes Second Hand Exposure: No; Do You Dip or Chew Tobacco: No; Hx Alcohol Use: No Hx Substance Use: No Preferred Language: Argentine Communication Ability: Effective 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 Beliefs That Will Affect Care: None marital status: / Current Living Situation: Alone current occupational status: employed How many Children do You have: 0 Other Information That Helps Us Care for You: No Feels Safe at Home: Yes Childhood Exposure to Second-Hand Smoke: Yes Diet: regular caffeine: Yes Dental Care, Regularly: Yes Physical Activity Frequency: Daily Seatbelt Use: always Sunscreen Use: Yes Assistive Devices: Oxygen - Continuous Allergies Allergies Allergy/AdvReac Type Severity Reaction Status Date / Time animal dander Allergy Intermediate asthma Verified 11/26/23 15:33 related symptoms grass pollen-perennial rye, Allergy Intermediate asthma Verified 11/26/23 15:33 standar related sx mold Allergy Intermediate asthma Verified 11/26/23 15:33 related sx Home Meds Home Medications Medication Instructions Recorded Confirmed acetaminophen 500 mg tablet 1,000 mg PO UD PRN PAIN/FEVER 03/05/23 11/26/23 (Tylenol Extra Strength) albuterol sulfate 90 mcg/actuation 1 puff inhalation QID PRN 08/19/23 11/26/23 aerosol inhaler Shortness Of Breath Or Wheezing diltiazem HCl 120 mg capsule,24 120 mg PO QAM 10/11/23 11/26/23 hr,extended release Previous Rx's Medication Instructions Recorded Portable Oxygen E0431 #1 ea 09/05/23 fluticasone propionate 115 2 inh inhalation BID #12 grams 09/16/23 mcg-salmeterol 21 mcg/actuation HFA inhaler (Advair HFA) pantoprazole 40 mg tablet,delayed 40 mg PO DAILY #30 tabs 10/17/23 release tiotropium bromide 2.5 2 puff inhalation DAILY #1 inhaler 11/20/23 mcg/actuation mist for inhalation (Spiriva Respimat) ipratropium 0.5 mg-albuterol 3 mg 3 ml inhalation QID PRN shortness 02/12/24 (2.5 mg base)/3 mL nebulization of breath #180 mL soln Results & Data (ED) Vital Signs Vital Signs - 24 hr 03/01/24 11:19 03/01/24 11:37 03/01/24 11:37 Temperature 36.5 C Temperature Source Temporal Artery Scan Pulse Rate 113 H 115 H Pulse Rate from SpO2 Sensor 109 H Pulse Rhythm Respiratory Rate 24 24 Respiratory Effort / Characteristics Labored Respiratory Depth Shallow Respiratory Pattern Blood Pressure 195/84 H Blood Pressure Mean 121 Pulse Oximetry 78 L 81 L 98 Oxygen Delivery Method Nasal Cannula Nasal Cannula Oxygen Flow Rate 2 5 Sepsis Recent Fever Within 48 Hours No Sepsis New/Unexplained Change in Mental Status No Sepsis Action Taken by Nursing No Action Required Oxygen Flow Rate - Titration 6 Pulse Oximetry Post Tiitration 96 03/01/24 11:42 03/01/24 11:42 03/01/24 11:52 Temperature Temperature Source Pulse Rate 109 H Pulse Rate from SpO2 Sensor Pulse Rhythm Respiratory Rate 18 Respiratory Effort / Characteristics Non-Labored Spontaneous Labored Respiratory Depth Shallow Respiratory Pattern Tachypnea Blood Pressure Blood Pressure Mean Pulse Oximetry 95 Oxygen Delivery Method Nasal Cannula Oxymask Oxygen Flow Rate 6 6 Sepsis Recent Fever Within 48 Hours Sepsis New/Unexplained Change in Mental Status Sepsis Action Taken by Nursing Oxygen Flow Rate - Titration Pulse Oximetry Post Tiitration 03/01/24 12:00 03/01/24 12:00 03/01/24 12:07 Temperature Temperature Source Pulse Rate 106 H 109 H Pulse Rate from SpO2 Sensor 107 H Pulse Rhythm Regular Respiratory Rate 35 H 23 Respiratory Effort / Characteristics Respiratory Depth Respiratory Pattern Blood Pressure 160/102 H Blood Pressure Mean 124 Pulse Oximetry 98 98 Oxygen Delivery Method Oxymask Oxygen Flow Rate 7 Sepsis Recent Fever Within 48 Hours Sepsis New/Unexplained Change in Mental Status Sepsis Action Taken by Nursing Oxygen Flow Rate - Titration Pulse Oximetry Post Tiitration 03/01/24 12:30 03/01/24 12:30 03/01/24 13:00 Temperature Temperature Source Pulse Rate 120 H 119 H Pulse Rate from SpO2 Sensor 121 H 117 H Pulse Rhythm Respiratory Rate 28 H 23 Respiratory Effort / Characteristics Respiratory Depth Respiratory Pattern Blood Pressure 176/119 H Blood Pressure Mean 148 Pulse Oximetry 96 94 Oxygen Delivery Method Oxygen Flow Rate Sepsis Recent Fever Within 48 Hours Sepsis New/Unexplained Change in Mental Status Sepsis Action Taken by Nursing Oxygen Flow Rate - Titration Pulse Oximetry Post Tiitration 03/01/24 13:00 Temperature Temperature Source Pulse Rate Pulse Rate from SpO2 Sensor Pulse Rhythm Respiratory Rate Respiratory Effort / Characteristics Respiratory Depth Respiratory Pattern Blood Pressure 196/94 H Blood Pressure Mean 122 Pulse Oximetry Oxygen Delivery Method Oxygen Flow Rate Sepsis Recent Fever Within 48 Hours Sepsis New/Unexplained Change in Mental Status Sepsis Action Taken by Nursing Oxygen Flow Rate - Titration Pulse Oximetry Post Tiitration Laboratory Data 03/01/24 11:32 03/01/24 18:58 Lab Results 03/01/24 03/01/24 03/01/24 Range/Units 11:32 12:09 12:13 WBC 11.63 H (4.8-10.8) K/ul RBC 4.93 (4.20-5.40) M/uL Hgb 14.0 (12.0-16.0) g/dl Hct 43.2 (37.0-47.0) % MCV 87.6 (80.0-100.0) fL MCH 28.4 (25.0-34.0) pg MCHC 32.4 (32.0-36.0) g/dL RDW Std Deviation 43.0 (36.4-46.3) fL RDW Coeff of Tea 13.3 (11.5-14.5) % Plt Count 410 H (130-400) K/uL MPV 9.1 L (9.4-12.4) fL Immature Gran % (Auto) 0.4 % Neut % (Auto) 86.4 % Lymph % (Auto) 8.5 % [place] % (Auto) 3.4 % Eos % (Auto) 0.8 % Baso % (Auto) 0.5 % Neut # (Auto) 10.04 H (1.40-6.50) K/uL Lymph # (Auto) 0.99 L (1.20-3.40) K/uL [place] # (Auto) 0.40 (0.11-0.59) K/uL Eos # (Auto) 0.09 (0.00-0.50) K/uL Baso # (Auto) 0.06 (0.00-0.20) K/uL Immature Gran # (Auto) 0.05 (0.01-0.20) K/uL D-Dimer < 190 (0-500) ug/L FEU Sodium 132 L (136-145) mmol/L Potassium 4.2 (3.5-5.1) mmol/L Chloride 98 (98-107) mmol/L Carbon Dioxide 28 (21-32) mmol/L Anion Gap 6 (3-11) BUN 9 (6-23) mg/dl Creatinine 0.44 L (0.6-1.2) mg/dl Est Cr Clr Drug Dosing 152.1 ml/min Est GFR ( Amer) 127.2 ml/min Est GFR (Non-Af Amer) 109.7 ml/min BUN/Creatinine Ratio 20.5 H (10-20) Glucose 165 H (70-99(Fasting)) mg/dl Calcium 9.9 (8.6-10.3) mg/dl Magnesium 2.2 (1.7-2.4) mg/dl Total Bilirubin 1.4 H (0.2-1.0) mg/dl AST 29 (13-39) U/L ALT 25 (7-52) U/L Alkaline Phosphatase 71 (34-104) U/L Troponin I High Sens 5.9 (0-14) pg/ml B-Natriuretic Peptide 59 (0-100) pg/ml Total Protein 8.0 (6.0-8.3) gm/dl Albumin 5.3 H (3.4-5.0) gm/dl Globulin 2.7 (2.5-4.0) gm/dl Albumin/Globulin Ratio 2.0 (0.9-2) Adenovirus (PCR) Not Detected (NotDetected) B. pertussis DNA (PCR) Not Detected (NotDetected) B.parapertussis DNA PCR Not Detected (NotDetected) C. pneumoniae DNA (PCR) Not Detected (NotDetected) Coronavirus OC43 (PCR) Not Detected (NotDetected) Coronavirus HKU1 (PCR) Not Detected (NotDetected) Coronavirus 229E (PCR) Not Detected (NotDetected) SARS-CoV-2 (PCR) Not Detected (NotDetected) Coronavirus NL63 (PCR) Not Detected (NotDetected) Human Metapneumovir PCR Not Detected (NotDetected) Influenza Type A (PCR) Not Detected (NotDetected) Influenza Type B (PCR) Not Detected (NotDetected) M. pneumoniae (PCR) Not Detected (NotDetected) Parainfluenza 1 (PCR) Not Detected (NotDetected) Parainfluenza 2 (PCR) Not Detected (NotDetected) Parainfluenza 3 (PCR) Not Detected (NotDetected) Parainfluenza 4 (PCR) Not Detected (NotDetected) RSV (PCR) Not Detected (NotDetected) Entero/Rhino (PCR) Not Detected (NotDetected) Administered Medications Albuterol (Albut/Ipratrop 3mg/0.5mg Neb 3 Ml Vial) 3 ml NEB QIDR [facility]; Protocol Stop: 03/31/24 14:59 Last Admin: 03/01/24 14:45 Dose: Not Given Documented By: ANGELES Dexmedetomidine/Sodium Chloride (Precedex) 200 mcg in 50 mls @ 26.46 mls/hr IV .[id number] [facility]; Protocol Stop: 03/05/24 14:29 Last Admin: 03/01/24 19:52 Dose: 1.2 mcg/kg/hr, 26.5 mls/hr Documented By: BONILLA Co-signed By: GAMALIEL Admin: 03/01/24 19:17 Dose: Not Given Documented By: Titration: 03/01/24 19:10 Dose: Infused Documented By: TLSharifa Co-signed By: SG Titration: 03/01/24 18:34 Dose: 1.2 mcg/kg/hr, 26.5 mls/hr Documented By: Titration: 03/01/24 18:15 Dose: 1.1 mcg/kg/hr, 24.3 mls/hr Documented By: Titration: 03/01/24 18:00 Dose: 1 mcg/kg/hr, 22.1 mls/hr Documented By: Titration: 03/01/24 17:46 Dose: 0.9 mcg/kg/hr, 19.8 mls/hr Documented By: Admin: 03/01/24 17:24 Dose: Not Given Documented By: Titration: 03/01/24 17:18 Dose: 0.9 mcg/kg/hr, 19.8 mls/hr Documented By: Admin: 03/01/24 16:58 Dose: 1 mcg/kg/hr, 22.1 mls/hr Documented By: ALTAF Co-signed By: LANDY Titration: 03/01/24 16:58 Dose: Infused Documented By: ALTAF Co-signed By: LANDY Titration: 03/01/24 16:51 Dose: 1 mcg/kg/hr, 22.1 mls/hr Documented By: Titration: 03/01/24 16:25 Dose: 0.9 mcg/kg/hr, 19.8 mls/hr Documented By: Titration: 03/01/24 16:07 Dose: 0.8 mcg/kg/hr, 17.6 mls/hr Documented By: Titration: 03/01/24 15:50 Dose: 0.7 mcg/kg/hr, 15.4 mls/hr Documented By: Titration: 03/01/24 15:35 Dose: 0.6 mcg/kg/hr, 13.2 mls/hr Documented By: Titration: 03/01/24 15:17 Dose: 0.5 mcg/kg/hr, 11 mls/hr Documented By: Admin: 03/01/24 15:02 Dose: 0.4 mcg/kg/hr, 8.8 mls/hr Documented By: MAEGAN Co-signed By: KOSTA Ketamine HCl 500 mg/ Sodium (Chloride) 500 mls @ 27.35 mls/hr IV .[id number] RJ; Protocol Stop: 03/31/24 19:14 Last Admin: 03/01/24 19:44 Dose: 0.5 mg/kg/hr, 27.4 mls/hr Documented By: TLM Co-signed By: SG Insulin Aspart (Insulin Aspart Per Unit Charge) 0 units SC Q6 [facility] Stop: 03/31/24 14:14 Last Admin: 03/01/24 17:47 Dose: Not Given Documented By: ALTAF Discontinued Medications Albuterol (Albut/Ipratrop 3mg/0.5mg Neb 3 Ml Vial) 12 ml INH ONE STA Stop: 03/01/24 11:32 Last Admin: 03/01/24 11:46 Dose: Not Given Documented By: ANGELES Albuterol (Albut/Ipratrop 3mg/0.5mg Neb 3 Ml Vial) 12 ml NEB ONE ONE; Protocol Stop: 03/01/24 13:05 Last Admin: 03/01/24 14:44 Dose: Not Given Documented By: ANGELES Famotidine (Famotidine 20 Mg Tab) 20 mg PO NOW ONE Stop: 03/01/24 13:20 Last Admin: 03/01/24 15:47 Dose: Not Given Documented By: ALTAF Guaifenesin (Guaifenesin 600 Mg Tabcr) 600 mg PO Q12 RJ Stop: 03/31/24 13:19 Last Admin: 03/01/24 15:47 Dose: Not Given Documented By: ALTAF Magnesium Sulfate/Dextrose (Magnesium Sulfate / D5w) 1 gm in 100 mls @ 50 mls/hr IV ONE ONE Stop: 03/01/24 14:12 Last Infusion: 03/01/24 15:48 Dose: Infused Documented By: Admin: 03/01/24 12:39 Dose: 50 mls/hr Documented By: CLAUDETTE Doxycycline Hyclate 100 mg/ (Dextrose) 100 mls @ 50 mls/hr IV NOW STA Stop: 03/01/24 15:04 Last Infusion: 03/01/24 15:48 Dose: Infused Documented By: Admin: 03/01/24 15:02 Dose: 50 mls/hr Documented By: MAEGAN Pantoprazole Sodium 40 mg/ (Syringe) 10 mls @ 5 mls/min IV NOW ONE Stop: 03/01/24 13:46 Last Admin: 03/01/24 14:04 Dose: 5 mls/min Documented By: CLAUDETTE Lactated Ringer's (Lr) 1,000 mls @ 100 mls/hr IV .Q10H RJ Stop: 03/02/24 11:14 Last Admin: 03/01/24 16:07 Dose: 100 mls/hr Documented By: ALTAF Insulin Aspart (Insulin Aspart Per Unit Charge) 0 units SC Q6H RJ Stop: 03/31/24 14:14 Last Admin: 03/01/24 15:49 Dose: Not Given Documented By: ALTAF Methylprednisolone (Methylprednisolone 125 Mg/2 Ml Vial) 125 mg IV NOW STA Stop: 03/01/24 11:32 Last Admin: 03/01/24 11:46 Dose: 125 mg Documented By: CLAUDETTE Imaging Data Radiologist's Impression: Chest X-Ray 03/01/24 11:31 XR chest 1V portable CLINICAL HISTORY: Dyspnea COMPARISON STUDY: Chest CT August 11, 2023. Chest radiograph August 18, 2023. FINDINGS: There is flattening of the hemidiaphragms. Lungs are clear. There is no pneumothorax. There is a possible trace right pleural effusion. Cardiac size is normal. Mediastinal contours are normal. There is no evidence for pulmonary edema. IMPRESSION: 1. No consolidation to suggest pneumonia. 2. Possible trace right pleural effusion. ACT 112: Negative or not required by law. Electronically signed by: Kapil Coburn M.D. 03/01/2024 1:08 PM Discharge Plan Visit Data Chief Complaint: Respiratory Problems Stated Complaint: EXTREME SOB HAS COPD ED Provider: Alec Knight Discharge Problem: Acute dyspnea, COPD exacerbation Patient Disposition: Admitted As Inpatient Discharge Instructions Interventions: ED Discharge Assessment Last Done: 03/01/24 14:41
[2024-03-01 12:12] LABS: D Dimer < 190 ug/L FEU (0-500)
[2024-03-01] MEDS: MAGNESIUM SULFATE / D5W 1 GM/100 ML BAG IV ONE (12:39)
[2024-03-01 13:05] LABS: Adenovirus PCR Not Detected (NotDetected); Bordetella parapertussis PCR Not Detected (NotDetected); Bordetella pertussis PCR Not Detected (NotDetected); Chlamydia pneumoniae PCR Not Detected (NotDetected); Coronavirus 229E PCR Not Detected (NotDetected); Coronavirus CoV-2 (COVID19)PCR Not Detected (NotDetected); Coronavirus HKU1 PCR Not Detected (NotDetected); Coronavirus NL63 PCR Not Detected (NotDetected); Coronavirus OC43PCR Not Detected (NotDetected); Human Metapneumovirus PCR Not Detected (NotDetected); Influenza A PCR Not Detected (NotDetected); Influenza B PCR Not Detected (NotDetected); Mycoplasma pneumoniae PCR Not Detected (NotDetected); Parainfluenza Virus 1 PCR Not Detected (NotDetected); Parainfluenza Virus 2 PCR Not Detected (NotDetected); Parainfluenza Virus 3 PCR Not Detected (NotDetected); Parainfluenza Virus 4 PCR Not Detected (NotDetected); Respiratory Syncytial VirusPCR Not Detected (NotDetected); Rhinovirus/Enterovirus PCR Not Detected (NotDetected)
--- NOTE | 2024-03-01 13:10 | XRay Report ---
XR chest 1V portable CLINICAL HISTORY: Dyspnea COMPARISON STUDY: Chest CT August 11, 2023. Chest radiograph August 18, 2023. FINDINGS: There is flattening of the hemidiaphragms. Lungs are clear. There is no pneumothorax. There is a possible trace right pleural effusion. Cardiac size is normal. Mediastinal contours are normal. There is no evidence for pulmonary edema. IMPRESSION: 1. No consolidation to suggest pneumonia. 2. Possible trace right pleural effusion. ACT 112: Negative or not required by law. Electronically signed by: Kapil Coburn M.D. 03/01/2024 1:08 PM
--- NOTE | 2024-03-01 13:13 | History & Physical Report ---
Date of Service March 01, 2024 Assessment & Plan (1) Acute respiratory failure with hypoxia and hypercapnia: Plan: -Admit to the ICU -Presented to the ED this am with approximately 1 week of worsening SOB, wheezing, and productive cough with white sputum -Noted to be significantly hypoxic on RA with SpO2 in the 70's -Initial ABG showed a pH of 7.25, pCo2 of 60, and pO2 of 80 >Repeat ABG after initial resuscitation with pH of 7.23, pCO2 of 64, and pO2 of 78 -Currently S/P 125 mg IV Solu-medrol, an hour-long duoneb treatment, 1gm IV mag- sulfate, and a dose of doxycycline -Mild leukocytosis without acute findings on CXR, full respiratory biofire is negative -Spoke with Car Carder certified low vision therapist, agrees with ICU admission at this time, appreciate his help -Will continue to treat as a COPD exacerbation at this time with the Following: >40 mg Iv Solu-medrol TID >QIDr DuoNebs >BIDr Budesonide/formoterol nebs >Q12H doxycycline >Incentive spirometry, flutter therapy, prn O2 to keep SpO2 between 89-92% >Will hold PO Guaifenesin for now as she is high risk for aspiration in her current respiratory status -Will start the patient on a Precedex drip prior to starting Bipap per ICU's recommendations >Patient is willing to try this plan -Will continue to monitor patient's ABG moving forward, may need intubation if she continues to decline -Follow sputum culture w/gram stain -BL EDGAR's for DVT for now with hx of hemorrhagic shock from GI bleed last year and current use of systemic steroids -Strict NPO until respiratory status is stable -AM CBC, BMP, mag, PT/INR (2) Acute exacerbation of COPD with asthma: Plan: -Patient denies recent medication changes, reports being compliant with outpatient medications -Denies recent tobacco abuse -Patient will need close Pulmonology follow up on discharge -Rest of care per Acute hypoxic respiratory plan (3) History of GI bleed: Plan: -Was admitted to the [facility] ICU in 2022 due to hemorrhagic shock due to bleeding Duodenal ulcer -No current abdominal pain/nausea -Denies recent melena -Will start IV pantoprazole daily while on systemic steroids (4) Hyperglycemia: Plan: -Previous hx -Glucose elevated today on arrival at 165 -Will likely become more hyperglycemic with systemic glucocorticoids -Will start q6h glucose checks, goal is 110-160 -Start CF of 50 q6h for now -If she is consistently hyperglycemic tonight can start basal insulin (5) Alcohol abuse: Plan: -Denies recent alcohol use -No signs of alcohol withdrawal at this time -Continue to monitor for alcohol withdrawal Plan The patient was discussed with Dr. Arizmendi at the time of the admission History of Present Illness Chief Complaint: SOB Primary Care Provider: Everette Leija DO Abdul is a 58 year old female with a PMH significant for COPD-asthma overlap syndrome with previous ICU admissions requiring intubation, chronic hypoxic respiratory with prn 2L NC use, alcohol abuse, and hemorrhagic shock from bleeding duodenal ulcer who presented to the [facility] ED on 03/01/24 with complaints of progressive SOB over the past 2 weeks. She was noted to be hypertensive at 195/84, tachycardic at 115, and hypoxic with SpO2 in the 70- 80s, but otherwise stable. Labs were significant for a leukocytosis 11 with neutrophil predominance of 10, negative d-dimer, POC ABG results are not currently in the chart, corrected sodium of 133, total bili of 1.4, high sen trop and BNP WNL, and negative full respiratory biofire. Chest xray was read as 1. No consolidation to suggest pneumonia. 2. Possible trace right pleural effusion.". Prior to admission the patient was given an hour-long albuterol treatment, 125 mg IV Solu-medrol, a dose of doxycycline, and 1gm IV mag-sulfate. At the time of the exam the patient was noted to be in moderate respiratory distress with tripod breathing, accessory muscle use, and difficulty completing full sentences. She was finishing the hour long duoneb at the time of my exam. States that she started noticing increased SOB, wheezing, and productive cough with white sputum approximately a week ago. Woke up this am with symptoms significant worse. Was using her home breathing treatments without improvement in symptoms. No recent medication changes, denies running out of any medications recently. Denies recent fever, chills, chest pain, hemoptysis, abd pain, nausea, vomiting, diarrhea, dysuria, hematuria, melena, LE swelling, and recent trauma. Denies recent alcohol use or tobacco use. Has had minimal improvement in her respiratory symptoms since receiving steroids and the hour long duoneb treatment. We explained that we are concerned with her current respiratory status and her risk for further clinical decline. We explained that we would ideally started her on Bipap at this time, she is very reluctant to start Bipap as she get's very anxious and is unable to tolerate it in the past. She is a full code and her sister is her POA. At this time we will repeat at stat ABG, if it is getting worse we will place the patient in the ICU for closer monitoring and possible intubation, if it is stable we will place her on PCU. Results of first ABG as of Noon: >pH: 7.25, pCO2: 60.8, pO2: 88, Bicarb: [address] Muse's attestation for any changes to the treatment plan Allergies Allergy/AdvReac Type Severity Reaction Status Date / Time animal dander Allergy Intermediate asthma Verified 11/26/23 15:33 related symptoms grass pollen-perennial rye, Allergy Intermediate asthma Verified 11/26/23 15:33 standar related sx mold Allergy Intermediate asthma Verified 11/26/23 15:33 related sx Home Medications Medication Instructions Recorded Confirmed Type acetaminophen 500 mg tablet 1,000 mg PO UD PRN PAIN/FEVER 03/05/23 11/26/23 History (Tylenol Extra Strength) albuterol sulfate 90 mcg/actuation 1 puff inhalation QID PRN 08/19/23 11/26/23 History aerosol inhaler Shortness Of Breath Or Wheezing Portable Oxygen [id number] #1 ea 09/05/23 11/26/23 Rx fluticasone propionate 115 2 inh inhalation BID #12 grams 09/16/23 11/26/23 Rx mcg-salmeterol 21 mcg/actuation HFA inhaler (Advair HFA) diltiazem HCl 120 mg capsule,24 120 mg PO QAM 10/11/23 11/26/23 History hr,extended release pantoprazole 40 mg tablet,delayed 40 mg PO DAILY #30 tabs 10/17/23 11/26/23 Rx release tiotropium bromide 2.5 2 puff inhalation DAILY #1 inhaler 11/20/23 11/26/23 Rx mcg/actuation mist for inhalation (Spiriva Respimat) ipratropium 0.5 mg-albuterol 3 mg 3 ml inhalation QID PRN shortness 02/12/24 Rx (2.5 mg base)/3 mL nebulization of breath #180 mL elizabeth Past Med/Surg History Medical History (Updated 03/01/24 @ 19:00 by Nicolás Morrison MD) Severe anxiety Unresponsive Discharge planning issues History of GI bleed 08/2023, [facility], received 8 units of blood History of blood transfusion 08/2023, received 8 units due to GI bleed Seizure beginning of 08/2023 while in the ER, attributed it to blood loss>no further events On home oxygen therapy 2L continuous Encounter for pre-operative examination Acute respiratory failure with hypoxia and hypercapnia during recent hospitalization 08/2023 GI bleed, "she developed hypoxic/hypercarbic respiratory failure and had to undergo intubation" following discharge she was readmitted/reintubated 1 day later for repsiratory failure after unsuccessful adjustments to her daily inhaler, per PCP note; f/u dr. gonzáles Respiratory failure 08/2023, hospitalized for about 1 month Allergic rhinitis due to other allergen Allergic rhinitis due to dust Murmur Extrinsic asthma Atopic dermatitis "comes and goes" Allergic rhinitis due to pollen Allergic rhinitis due to animal dander COPD (chronic obstructive pulmonary disease) COPD with exacerbation most recent 08/2023, hospitalized for most of 08/2023 Colon cancer screening Hypoxemia Asthma PNA (pneumonia) hx 02/2023 Surgical History History of esophagogastroduodenoscopy (EGD) History of surgical removal of ganglion cyst Family History Sister Asthma Allergic rhinitis Social History (Updated 11/26/23 @ 15:40 by Yissel Martinez LPN) Smoking Status: Former smoker Tobacco Type: Cigarettes Second Hand Exposure: No; Do You Dip or Chew Tobacco: No; Hx Alcohol Use: No Hx Substance Use: No Preferred Language: Guamanian Communication Ability: Effective Last Sawyer Required: No Beliefs That Will Affect Care: None marital status: / Current Living Situation: Alone current occupational status: employed How many Children do You have: 0 Other Information That Helps Us Care for You: No Feels Safe at Home: Yes Childhood Exposure to Second-Hand Smoke: Yes Diet: regular caffeine: Yes Dental Care, Regularly: Yes Physical Activity Frequency: Daily Seatbelt Use: always Sunscreen Use: Yes Assistive Devices: Oxygen - Continuous Physical Exam Physical Exam: Physical Exam: General: In acute distress with tripod positioning, accessory muscle use, inspiratory/expiratory wheezing, and inability to speak in complete sentences, stated age, she is ill appearing HEENT: Normocephalic, atraumatic, no scleral icterus, pupils around round, symmetrical, and reactive to light, moist mucus membranes, trachea midline, no thyromegaly Chest/Pulm: In moderate respiratory distress, symmetrical chest expansion, diffuse inspiratory and expiratory wheezing in all lung brandon, no stridor noted Cardiac: tachycardic rate, regular rhythm, no murmurs noted Abdomen: Negative for ascites and bruising, normoactive bowel sounds, soft, non-tender to palpation throughout Musculoskeletal: Symmetrical and without signs of acute trauma, upper and lower extremities with full ROM, no atrophy, spasticity, or flaccidity Extremities: Radial, dorsalis pedis, and posterior tibial pulses are intact and symmetrical, no edema noted in the BL LE's Skin: Warm, dry, no rashes , lesions, or scars noted Neuro: Alert and oriented to person, place, month, year, and president, no focal defects, no tremors noted Psych: In acute distress due to respiratory status, polite and cooperative during the exam Results & Data Results & Data Vital Signs (Past 12 Hours) Vital Signs Temp Pulse Resp BP Pulse Ox O2 Del Method O2 Flow Rate 03/01/24 12:07 109 H 23 98 Oxymask 7 03/01/24 12:00 160/102 H 03/01/24 12:00 106 H 35 H 98 03/01/24 11:52 Oxymask 6 03/01/24 11:42 18 95 Nasal Cannula 6 03/01/24 11:42 109 H 03/01/24 11:37 115 H 24 98 03/01/24 11:37 81 L Nasal Cannula 5 03/01/24 11:19 36.5 C 113 H 24 195/84 H 78 L Nasal Cannula 2 Laboratory Results Abnormal lab results 03/01/24 Range/Units 11:32 WBC 11.63 H (4.8-10.8) K/ul Plt Count 410 H (130-400) K/uL MPV 9.1 L (9.4-12.4) fL Neut # (Auto) 10.04 H (1.40-6.50) K/uL Lymph # (Auto) 0.99 L (1.20-3.40) K/uL Sodium 132 L (136-145) mmol/L Creatinine 0.44 L (0.6-1.2) mg/dl BUN/Creatinine Ratio 20.5 H (10-20) Glucose 165 H (70-99(Fasting)) mg/dl Total Bilirubin 1.4 H (0.2-1.0) mg/dl Albumin 5.3 H (3.4-5.0) gm/dl Diagnostic Findings Chest X-Ray 03/01/24 11:31 XR chest 1V portable CLINICAL HISTORY: Dyspnea COMPARISON STUDY: Chest CT August 11, 2023. Chest radiograph August 18, 2023. FINDINGS: There is flattening of the hemidiaphragms. Lungs are clear. There is no pneumothorax. There is a possible trace right pleural effusion. Cardiac size is normal. Mediastinal contours are normal. There is no evidence for pulmonary edema. IMPRESSION: 1. No consolidation to suggest pneumonia. 2. Possible trace right pleural effusion. ACT 112: Negative or not required by law. Electronically signed by: Kapil Coburn M.D. 03/01/2024 1:08 PM ECG Additional Comments: Sinus tachycardia Biatrial enlargement Left anterior fascicular block Anterior infarct (cited on or before 18-AUG-2023) Abnormal ECG When compared with ECG of 05-SEP-2023 07:24, No significant change was found Code Status & VTE Plan Code Status Full code VTE Prophylaxis Plan VTE Prophylaxis will be ordered: Yes Critical Care Time Critical Care Time: Yes Total Critical Care Time: 40 Supervising Physician Co-Signing Physician Notes I personally saw and examined the patient. I verified all jimenez points and agree with Renato Santamaria PA-C with the following exceptions and/or additions: 58 year old female presents to the ER with severe asthma. Prior hospitalization in August. No definitive precipitating event and taking her medications as prescribed. Worsening symptoms over the last week but not yet been on steroids. O/E HS increased rate, regular rhythm, good air entry b/l but wheezing both inspiratory and expiratory, initially tripod breathing with increased accessory muscle use, Abdo SNT A/P Acute respiratory failure with hypoxia and hypercapnia - Worsening ABG without BiPAP therefore will transfer to ICU as high risk of progression to intubation if unable to tolerate BiPAP but now willing to try. NPO while in severe respiratory distress. Repeat ABG once on BiPAP for a few hours. Ongoing dae lopez per ICU team. Status asthmaticus with COPD - Solu-medrol 125mg IV given in ER, continue 40mg TID, duonebs q4h, formoterol/budesonide nebs BID, doscycyline 100mg IV BID Severe anxiety - starting on Precedex drip per ICU recommendations so that she is able to tolerate BiPAP PG Care Time/CCT Total # of Minutes Spent Total Time Spent with Patient: Total time spent is greater than 50% in coordination of care (as documented) at patient's floor/unit and/or counseling patient: Critical Care Time: Yes Total Critical Care Time: 40 Coding [place] [address] INT INP/OBS CARE 3/75MIN Patient Type Established Medical Decision Making High Complexity Diagnoses Acute respiratory failure with hypoxia and hypercapnia J96.01; J96.02 Acute exacerbation of COPD with asthma J44.1; J45.901 History of GI bleed Z87.19 Hyperglycemia R73.9 Alcohol abuse F10.10 Additional Codes Critical Care Time - Critical Care Time: Yes ([id number])
[2024-03-01] MEDS: PANTOprazole 40 MG in SYRINGE 0 ML IV ONE (14:04)
[2024-03-01] MEDS ORDERED: GLUCOSE 40% GEL 15 GM TUBE PO PRN (14:09)
[2024-03-01] MEDS ORDERED: GLUCAGON FOR INJ 1 MG VIAL SQ PRN (14:09)
[2024-03-01] MEDS ORDERED: GLUCOSE 10 TAB/TUBE PO PRN (14:09)
[2024-03-01] MEDS ORDERED: DEXTROSE 50% 50 ML SYRINGE IV PRN (14:09)
[2024-03-01] MEDS ORDERED: CARBOHYDRATES FOR HYPOGLYCEMIA PO PRN (14:09)
[2024-03-01 14:15] LABS: Appearance Urine Cloudy (Clear); Bacteria Urine Automated 4+ (None Seen); Bilirubin Urine Negative (Negative); Blood Urine Trace (Negative); Cast Urine Automated 0-2 /lpf (0-2); Color Urine Yellow; Epithelial Cell Urine Auto 0-2 /hpf (0-2); Glucose Urine UA Trace (Negative); Ketones Urine 1+ (Negative); Leukocyte Esterase Urine Negative (Negative); Nitrite Urine Negative (Negative); Protein Urine 1+ (Negative); RBC Urine Automated 0-2 /hpf (0-2); Specific Gravity Urine 1.012 (1.000-1.030); Urobilinogen Urine Negative (Negative); WBC Urine Automated 0-5 /hpf (0-5)
[2024-03-01] MEDS ORDERED: STAT IV Infusion **Titration per Protocol STA (14:22)
[2024-03-01] MEDS: ALBUT/IPRATROP 3MG/0.5MG NEB 3 ML VIAL NEB ONE (14:44)
[2024-03-01] MEDS: ALBUT/IPRATROP 3MG/0.5MG NEB 3 ML VIAL NEB SCH (14:45)
[2024-03-01] MEDS: dexMEDEtomidine 200 MCG/50 ML BAG IV SCH (15:02)
[2024-03-01] MEDS: DOXYCYCLINE HYCLATE 100 MG in DEXTROSE 5% MINI-B 100 ML IV STA (15:02)
[2024-03-01] MEDS: guaiFENesin 600 MG TABCR PO SCH (15:47)
[2024-03-01] MEDS: FAMOTIDINE 20 MG TAB PO ONE (15:47)
[2024-03-01] MEDS: INSULIN ASPART PER UNIT CHARGE SC SCH ×2 (15:49→17:47)
[2024-03-01] MEDS: LACTATED RINGER'S 1,000 ML IV SCH (16:07)
[2024-03-01] MEDS ORDERED: ICU Protocol for HYPERglycemia SCH (16:30)
[2024-03-01] MEDS ORDERED: Nursing to Pharmacy Communication SCH (17:30)
[2024-03-01 18:02] LABS: iSTAT Allen Test Pass; iSTAT Art Bld Gas pCO2 Correct 53 mmHg (35-46); iSTAT Art Bld Gas pH Corrected 7.296 (7.35-7.45); iSTAT Arterial Blood Gas HCO3 26 meg/L (19-24); iSTAT Arterial Blood Gas pCO2 54 mmHg (35-46); iSTAT Arterial Blood Gas pH 7.29 (7.35-7.45); iSTAT Arterial Blood Gas pO2 57 mmHg (80-95); iSTAT Arterial Blood Gas pO2 C 55; iSTAT Carbon Dioxide 28 mmol/L (24-31); iSTAT FiO2 30 %; iSTAT Hematocrit 39 % (37-47); iSTAT Hemoglobin 13.3 g/dl (12.0-16.0); iSTAT Potassium 4.4 mmol/L (3.3-5.0); iSTAT Site R Radial; iSTAT Sodium 130 mmol/L (135-144)
[2024-03-01] MEDS ORDERED: STAT IV/IM STA (18:46)
--- NOTE | 2024-03-01 19:03 | Critical Care Consultation ---
Date of Consultation March 01, 2024 Assessment & Plan (1) Status asthmaticus with COPD (chronic obstructive pulmonary disease): (2) Severe anxiety: (3) Respiratory acidosis: Plan 58-year-old female with past medical history of asthma and COPD overlap with recurrent flares presenting to the ICU due to ongoing status asthmaticus. Neurologic: Currently on Precedex to help with anxiolysis. Will start the patient on ketamine as well. Will need to monitor neurostatus closely given the use of multiple IV sedatives. Pulmonary: Use ketamine as an adjunct to help bronchodilator airways. Need to monitor airway for increased secretions with the use of ketamine. Can consider the use of glycopyrrolate. Continue frequent DuoNebs, methylprednisone 40 mg every 8 hours and LABA/ICS therapy. Continue with as needed BiPAP. If clinical condition worsens, may need to proceed with intubation. Would prefer higher tidal volumes and lower respiratory rate if patient needs intubated. Cardiovascular: Patient is currently normotensive. She has tachycardia secondary to her asthma attack. Troponin on admission was unremarkable. EKG on admission with evidence of left anterior fascicular block. Unchanged compared to prior EKG. Gastrointestinal: Patient with recent duodenal ulcer. Pupillometer continue Protonix 40 mg daily. Renal: No significant issues. Will check a BMP now to ensure no evidence of hypokalemia given the use of frequent beta agonist therapy. She is mildly hyponatremic. Will discontinue lactated Ringer's. Infectious disease: Respiratory viral panel was negative on admission. Agree with empiric doxycycline for the time being. Hematologic: No significant issues at present. Interestingly minimal eosinophilia noted on CBC. Endocrine: Maintain euglycemia. No issues otherwise. VTE prophylaxis: SCDs CODE STATUS: Full code Family at bedside: [id number] updated at bedside Disposition: ICU I have personally spent 42 minutes of critical care time in the direct management of this patient. This is a life/limb threatening event. This includes time spent evaluating patient, direct bedside care, chart review, placing orders, interpretation of diagnostic studies, discussion with consultants, patient, and family members, as well as other required patient management activities. This time is exclusive of all separately billable procedures, and teaching time and separate from and in addition to any other critical care service time. Thank you for allowing us to participate in the care of this patient. History of Present Illness Reason for Consultation: Status asthmaticus Attending Physician: Adolfo Arizmendi MD History of Present Illness 58-year-old female with known history of asthma followed by the allergy clinic presenting to the hospital due to shortness of breath over the past 2 or 3 days which has gotten considerably worse. She was found to be hypertensive in the ER with systolic blood pressures in the 190s. She had a chest x-ray which revealed hyperinflation and a trace right-sided pleural effusion. She continues to have significant shortness of breath and tachypnea. She has completed 2 hour-long nebulizer treatments and is currently on a Precedex infusion at 1.2 mg/kg/h. She remains anxious and is intolerant of BiPAP therapy. Her initial pH was 7.23 on blood gas and is improved to 7.29. Patient's [id number] is at bedside. Allergies Allergy/AdvReac Type Severity Reaction Status Date / Time animal dander Allergy Intermediate asthma Verified 11/26/23 15:33 related symptoms grass pollen-perennial rye, Allergy Intermediate asthma Verified 11/26/23 15:33 standar related sx mold Allergy Intermediate asthma Verified 11/26/23 15:33 related sx Home Medications Medication Instructions Recorded Confirmed Type acetaminophen 500 mg tablet 1,000 mg PO UD PRN PAIN/FEVER 03/05/23 11/26/23 History (Tylenol Extra Strength) albuterol sulfate 90 mcg/actuation 1 puff inhalation QID PRN 08/19/23 11/26/23 History aerosol inhaler Shortness Of Breath Or Wheezing Portable Oxygen E0431 #1 ea 09/05/23 11/26/23 Rx fluticasone propionate 115 2 inh inhalation BID #12 grams 09/16/23 11/26/23 Rx mcg-salmeterol 21 mcg/actuation HFA inhaler (Advair HFA) diltiazem HCl 120 mg capsule,24 120 mg PO QAM 10/11/23 11/26/23 History hr,extended release pantoprazole 40 mg tablet,delayed 40 mg PO DAILY #30 tabs 10/17/23 11/26/23 Rx release tiotropium bromide 2.5 2 puff inhalation DAILY #1 inhaler 11/20/23 11/26/23 Rx mcg/actuation mist for inhalation (Spiriva Respimat) ipratropium 0.5 mg-albuterol 3 mg 3 ml inhalation QID PRN shortness 02/12/24 Rx (2.5 mg base)/3 mL nebulization of breath #180 mL elizabeth Patient History Medical History (Updated 03/01/24 @ 19:00 by Nicolás Morrison MD) Severe anxiety Unresponsive Discharge planning issues History of GI bleed 08/2023, [facility], received 8 units of blood History of blood transfusion 08/2023, received 8 units due to GI bleed Seizure beginning of 08/2023 while in the ER, attributed it to blood loss>no further events On home oxygen therapy 2L continuous Encounter for pre-operative examination Acute respiratory failure with hypoxia and hypercapnia during recent hospitalization 08/2023 GI bleed, "she developed hypoxic/hypercarbic respiratory failure and had to undergo intubation" following discharge she was readmitted/reintubated 1 day later for repsiratory failure after unsuccessful adjustments to her daily inhaler, per PCP note; f/u dr. gonzáles Respiratory failure 08/2023, hospitalized for about 1 month Allergic rhinitis due to other allergen Allergic rhinitis due to dust Murmur Extrinsic asthma Atopic dermatitis "comes and goes" Allergic rhinitis due to pollen Allergic rhinitis due to animal dander COPD (chronic obstructive pulmonary disease) COPD with exacerbation most recent 08/2023, hospitalized for most of 08/2023 Colon cancer screening Hypoxemia Asthma PNA (pneumonia) hx 02/2023 Surgical History History of esophagogastroduodenoscopy (EGD) History of surgical removal of ganglion cyst Family History Sister Asthma Allergic rhinitis Social History (Updated 11/26/23 @ 15:40 by Yissel Martinez LPN) Smoking Status: Former smoker Tobacco Type: Cigarettes Second Hand Exposure: No; Do You Dip or Chew Tobacco: No; Hx Alcohol Use: No Hx Substance Use: No Preferred Language: Kazakh Communication Ability: Effective Cook Fruit Required: No Beliefs That Will Affect Care: None marital status: / Current Living Situation: Alone current occupational status: employed How many Children do You have: 0 Other Information That Helps Us Care for You: No Feels Safe at Home: Yes Childhood Exposure to Second-Hand Smoke: Yes Diet: regular caffeine: Yes Dental Care, Regularly: Yes Physical Activity Frequency: Daily Seatbelt Use: always Sunscreen Use: Yes Assistive Devices: Oxygen - Continuous Review of Systems Review of Systems: All systems reviewed & are unremarkable except as noted in HPI & below Physical Exam Physical Exam: Constitutional: Patient appears to be of their stated age. Patient in moderate distress. Eyes: Pupils are equal round and reactive to light. Conjunctivae are normal. Anicteric sclera. Ears nose, mouth and throat: Mallampati class 2. Normal posterior oropharynx. Uvula is midline. Neck: Trachea is midline. Visual inspection is normal. Respiratory: Diffuse expiratory wheeze with prolonged phase of exhalation. Tachypneic. Retractions noted. Cardiovascular: Regular rate and rhythm. No murmurs. No edema. Gastrointestinal: Normal bowel sounds, soft, nontender and nondistended. No hepatosplenomegaly noted. Musculoskeletal: No cyanosis. Patient is able to move all extremities. Strength is 5 out of 5 in the upper and lower extremities. Skin: No rashes, warm dry and intact. Neurologic: No obvious focal neurological deficits seen. Psychiatric: Alert and oriented x3 with an anxious mood Results & Data Results & Data Vital Signs (Past 12 Hours) Vital Signs Temp Pulse Pulse Resp BP BP Pulse Ox 03/01/24 18:32 147/81 H 03/01/24 18:32 105 H 28 H 90 03/01/24 18:30 105 H 29 H 91 03/01/24 18:18 126/91 03/01/24 18:18 101 H 28 H 95 03/01/24 18:15 103 H 29 H 96 03/01/24 18:08 106 H 24 90 03/01/24 18:08 165/104 H 03/01/24 18:00 138/115 H 03/01/24 18:00 104 H 39 H 93 03/01/24 17:45 103 H 25 H 91 03/01/24 17:42 103 H 25 H 92 03/01/24 17:42 129/96 03/01/24 17:30 101 H 25 H 90 03/01/24 17:15 102 H 27 H 90 03/01/24 17:00 103 H 27 H 90 03/01/24 17:00 105/78 03/01/24 16:45 106 H 27 H 90 03/01/24 16:32 107 H 28 H 89 L 04/21/24 16:32 125/75 03/01/24 16:30 107 H 36 H 91 03/01/24 16:15 110 H 27 H 90 03/01/24 16:00 121 H 03/01/24 16:00 124/95 03/01/24 16:00 112 H 20 93 03/01/24 16:00 112 H 22 93 03/01/24 15:45 112 H 37 H 93 03/01/24 15:34 119 H 30 H 92 03/01/24 15:34 146/78 H 03/01/24 15:31 116 H 32 H 92 03/01/24 15:31 155/89 H 03/01/24 15:30 116 H 29 H 92 03/01/24 15:27 03/01/24 15:27 36.4 C L 117 H 34 H 155/89 H 90 03/01/24 15:24 03/01/24 15:15 122 H 28 H 91 03/01/24 15:09 121 H 35 H 94 03/01/24 15:09 186/110 H 03/01/24 15:07 121 H 25 H 95 03/01/24 15:00 192/159 H 03/01/24 15:00 123 H 34 H 85 L 03/01/24 14:30 120 H 27 H 92 03/01/24 14:30 154/96 H 03/01/24 14:16 22 97 03/01/24 14:09 121 H 03/01/24 14:00 152/97 H 03/01/24 14:00 117 H 26 H 95 03/01/24 13:30 158/101 H 03/01/24 13:30 118 H 22 95 03/01/24 13:00 196/94 H 03/01/24 13:00 119 H 23 94 03/01/24 12:30 176/119 H 03/01/24 12:30 120 H 28 H 96 03/01/24 12:07 109 H 23 98 03/01/24 12:00 160/102 H 03/01/24 12:00 106 H 35 H 98 03/01/24 11:52 03/01/24 11:42 18 95 03/01/24 11:42 109 H 03/01/24 11:37 115 H 24 98 03/01/24 11:37 81 L 03/01/24 11:19 36.5 C 113 H 24 195/84 H 78 L Pulse Ox O2 Del Method O2 Del Method O2 Flow Rate O2 Flow Rate FiO2 03/01/24 18:32 03/01/24 18:32 03/01/24 18:30 03/01/24 18:18 03/01/24 18:18 03/01/24 18:15 03/01/24 18:08 03/01/24 18:08 03/01/24 18:00 03/01/24 18:00 03/01/24 17:45 03/01/24 17:42 03/01/24 17:42 03/01/24 17:30 03/01/24 17:15 03/01/24 17:00 03/01/24 17:00 03/01/24 16:45 03/01/24 16:32 03/01/24 16:32 03/01/24 16:30 03/01/24 16:15 03/01/24 16:00 03/01/24 16:00 03/01/24 16:00 03/01/24 16:00 30 03/01/24 15:45 03/01/24 15:34 03/01/24 15:34 03/01/24 15:31 03/01/24 15:31 03/01/24 15:30 03/01/24 15:27 Oxymask 10 03/01/24 15:27 Oxymask 10 03/01/24 15:24 90 Oxymask 10 03/01/24 15:15 03/01/24 15:09 03/01/24 15:09 03/01/24 15:07 30 03/01/24 15:00 03/01/24 15:00 03/01/24 14:30 03/01/24 14:30 03/01/24 14:16 Nasal Cannula 6 03/01/24 14:09 03/01/24 14:00 03/01/24 14:00 03/01/24 13:30 03/01/24 13:30 03/01/24 13:00 03/01/24 13:00 03/01/24 12:30 03/01/24 12:30 03/01/24 12:07 Oxymask 7 03/01/24 12:00 03/01/24 12:00 03/01/24 11:52 Oxymask 6 03/01/24 11:42 Nasal Cannula 6 03/01/24 11:42 03/01/24 11:37 03/01/24 11:37 Nasal Cannula 5 03/01/24 11:19 Nasal Cannula 2 Coding Level of Care Code 93801 CRITICAL CARE 1ST 30-74M Diagnoses Status asthmaticus with COPD (chronic obstructive pulmonary disease) J44.89; J45.902 Severe anxiety F41.9 Respiratory acidosis E87.29
[2024-03-01 19:43] LABS: BUN Creatinine Ratio 28.6 (10-20); Calcium 9.6 mg/dl (8.6-10.3); Est GFR (African American) 129.1 ml/min; Est GFR (Non-African American) 111.4 ml/min; Potassium 4.5 mmol/L (3.5-5.1)
[2024-03-01] MEDS: KETAMINE 100MG/ML 500 MG in SODIUM CHLORIDE 0.9% 495 ML IV SCH (19:44)
[2024-03-01] MEDS: FORMOTEROL 20 MCG/2 ML VIAL NEB SCH (20:22)
[2024-03-01] MEDS: BUDESONIDE 0.5 MG/2 ML VIAL (PULMICORT) NEB SCH (20:22)
[2024-03-01] MEDS ORDERED: FAMOTIDINE 20 MG TAB PO SCH (21:00)
[2024-03-01] MEDS ORDERED: DOXYCYCLINE HYCLATE 100 MG in DEXTROSE 5% MINI-B 100 ML IV SCH (21:00)
[2024-03-01] MEDS: FAMOTIDINE 20MG IV PUSH 20 MG/5 ML SYR IV SCH (21:15)
[2024-03-01] MEDS: DOXYCYCLINE HYCLATE 100 MG in DEXTROSE 5% MINI-B 100 ML IV SCH (21:15)
[2024-03-02 04:41] LABS: Basophils # (auto) 0.01 K/uL (0.00-0.20); Basophils % (auto) 0.2 %; Hematocrit (blood only) 35.7 % (37.0-47.0); Hemoglobin 11.7 g/dl (12.0-16.0); Immature Granulocytes # (auto) 0.02 K/uL (0.01-0.20); Immature Granulocytes % (auto) 0.3 %; Lymphocytes # (auto) 0.76 K/uL (1.20-3.40); Lymphocytes % (auto) 11.9 %; Mean Corpuscular Hemoglobin 28.3 pg (25.0-34.0); Mean Corpuscular Hgb Conc 32.8 g/dL (32.0-36.0); Mean Corpuscular Volume 86.4 fL (80.0-100.0); Mean Platelet Volume 9.4 fL (9.4-12.4); Monocytes # (auto) 0.26 K/uL (0.11-0.59); Monocytes % (auto) 4.1 %; Neutrophils # (auto) 5.32 K/uL (1.40-6.50); Neutrophils % (auto) 83.5 %; Platelet Count 305 K/uL (130-400); RDW Coefficient of Variation 13.2 % (11.5-14.5); RDW Standard Deviation 41.6 fL (36.4-46.3); Red Blood Count 4.13 M/uL (4.20-5.40); White Blood Count 6.37 K/ul (4.8-10.8)
[2024-03-02 04:58] LABS: BUN Creatinine Ratio 33.3 (10-20); Calcium 9.6 mg/dl (8.6-10.3); Creatinine Clr Calc Pharmacy 132.5 ml/min; Est GFR (African American) 132.3 ml/min; Est GFR (Non-African American) 114.2 ml/min; Magnesium 2.4 mg/dl (1.7-2.4); Potassium 4.5 mmol/L (3.5-5.1)
[2024-03-02 05:14] LABS: iSTAT Allen Test Pass; iSTAT Art Bld Gas pCO2 Correct 45 mmHg (35-46); iSTAT Art Bld Gas pH Corrected 7.344 (7.35-7.45); iSTAT Arterial Blood Gas HCO3 25 meg/L (19-24); iSTAT Arterial Blood Gas pCO2 47 mmHg (35-46); iSTAT Arterial Blood Gas pH 7.33 (7.35-7.45); iSTAT Arterial Blood Gas pO2 69 mmHg (80-95); iSTAT Arterial Blood Gas pO2 C 65; iSTAT Carbon Dioxide 26 mmol/L (24-31); iSTAT FiO2 30 %; iSTAT Hematocrit 36 % (37-47); iSTAT Hemoglobin 12.2 g/dl (12.0-16.0); iSTAT Potassium 4.4 mmol/L (3.3-5.0); iSTAT Site R Radial; iSTAT Sodium 132 mmol/L (135-144)
[2024-03-02 05:31] LABS: Prothrombin Time 10.9 Seconds (9.0-12.0)
--- NOTE | 2024-03-02 06:04 | Electrocardiogram Report ---
Test Reason : Blood Pressure : / mmHG Vent. Rate : 107 BPM Atrial Rate : 107 BPM P-R Int : 172 ms QRS Dur : 078 ms QT Int : 328 ms P-R-T Axes : 080 -55 077 degrees QTc Int : 437 ms Sinus tachycardia Biatrial enlargement Left anterior fascicular block Anterior infarct (cited on or before 18-AUG-2023) Abnormal ECG When compared with ECG of 05-SEP-2023 07:24, No significant change was found Confirmed by Diego Myers ([id number]) on 03/02/2024 6:04:27 AM Referred By: REFERRED SELF Confirmed By:Diego Myers
--- NOTE | 2024-03-02 07:32 | Critical Care Progress Note ---
Date of Service March 02, 2024 Assessment & Plan (1) Status asthmaticus with COPD (chronic obstructive pulmonary disease): (2) Severe anxiety: (3) Respiratory acidosis: (4) Alcohol abuse: (5) Duodenal bulb ulcer: (6) Former smoker: (7) Acute respiratory failure with hypoxia and hypercapnia: Plan 58-year-old female with past medical history of asthma and COPD overlap with recurrent flares presenting to the ICU due to ongoing status asthmaticus. Neurologic: -- Significant anxiety Not on any anxiety medications at home Currently on Precedex for anxiety and ketamine for underlying asthma. Will start the patient on Lexapro on 03/02/2024 Try to avoid benzodiazepines given the hypercapnia Pulmonary: -- Acute hypercapnic respiratory failure Likely secondary to status asthmaticus Continue with bronchodilators BiPAP nightly and as needed shortness of breath Try to wean off ketamine --Asthma-COPD overlap syndrome On the medium dose Advair HFA along with Spiriva Would recommend changing to high-dose Cardiovascular: -- Hypertension On diltiazem at home Patient is currently normotensive. She has tachycardia secondary to her asthma attack. Troponin on admission was unremarkable. EKG on admission with evidence of left anterior fascicular block. Unchanged compared to prior EKG. Gastrointestinal: -- Duodenal ulcer On pantoprazole and famotidine Renal: -- Monitor BUNs/creatinine Avoid nephrotoxic medications Infectious disease: -- No clear source Respiratory viral panel was negative 03/01/2024 Complete the course of doxycycline for 5 days for atypical coverage Hematologic: No significant issues at present Endocrine: Continue with ICU hyperglycemia protocol --Prophylaxis VTE:[] GI: Pantoprazole and famotidine Lines: Peripheral Diet: Regular Plan: In/out: +1.5 L, urine output 150 AB.33// on 30% FiO2 on BiPAP Start the patient on Lexapro Try to titrate off ketamine as well as Precedex gradually. Try to take the patient off BiPAP, keep O2 saturation between 90-92% Continue with flutter valve. I have personally spent 42 minutes of critical care time in the direct management of this patient. This is a life/limb threatening event. This includes time spent evaluating patient, direct bedside care, chart review, placing orders, interpretation of diagnostic studies, discussion with consultants, patient, and family members, as well as other required patient management activities. This time is exclusive of all separately billable procedures, and teaching time and separate from and in addition to any other critical care service time. Thank you for allowing us to participate in the care of this patient. Admission and Anticipated Discharge Date Admission Date: March 01, 2024 Subjective Patient seen and examined at bedside. No acute distress, no adverse events overnight She was on Precedex 0.04 as well as ketamine 0.5 at the time of examination She was saturating 98% on 30% FiO2, BiPAP 10/5 She stated she is feeling better compared to yesterday. Was asking if she can have something to drink. Denied any nausea or vomiting No headache, no blurry vision Review of Systems 2 Review of Systems: All systems reviewed & are unremarkable except as noted in Subjective Physical Exam 2 Physical Exam: Constitutional: No acute distress HEENT: EOMI, PERRLA Respiratory system: Decreased air entry bilaterally, no rhonchi, no crackles, minimal expiratory wheeze bilaterally CVS: S1-S2 positive, no murmurs or gallops Abdomen: Soft, nontender, nondistended, positive bowel sounds x4 Extremities: +2 pulses bilaterally radialis/ dorsalis pedis, no cyanosis, no edema Neuro: Awake alert oriented x3 Psych: Normal mood and affect G/U: Positive Garcia Skin: no rashes, warm and dry Lymphatic: no cervical or axillary lymphadenopathy Results & Data Results & Data Vital Signs (Past 12 Hours) Vital Signs Pulse Resp BP Pulse Ox Pulse Ox O2 Del Method O2 Del Method 03/02/24 05:30 123/89 BiPAP 03/02/24 05:30 77 17 96 03/02/24 05:00 116/79 03/02/24 05:00 80 19 94 03/02/24 04:30 122/75 03/02/24 04:30 78 16 93 BiPAP 03/02/24 04:00 117/74 03/02/24 04:00 77 17 93 BiPAP 03/02/24 03:30 112/70 BiPAP 03/02/24 03:30 80 19 93 03/02/24 03:01 88 23 03/02/24 03:01 115/67 03/02/24 03:00 86 23 94 BiPAP 03/02/24 02:30 95 H 18 94 03/02/24 02:30 159/96 H 03/02/24 02:30 99 H 22 92 03/02/24 02:15 186/95 H 03/02/24 02:15 104 H 19 97 03/02/24 02:00 158/103 H 03/02/24 02:00 98 H 30 H 89 L 03/02/24 01:38 153/93 H 03/02/24 01:38 88 22 93 03/02/24 01:30 85 20 94 03/02/24 01:30 130/100 03/02/24 01:00 83 19 94 BiPAP 03/02/24 01:00 118/85 03/02/24 00:30 120/87 03/02/24 00:30 84 20 94 BiPAP 03/02/24 00:00 124/78 03/02/24 00:00 83 17 93 03/02/24 00:00 81 03/01/24 23:30 121/80 03/01/24 23:30 84 16 93 BiPAP 03/01/24 23:08 92 BiPAP 03/01/24 23:00 120/88 03/01/24 23:00 86 23 91 03/01/24 22:30 109/79 03/01/24 22:30 84 16 92 BiPAP 03/01/24 22:00 105/80 03/01/24 22:00 85 17 92 03/01/24 21:30 121/77 03/01/24 21:30 90 20 92 BiPAP 03/01/24 21:00 101/69 03/01/24 21:00 90 23 92 03/01/24 20:30 103/69 03/01/24 20:30 92 H 24 92 BiPAP 03/01/24 20:23 101 H 28 H 97 03/01/24 20:22 28 H 97 BiPAP 03/01/24 20:00 136/91 03/01/24 20:00 98 H 23 03/01/24 20:00 89 O2 Flow Rate FiO2 03/02/24 05:30 30 03/02/24 05:30 03/02/24 05:00 03/02/24 05:00 03/02/24 04:30 03/02/24 04:30 30 03/02/24 04:00 03/02/24 04:00 30 03/02/24 03:30 30 03/02/24 03:30 03/02/24 03:01 03/02/24 03:01 03/02/24 03:00 30 03/02/24 02:30 30 03/02/24 02:30 03/02/24 02:30 03/02/24 02:15 03/02/24 02:15 03/02/24 02:00 03/02/24 02:00 03/02/24 01:38 03/02/24 01:38 03/02/24 01:30 03/02/24 01:30 03/02/24 01:00 30 03/02/24 01:00 03/02/24 00:30 03/02/24 00:30 30 03/02/24 00:00 03/02/24 00:00 03/02/24 00:00 03/01/24 23:30 03/01/24 23:30 30 03/01/24 23:08 03/01/24 23:00 03/01/24 23:00 03/01/24 22:30 03/01/24 22:30 30 03/01/24 22:00 03/01/24 22:00 03/01/24 21:30 03/01/24 21:30 30 03/01/24 21:00 03/01/24 21:00 03/01/24 20:30 03/01/24 20:30 30 03/01/24 20:23 30 03/01/24 20:22 30 03/01/24 20:00 03/01/24 20:00 03/01/24 20:00 Laboratory Results 03/02/24 04:08 03/02/24 04:08 Coding Level of Care Code 28775 CRITICAL CARE 1ST 30-74M Diagnoses Status asthmaticus with COPD (chronic obstructive pulmonary disease) J44.89; J45.902 Severe anxiety F41.9 Respiratory acidosis E87.29 Alcohol abuse F10.10 Duodenal bulb ulcer K26.9 Former smoker Z87.891 Acute respiratory failure with hypoxia and hypercapnia J96.01; J96.02 Time Spent (min) 42
[2024-03-02 07:46] LABS: Estimated Average Glucose 111 mg/dl; Hemoglobin A1C 5.5 % (4.5-5.6)
--- NOTE | 2024-03-02 07:54 | XRay Report ---
XR chest 1V portable HISTORY: Resp failure COMPARISON: Chest 03/01/2024. FINDINGS: No pneumothorax. No pleural effusions. The lungs are mildly hyperexpanded. The heart is nor mal in size. No focal lung consolidations to suggest a pneumonia. No evidence for pulmonary edema. No acute fractures. IMPRESSION: No acute process. ACT 112: Negative or not required by law. Electronically signed by: Chaim Veronica M.D. 03/02/2024 7:52 AM
[2024-03-02] MEDS: cefTRIAXone SODIUM 2,000 MG in DEXTROSE 5 % MINI-B 50 ML IV SCH (08:32)
[2024-03-02] MEDS: methylPREDNISolone 40 MG in SYRINGE 0 ML IV SCH (08:38)
[2024-03-02] MEDS ORDERED: methylPREDNISolone 125 MG in SYRINGE 0 ML IV SCH (09:00)
[2024-03-02] MEDS ORDERED: methylPREDNISolone 125 MG/2 ML VIAL IV SCH (09:00)
[2024-03-02 09:32] LABS: iSTAT Arterial Blood Gas HCO3 27 meg/L (19-24); iSTAT Arterial Blood Gas pCO2 61 mmHg (35-46); iSTAT Arterial Blood Gas pH 7.26 (7.35-7.45); iSTAT Arterial Blood Gas pO2 88 mmHg (80-95); iSTAT Carbon Dioxide 29 mmol/L (24-31); iSTAT Hematocrit 43 % (37-47); iSTAT Hemoglobin 14.6 g/dl (12.0-16.0); iSTAT Potassium 4.1 mmol/L (3.3-5.0); iSTAT Sodium 133 mmol/L (135-144)
[2024-03-02 09:34] LABS: iSTAT Arterial Blood Gas HCO3 27 meg/L (19-24); iSTAT Arterial Blood Gas pCO2 64 mmHg (35-46); iSTAT Arterial Blood Gas pH 7.23 (7.35-7.45); iSTAT Arterial Blood Gas pO2 78 mmHg (80-95); iSTAT Carbon Dioxide 29 mmol/L (24-31); iSTAT Hematocrit 43 % (37-47); iSTAT Hemoglobin 14.6 g/dl (12.0-16.0); iSTAT Potassium 4.2 mmol/L (3.3-5.0); iSTAT Sodium 130 mmol/L (135-144)
[2024-03-02] MEDS: ESCITALOPRAM OXALATE 10 MG TAB PO SCH (11:22)
[2024-03-02] MEDS: PANTOprazole 40 MG in SYRINGE 0 ML IV SCH (11:32)
--- NOTE | 2024-03-02 21:04 | Hospitalist Progress Note ---
Date of Service March 02, 2024 Assessment & Plan (1) Acute respiratory failure with hypoxia and hypercapnia: Plan: -Admit to the ICU -Presented to the ED this am with approximately 1 week of worsening SOB, wheezing, and productive cough with white sputum -Noted to be significantly hypoxic on RA with SpO2 in the 70's -Initial ABG showed a pH of 7.25, pCo2 of 60, and pO2 of 80 >Repeat ABG after initial resuscitation with pH of 7.23, pCO2 of 64, and pO2 of 78 -Currently S/P 125 mg IV Solu-medrol, an hour-long duoneb treatment, 1gm IV mag- sulfate, and a dose of doxycycline -Mild leukocytosis without acute findings on CXR, full respiratory biofire is negative -Spoke with [employer] reference and instruction librarian, agrees with ICU admission at this time, appreciate his help -Will continue to treat as a COPD exacerbation at this time with the Following: >40 mg Iv Solu-medrol TID >QIDr DuoNebs >BIDr Budesonide/formoterol nebs >Q12H doxycycline >Incentive spirometry, flutter therapy, prn O2 to keep SpO2 between 89-92% >Will hold PO Guaifenesin for now as she is high risk for aspiration in her current respiratory status -Will start the patient on a Precedex drip prior to starting Bipap per ICU's recommendations >Patient is willing to try this plan -Will continue to monitor patient's ABG moving forward, may need intubation if she continues to decline -Follow sputum culture w/gram stain -BL EDGAR's for DVT for now with hx of hemorrhagic shock from GI bleed last year and current use of systemic steroids -Strict NPO until respiratory status is stable -AM CBC, BMP, mag, PT/INR On 03/03 Patient remains on precedex drip. Patient will remain in the ICU with above treatment. (2) Acute exacerbation of COPD with asthma: Plan: -Patient denies recent medication changes, reports being compliant with outpatient medications -Denies recent tobacco abuse -Patient will need close Pulmonology follow up on discharge -Rest of care per Acute hypoxic respiratory plan (3) History of GI bleed: Plan: -Was admitted to the [facility] ICU in 2022 due to hemorrhagic shock due to bleeding Duodenal ulcer -No current abdominal pain/nausea -Denies recent melena -Will start IV pantoprazole daily while on systemic steroids (4) Hyperglycemia: Plan: -Previous hx -Glucose elevated today on arrival at 165 -Will likely become more hyperglycemic with systemic glucocorticoids -Will start q6h glucose checks, goal is 110-160 -Start CF of 50 q6h for now -If she is consistently hyperglycemic tonight can start basal insulin (5) Alcohol abuse: Plan: -Denies recent alcohol use -No signs of alcohol withdrawal at this time -Continue to monitor for alcohol withdrawal Plan \ Admission and Anticipated Discharge Date Admission Date: March 01, 2024 Subjective 58 yo female reports breathing better. Even asking to be discharged. Patient however is in the ICU. Review of Systems Review of Systems: All systems reviewed & are unremarkable except as noted in HPI & below Physical Exam Physical Exam: General: sitting upright, in no distress HEENT: Normocephalic, atraumatic Chest/Pulm: not using accessory muscles to breath. Cardiac: tachycardic rate, regular rhythm, no murmurs noted Abdomen: Negative for ascites and bruising, normoactive bowel sounds, soft, non-tender to palpation throughout Musculoskeletal: Symmetrical and without signs of acute trauma Extremities: Radial, dorsalis pedis, and posterior tibial pulses are intact and symmetrical, no edema noted in the BL LE's Skin: Warm, dry, no rashes , lesions, or scars noted Neuro: Alert and oriented to person, place, month, year, and president, no focal defects, no tremors noted Psych: In acute distress due to respiratory status, polite and cooperative during the exam Results & Data Results & Data Vital Signs (Past 12 Hours) Vital Signs Temp Pulse Pulse Resp BP Pulse Ox O2 Del Method 03/02/24 19:35 114 H 19 93 Nasal Cannula 03/02/24 17:30 155/78 H 03/02/24 17:30 115 H 15 95 03/02/24 17:00 164/81 H 03/02/24 17:00 110 H 27 H 03/02/24 16:19 173/97 H 03/02/24 16:19 114 H 20 93 Nasal Cannula 03/02/24 16:15 36.6 C 03/02/24 16:00 111 H 19 93 03/02/24 15:00 109 H 22 92 03/02/24 15:00 141/72 H 03/02/24 14:30 101 H 12 100 03/02/24 14:30 158/85 H 03/02/24 14:17 98 H 18 96 Nasal Cannula 03/02/24 14:00 139/72 03/02/24 14:00 95 H 20 95 03/02/24 13:30 108/79 03/02/24 13:30 103 H 22 96 03/02/24 13:00 98 H 24 93 03/02/24 13:00 130/82 03/02/24 12:30 125/72 03/02/24 12:30 97 H 26 H 92 03/02/24 12:04 36.7 C 03/02/24 12:00 145/81 H 03/02/24 12:00 95 H 23 92 03/02/24 11:39 87 24 94 Nasal Cannula 03/02/24 11:31 141/87 H 03/02/24 11:31 97 H 25 H 96 Nasal Cannula 03/02/24 11:30 95 H 17 95 03/02/24 11:00 143/88 H 03/02/24 11:00 87 26 H 94 03/02/24 10:30 139/90 03/02/24 10:30 82 18 96 03/02/24 10:00 140/78 03/02/24 10:00 85 24 94 03/02/24 09:30 85 25 H 92 03/02/24 09:30 137/78 03/02/24 09:23 36.7 C O2 Flow Rate 03/02/24 19:35 2 03/02/24 17:30 03/02/24 17:30 03/02/24 17:00 03/02/24 17:00 03/02/24 16:19 03/02/24 16:19 2 03/02/24 16:15 03/02/24 16:00 03/02/24 15:00 03/02/24 15:00 03/02/24 14:30 03/02/24 14:30 03/02/24 14:17 2 03/02/24 14:00 03/02/24 14:00 03/02/24 13:30 03/02/24 13:30 03/02/24 13:00 03/02/24 13:00 03/02/24 12:30 03/02/24 12:30 03/02/24 12:04 03/02/24 12:00 03/02/24 12:00 03/02/24 11:39 2 03/02/24 11:31 03/02/24 11:31 2 03/02/24 11:30 03/02/24 11:00 03/02/24 11:00 03/02/24 10:30 03/02/24 10:30 03/02/24 10:00 03/02/24 10:00 03/02/24 09:30 03/02/24 09:30 03/02/24 09:23 PG Care Time/CCT Total # of Minutes Spent Total Time Spent with Patient: Total time spent is greater than 50% in coordination of care (as documented) at patient's floor/unit and/or counseling patient: Coding Level of Care Code 27654 SUB INP/OBS CARE 2/35MIN Diagnoses Acute respiratory failure with hypoxia and hypercapnia J96.01; J96.02 Acute exacerbation of COPD with asthma J44.1; J45.901 History of GI bleed Z87.19 Hyperglycemia R73.9 Alcohol abuse F10.10
[2024-03-03] MEDS: ACETAMINOPHEN 325 MG TAB PO PRN (03:49)
[2024-03-03 04:52] LABS: Basophils # (auto) 0.01 K/uL (0.00-0.20); Basophils % (auto) 0.1 %; Hematocrit (blood only) 35.1 % (37.0-47.0); Hemoglobin 11.8 g/dl (12.0-16.0); Immature Granulocytes # (auto) 0.06 K/uL (0.01-0.20); Immature Granulocytes % (auto) 0.6 %; Lymphocytes # (auto) 0.75 K/uL (1.20-3.40); Lymphocytes % (auto) 7.3 %; Mean Corpuscular Hemoglobin 28.6 pg (25.0-34.0); Mean Corpuscular Hgb Conc 33.6 g/dL (32.0-36.0); Mean Platelet Volume 9.6 fL (9.4-12.4); Monocytes # (auto) 0.21 K/uL (0.11-0.59); Neutrophils # (auto) 9.28 K/uL (1.40-6.50); Platelet Count 309 K/uL (130-400); RDW Coefficient of Variation 13.5 % (11.5-14.5); Red Blood Count 4.13 M/uL (4.20-5.40); White Blood Count 10.31 K/ul (4.8-10.8)
[2024-03-03 05:05] LABS: Calcium 9.7 mg/dl (8.6-10.3); Est GFR (African American) 129.1 ml/min; Est GFR (Non-African American) 111.4 ml/min; Magnesium 2.3 mg/dl (1.7-2.4); Potassium 4.3 mmol/L (3.5-5.1)
[2024-03-03 05:19] LABS: Prothrombin Time 11.1 Seconds (9.0-12.0)
--- NOTE | 2024-03-03 07:17 | Critical Care Progress Note ---
Date of Service March 03, 2024 Assessment & Plan (1) Status asthmaticus with COPD (chronic obstructive pulmonary disease): (2) Severe anxiety: (3) Respiratory acidosis: (4) Alcohol abuse: (5) Duodenal bulb ulcer: (6) Former smoker: (7) Acute respiratory failure with hypoxia and hypercapnia: Plan 58-year-old female with past medical history of asthma and COPD overlap with recurrent flares presenting to the ICU due to ongoing status asthmaticus. Neurologic: -- Anxiety Not on any anxiety medications at home Currently on Precedex for anxiety and ketamine for underlying asthma. Started the patient on Lexapro on 03/02/2024 Try to avoid benzodiazepines given the hypercapnia Pulmonary: -- Acute hypercapnic respiratory failure Likely secondary to status asthmaticus Continue with bronchodilators BiPAP nightly and as needed shortness of breath Try to wean off ketamine --Asthma-COPD overlap syndrome On the medium dose Advair HFA along with Spiriva Would recommend changing to high-dose Advair I do think patient will be a good candidate for biologic Cardiovascular: -- Hypertension On diltiazem at home Patient is currently normotensive. Troponin on admission was unremarkable. EKG on admission with evidence of left anterior fascicular block. Unchanged compared to prior EKG. Gastrointestinal: -- Duodenal ulcer On pantoprazole and famotidine Renal: -- Monitor BUNs/creatinine Avoid nephrotoxic medications Infectious disease: -- Urine culture growing gram-negative bacilli Although patient is asymptomatic Continue with Rocephin for the time being we have sensitivities back Respiratory viral panel was negative 03/01/2024 Complete the course of doxycycline for 5 days for atypical coverage Hematologic: No significant issues at present Endocrine: Continue with ICU hyperglycemia protocol --Prophylaxis VTE: IPC with history of duodenal ulcer GI: Pantoprazole and famotidine Lines: Peripheral Diet: Regular Plan: In/out: -531, urine output 2325 Gram-negative bacilli in the urine. Continue with Rocephin. Doxycycline for atypical coverage with respect to pulmonary source Continue with Lexapro even on discharge RAST panel as well as IgE to be done tomorrow morning as I do think patient will benefit from Biologics Decrease frequency of DuoNebs to every 8 Patient hemodynamically stable to be downgrade to medical floor Pulmonary will continue to follow Please note the above document was generated using voice recognition software. It may contain grammatical, syntax or spelling errors.Any formal questions or concerns about the content, text or information contained within the body of this dictation should be directly addressed to the provider for clarification. Admission and Anticipated Discharge Date Admission Date: March 01, 2024 Subjective Patient seen and examined at bedside. No acute distress, no adverse events overnight Patient was getting breathing treatment at the time of examination, she was saturating 98-99% She was not in respiratory distress She stated that she is feeling much better compared to yesterday. She has been off of Precedex as well as ketamine for more than 24 hours. Does complain of cough with chest congestion, denies any hemoptysis Fair appetite, no nausea or vomiting Review of Systems 2 Review of Systems: All systems reviewed & are unremarkable except as noted in Subjective Physical Exam 2 Physical Exam: Constitutional: No acute distress HEENT: EOMI, PERRLA Respiratory system: Decreased air entry bilaterally, no rhonchi, no crackles, no wheeze CVS: S1-S2 positive, no murmurs or gallops Abdomen: Soft, nontender, nondistended, positive bowel sounds x4 Extremities: +2 pulses bilaterally radialis/ dorsalis pedis, no cyanosis, no edema Neuro: Awake alert oriented x3 Psych: Normal mood and affect G/U: No Garcia Skin: no rashes, warm and dry Lymphatic: no cervical or axillary lymphadenopathy Results & Data Results & Data Vital Signs (Past 12 Hours) Vital Signs Temp Pulse Pulse Resp BP Pulse Ox Pulse Ox 03/03/24 06:00 167/80 H 03/03/24 06:00 36.8 C 85 20 96 03/03/24 05:00 132/71 03/03/24 05:00 83 17 94 03/03/24 04:00 157/82 H 03/03/24 04:00 88 21 92 03/03/24 03:40 91 H 14 95 03/03/24 03:00 86 22 95 03/03/24 03:00 36.8 C 160/87 H 03/03/24 02:00 36.8 C 160/96 H 03/03/24 02:00 88 15 94 03/03/24 01:00 166/98 H 03/03/24 01:00 88 21 95 03/03/24 00:00 94 H 03/03/24 00:00 36.9 C 171/93 H 03/03/24 00:00 89 19 93 03/02/24 23:00 102 H 27 H 163/95 H 94 03/02/24 23:00 94 03/02/24 22:00 102 H 24 94 03/02/24 21:00 109 H 21 96 03/02/24 20:00 116 H 25 H 182/94 H 92 03/02/24 19:40 03/02/24 19:35 114 H 19 93 O2 Del Method O2 Del Method O2 Flow Rate O2 Flow Rate 03/03/24 06:00 03/03/24 06:00 03/03/24 05:00 03/03/24 05:00 03/03/24 04:00 03/03/24 04:00 03/03/24 03:40 Nasal Cannula 2 03/03/24 03:00 03/03/24 03:00 03/03/24 02:00 03/03/24 02:00 03/03/24 01:00 03/03/24 01:00 03/03/24 00:00 03/03/24 00:00 03/03/24 00:00 03/02/24 23:00 03/02/24 23:00 Nasal Cannula 2 03/02/24 22:00 03/02/24 21:00 03/02/24 20:00 03/02/24 19:40 Nasal Cannula 2 03/02/24 19:35 Nasal Cannula 2 Laboratory Results 03/03/24 04:07 03/03/24 04:07 Coding Level of Care Code 51755 SUB INP/OBS CARE 3/50MIN Diagnoses Status asthmaticus with COPD (chronic obstructive pulmonary disease) J44.89; J45.902 Severe anxiety F41.9 Respiratory acidosis E87.29 Alcohol abuse F10.10 Duodenal bulb ulcer K26.9 Former smoker Z87.891 Acute respiratory failure with hypoxia and hypercapnia J96.01; J96.02
[2024-03-03] MEDS ORDERED: Nursing to Pharmacy Communication SCH (09:30)
[2024-03-03] MEDS: dilTIAZem HCL 120 MG CAPCR PO SCH (09:30)
[2024-03-03] MEDS: PANTOprazole 40 MG TAB PO SCH (10:29)
[2024-03-03] MEDS: INSULIN ASPART PER UNIT CHARGE SC SCH (12:05)
[2024-03-03] MEDS: guaiFENesin/DEXTROM SYRUP 200MG/20MG 10ML UDC PO SCH (13:21)
[2024-03-03] MEDS: ALBUT/IPRATROP 3MG/0.5MG NEB 3 ML VIAL NEB SCH (13:59)
[2024-03-03] MEDS: methylPREDNISolone 40 MG in SYRINGE 0 ML IV SCH (20:33)
--- NOTE | 2024-03-03 23:07 | Hospitalist Progress Note ---
Date of Service March 03, 2024 Assessment & Plan (1) Acute respiratory failure with hypoxia and hypercapnia: Plan: -Admit to the ICU -Presented to the ED this am with approximately 1 week of worsening SOB, wheezing, and productive cough with white sputum -Noted to be significantly hypoxic on RA with SpO2 in the 70's -Initial ABG showed a pH of 7.25, pCo2 of 60, and pO2 of 80 >Repeat ABG after initial resuscitation with pH of 7.23, pCO2 of 64, and pO2 of 78 -Currently S/P 125 mg IV Solu-medrol, an hour-long duoneb treatment, 1gm IV mag- sulfate, and a dose of doxycycline -Mild leukocytosis without acute findings on CXR, full respiratory biofire is negative -Spoke with Processing Clerk iron piler, agrees with ICU admission at this time, appreciate his help -Will continue to treat as a COPD exacerbation at this time with the Following: >40 mg Iv Solu-medrol TID >QIDr DuoNebs >BIDr Budesonide/formoterol nebs >Q12H doxycycline >Incentive spirometry, flutter therapy, prn O2 to keep SpO2 between 89-92% >Will hold PO Guaifenesin for now as she is high risk for aspiration in her current respiratory status -Will start the patient on a Precedex drip prior to starting Bipap per ICU's recommendations >Patient is willing to try this plan -Will continue to monitor patient's ABG moving forward, may need intubation if she continues to decline -Follow sputum culture w/gram stain -BL EDGAR's for DVT for now with hx of hemorrhagic shock from GI bleed last year and current use of systemic steroids -Strict NPO until respiratory status is stable -AM CBC, BMP, mag, PT/INR On 03/02 Patient remains on precedex drip. Patient will remain in the ICU with above treatment. On 03/03 Downgraded out of the ICU. Patient continues to require high dose corticosteroids and scheduled nebs. appreciate input from pulmonary (2) Acute exacerbation of COPD with asthma: Plan: -Patient denies recent medication changes, reports being compliant with outpatient medications -Denies recent tobacco abuse -Patient will need close Pulmonology follow up on discharge -Rest of care per Acute hypoxic respiratory plan (3) History of GI bleed: Plan: -Was admitted to the [facility] ICU in 2022 due to hemorrhagic shock due to bleeding Duodenal ulcer -No current abdominal pain/nausea -Denies recent melena -Will start IV pantoprazole daily while on systemic steroids (4) Hyperglycemia: Plan: -Previous hx -Glucose elevated today on arrival at 165 -Will likely become more hyperglycemic with systemic glucocorticoids -Will start q6h glucose checks, goal is 110-160 -Start CF of 50 q6h for now -If she is consistently hyperglycemic tonight can start basal insulin (5) Alcohol abuse: Plan: -Denies recent alcohol use -No signs of alcohol withdrawal at this time -Continue to monitor for alcohol withdrawal Plan \ Admission and Anticipated Discharge Date Admission Date: March 01, 2024 Subjective 58 female reports no new symptoms. She continues to ask to be discharged. She reports feeling better. Review of Systems Review of Systems: All systems reviewed & are unremarkable except as noted in HPI & below Physical Exam Physical Exam: General: sitting upright, in no distress HEENT: Normocephalic, atraumatic Chest/Pulm: not using accessory muscles to breath. Cardiac: tachycardic rate, regular rhythm, no murmurs noted Abdomen: Negative for ascites and bruising, normoactive bowel sounds, soft, non-tender to palpation throughout Musculoskeletal: Symmetrical and without signs of acute trauma Extremities: Radial, dorsalis pedis, and posterior tibial pulses are intact and symmetrical, no edema noted in the BL LE's Skin: Warm, dry, no rashes , lesions, or scars noted Neuro: Alert and oriented to person, place, month, year, and president, no focal defects, no tremors noted Psych: In acute distress due to respiratory status, polite and cooperative during the exam Results & Data Results & Data Vital Signs (Past 12 Hours) Vital Signs Temp Pulse Pulse Resp BP Pulse Ox O2 Del Method 03/03/24 22:00 165/89 H 03/03/24 22:00 67 21 94 03/03/24 21:20 Nasal Cannula 03/03/24 21:00 149/101 H 03/03/24 21:00 87 24 91 03/03/24 20:00 76 8 L 97 03/03/24 20:00 174/94 H 03/03/24 19:53 91 H 18 96 Nasal Cannula 03/03/24 18:25 36.7 C 03/03/24 15:00 78 24 143/73 H 91 Nasal Cannula 03/03/24 14:00 86 12 160/78 H 92 Nasal Cannula 03/03/24 13:59 93 H 16 95 Nasal Cannula 03/03/24 13:00 84 19 145/73 H 93 Nasal Cannula 03/03/24 12:47 36.7 C 03/03/24 12:44 92 H 19 138/83 94 Nasal Cannula O2 Flow Rate 03/03/24 22:00 03/03/24 22:00 03/03/24 21:20 2 03/03/24 21:00 03/03/24 21:00 03/03/24 20:00 03/03/24 20:00 03/03/24 19:53 2 03/03/24 18:25 03/03/24 15:00 2 03/03/24 14:00 2 03/03/24 13:59 2 03/03/24 13:00 2 03/03/24 12:47 03/03/24 12:44 2 PG Care Time/CCT Total # of Minutes Spent Total Time Spent with Patient: Total time spent is greater than 50% in coordination of care (as documented) at patient's floor/unit and/or counseling patient: Coding Level of Care Code 52320 SUB INP/OBS CARE 2/35MIN Diagnoses Acute respiratory failure with hypoxia and hypercapnia J96.01; J96.02 Acute exacerbation of COPD with asthma J44.1; J45.901 History of GI bleed Z87.19 Hyperglycemia R73.9 Alcohol abuse F10.10
[2024-03-04 04:56] LABS: Hematocrit (blood only) 36.4 % (37.0-47.0); Hemoglobin 12.2 g/dl (12.0-16.0); Immature Granulocytes # (auto) 0.06 K/uL (0.01-0.20); Immature Granulocytes % (auto) 0.8 %; Lymphocytes # (auto) 0.96 K/uL (1.20-3.40); Lymphocytes % (auto) 12.5 %; Mean Corpuscular Hemoglobin 28.4 pg (25.0-34.0); Mean Corpuscular Hgb Conc 33.5 g/dL (32.0-36.0); Mean Corpuscular Volume 84.8 fL (80.0-100.0); Mean Platelet Volume 9.6 fL (9.4-12.4); Monocytes # (auto) 0.37 K/uL (0.11-0.59); Monocytes % (auto) 4.8 %; Neutrophils # (auto) 6.31 K/uL (1.40-6.50); Neutrophils % (auto) 81.9 %; Platelet Count 315 K/uL (130-400); RDW Coefficient of Variation 13.3 % (11.5-14.5); RDW Standard Deviation 41.7 fL (36.4-46.3); Red Blood Count 4.29 M/uL (4.20-5.40)
[2024-03-04 05:07] LABS: Anion Gap 7 (3-11); BUN Creatinine Ratio 36.1 (10-20); Blood Urea Nitrogen 13 mg/dl (6-23); C Reactive Protein < 0.50 mg/dl (0-0.5); Calcium 9.4 mg/dl (8.6-10.3); Carbon Dioxide 24 mmol/L (21-32); Chloride 99 mmol/L (98-107); Creatinine Clr Calc Pharmacy 143.5 ml/min; Est GFR (African American) 135.8 ml/min; Est GFR (Non-African American) 117.2 ml/min; Glucose 134 mg/dl (70-99(Fasting)); Magnesium 2.3 mg/dl (1.7-2.4); Potassium 4.3 mmol/L (3.5-5.1); Sodium 130 mmol/L (136-145)
[2024-03-04 05:20] LABS: Prothrombin Time 11.2 Seconds (9.0-12.0)
--- NOTE | 2024-03-04 08:21 | Pulmonology Progress Note ---
Date of Service March 04, 2024 Assessment & Plan (1) Status asthmaticus with COPD (chronic obstructive pulmonary disease): (2) Severe anxiety: (3) Respiratory acidosis: (4) Alcohol abuse: (5) Duodenal bulb ulcer: (6) Former smoker: (7) Acute respiratory failure with hypoxia and hypercapnia: Plan 58-year-old female with past medical history of asthma and COPD overlap with recurrent flares presenting to the ICU due to ongoing status asthmaticus. -- Acute hypercapnic respiratory failure Likely secondary to status asthmaticus Continue with bronchodilators BiPAP nightly and as needed shortness of breath Try to wean off ketamine --Asthma-COPD overlap syndrome On the medium dose Advair HFA along with Spiriva Would recommend changing to high-dose Advair I do think patient will be a good candidate for biologic Plan: Follow-up RAST panel as well as IgE to be done tomorrow morning as I do think patient will benefit from Biologics Change DuoNebs to as needed Increase the dose of Advair to the high 2 puffs twice a day along with Spiriva Taper prednisone 40 mg for 3 days followed by 20 mg for 3 days on discharge. No further recommendation from pulmonary perspective, will sign off Please call directly with any questions Please note the above document was generated using voice recognition software. It may contain grammatical, syntax or spelling errors.Any formal questions or concerns about the content, text or information contained within the body of this dictation should be directly addressed to the provider for clarification. Admission and Anticipated Discharge Date Admission Date: March 01, 2024 Subjective Patient seen and examined at bedside. No acute distress, no adverse events overnight. She stated she is feeling much better and was asking if she could go home Denies any chest pain, no headache, no nausea, no vomiting Has been afebrile Bringing up phlegm, no hemoptysis Review of Systems 2 Review of Systems: All systems reviewed & are unremarkable except as noted in Subjective Physical Exam 2 Physical Exam: Constitutional: No acute distress HEENT: EOMI, PERRLA Respiratory system: Decreased air entry bilaterally, no rhonchi, no crackles, no wheeze CVS: S1-S2 positive, no murmurs or gallops Abdomen: Soft, nontender, nondistended, positive bowel sounds x4 Extremities: +2 pulses bilaterally radialis/ dorsalis pedis, no cyanosis, no edema Neuro: Awake alert oriented x3 Psych: Normal mood and affect G/U: No Garcia Skin: no rashes, warm and dry Lymphatic: no cervical or axillary lymphadenopathy Results & Data Results & Data Vital Signs (Past 12 Hours) Vital Signs Temp Pulse Pulse Resp BP Pulse Ox Pulse Ox 03/04/24 07:13 87 18 93 03/04/24 05:00 69 20 92 03/04/24 05:00 147/81 H 03/04/24 04:00 63 15 93 03/04/24 04:00 139/84 03/04/24 03:00 69 16 95 03/04/24 03:00 156/78 H 03/04/24 02:00 74 20 92 03/04/24 02:00 146/92 H 03/04/24 01:00 74 20 92 03/04/24 01:00 161/97 H 03/04/24 00:00 36.6 C 68 19 94 03/04/24 00:00 150/87 H 03/04/24 00:00 78 03/03/24 23:00 80 18 93 03/03/24 23:00 162/108 H 03/03/24 23:00 93 03/03/24 22:00 165/89 H 03/03/24 22:00 67 21 94 03/03/24 21:20 03/03/24 21:00 149/101 H 03/03/24 21:00 87 24 91 O2 Del Method O2 Del Method O2 Flow Rate O2 Flow Rate 03/04/24 07:13 Nasal Cannula 2 03/04/24 05:00 03/04/24 05:00 03/04/24 04:00 03/04/24 04:00 03/04/24 03:00 03/04/24 03:00 03/04/24 02:00 03/04/24 02:00 03/04/24 01:00 03/04/24 01:00 03/04/24 00:00 03/04/24 00:00 03/04/24 00:00 03/03/24 23:00 03/03/24 23:00 03/03/24 23:00 Nasal Cannula 2 03/03/24 22:00 03/03/24 22:00 03/03/24 21:20 Nasal Cannula 2 03/03/24 21:00 03/03/24 21:00 Laboratory Results 03/04/24 04:09 03/04/24 04:09 PG Care Time/CCT Total # of Minutes Spent Total Time Spent with Patient: Total time spent is greater than 50% in coordination of care (as documented) at patient's floor/unit and/or counseling patient: Coding Level of Care Code 69706 SUB INP/OBS CARE 2/35MIN Diagnoses Status asthmaticus with COPD (chronic obstructive pulmonary disease) J44.89; J45.902 Severe anxiety F41.9 Respiratory acidosis E87.29 Alcohol abuse F10.10 Duodenal bulb ulcer K26.9 Former smoker Z87.891 Acute respiratory failure with hypoxia and hypercapnia J96.01; J96.02
--- NOTE | 2024-03-04 21:51 | Hospitalist Progress Note ---
Date of Service March 04, 2024 Assessment & Plan (1) Acute respiratory failure with hypoxia and hypercapnia: Plan: -Admit to the ICU -Presented to the ED this am with approximately 1 week of worsening SOB, wheezing, and productive cough with white sputum -Noted to be significantly hypoxic on RA with SpO2 in the 70's -Initial ABG showed a pH of 7.25, pCo2 of 60, and pO2 of 80 >Repeat ABG after initial resuscitation with pH of 7.23, pCO2 of 64, and pO2 of 78 >40 mg Iv Solu-medrol TID >QIDr DuoNebs >BIDr Budesonide/formoterol nebs >Q12H doxycycline >Incentive spirometry, flutter therapy, prn O2 to keep SpO2 between 89-92% >required precedex drip for anxiety On 03/03 Downgraded out of the ICU. Patient continues to require high dose corticosteroids and scheduled nebs. appreciate input from pulmonary On 03/04 scheduled nebs tapered to PRN steroids also tapered down. requires IgE testing in AM appreciate input from pulm. Patient likely can be discharged on 03/05 in AM. (2) Acute exacerbation of COPD with asthma: Plan: -Patient denies recent medication changes, reports being compliant with outpatient medications -Denies recent tobacco abuse -Patient will need close Pulmonology follow up on discharge -Rest of care per Acute hypoxic respiratory plan (3) History of GI bleed: Plan: -Was admitted to the [facility] ICU in 2022 due to hemorrhagic shock due to bleeding Duodenal ulcer -No current abdominal pain/nausea -Denies recent melena -Will start IV pantoprazole daily while on systemic steroids (4) Hyperglycemia: Plan: -Previous hx -Glucose elevated today on arrival at 165 -Will likely become more hyperglycemic with systemic glucocorticoids -Will start q6h glucose checks, goal is 110-160 -Start CF of 50 q6h for now -If she is consistently hyperglycemic tonight can start basal insulin (5) Alcohol abuse: Plan: -Denies recent alcohol use -No signs of alcohol withdrawal at this time -Continue to monitor for alcohol withdrawal Plan \ Admission and Anticipated Discharge Date Admission Date: March 01, 2024 Subjective Patient reports feeling more comfortable. Patient has no new symptoms. Patient is breathing better. Review of Systems Review of Systems: All systems reviewed & are unremarkable except as noted in HPI & below Physical Exam Physical Exam: General: sitting upright, in no distress HEENT: Normocephalic, atraumatic Chest/Pulm: not using accessory muscles to breath. Cardiac: RRR Neuro: Alert and oriented to person, place, month, year, and president, no focal defects, no tremors noted Psych: In acute distress due to respiratory status, polite and cooperative during the exam Results & Data Results & Data Vital Signs (Past 12 Hours) Vital Signs Temp Pulse Pulse Resp BP BP Pulse Ox 03/04/24 20:01 67 18 92 03/04/24 19:53 36.6 C 71 19 176/106 H 93 03/04/24 13:08 03/04/24 12:51 77 18 94 03/04/24 12:31 36.6 C 75 18 136/76 91 03/04/24 11:25 153/86 H 03/04/24 11:25 77 23 91 03/04/24 10:00 67 22 92 O2 Del Method 03/04/24 20:01 Room Air 03/04/24 19:53 Room Air 03/04/24 13:08 Room Air 03/04/24 12:51 Room Air 03/04/24 12:31 Room Air 03/04/24 11:25 03/04/24 11:25 03/04/24 10:00 PG Care Time/CCT Total # of Minutes Spent Total Time Spent with Patient: Total time spent is greater than 50% in coordination of care (as documented) at patient's floor/unit and/or counseling patient: Coding Level of Care Code 39603 SUB INP/OBS CARE 2/35MIN Diagnoses Acute respiratory failure with hypoxia and hypercapnia J96.01; J96.02 Acute exacerbation of COPD with asthma J44.1; J45.901 History of GI bleed Z87.19 Hyperglycemia R73.9 Alcohol abuse F10.10
[2024-03-05] MEDS: methylPREDNISolone 40 MG in SYRINGE 0 ML IV SCH (07:53)
--- NOTE | 2024-03-05 09:01 | Hospitalist Progress Note ---
Date of Service March 05, 2024 Assessment & Plan (1) Acute respiratory failure with hypoxia and hypercapnia: Plan: acute exacerbation of COPD -Presented with approximately 1 week of worsening SOB, wheezing, and productive cough with white sputum -Noted to be significantly hypoxic on RA with SpO2 in the 70's steroids and QIDr DuoNebs-improved and continues to be tapered BIDr Budesonide/formoterol nebs Q12H doxycycline required precedex drip for anxiety while in icu IgE testing ordered -Patient will need close Pulmonology follow up on discharge (2) Hyperglycemia: Plan: -Previous hx A1C 03/02/24 5.5 -Glucose elevated on arrival at 165 -Will likely become more hyperglycemic with systemic glucocorticoids -Will start q6h glucose checks, goal is 110-160 -Start CF of 50 q6h for now - (3) Alcohol abuse: Plan: -Denies recent alcohol use -No signs of alcohol withdrawal at this time -Continue to monitor for alcohol withdrawal (4) History of GI bleed: Plan: -Was admitted to the [facility] ICU in 2022 due to hemorrhagic shock due to bleeding Duodenal ulcer -No current abdominal pain/nausea -Denies recent melena -Will start IV pantoprazole daily while on systemic steroids Admission and Anticipated Discharge Date Admission Date: March 01, 2024 Results & Data Results & Data Vital Signs (Past 12 Hours) Vital Signs Temp Pulse Pulse Resp BP BP Pulse Ox 03/05/24 07:49 97.5 F L 66 16 162/81 H 91 03/05/24 07:15 69 15 98 03/04/24 22:17 97.5 F L 58 L 18 174/86 H 97 03/04/24 22:15 O2 Del Method O2 Flow Rate 03/05/24 07:49 Room Air 03/05/24 07:15 Nasal Cannula 2 03/04/24 22:17 Room Air 03/04/24 22:15 Nasal Cannula 2 PG Care Time/CCT Total # of Minutes Spent Total Time Spent with Patient: Total time spent is greater than 50% in coordination of care (as documented) at patient's floor/unit and/or counseling patient: Coding Diagnoses Acute respiratory failure with hypoxia and hypercapnia J96.01; J96.02 Hyperglycemia R73.9 Alcohol abuse F10.10 History of GI bleed Z87.19
--- NOTE | 2024-03-05 18:55 | Discharge Summary ---
Discharge Summary Date of Service March 05, 2024 Notes For Next Care Provider Patient discharged on a 16-day taper of prednisone 40 x 430 x 4 20 x 410 x 4 Patient be discharged on short course of doxycycline Patient requested attempted prescription for Advair discus as that is more cost effective for her than the HFA Medication Changes From Visit As mentioned above Admission HPI Per Admitting Provider Chantell is a 58 year old female with a PMH significant for COPD-asthma overlap syndrome with previous ICU admissions requiring intubation, chronic hy poxic respiratory with prn 2L NC use, alcohol abuse, and hemorrhagic shock from bleeding duodenal ulcer who presented to the [facility] ED on 03/01/24 with complaints of progressive SOB over the past 2 weeks. She was noted to be hypertensive at 195/84, tachycardic at 115, and hypoxic with SpO2 in the 70-80s, but otherwise stable. Labs were significant for a leukocytosis 11 with neutrophil predominance of 10, negative d-dimer, POC ABG results are not currently in the chart, corrected sodium of 133, total bili of 1.4, high sen trop and BNP WNL, and negative full respiratory biofire. Chest xray was read as 1. No consolidation to suggest pneumonia. 2. Possible trace right pleural effusion.". Prior to admission the patient was given an hour-long albuterol treatment, 125 mg IV Solu-medrol, a dose of doxycycline, and 1gm IV mag-sulfate. At the time of the exam the patient was noted to be in moderate respiratory distress with tripod breathing, accessory muscle use, and difficulty completing full sentences. She was finishing the hour long duoneb at the time of my exam. States that she started noticing increased SOB, wheezing, and productive cough with white sputum approximately a week ago. Woke up this am with symptoms significant worse. Was using her home breathing treatments without improvement in symptoms. No recent medication changes, denies running out of any medications recently. Denies recent fever, chills, chest pain, hemoptysis, abd pain, nausea, vomiting, diarrhea, dysuria, hematuria, melena, LE swelling, and recent trauma. Denies recent alcohol use or tobacco use. Has had minimal improvement in her respiratory symptoms since receiving steroids and the hour long duoneb treatment. We explained that we are concerned with her current respiratory status and her risk for further clinical decline. We explained that we would ideally started her on Bipap at this time, she is very reluctant to start Bipap as she get's very anxious and is unable to tolerate it in the past. She is a full code and her sister is her POA. At this time we will repeat at stat ABG, if it is getting worse we will place the patient in the ICU for closer monitoring and possible intubation, if it is stable we will place her on PCU. Results of first ABG as of Noon: >pH: 7.25, pCO2: 60.8, pO2: 88, Bicarb: [address] Muse's attestation for any changes to the treatment plan Principal Dx & Hospital Course #1 = Principal Diagnosis (1) Acute respiratory failure with hypoxia and hypercapnia: acute exacerbation of COPD -Presented with approximately 1 week of worsening SOB, wheezing, and productive cough with white sputum -Noted to be significantly hypoxic on RA with SpO2 in the 70's Tapering steroids and recommending continue scheduled nebulizers until she improves Patient request to return to Advair home use and Spiriva Q12H doxycycline required precedex drip for anxiety while in icu anxiety is completely resolved IgE testing ordered pending results at time of discharge -Patient will need Pulmonology follow up on discharge (2) Hyperglycemia: -Previous hx A1C 03/02/24 5.5 Patient instructed to more stringent dietary restrictions while on steroids (3) Alcohol abuse: -Denies recent alcohol use -No signs of alcohol withdrawal at this time -Continue to monitor for alcohol withdrawal Counseled regarding alcohol abuse (4) History of GI bleed: -Was admitted to the [facility] ICU in 2022 due to hemorrhagic shock due to bleeding Duodenal ulcer -No current abdominal pain/nausea -Denies recent melena Continues on home pantoprazole Discharge Exam Patient awake alert appropriate. She is actually good air movement with very scant wheezes in her lung brandon. Updated Medication List Medication Instructions Recorded Confirmed Type acetaminophen 500 mg tablet 1,000 mg PO UD PRN PAIN/FEVER 03/05/23 03/03/24 History (Tylenol Extra Strength) albuterol sulfate 90 mcg/actuation 1 puff inhalation QID PRN 08/19/23 03/03/24 History aerosol inhaler Shortness Of Breath Or Wheezing Portable Oxygen E0431 #1 ea 09/05/23 11/26/23 Rx pantoprazole 40 mg tablet,delayed 40 mg PO DAILY #30 tabs 10/17/23 03/03/24 Rx release tiotropium bromide 2.5 2 puff inhalation DAILY #1 inhaler 11/20/23 03/03/24 Rx mcg/actuation mist for inhalation (Spiriva Respimat) diltiazem HCl 120 mg capsule,24 120 mg PO DAILY 03/03/24 03/03/24 History hr,extended release (Tiadylt ER) doxycycline hyclate 100 mg capsule 100 mg PO BID 5 days #10 caps 03/05/24 Rx fluticasone 250 mcg-salmeterol 50 1 inh inhalation BID #60 ea 03/05/24 Rx mcg/dose blistr powdr for inhalation (Advair Diskus) ipratropium 0.5 mg-albuterol 3 mg 3 ml inhalation QID PRN shortness 03/05/24 Rx (2.5 mg base)/3 mL nebulization of breath #180 mL soln prednisone 10 mg tablet 10 mg PO DIRECTED #40 tabs 03/05/24 Rx Hospital Stay Data Consultations 03/01/24 13:12 ED Decision to Admit Stat 03/01/24 14:10 Consult [employer] Routine Pending Results Patient Have Any Pending Studies at Discharge: Yes Discharge Instructions Given to Patient (Per Discharging Provider) please complete steroid tapering dose complete antibiotics Total Time Total Time Spent Total Time Spent (In Minutes): It required greater than 30 minutes to prepare this patient for discharge. Coding Level of Care Code 45437 INP/OBS DISCH >30 MIN Diagnoses Acute respiratory failure with hypoxia and hypercapnia J96.01; J96.02 Hyperglycemia R73.9 Alcohol abuse F10.10 History of GI bleed Z87.19
[2024-03-09 15:17] LABS: Alternaria Class 2; Alternaria IgE 0.71 kU/L; Ash (White) Class 1; Ash (White) IgE 0.44 kU/L; Asperg Fumig Class 2; Asperg Fumig IgE 1.24 kU/L; Bermuda Grass Class 0/1; Bermuda Grass IgE 0.22 kU/L; Birch Class 3; Cat Dander Class 6; Cat Dander IgE >100 kU/L; Cladosporium IgE 1.28 kU/L; Cladosporium her Class 2; Cockroach Allergen Class 0/1; Cockroach IgE Ab 0.33 kU/L; Cottonwood Class 1; Cottonwood IgE 0.45 kU/L; D. farinae Class 4; D. pteronyssinus Class 2; D. pteronyssinus IgE 2.25 kU/L; Dog Dander Class 6; Dog Dander IgE >100 kU/L; Elm Class 0/1; Immunoglobulin IgE 6641 kU/L (<OR=114); Maple (Box Elder) IgE 1.42 kU/L; Maple Class 2; Mountain Cedar Class 0/1; Mountain Cedar IgE 0.27 kU/L; Mouse Urine Protein Class 3; Mouse Urine Protein IgE 5.32 kU/L; Mugwort (W6) IgE 0.23 kU/L; Mugwort Class 0/1; Oak-White Class 3; Penic Notatum Class 1; Rough Pigweed Class 0/1; Rough Pigweed IgE 0.15 kU/L; Sheep Sorrel Class 0/1; Sheep Sorrel IgE 0.11 kU/L; Short Ragweed Class 0/1; Short Ragweed IgE 0.21 kU/L; Sycamore Class 0/1; Sycamore IgE 0.31 kU/L; Timothy Class 0/1; Walnut Tree Class 2; Walnut Tree IgE 1.42 kU/L; White Mulberry Class 0/1; White Mulberry IgE 0.14 kU/L
[2024-03-10 11:38] LABS: Cat rFel d 1 (e94) Ab IgE >100 kU/L (<0.10); Cat rFel d 4 (e228) Ab IgE >100 kU/L (<0.10); Cat rFel d 7 (e231) Ab IgE >100 kU/L (<0.10); Dog rCan f 1 Ab IgE 88.2 kU/L (<0.10); Dog rCan f 2 Ab IgE 0.12 kU/L (<0.10); Dog rCan f 4 Ab IgE 0.12 kU/L (<0.10)
== END 2024-03-05 13:21 | disposition home or self-care (01) | DRG 189 ==
LOC: ED 11:16 → SUATTDRO 13:14 → 1E 13:14 → 3E 03-04 12:25

== ENCOUNTER 2024-08-29 20:19 | Inpatient (IN) ==
--- NOTE | 2024-08-29 20:39 | Emergency Department Note ---
Impression & Plan Acute exacerbation of COPD with asthma, Wheezing ED Provider Note Provider: Aaron Hardin MD DATE OF SERVICE: 08/29/2024 CHIEF COMPLAINT: Difficulty breathing, coughing HISTORY OF PRESENT ILLNESS: Patient is a 59-year-old female extensive history of asthma COPD on chronic 2 L of oxygen as well as history of GI bleeding presenting here today reporting since around 4 AM early this morning woke up with worsening shortness of breath through the day and wheeze. Has had some cough this evening. Little bit of sweating and mild chest comfort with the coughing. No significant abdominal pain or nausea or vomiting reported. Trace swelling of lower legs. No sick contacts noted per report. No trauma or syncope. On 2 L home oxygen questions if it has been following and increased to 3 L with minimal improvement. Has had significant history of respiratory problems including intubation. Does not tolerate BiPAP well according the patient. PAST MEDICAL HISTORY: As noted above MEDICATIONS: Reviewed home medication list compliance and has been using home nebulizer and oxygen SOCIAL HISTORY: Former smoker PHYSICAL EXAM: GENERAL: alert and oriented stretcher seated upright with mild work of breathing Head: normocephalic and atraumatic EYES: No injection, discharge or icterus. EOMI. NECK: Trachea midline. ENT: Mucous membranes pink and moist. LUNGS: Airway patent. Mild tachypnea with significant expiratory wheeze HEART: Regular rate and rhythm. No chest wall tenderness ABDOMEN: Soft and non-tender, without guarding or rebound. SKIN: Acyanotic, warm, dry, without rashes EXTREMITIES: Without swelling, tenderness or deformity NEUROLOGICAL: No focal deficits. No aphasia. No facial droop or slurred speech. Ambulatory. EK beats. Normal sinus rhythm. Some respiratory artifact but no PVC or PAC. No clear acute ST segment elevation depression QTc of 464. CONTINUOUS CARDIAC MONITORING: was ordered and showed a heart rate of 90s-110s bpm in normal sinus rhythm to sinus tachycardia 1 view chest x-ray per my interpretation: No pneumonia or pneumothorax. No significant pleural effusion, pulmonary edema, or lobar consolidation appreciable. Normal cardiac silhouette. No free air. Patient's laboratory studies and imaging reviewed. Differential includes Reactive airway disease, pneumonia, pneumothorax, COPD, CHF, infections, cardiac ischemia, pulmonary embolism, musculoskeletal, gastrointestinal, as well as other pathologies. IMPRESSION/MEDICAL DECISION MAKING: Patient with significant respiratory history. Has followed with pulmonary. On chronic oxygen. Says some work of breathing and tachypnea here. Afebrile. Will check respiratory viral panel. Significantly wheezing question asthma/COPD exacerbation. Given Solu-Medrol as well as DuoNeb. VBG sent does not seem confused at this time. EKG and troponin completed but doubt acute ACS/occlusive disease although may have some demand component. Given the significant wheeze and her history of lower suspicion this represents DVT/PE. No significant swelling only trace lower extremities and doubt fluid overload. On 3 L not significantly hypoxic issues more tachypnea and work of breathing. 1 view chest x-ray from interpretation without significant abnormality appreciable such as pneumonia, fluid overload, or free air. Seems more reactive airway in nature. No significant anemia or leukocytosis on blood work. Chronic, natremia 129 noted without significant renal dysfunction or evidence of hepatitis. Procalcitonin likely low and will avoid antibiotics at this time. Respiratory viral panel negative. Troponin not elevated. Discussed with the hospitalist further care here as which aggressively treated before significant decompensation is had happened in the past. She denies any GI upset or bleeding issues at this time. DIAGNOSIS: COPD exacerbation DISPOSITION: Hospitalist will evaluate Patient was agreeable with this plan. Past Med/Surg History Problem List (Updated 08/29/24 @ 22:01 by Aaron Hardin M.D.) Allergic rhinitis with postnasal drip Peripheral eosinophilia Asthma-COPD overlap syndrome Acute exacerbation of COPD with asthma (Acute) Wheezing (Acute) COPD exacerbation (Acute) Respiratory failure (Chronic) Respiratory failure Lobar pneumonia Acute upper gastrointestinal bleeding (Acute) Hemorrhagic shock Daily consumption of alcohol Acute blood loss anemia Hematemesis Hypoxia (Acute) Asthma with exacerbation (Acute) Moderate persistent asthma Elevated troponin Allergic rhinitis Asthma (Acute) Medical History Severe anxiety Unresponsive Discharge planning issues History of GI bleed History of blood transfusion Seizure On home oxygen therapy Encounter for pre-operative examination Acute respiratory failure with hypoxia and hypercapnia Respiratory failure Allergic rhinitis due to other allergen Allergic rhinitis due to dust Murmur Extrinsic asthma Atopic dermatitis Allergic rhinitis due to pollen Allergic rhinitis due to animal dander COPD (chronic obstructive pulmonary disease) COPD with exacerbation Colon cancer screening Hypoxemia Asthma PNA (pneumonia) Surgical History History of esophagogastroduodenoscopy (EGD) History of surgical removal of ganglion cyst Family History Sister Asthma Allergic rhinitis Social History Smoking Status: Former smoker Tobacco Type: Cigarettes Second Hand Exposure: No; Do You Dip or Chew Tobacco: No; Hx Alcohol Use: No Hx Substance Use: No Preferred Language: Yi Communication Ability: Effective Nursing Home Social Worker Required: No Beliefs That Will Affect Care: None marital status: / Current Living Situation: Alone current occupational status: employed How many Children do You have: 0 Feels Safe at Home: Yes Childhood Exposure to Second-Hand Smoke: Yes Diet: regular caffeine: Yes Dental Care, Regularly: Yes Physical Activity Frequency: Daily Seatbelt Use: always Sunscreen Use: Yes Assistive Devices: Oxygen - Continuous Allergies Allergies Allergy/AdvReac Type Severity Reaction Status Date / Time animal dander Allergy Intermediate asthma Verified 03/18/24 09:41 related symptoms grass pollen-perennial rye, Allergy Intermediate asthma Verified 03/18/24 09:41 standar related sx mold Allergy Intermediate asthma Verified 03/18/24 09:41 related sx Home Meds Home Medications Medication Instructions Recorded Confirmed acetaminophen 500 mg tablet 1,000 mg PO UD PRN PAIN/FEVER 03/05/23 03/18/24 (Tylenol Extra Strength) diltiazem HCl 120 mg capsule,24 120 mg PO DAILY 03/03/24 03/18/24 hr,extended release (Tiadylt ER) Previous Rx's Medication Instructions Recorded Portable Oxygen #1 ea 09/05/23 ipratropium 0.5 mg-albuterol 3 mg 3 ml inhalation QID PRN shortness 03/05/24 (2.5 mg base)/3 mL nebulization of breath #180 mL soln benralizumab 30 mg/mL subcutaneous 30 mg subcut .COMPLEX #1 mL 03/19/24 syringe (Fasenra) albuterol sulfate 90 mcg/actuation See Rx Instructions .Route 03/20/24 aerosol inhaler .COMPLEX #8.5 ea pantoprazole 40 mg tablet,delayed See Rx Instructions .Route 05/04/24 release .COMPLEX #30 tabs fluticasone 250 mcg-salmeterol 50 1 inh inhalation BID #60 ea 06/22/24 mcg/dose blistr powdr for inhalation (Advair Diskus) montelukast 10 mg tablet 10 mg PO QPM #30 tabs 06/22/24 (Singulair) tiotropium bromide 2.5 2 puff inhalation DAILY #1 inhaler 06/22/24 mcg/actuation mist for inhalation (Spiriva Respimat) Results & Data (ED) Vital Signs Vital Signs - 24 hr 08/29/24 20:21 08/29/24 20:32 08/29/24 21:27 Temperature 36.6 C Temperature Source Temporal Artery Scan Pulse Rate 106 H 103 H Respiratory Rate 28 H Respiratory Effort / Characteristics Labored Short of Breath Respiratory Depth Deep Blood Pressure 189/95 H Blood Pressure [Right Arm] Blood Pressure Mean 126 Blood Pressure Mean [Right Arm] Blood Pressure Position [Right Arm] Pulse Oximetry 95 Oxygen Delivery Method Nasal Cannula Oxygen Flow Rate 3 Sepsis Recent Fever Within 48 Hours No Sepsis New/Unexplained Change in Mental Status No Sepsis Action Taken by Nursing No Action Required 08/29/24 21:27 08/29/24 21:27 08/29/24 21:27 Temperature Temperature Source Pulse Rate Respiratory Rate 22 Respiratory Effort / Characteristics Short of Breath Respiratory Depth Normal Blood Pressure Blood Pressure [Right Arm] 143/85 H Blood Pressure Mean Blood Pressure Mean [Right Arm] 104 Blood Pressure Position [Right Arm] Sitting Pulse Oximetry 98 98 Oxygen Delivery Method Nasal Cannula Nasal Cannula Nasal Cannula Oxygen Flow Rate 2 3 3 Sepsis Recent Fever Within 48 Hours Sepsis New/Unexplained Change in Mental Status Sepsis Action Taken by Nursing Laboratory Data 08/29/24 21:06 08/29/24 21:06 Lab Results 08/29/24 Range/Units 21:06 WBC 7.49 (4.8-10.8) K/ul RBC 4.51 (4.20-5.40) M/uL Hgb 13.1 (12.0-16.0) g/dl Hct 38.3 (37.0-47.0) % MCV 84.9 (80.0-100.0) fL MCH 29.0 (25.0-34.0) pg MCHC 34.2 (32.0-36.0) g/dL RDW Std Deviation 39.5 (36.4-46.3) fL RDW Coeff of Tea 12.7 (11.5-14.5) % Plt Count 365 (130-400) K/uL MPV 9.9 (9.4-12.4) fL Immature Gran % (Auto) 0.4 % Neut % (Auto) 68.1 % Lymph % (Auto) 22.2 % Weld % (Auto) 9.2 % Eos % (Auto) 0.0 % Baso % (Auto) 0.1 % Neut # (Auto) 5.10 (1.40-6.50) K/uL Lymph # (Auto) 1.66 (1.20-3.40) K/uL Weld # (Auto) 0.69 H (0.11-0.59) K/uL Eos # (Auto) 0.00 (0.00-0.50) K/uL Baso # (Auto) 0.01 (0.00-0.20) K/uL Immature Gran # (Auto) 0.03 (0.01-0.20) K/uL PT Cancelled INR Cancelled VBG pH Cancelled VBG pCO2 Cancelled VBG pO2 Cancelled VBG HCO3 Cancelled VBG O2 Saturation Cancelled VBG Base Excess Cancelled Barometric Pressure Cancelled Sodium 129 L (136-145) mmol/L Potassium 4.1 (3.5-5.1) mmol/L Chloride 96 L (98-107) mmol/L Carbon Dioxide 25 (21-32) mmol/L Anion Gap 8 (3-11) BUN 8 (6-23) mg/dl Creatinine 0.55 L (0.6-1.2) mg/dl Est Cr Clr Drug Dosing 104.8 ml/min eGFR 104.22 BUN/Creatinine Ratio 14.5 (10-20) Glucose 110 H (70-99(Fasting)) mg/dl Calcium 10.0 (8.6-10.3) mg/dl Magnesium 2.2 (1.7-2.4) mg/dl Total Bilirubin 1.1 H (0.2-1.0) mg/dl AST 25 (13-39) U/L ALT 17 (7-52) U/L Alkaline Phosphatase 74 (34-104) U/L Total Protein 7.4 (6.0-8.3) gm/dl Albumin 4.8 (3.4-5.0) gm/dl Globulin 2.6 (2.5-4.0) gm/dl Albumin/Globulin Ratio 1.8 (0.9-2) Administered Medications Discontinued Medications Albuterol (Albut/Ipratrop 3mg/0.5mg Neb 3 Ml Vial) 12 ml NEB ONE ONE; Protocol Stop: 08/29/24 20:35 Last Admin: 08/29/24 21:17 Dose: 12 ml Documented By: JESSE Methylprednisolone (Methylprednisolone 125 Mg/2 Ml Vial) 125 mg IV NOW STA Stop: 08/29/24 20:35 Last Admin: 08/29/24 21:18 Dose: 125 mg Documented By: JESSE Discharge Plan Visit Data Chief Complaint: Respiratory Problems Stated Complaint: TROUBLE BREATHING ED Provider: Aaron Hardin Discharge Problem: Acute exacerbation of COPD with asthma, Wheezing Patient Disposition: Being Evaluated by Hospitalist Forms Stand Alone Forms: My [facility] Prescriptions Prescriptions: No Action albuterol sulfate 90 mcg/actuation HFA aerosol inhaler See Rx Instructions .ROUTE .COMPLEX Qty: 8.5 11RF Dose Instruction: INHALE 1 PUFF BY MOUTH FOUR TIMES DAILY NEEDED FOR SHORTNESS OF BREATH OR WHEEZING Rx Instructions: INHALE 1 PUFF BY MOUTH FOUR TIMES DAILY NEEDED FOR SHORTNESS OF BREATH OR WHEEZING pantoprazole 40 mg tablet,delayed release (DR/EC) See Rx Instructions .ROUTE .COMPLEX Qty: 30 5RF Dose Instruction: TAKE 1 TABLET BY MOUTH EVERY DAY Rx Instructions: TAKE 1 TABLET BY MOUTH EVERY DAY Fasenra 30 mg/mL syringe 30 mg subcut .COMPLEX Qty: 1 9RF Rx Instructions: INJECT 1 SYRINGE (30 MG) UNDER THE SKIN AT WEEKS 0, 4, 8 THEN EVERY 8 WEEKS THEREAFTER; APPROVED: 01/18/24 - 03/18/25 [id number] ([facility] [place]) Portable Oxygen Misc See Rx Instructions .Route Qty: 1 0RF Rx Instructions: Portable Oxygen Concentrator for 2 L [place] fluticasone propion-salmeterol [Advair Diskus] 250-50 mcg/dose blister with device 1 inh inhalation BID Qty: 60 5RF Spiriva Respimat 2.5 mcg/actuation mist 2 puff inhalation DAILY Qty: 1 5RF montelukast [Singulair] 10 mg tablet 10 mg PO QPM Qty: 30 5RF acetaminophen [Tylenol Extra Strength] 500 mg Tablet 1,000 mg PO UD PRN (Reason: PAIN/FEVER) diltiazem HCl [Tiadylt ER] 120 mg Capsule,Extended Release 24 Hr 120 mg PO DAILY ipratropium-albuterol 0.5 mg-3 mg(2.5 mg base)/3 mL solution for nebulization 3 ml inhalation QID PRN (Reason: shortness of breath) Qty: 180 11RF Rx Instructions: until breathing returns to target peak flow/parameters Referrals Referrals: Everette Leija DO [Primary Care Provider] -
[2024-08-29] MEDS: ALBUT/IPRATROP 3MG/0.5MG NEB 3 ML VIAL NEB ONE (21:17)
[2024-08-29] MEDS: methylPREDNISolone 125 MG/2 ML VIAL IV STA (21:18)
[2024-08-29 21:37] LABS: Basophils # (auto) 0.01 K/uL (0.00-0.20); Basophils % (auto) 0.1 %; Hematocrit (blood only) 38.3 % (37.0-47.0); Hemoglobin 13.1 g/dl (12.0-16.0); Immature Granulocytes # (auto) 0.03 K/uL (0.01-0.20); Immature Granulocytes % (auto) 0.4 %; Lymphocytes # (auto) 1.66 K/uL (1.20-3.40); Lymphocytes % (auto) 22.2 %; Mean Corpuscular Hgb Conc 34.2 g/dL (32.0-36.0); Mean Corpuscular Volume 84.9 fL (80.0-100.0); Mean Platelet Volume 9.9 fL (9.4-12.4); Monocytes # (auto) 0.69 K/uL (0.11-0.59); Monocytes % (auto) 9.2 %; Neutrophils % (auto) 68.1 %; Platelet Count 365 K/uL (130-400); RDW Coefficient of Variation 12.7 % (11.5-14.5); RDW Standard Deviation 39.5 fL (36.4-46.3); Red Blood Count 4.51 M/uL (4.20-5.40); White Blood Count 7.49 K/ul (4.8-10.8)
[2024-08-29 21:47] LABS: Albumin Globulin Ratio 1.8 (0.9-2); Albumin Level 4.8 gm/dl (3.4-5.0); BUN Creatinine Ratio 14.5 (10-20); Bilirubin,Total 1.1 mg/dl (0.2-1.0); Creatinine Clr Calc Pharmacy 104.8 ml/min; Globulin 2.6 gm/dl (2.5-4.0); Magnesium 2.2 mg/dl (1.7-2.4); Potassium 4.1 mmol/L (3.5-5.1); Total Protein 7.4 gm/dl (6.0-8.3)
[2024-08-29 21:52] LABS: Adenovirus PCR Not Detected (NotDetected); Bordetella parapertussis PCR Not Detected (NotDetected); Bordetella pertussis PCR Not Detected (NotDetected); Chlamydia pneumoniae PCR Not Detected (NotDetected); Coronavirus 229E PCR Not Detected (NotDetected); Coronavirus CoV-2 (COVID19)PCR Not Detected (NotDetected); Coronavirus HKU1 PCR Not Detected (NotDetected); Coronavirus NL63 PCR Not Detected (NotDetected); Coronavirus OC43PCR Not Detected (NotDetected); Human Metapneumovirus PCR Not Detected (NotDetected); Influenza A PCR Not Detected (NotDetected); Influenza B PCR Not Detected (NotDetected); Mycoplasma pneumoniae PCR Not Detected (NotDetected); Parainfluenza Virus 1 PCR Not Detected (NotDetected); Parainfluenza Virus 2 PCR Not Detected (NotDetected); Parainfluenza Virus 3 PCR Not Detected (NotDetected); Parainfluenza Virus 4 PCR Not Detected (NotDetected); Respiratory Syncytial VirusPCR Not Detected (NotDetected); Rhinovirus/Enterovirus PCR Not Detected (NotDetected)
[2024-08-29 21:54] LABS: Troponin I High Sensitivity 4.1 pg/ml (0-14)
--- NOTE | 2024-08-29 22:31 | History & Physical Report ---
Date of Service August 29, 2024 Assessment & Plan (1) Acute respiratory failure with hypoxia: (2) Asthma-COPD overlap syndrome: (3) COPD exacerbation: (4) Peripheral eosinophilia: (5) Hypertension: Plan Acute on chronic respiratory failure with hypoxia/COPD exacerbation/asthma-COPD overlap syndrome/peripheral eosinophilia- Admit to monitored bed From the ED received Solu-Medrol" 5 mg IV, and an hour-long DuoNeb Solu-Medrol 40 mg IV every 8 hours Duonebs every 4 hours while awake and every 2 hours when necessary. Sputum Gram stain and culture Guaifenesin extended release 1200 mg p.o. twice daily Azithromycin 500 mg p.o. now, and then 250 mg p.o. every morning On Fasenra in the outpatient setting\\ Hypertension- Continue Cardizem 120 mg p.o. every morning Cardizem 1 mg IV every 4 hours as needed for systolic blood pressure greater than 150 History of duodenal ulcer with visible vessel bleeding/GERD- GERD pantoprazole 40 mg p.o. now, and then every morning History of tobacco abuse and alcohol abuse- Continued avoidance encouraged History of Present Illness Chief Complaint: The patient presents to the emergency department plaint worsening shortness of breath that began around 4:00 in the morning when she woke up. She does wear 2 L oxygen at nighttime as needed, and may bring her oxygen supply to work, however, has never needed to use it there. Primary Care Provider: Everette Leija DO The patient is a 59-year-old female with a past medical history including allergic rhinitis, peripheral eosinophilia, asthma-COPD overlap syndrome, history of respiratory failure, history of lobar pneumonia, history of hemorrhagic shock secondary to acute blood loss anemia due to hematemesis, history of tobacco use, history of alcohol use, history of duodenal ulcer with visible vessel bleeding on 08-21-2023. The patient presents to the emergency department symptoms as noted above. Allergies Allergy/AdvReac Type Severity Reaction Status Date / Time animal dander Allergy Intermediate asthma Verified 03/18/24 09:41 related symptoms grass pollen-perennial rye, Allergy Intermediate asthma Verified 03/18/24 09:41 standar related sx mold Allergy Intermediate asthma Verified 03/18/24 09:41 related sx Home Medications Medication Instructions Recorded Confirmed Type Portable Oxygen #1 ea 09/05/23 08/29/24 Rx diltiazem HCl 120 mg capsule,24 120 mg PO DAILY 03/03/24 08/29/24 History hr,extended release (Tiadylt ER) ipratropium 0.5 mg-albuterol 3 mg 3 ml inhalation QID PRN shortness 03/05/24 08/29/24 Rx (2.5 mg base)/3 mL nebulization of breath #180 mL soln benralizumab 30 mg/mL subcutaneous 30 mg subcut .COMPLEX #1 mL 03/19/24 08/29/24 Rx syringe (Fasenra) montelukast 10 mg tablet 10 mg PO QPM #30 tabs 06/22/24 08/29/24 Rx (Singulair) tiotropium bromide 2.5 2 puff inhalation DAILY #1 inhaler 06/22/24 08/29/24 Rx mcg/actuation mist for inhalation (Spiriva Respimat) albuterol sulfate 90 mcg/actuation 1 puff inhalation QID PRN 08/29/24 08/29/24 History aerosol inhaler Shortness Of Breath Or Wheezing fluticasone propionate 115 2 puff inhalation BID 08/29/24 08/29/24 History mcg-salmeterol 21 mcg/actuation HFA inhaler (Advair HFA) pantoprazole 40 mg tablet,delayed 40 mg PO DAILY 08/29/24 08/29/24 History release Past Med/Surg History Problem List (Updated 08/30/24 @ 03:18 by Cruz Florez MD) Hypertension Acute respiratory failure with hypoxia Allergic rhinitis with postnasal drip Peripheral eosinophilia Asthma-COPD overlap syndrome Acute exacerbation of COPD with asthma (Acute) Wheezing (Acute) COPD exacerbation (Acute) Respiratory failure (Chronic) Respiratory failure Lobar pneumonia Acute upper gastrointestinal bleeding (Acute) Hemorrhagic shock Daily consumption of alcohol Acute blood loss anemia Hematemesis Hypoxia (Acute) Asthma with exacerbation (Acute) Moderate persistent asthma Elevated troponin Allergic rhinitis Asthma (Acute) Medical History Severe anxiety Unresponsive Discharge planning issues History of GI bleed History of blood transfusion Seizure On home oxygen therapy Encounter for pre-operative examination Acute respiratory failure with hypoxia and hypercapnia Respiratory failure Allergic rhinitis due to other allergen Allergic rhinitis due to dust Murmur Extrinsic asthma Atopic dermatitis Allergic rhinitis due to pollen Allergic rhinitis due to animal dander COPD (chronic obstructive pulmonary disease) COPD with exacerbation Colon cancer screening Hypoxemia Asthma PNA (pneumonia) Surgical History History of esophagogastroduodenoscopy (EGD) History of surgical removal of ganglion cyst Family History Sister Asthma Allergic rhinitis Social History Smoking Status: Former smoker Tobacco Type: Cigarettes Second Hand Exposure: Yes; Do You Dip or Chew Tobacco: No; Tobacco Cessation Education Requested by Patient: No Hx Alcohol Use: Yes Alcohol type: beer Hx Substance Use: No Preferred Language: Belarusian Communication Ability: Effective Casting Supervisor Required: No Beliefs That Will Affect Care: None marital status: / Current Living Situation: Alone current occupational status: employed How many Children do You have: 0 Other Information That Helps Us Care for You: No Feels Safe at Home: Yes Safety Concerns: Feels Safe At This Time Childhood Exposure to Second-Hand Smoke: Yes Diet: regular caffeine: Yes Dental Care, Regularly: Yes Physical Activity Frequency: Daily Seatbelt Use: always Sunscreen Use: Yes Assistive Devices: Glasses and Oxygen - at Night Review of Systems Review of Systems: The patient denies chest pain, palpitations, lower extremity swelling, sore throat, fevers, chills, sweats, weight change, fatigue, nausea, vomiting, diarrhea , constipation, abdominal pain, pelvic pain, blood in urine or stool, dysuria, urinary frequency or urgency, lightheadedness, dizziness, headache, memory loss, loss of consciousness, rash, abnormal bruising or bleeding, imbalance, focal or generalized weakness, numbness or tingling in arms or legs, generalized arthralgias or myalgias, back or neck pain, or night sweats. The review of systems is otherwise negative other than for that already noted above, and at least 10 systems have been reviewed. Physical Exam Physical Exam: The patient is awake, alert and oriented 3, well developed and well nourished, normocephalic and atraumatic, lying in bed and in no acute distress. HEENT--PERRL, EOMI, mucous membranes and oropharynx normal Neck--supple. No JVD. No bruits. Thyroid normal, trachea midline, no adenopathy. Heart--normal S1 and S2. No murmurs, rubs or gallops. Lungs--few coarse breath sounds with wheezes bilaterally. No respiratory distress, no accessory muscle use. Abdomen--normal bowel sounds and soft. Nontender. Nondistended, no hernias or masses, no organomegaly. Extremities--no cyanosis or clubbing. No edema. There are good distal pulses b/l. Dermatologic--normal skin turgor, normal color, no abnormal lymph nodes, no rash. Neurologic--cranial nerves II through XII grossly intact. Rheumatologic--normal range of motion. Psychiatric--normal affect. Results & Data Results & Data Vital Signs (Past 12 Hours) Vital Signs Temp Pulse Resp BP BP Pulse Ox O2 Del Method 08/29/24 21:27 98 Nasal Cannula 08/29/24 21:27 22 143/85 H 98 Nasal Cannula 08/29/24 21:27 Nasal Cannula 08/29/24 20:32 103 H 08/29/24 20:21 36.6 C 106 H 28 H 189/95 H 95 Nasal Cannula O2 Flow Rate 08/29/24 21:27 3 08/29/24 21:27 3 08/29/24 21:27 2 08/29/24 20:32 08/29/24 20:21 3 Laboratory Results Laboratory Results WBC 7.49 K/ul (4.8-10.8) 08/29/24 21:06 RBC 4.51 M/uL (4.20-5.40) 08/29/24 21:06 Hgb 13.1 g/dl (12.0-16.0) 08/29/24 21:06 Hct 38.3 % (37.0-47.0) 08/29/24 21:06 MCV 84.9 fL (80.0-100.0) 08/29/24 21:06 MCH 29.0 pg (25.0-34.0) 08/29/24 21:06 MCHC 34.2 g/dL (32.0-36.0) 08/29/24 21:06 RDW Std Deviation 39.5 fL (36.4-46.3) 08/29/24 21:06 RDW Coeff of Tea 12.7 % (11.5-14.5) 08/29/24 21:06 Plt Count 365 K/uL (130-400) 08/29/24 21:06 MPV 9.9 fL (9.4-12.4) 08/29/24 21:06 Immature Gran % (Auto) 0.4 % 08/29/24 21:06 Neut % (Auto) 68.1 % 08/29/24 21:06 Lymph % (Auto) 22.2 % 08/29/24 21:06 [place] % (Auto) 9.2 % 08/29/24 21:06 Eos % (Auto) 0.0 % 08/29/24 21:06 Baso % (Auto) 0.1 % 08/29/24 21:06 Neut # (Auto) 5.10 K/uL (1.40-6.50) 08/29/24 21:06 Lymph # (Auto) 1.66 K/uL (1.20-3.40) 08/29/24 21:06 [place] # (Auto) 0.69 K/uL (0.11-0.59) H 08/29/24 21:06 Eos # (Auto) 0.00 K/uL (0.00-0.50) 08/29/24 21:06 Baso # (Auto) 0.01 K/uL (0.00-0.20) 08/29/24 21:06 Immature Gran # (Auto) 0.03 K/uL (0.01-0.20) 08/29/24 21:06 PT 10.5 Seconds (9.0-12.0) 08/29/24 22:49 INR 1.0 (0.9-1.1) 08/29/24 22:49 VBG pH 7.39 (7.36-7.41) 08/29/24 22:49 VBG pCO2 40 mmHg (38-50) 08/29/24 22:49 VBG pO2 56 mmHg 08/29/24 22:49 VBG HCO3 24 mmol/L 08/29/24 22:49 VBG O2 Saturation 91.1 % 08/29/24 22:49 VBG Base Excess -0.7 mEq/L 08/29/24 22:49 Barometric Pressure Cancelled 08/29/24 21:06 Sodium 129 mmol/L (136-145) L 08/29/24 21:06 Potassium 4.1 mmol/L (3.5-5.1) 08/29/24 21:06 Chloride 96 mmol/L (98-107) L 08/29/24 21:06 Carbon Dioxide 25 mmol/L (21-32) 08/29/24 21:06 Anion Gap 8 (3-11) 08/29/24 21:06 BUN 8 mg/dl (6-23) 08/29/24 21:06 Creatinine 0.55 mg/dl (0.6-1.2) L 08/29/24 21:06 Est Cr Clr Drug Dosing 104.8 ml/min 08/29/24 21:06 eGFR 104.22 08/29/24 21:06 BUN/Creatinine Ratio 14.5 (10-20) 08/29/24 21:06 Glucose 110 mg/dl (70-99(Fasting)) H 08/29/24 21:06 Calcium 10.0 mg/dl (8.6-10.3) 08/29/24 21:06 Magnesium 2.2 mg/dl (1.7-2.4) 08/29/24 21:06 Total Bilirubin 1.1 mg/dl (0.2-1.0) H 08/29/24 21:06 AST 25 U/L (13-39) 08/29/24 21:06 ALT 17 U/L (7-52) 08/29/24 21:06 Alkaline Phosphatase 74 U/L (34-104) 08/29/24 21:06 Troponin I High Sens 4.1 pg/ml (0-14) 08/29/24 21:06 Total Protein 7.4 gm/dl (6.0-8.3) 08/29/24 21:06 Albumin 4.8 gm/dl (3.4-5.0) 08/29/24 21:06 Globulin 2.6 gm/dl (2.5-4.0) 08/29/24 21:06 Albumin/Globulin Ratio 1.8 (0.9-2) 08/29/24 21:06 Procalcitonin < 0.02 ng/ml (0-0.5) 08/29/24 21:06 Adenovirus (PCR) Not Detected (NotDetected) 08/29/24 20:42 B. pertussis DNA (PCR) Not Detected (NotDetected) 08/29/24 20:42 B.parapertussis DNA PCR Not Detected (NotDetected) 08/29/24 20:42 C. pneumoniae DNA (PCR) Not Detected (NotDetected) 08/29/24 20:42 Coronavirus OC43 (PCR) Not Detected (NotDetected) 08/29/24 20:42 Coronavirus HKU1 (PCR) Not Detected (NotDetected) 08/29/24 20:42 Coronavirus 229E (PCR) Not Detected (NotDetected) 08/29/24 20:42 SARS-CoV-2 (PCR) Not Detected (NotDetected) 08/29/24 20:42 Coronavirus NL63 (PCR) Not Detected (NotDetected) 08/29/24 20:42 Human Metapneumovir PCR Not Detected (NotDetected) 08/29/24 20:42 Influenza Type A (PCR) Not Detected (NotDetected) 08/29/24 20:42 Influenza Type B (PCR) Not Detected (NotDetected) 08/29/24 20:42 M. pneumoniae (PCR) Not Detected (NotDetected) 08/29/24 20:42 Parainfluenza 1 (PCR) Not Detected (NotDetected) 08/29/24 20:42 Parainfluenza 2 (PCR) Not Detected (NotDetected) 08/29/24 20:42 Parainfluenza 3 (PCR) Not Detected (NotDetected) 08/29/24 20:42 Parainfluenza 4 (PCR) Not Detected (NotDetected) 08/29/24 20:42 RSV (PCR) Not Detected (NotDetected) 08/29/24 20:42 Entero/Rhino (PCR) Not Detected (NotDetected) 08/29/24 20:42 Code Status & VTE Plan Code Status Full code VTE Prophylaxis Plan VTE Prophylaxis will be ordered: Yes PG Care Time/CCT Total # of Minutes Spent Total Time Spent with Patient: Total time spent is greater than 50% in coordination of care (as documented) at patient's floor/unit and/or counseling patient: Coding Level of Care Code 51921 INT INP/OBS CARE 3/75MIN Diagnoses Acute respiratory failure with hypoxia J96.01 Asthma-COPD overlap syndrome J44.89 COPD exacerbation J44.1 Peripheral eosinophilia D72.19 Hypertension I10
[2024-08-29 23:05] LABS: Base Excess VBG -0.7 mEq/L; HCO3 VBG 24 mmol/L; Oxygen Saturation VBG 91.1 %; PCO2 VBG 40 mmHg (38-50); PO2 VBG 56 mmHg; pH VBG 7.39 (7.36-7.41)
[2024-08-29] MEDS ORDERED: ACETAMINOPHEN 325 MG TAB PO PRN (23:33)
[2024-08-29 23:47] LABS: Prothrombin Time 10.5 Seconds (9.0-12.0)
[2024-08-30] MEDS: guaiFENesin 600 MG TABCR PO STA (00:39)
[2024-08-30] MEDS: dilTIAZem HCL 120 MG CAPCR PO STA (00:39)
[2024-08-30] MEDS: PANTOprazole 40 MG TAB PO STA (01:03)
[2024-08-30] MEDS: AZITHROMYCIN 250 MG TAB PO STA (01:03)
[2024-08-30] MEDS ORDERED: dilTIAZem HCl 5 MG/ML 5 ML VIAL IV PRN (03:12)
[2024-08-30 05:23] LABS: Hematocrit (blood only) 37.5 % (37.0-47.0); Hemoglobin 12.5 g/dl (12.0-16.0); Lymphocytes % (auto) 14.3 %; Mean Corpuscular Hemoglobin 28.6 pg (25.0-34.0); Mean Corpuscular Hgb Conc 33.3 g/dL (32.0-36.0); Mean Corpuscular Volume 85.8 fL (80.0-100.0); Mean Platelet Volume 9.3 fL (9.4-12.4); Monocytes # (auto) 0.04 K/uL (0.11-0.59); Monocytes % (auto) 1.1 %; Neutrophils # (auto) 2.96 K/uL (1.40-6.50); Neutrophils % (auto) 84.6 %; Platelet Count 315 K/uL (130-400); RDW Coefficient of Variation 12.7 % (11.5-14.5); RDW Standard Deviation 39.9 fL (36.4-46.3); Red Blood Count 4.37 M/uL (4.20-5.40)
[2024-08-30] MEDS: methylPREDNISolone 40 MG in SYRINGE 0 ML IV SCH (05:30)
[2024-08-30 05:40] LABS: Albumin Level 4.4 gm/dl (3.4-5.0); BUN Creatinine Ratio 18.9 (10-20); Calcium 9.9 mg/dl (8.6-10.3); Creatinine Clr Calc Pharmacy 104.3 ml/min; Magnesium 2.2 mg/dl (1.7-2.4); Phosphorus 2.8 mg/dl (2.5-4.9); Potassium 4.2 mmol/L (3.5-5.1)
[2024-08-30] MEDS ORDERED: methylPREDNISolone 10 mg/mL (For Ped Dose < 7mg) IV SCH (07:00)
[2024-08-30] MEDS: ALBUT/IPRATROP 3MG/0.5MG NEB 3 ML VIAL NEB SCH (07:17)
--- NOTE | 2024-08-30 09:40 | XRay Report ---
SINGLE VIEW CHEST CLINICAL HISTORY: Dyspnea FINDINGS: An AP, portable, upright chest radiograph is compared to study dated 03/02/2024 and correlat ed with chest CT dated 08/13/2024. The cardiomediastinal silhouette is unremarkable. Emphysema and chr onic interstitial thickening is similar to previous. There is mild bibasilar scarring/atelectasis. No airspace consolidation or large pleural effusion is identified. No pneumothorax is seen. The skeleta l structures are osteopenic. The bony thorax is grossly intact. IMPRESSION: Emphysematous change with no active disease in the chest. ACT 112: Negative or not required by law. Electronically signed by: Reji Angeles M.D. 08/30/2024 9:39 AM
[2024-08-30] MEDS: guaiFENesin 600 MG TABCR PO SCH (10:13)
[2024-08-30] MEDS: dilTIAZem HCL 120 MG CAPCR PO SCH (10:13)
--- NOTE | 2024-08-30 13:48 | Hospitalist Progress Note ---
Date of Service August 30, 2024 Assessment & Plan (1) Acute respiratory failure with hypoxia: (2) Asthma-COPD overlap syndrome: (3) COPD exacerbation: (4) Peripheral eosinophilia: (5) Hypertension: Plan Acute on chronic respiratory failure with hypoxia/COPD exacerbation/asthma-COPD overlap syndrome/peripheral eosinophilia- Admit to monitored bed From the ED received Solu-Medrol" 5 mg IV, and an hour-long DuoNeb Solu-Medrol 40 mg IV every 8 hours. Continue Duonebs every 4 hours while awake and every 2 hours when necessary. Sputum Gram stain and culture Guaifenesin extended release 1200 mg p.o. twice daily Azithromycin 250 mg p.o. every morning On Fasenra in the outpatient setting Hypertension- Continue Cardizem 120 mg p.o. every morning Cardizem 1 mg IV every 4 hours as needed for systolic blood pressure greater than 150 History of duodenal ulcer with visible vessel bleeding/GERD- GERD pantoprazole 40 mg p.o. now, and then every morning History of tobacco abuse and alcohol abuse- Continued avoidance encouraged Admission and Anticipated Discharge Date Admission Date: August 29, 2024 Subjective Patient was seen and examined at 9:30 AM. She states that she feels much better overall. Denies chest pain. Breathing has improved significantly. Review of Systems Review of Systems: All systems reviewed & are unremarkable except as noted in Subjective Physical Exam Physical Exam: General: Awake, conversant Heart: S1, S2/regular rate and rhythm, no murmur rubs or gallops Lungs: Diminished breath sounds bilaterally. No wheezing heard. Normal effort Abdomen: Soft/nontender/nondistended. No hepatosplenomegaly Extremities: No clubbing/cyanosis. No edema Behavior: Appropriate, cooperative Results & Data Results & Data Vital Signs (Past 12 Hours) Vital Signs Temp Pulse Pulse Resp BP BP Pulse Ox 08/30/24 11:25 36.7 C 96 H 19 137/75 94 08/30/24 11:07 96 H 16 92 08/30/24 07:34 36.9 C 94 H 19 131/78 96 08/30/24 07:18 99 H 15 97 08/30/24 04:20 148/77 H 08/30/24 03:58 36.8 C 110 H 18 159/87 H 96 08/30/24 02:00 102 H O2 Del Method O2 Flow Rate 08/30/24 11:25 Nasal Cannula 08/30/24 11:07 Room Air 08/30/24 07:34 Nasal Cannula 3 08/30/24 07:18 Nasal Cannula 3 08/30/24 04:20 08/30/24 03:58 Nasal Cannula 3 08/30/24 02:00 Laboratory Results Abnormal lab results 08/29/24 08/30/24 Range/Units 21:06 04:59 WBC 3.50 L (4.8-10.8) K/ul MPV 9.3 L (9.4-12.4) fL Lymph # (Auto) 0.50 L (1.20-3.40) K/uL [place] # (Auto) 0.69 H 0.04 L (0.11-0.59) K/uL Immature Gran # (Auto) 0.00 L (0.01-0.20) K/uL Sodium 129 L 130 L (136-145) mmol/L Chloride 96 L (98-107) mmol/L Creatinine 0.55 L 0.53 L (0.6-1.2) mg/dl Glucose 110 H 151 H (70-99(Fasting)) mg/dl Total Bilirubin 1.1 H (0.2-1.0) mg/dl PG Care Time/CCT Total # of Minutes Spent Total Time Spent with Patient: Total time spent is greater than 50% in coordination of care (as documented) at patient's floor/unit and/or counseling patient: Coding Level of Care Code 16247 SUB INP/OBS CARE 2/35MIN Diagnoses Acute respiratory failure with hypoxia J96.01 Asthma-COPD overlap syndrome J44.89 COPD exacerbation J44.1 Peripheral eosinophilia D72.19 Hypertension I10
[2024-08-30 15:50] LABS: Appearance Urine Clear (Clear); Bacteria Urine Automated 4+ (None Seen); Bilirubin Urine Negative (Negative); Blood Urine Negative (Negative); Cast Urine Automated 0-2 /lpf (0-2); Color Urine Yellow; Epithelial Cell Urine Auto 0-2 /hpf (0-2); Glucose Urine UA Trace (Negative); Ketones Urine Trace (Negative); Leukocyte Esterase Urine Negative (Negative); Nitrite Urine Positive (Negative); Protein Urine Negative (Negative); RBC Urine Automated 0-2 /hpf (0-2); Specific Gravity Urine 1.008 (1.000-1.030); Urobilinogen Urine Negative (Negative); WBC Urine Automated 0-5 /hpf (0-5)
[2024-08-30] MEDS: MONTELUKAST SODIUM 10 MG TABLET PO SCH (20:31)
[2024-08-30] MEDS: AZITHROMYCIN 250 MG TAB PO SCH (20:31)
[2024-08-31 06:24] LABS: Hematocrit (blood only) 35.6 % (37.0-47.0); Mean Corpuscular Hemoglobin 29.1 pg (25.0-34.0); Mean Corpuscular Hgb Conc 33.7 g/dL (32.0-36.0); Mean Corpuscular Volume 86.2 fL (80.0-100.0); Mean Platelet Volume 9.7 fL (9.4-12.4); Platelet Count 311 K/uL (130-400); RDW Coefficient of Variation 12.9 % (11.5-14.5); RDW Standard Deviation 40.4 fL (36.4-46.3); Red Blood Count 4.13 M/uL (4.20-5.40); White Blood Count 12.94 K/ul (4.8-10.8)
[2024-08-31 06:37] LABS: Albumin Level 4.2 gm/dl (3.4-5.0); Calcium 9.8 mg/dl (8.6-10.3); Creatinine Clr Calc Pharmacy 106.4 ml/min; Magnesium 2.3 mg/dl (1.7-2.4); Phosphorus 3.2 mg/dl (2.5-4.9); Potassium 4.5 mmol/L (3.5-5.1)
[2024-08-31] MEDS: INFLUENZA VACC TS2024-25(6m+)/PF (IIV3) 0.5mL Syr IM ONE (06:38)
[2024-08-31 07:00] LABS: Basophils # (auto) 0.01 K/uL (0.00-0.20); Basophils % (auto) 0.1 %; Immature Granulocytes # (auto) 0.08 K/uL (0.01-0.20); Immature Granulocytes % (auto) 0.6 %; Lymphocytes # (auto) 0.93 K/uL (1.20-3.40); Lymphocytes % (auto) 7.2 %; Monocytes # (auto) 0.25 K/uL (0.11-0.59); Monocytes % (auto) 1.9 %; Neutrophils # (auto) 11.67 K/uL (1.40-6.50); Neutrophils % (auto) 90.2 %
[2024-08-31] MEDS ORDERED: Nursing to Pharmacy Communication SCH (09:15)
[2024-08-31] MEDS: PANTOprazole 40 MG TAB PO SCH (11:56)
[2024-08-31] MEDS: UMECLIDINIUM BROMIDE 62.5MCG/BLISTER 7 PUFFS/INHALER INH SCH (13:51)
[2024-08-31] MEDS: FLUTICASONE/VILANTEROL 100/25MCG 14 PUFFS/INHALER INH SCH (13:52)
--- NOTE | 2024-08-31 14:52 | Hospitalist Progress Note ---
Date of Service August 31, 2024 Assessment & Plan (1) Acute respiratory failure with hypoxia: (2) Asthma-COPD overlap syndrome: (3) COPD exacerbation: (4) Peripheral eosinophilia: (5) Hypertension: Plan Acute on chronic respiratory failure with hypoxia/COPD exacerbation/asthma-COPD overlap syndrome/peripheral eosinophilia- Admit to monitored bed From the ED received Solu-Medrol" 5 mg IV, and an hour-long DuoNeb Decrease Solu-Medrol to 40 mg IV twice daily. Duonebs every 4 hours while awake and every 2 hours when necessary. Sputum Gram stain and culture Guaifenesin extended release 1200 mg p.o. twice daily Azithromycin 250 mg p.o. every morning On Fasenra in the outpatient setting Hypertension- Continue Cardizem 120 mg p.o. every morning Cardizem 1 mg IV every 4 hours as needed for systolic blood pressure greater than 150 History of duodenal ulcer with visible vessel bleeding/GERD- GERD pantoprazole 40 mg p.o. now, and then every morning History of tobacco abuse and alcohol abuse- Continued avoidance encouraged Admission and Anticipated Discharge Date Admission Date: August 29, 2024 Subjective Patient feels better overall. Breathing is improved. Review of Systems Review of Systems: All systems reviewed & are unremarkable except as noted in Subjective Physical Exam Physical Exam: General: Awake, conversant Heart: S1, S2/regular rate and rhythm, no murmur rubs or gallops Lungs: Diminished breath sounds bilaterally. Few wheezing heard bilaterally. Normal effort Abdomen: Soft/nontender/nondistended. No hepatosplenomegaly Extremities: No clubbing/cyanosis. No edema Behavior: Appropriate, cooperative Results & Data Results & Data Vital Signs (Past 12 Hours) Vital Signs Temp Pulse Pulse Resp BP Pulse Ox O2 Del Method 08/31/24 14:25 90 18 95 Nasal Cannula 08/31/24 11:33 97 H 14 94 Nasal Cannula 08/31/24 11:21 36.8 C 96 H 18 145/63 H 93 Nasal Cannula 08/31/24 07:32 36.5 C 81 18 125/70 94 Nasal Cannula 08/31/24 07:28 88 18 90 Nasal Cannula 08/31/24 07:00 74 08/31/24 03:17 36.9 C 88 14 115/76 92 Nasal Cannula O2 Flow Rate 08/31/24 14:25 2 10/21/24 11:33 2 08/31/24 11:21 3 08/31/24 07:32 2 08/31/24 07:28 1 08/31/24 07:00 08/31/24 03:17 2 PG Care Time/CCT Total # of Minutes Spent Total Time Spent with Patient: Total time spent is greater than 50% in coordination of care (as documented) at patient's floor/unit and/or counseling patient: Coding Level of Care Code 81211 SUB INP/OBS CARE 2/35MIN Diagnoses Acute respiratory failure with hypoxia J96.01 Asthma-COPD overlap syndrome J44.89 COPD exacerbation J44.1 Peripheral eosinophilia D72.19 Hypertension I10
[2024-08-31] MEDS: methylPREDNISolone 40 MG in SYRINGE 0 ML IV SCH (20:16)
[2024-09-01 02:56] VITALS: TEMP 97.7
--- NOTE | 2024-09-01 05:44 | Electrocardiogram Report ---
Test Reason : Blood Pressure : */* mmHG Vent. Rate : 99 BPM Atrial Rate : 99 BPM P-R Int : 160 ms QRS Dur : 74 ms QT Int : 362 ms P-R-T Axes : 82 23 73 degrees QTcB Int : 464 ms Normal sinus rhythm Normal ECG When compared with ECG of 01-Mar-2024 11:42, Criteria for Anterior infarct are no longer Present Confirmed by Almas Hickey ([id number]) on 09/01/2024 5:44:04 AM Referred By: REFERRED SELF Confirmed By: Almas Hickey
[2024-09-01 07:48] VITALS: RESP 17; O2SAT 95
[2024-09-01 08:26] LABS: Basophils # (auto) 0.01 K/uL (0.00-0.20); Basophils % (auto) 0.1 %; Hematocrit (blood only) 35.8 % (37.0-47.0); Hemoglobin 12.5 g/dl (12.0-16.0); Immature Granulocytes # (auto) 0.05 K/uL (0.01-0.20); Immature Granulocytes % (auto) 0.6 %; Lymphocytes # (auto) 0.91 K/uL (1.20-3.40); Lymphocytes % (auto) 10.7 %; Mean Corpuscular Hemoglobin 29.5 pg (25.0-34.0); Mean Corpuscular Hgb Conc 34.9 g/dL (32.0-36.0); Mean Corpuscular Volume 84.4 fL (80.0-100.0); Monocytes # (auto) 0.31 K/uL (0.11-0.59); Monocytes % (auto) 3.7 %; Neutrophils # (auto) 7.21 K/uL (1.40-6.50); Neutrophils % (auto) 84.9 %; Platelet Count 329 K/uL (130-400); RDW Coefficient of Variation 12.9 % (11.5-14.5); RDW Standard Deviation 39.6 fL (36.4-46.3); Red Blood Count 4.24 M/uL (4.20-5.40); White Blood Count 8.49 K/ul (4.8-10.8)
[2024-09-01 08:44] LABS: Albumin Level 4.3 gm/dl (3.4-5.0); BUN Creatinine Ratio 27.5 (10-20); Calcium 9.8 mg/dl (8.6-10.3); Creatinine Clr Calc Pharmacy 108.4 ml/min; Magnesium 2.6 mg/dl (1.7-2.4); Potassium 4.3 mmol/L (3.5-5.1)
--- NOTE | 2024-09-01 09:29 | Discharge Summary ---
Date of Service September 01, 2024 Admission HPI Per Admitting Provider The patient is a 59-year-old female with a past medical history including allergic rhinitis, peripheral eosinophilia, asthma-COPD overlap syndrome, history of respiratory failure, history of lobar pneumonia, history of hemorrhagic shock secondary to acute blood loss anemia due to hematemesis, history of tobacco use, history of alcohol use, history of duodenal ulcer with visible vessel bleeding on 08-21-2023. The patient presents to the emergency department symptoms as noted above. Admission Exam Per Admitting Provider The patient is awake, alert and oriented 3, well developed and well nourished, normocephalic and atraumatic, lying in bed and in no acute distress. HEENT--PERRL, EOMI, mucous membranes and oropharynx normal Neck--supple. No JVD. No bruits. Thyroid normal, trachea midline, no adenopathy. Heart--normal S1 and S2. No murmurs, rubs or gallops. Lungs--few coarse breath sounds with wheezes bilaterally. No respiratory distress, no accessory muscle use. Abdomen--normal bowel sounds and soft. Nontender. Nondistended, no hernias or masses, no organomegaly. Extremities--no cyanosis or clubbing. No edema. There are good distal pulses b/l. Dermatologic--normal skin turgor, normal color, no abnormal lymph nodes, no rash. Neurologic--cranial nerves II through XII grossly intact. Rheumatologic--normal range of motion. Psychiatric--normal affect. Principal Diagnosis Acute on chronic hypoxic respiratory failure due to COPD/asthma exacerbation Discharge Exam General: Awake, conversant Heart: S1, S2/regular rate and rhythm, no murmur rubs or gallops Lungs: Diminished breath sounds bilaterally. Few wheezing heard bilaterally. Normal effort Abdomen: Soft/nontender/nondistended. No hepatosplenomegaly Extremities: No clubbing/cyanosis. No edema Behavior: Appropriate, cooperative Discharge Data Allergies Allergy/AdvReac Type Severity Reaction Status Date / Time animal dander Allergy Intermediate asthma Verified 03/18/24 09:41 related symptoms grass pollen-perennial rye, Allergy Intermediate asthma Verified 03/18/24 09:41 standar related sx mold Allergy Intermediate asthma Verified 03/18/24 09:41 related sx Consultations 08/29/24 21:54 ED Decision to Admit Stat Hospital Course (1) Acute respiratory failure with hypoxia: (2) Asthma-COPD overlap syndrome: (3) COPD exacerbation: (4) Peripheral eosinophilia: (5) Hypertension: Plan Acute on chronic respiratory failure with hypoxia/COPD exacerbation/asthma-COPD overlap syndrome/peripheral eosinophilia- Admit to monitored bed From the ED received Solu-Medrol" 5 mg IV, and an hour-long DuoNeb Patient was treated with IV Solu-Medrol during this hospital stay. Now being discharged on p.o. prednisone taper Patient was treated with DuoNebs during the hospital stay Azithromycin 250 mg p.o. every morning to complete the course On Fasenra in the outpatient setting Hypertension- Continue Cardizem 120 mg p.o. every morning History of duodenal ulcer with visible vessel bleeding/GERD- GERD pantoprazole 40 mg p.o. now, and then every morning History of tobacco abuse and alcohol abuse- Continued avoidance encouraged Total Time Total Time Spent Total Time Spent (In Minutes): 35 Discharge Plan Discharge Items Patient Disposition: Home - Self-Care Reason For Visit: COPD EXACERBATION,ACUTE RESP FAILURE WITH HYPOXIA Discharge Diagnosis: Acute on chronic hypoxic respiratory failure due to COPD/asthma exacerbation Activity: Resume your previous activity Non-emergency contact: Primary Care Provider Call non-emergency contact if: you have any medication questions and your symptoms worsen Follow-up/Referrals: Everette Leija, [Primary Care Provider] - 09/08/24 1:00 pm (Hospital follow up scheduled for September 08, 2024 at 1:00pm.) Diet: Heart Healthy Addtl Attending Provider Instructions: Advised to follow-up with PCP in 1 week Pending Studies at Discharge: No Stand-Alone Forms: My [facility] Medications and DC Order Prescriptions: New azithromycin 250 mg Tablet 250 mg PO Q24H 3 Days Qty: 3 0RF prednisone 10 mg tablet 10 mg PO DAILY Qty: 20 0RF Rx Instructions: 4 tabs for 2 days, then drop by 1 tab every 2 days, then stop Continued Fasenra 30 mg/mL syringe 30 mg subcut .COMPLEX Qty: 1 9RF Rx Instructions: INJECT 1 SYRINGE (30 MG) UNDER THE SKIN AT WEEKS 0, 4, 8 THEN EVERY 8 WEEKS THEREAFTER; APPROVED: 01/18/24 - 03/18/25 [id number] ([facility] [place] Portable Oxygen Misc See Rx Instructions .Route Qty: 1 0RF Rx Instructions: Portable Oxygen Concentrator for 2 L delvery Spiriva Respimat 2.5 mcg/actuation mist 2 puff inhalation DAILY Qty: 1 5RF montelukast [Singulair] 10 mg tablet 10 mg PO QPM Qty: 30 5RF diltiazem HCl [Tiadylt ER] 120 mg Capsule,Extended Release 24 Hr 120 mg PO DAILY ipratropium-albuterol 0.5 mg-3 mg(2.5 mg base)/3 mL solution for nebulization 3 ml inhalation QID PRN (Reason: shortness of breath) Qty: 180 11RF Rx Instructions: until breathing returns to target peak flow/parameters albuterol sulfate 90 mcg/actuation HFA aerosol inhaler 1 puff inhalation QID PRN (Reason: Shortness Of Breath Or Wheezing) Rx Instructions: INHALE 1 PUFF BY MOUTH FOUR TIMES DAILY NEEDED FOR SHORTNESS OF BREATH OR WHEEZING fluticasone propion-salmeterol [Advair HFA] 115-21 mcg/actuation HFA aerosol inhaler 2 puff INHALATION BID pantoprazole 40 mg tablet,delayed release (DR/EC) 40 mg PO DAILY Discharge Orders: Discharge Order (Routine); Ordered 09/01/24 Ordered By: Ezequiel Jackson Admission Data Admit Date/Time: 08/29/24 22:30 Attending Provider: Ezequiel Jackson Admit Provider: Cruz Florez Primary Care Provider: Everette Leija Other Providers: Cruz Florez Other Interventions: Discharge Summary Assessment (RN) Last Done: 09/01/24 09:59
[2024-09-01] MEDS ORDERED: ALBUT/IPRATROP 3MG/0.5MG NEB 3 ML VIAL NEB PRN (09:41)
[2024-09-01 10:00] VITALS: BP 122/66; PULSE 91
== END 2024-09-01 11:15 | disposition home or self-care (01) | DRG 190 ==
LOC: ED 20:19 → SUATTDRO 22:30 → 4W 22:30